=== PATIENT | female | born 1955 | race Caucasian/White ===

== ENCOUNTER → 2016-08-10 | Outpatient (CLI) | payer BC ==
--- NOTE | 2016-08-11 09:14 | XR ---
EXAMINATION TYPE: XR hand complete LT DATE OF EXAM: 08/10/2016 5:04 PM COMPARISON: NONE HISTORY: Pain TECHNIQUE: Three views are submitted. FINDINGS: The osseous structures are intact. Narrowing of the PIP and DIP joints of all digits with no erosive changes. Mild narrowing of the MCP joints. There is more moderate to severe narrowing the first carpal metacarpal joint. Mild diffuse osteopenia . IMPRESSION: 1. Diffuse arthropathy with most marked changes involving the first carpal metacarpal joint in a ajay blake most typical of osteoarthritis.
== END | disposition home or self-care (01) ==
LOC: RADXRMAIN 16:47
PROVIDERS: ATTEND Orthopaedic Surgery
DX: M12.842 Other specific arthropathies, not elsewhere classified, left hand (principal)

== ENCOUNTER → 2016-08-10 | Outpatient (CLI) | payer BC ==
[2016-08-10 17:44] LABS: CH 30.5; CHCM 33.6; HCT 40.1 % (34.0-46.0); HDW 2.74; HGB 13.6 gm/dL (11.4-16.0); MCH 30.9 pg (25.0-35.0); MCHC 33.8 g/dL (31.0-37.0); MCV 91.4 fL (80.0-100.0); Mean Platelet Volume 7.6; RBC 4.39 m/uL (3.80-5.40); RDW 13.7 % (11.5-15.5); WBC 5.1 k/uL (3.8-10.6)
[2016-08-10 17:52] LABS: ALT 51 U/L (9-52); AST 42 U/L (14-36); Alkaline Phosphatase 77 U/L (38-126); Anion Gap 11 mmol/L; Blood Urea Nitrogen 18 mg/dL (7-17); Calcium 9.7 mg/dL (8.4-10.2); Carbon Dioxide 29 mmol/L (22-30); Chloride 105 mmol/L (98-107); Glucose 125 mg/dL (74-99); Magnesium 1.9 mg/dL (1.6-2.3); Non-African American GFR(MDRD) 56 (>60 ml/min/1.73 sqM); Potassium 4.2 mmol/L (3.5-5.1); Sodium 145 mmol/L (137-145); Total Bilirubin 0.6 mg/dL (0.2-1.3); Total Protein 7.3 g/dL (6.3-8.2)
[2016-08-12 15:10] LABS: Hepatits C Virus RNA, Quant <12 IU/mL (<12); LOG HCV IU/mL <1.08 (<1.08)
== END ==
LOC: LABWHC1 17:14
PROVIDERS: ATTEND Family Medicine
DX: B19.20 Unspecified viral hepatitis C without hepatic coma (principal); E03.9 Hypothyroidism, unspecified; T14.8 Other injury of unspecified body region
CPT/HCPCS: 36415; 80053; 82105; 82378; 83735; 84443; 84481; 85027; 87522

== ENCOUNTER → 2017-08-11 | Outpatient (CLI) | payer BC ==
[2017-08-11 15:34] LABS: HCT 41.5 % (34.0-46.0); HGB 13.4 gm/dL (11.4-16.0); MCHC 32.4 g/dL (31.0-37.0); MCV 89.6 fL (80.0-100.0); Mean Platelet Volume 8.6; Platelet Count 242 k/uL (150-450); RBC 4.63 m/uL (3.80-5.40); RDW 13.2 % (11.5-15.5)
[2017-08-12 14:44] LABS: Hepatits C Virus RNA Not detected (Not detected); Hepatits C Virus RNA, Quant <12 IU/mL (<12); LOG HCV IU/mL <1.08 (<1.08)
== END ==
LOC: LABWHC1 14:40
PROVIDERS: ATTEND Internal Medicine Gastroenterology
DX: B18.2 Chronic viral hepatitis C (principal); K21.9 Gastro-esophageal reflux disease without esophagitis; I21.9 Acute myocardial infarction, unspecified; I10 Essential (primary) hypertension; E03.9 Hypothyroidism, unspecified; Z88.0 Allergy status to penicillin
CPT/HCPCS: 36415; 85027; 87522

== ENCOUNTER → 2017-11-09 | Outpatient (CLI) | payer BC | END | disposition home or self-care (01) | LOC: LABWHC1 11:04 | PROVIDERS: ATTEND Orthopaedic Surgery | DX: E55.9 Vitamin D deficiency, unspecified (principal) | CPT/HCPCS: 36415; 82306 ==

== ENCOUNTER → 2018-02-28 | Outpatient (CLI) | payer BC ==
--- NOTE | 2018-02-28 11:28 | US ---
EXAMINATION TYPE: US abdomen complete DATE OF EXAM: 02/28/2018 COMPARISON: Prior ultrasound kidneys 08/28/2014, 05/23/2013 CLINICAL HISTORY: GERD. EXAM MEASUREMENTS: Liver Length: 18.5 cm Gallbladder Wall: 0.2 cm CBD: 0.5 cm Spleen: 10.8 cm Right Kidney: 12.2 x 3.7 x 4.8 cm Left Kidney: 11.2 x 4.4 x 4.7 cm Pancreas: Tail obscured by overlying bowel gas, visualized portions wnl Liver: Increased attenuation, decreased visualization of vessels suggestive of fatty infiltrate. Enl arged Gallbladder: wnl Evidence for sonographic Khan's sign: No CBD: wnl as visualized Spleen: wnl Right Kidney: No hydronephrosis or masses seen Left Kidney: No hydronephrosis. Nodular contour Upper IVC: wnl as visualized Abd Aorta: Severe atherosclerotic changes visualized, difficult and limited visualization due to ove rlying bowel gas IMPRESSION: Findings suggest hepatic steatosis, hepatomegaly. Suspect atherosclerotic changes within the abdominal aorta. There are limitations the exam. Nodular contour seen within the left kidney is s table.
== END | disposition home or self-care (01) ==
LOC: RADUSWWP 08:54
PROVIDERS: ATTEND Internal Medicine Gastroenterology
DX: K21.9 Gastro-esophageal reflux disease without esophagitis (principal)
CPT/HCPCS: 76700

== ENCOUNTER → 2018-03-15 | Outpatient (CLI) | payer BC ==
[2018-03-16 04:51] LABS: Albumin 5.1 g/dL (3.80-4.90); Albumin/Globulin Ratio 2.43 (1.20-2.10); Bilirubin, Conjugated 0.2 mg/dL (0.20-0.40); Bilirubin,Unconjugated 0.3 mg/dL; Globulin 2.1 g/dL (2.1-3.7); Total Bilirubin 0.5 mg/dL (0.2-1.2); Total Protein 7.2 g/dL (6.2-8.2)
== END | disposition home or self-care (01) ==
LOC: LABWHC1 17:04
PROVIDERS: ATTEND Internal Medicine Gastroenterology
DX: K76.0 Fatty (change of) liver, not elsewhere classified (principal)
CPT/HCPCS: 36415; 80076

== ENCOUNTER → 2018-06-23 | Outpatient (CLI) | payer BC ==
[2018-06-24 01:42] LABS: Bilirubin, Conjugated 0.2 mg/dL (0.20-0.40); Bilirubin,Unconjugated 0.3 mg/dL; Total Bilirubin 0.5 mg/dL (0.2-1.2)
== END | disposition home or self-care (01) ==
LOC: LABWHC1 16:49
PROVIDERS: ATTEND Internal Medicine Gastroenterology
DX: K76.0 Fatty (change of) liver, not elsewhere classified (principal); B18.2 Chronic viral hepatitis C; Z88.0 Allergy status to penicillin; Z88.8 Allergy status to other drugs, medicaments and biological substances
CPT/HCPCS: 36415; 82248; 84075; 84450; 84460

== ENCOUNTER → 2018-07-05 | Outpatient (CLI) | payer BC ==
[2018-07-05 12:32] LABS: Basophils # (A) 0.1 k/uL (0-0.2); Basophils % (A) 1 %; Eosinophils # (A) 0.2 k/uL (0-0.7); Eosinophils % (A) 4 %; HCT 39.1 % (34.0-46.0); HGB 12.6 gm/dL (11.4-16.0); Lymphocytes # (A) 1.7 k/uL (1.0-4.8); Lymphocytes % (A) 35 %; MCH 29.3 pg (25.0-35.0); MCHC 32.2 g/dL (31.0-37.0); MCV 91.1 fL (80.0-100.0); Mean Platelet Volume 7.5; Monocytes # (A) 0.2 k/uL (0-1.0); Monocytes % (A) 5 %; Neutrophils # (A) 2.5 k/uL (1.3-7.7); Neutrophils % (A) 54 %; Platelet Count 226 k/uL (150-450); RBC 4.29 m/uL (3.80-5.40); RDW 13.9 % (11.5-15.5); WBC 4.7 k/uL (3.8-10.6)
[2018-07-05 19:06] LABS: Albumin 4.6 g/dL (3.80-4.90); Albumin/Globulin Ratio 2.42 (1.60-3.17); Anion Gap 8.7 mmol/L (4.00-12.00); Calcium 9.4 mg/dL (8.7-10.3); Carbon Dioxide 29.3 mmol/L (21.6-31.8); Globulin 1.9 g/dL (1.6-3.3); Total Bilirubin 0.6 mg/dL (0.2-1.2); Total Protein 6.5 g/dL (6.2-8.2)
[2018-07-05 21:55] LABS: ACTH 14.5 pg/mL (0.00-45.99)
[2018-07-05 22:44] LABS: C-Peptide 2.75 ng/mL (0.81-3.85)
== END | disposition home or self-care (01) ==
LOC: LABWHC1 11:45
PROVIDERS: ATTEND Internal Medicine Endocrinology, Diabetes & Metabolism
DX: E11.65 Type 2 diabetes mellitus with hyperglycemia (principal); R53.83 Other fatigue
CPT/HCPCS: 36415; 80053; 82024; 82533; 84146; 84443; 84681; 85025

== ENCOUNTER → 2018-10-27 | Outpatient (CLI) | payer BC ==
[2018-10-27 19:11] LABS: African American GFR (CKD) 61.4 (60.0-200.0); Albumin 4.7 g/dL (3.80-4.90); Albumin/Globulin Ratio 2.24 (1.60-3.17); Anion Gap 10.5 mmol/L (4.00-12.00); BUN/Creat Ratio 17.27 Ratio (12.00-20.00); Calcium 10.2 mg/dL (8.7-10.3); Carbon Dioxide 29.5 mmol/L (21.6-31.8); Globulin 2.1 g/dL (1.6-3.3); LDL Cholesterol,Calculated 63.6 mg/dL (0.0-131.0); Potassium 3.9 mmol/L (3.5-5.5); Total Bilirubin 0.7 mg/dL (0.3-1.2); Total Protein 6.8 g/dL (6.2-8.2); VLDL Calculation 25.4 mg/dL (5.00-40.00)
[2018-10-27 21:56] LABS: Hemoglobin A1C 6.2 % (4.0-6.0)
== END | disposition home or self-care (01) ==
LOC: LABWHC1 14:10
PROVIDERS: ATTEND Internal Medicine Endocrinology, Diabetes & Metabolism
DX: E11.9 Type 2 diabetes mellitus without complications (principal)
CPT/HCPCS: 36415; 80053; 80061; 82043; 82570; 83036; 84443

== ENCOUNTER → 2019-03-28 | Outpatient (CLI) | payer BC, MEDICARE ==
[2019-03-28 11:35] LABS: Appearance,Urine Cloudy (Clear); Bacteria,Urine Rare /hpf; Bilirubin,Urine Negative (Negative); Blood,Urine Negative (Negative); Calcium Oxalate Crystals,Urine Moderate /hpf; Color,Urine Yellow; Glucose,Urine (UA) Negative (Negative); Ketones,Urine Negative (Negative); Leukocyte Esterase,Urine Large (Negative); Mucus,Urine Moderate /hpf; Nitrite,Urine Negative (Negative); PH, Urine 6.5 (5.0-8.0); Protein,Urine Trace (Negative); Specific Gravity,Urine 1.027 (1.001-1.035); Squamous Epithelial Cell,Urine 1 /hpf (0-4); WBC,Urine 12 /hpf (0-5)
[2019-03-28 12:12] LABS: Basophils % (A) 1 %; Eosinophils # (A) 0.2 k/uL (0-0.7); Eosinophils % (A) 4 %; HCT 38.1 % (34.0-46.0); HGB 12.6 gm/dL (11.4-16.0); Lymphocytes # (A) 1.7 k/uL (1.0-4.8); Lymphocytes % (A) 38 %; MCH 30.1 pg (25.0-35.0); MCV 91.2 fL (80.0-100.0); Mean Platelet Volume 8.8; Monocytes # (A) 0.2 k/uL (0-1.0); Monocytes % (A) 5 %; Neutrophils # (A) 2.3 k/uL (1.3-7.7); Neutrophils % (A) 50 %; Platelet Count 221 k/uL (150-450); RBC 4.18 m/uL (3.80-5.40); RDW 12.9 % (11.5-15.5); WBC 4.5 k/uL (3.8-10.6)
[2019-03-28 14:09] LABS: Erythrocyte Sedimentation Rate 5 mm/hr (0-20)
[2019-03-28 16:13] LABS: ALT 24 U/L (8-44); AST 29 U/L (13-35); African American GFR (CKD) 68.5 (60.0-200.0); Albumin/Globulin Ratio 2.35 (1.60-3.17); Alkaline Phosphatase 59 U/L (41-126); C Reactive Protein <0.4 mg/dL (0.0-0.8); Calcium 9.9 mg/dL (8.7-10.3); Carbon Dioxide 29.8 mmol/L (21.6-31.8); Chloride 106 mmol/L (96-109); Chol/HDL Ratio 4.29; Cholesterol 133 mg/dL (0-200); Creatine Kinase 71 U/L (26-186); Glucose 116 mg/dL (70-110); LDL Cholesterol,Calculated 62.8 mg/dL (0.0-131.0); Magnesium 1.8 mg/dL (1.5-2.4); Non-African American GFR(CKD) 59.1 (60.0-200.0); Phosphorus 3.7 mg/dL (2.4-5.1); Potassium 3.9 mmol/L (3.5-5.5); Sodium 144 mmol/L (135-145); Total Bilirubin 0.6 mg/dL (0.3-1.2); Total Protein 6.7 g/dL (6.2-8.2); Uric Acid 5.3 mg/dL (2.9-7.7)
[2019-03-28 17:09] LABS: Hepatitis A Antibody IgM Non-Reactive (Non-Reactive); Hepatitis B Core IgM Non-Reactive (Non-Reactive); Hepatitis B Surface Antigen Non-Reactive (Non-Reactive); Hepatitis C IgG Antibody Reactive (Non-Reactive)
[2019-03-28 18:30] LABS: Urine Creatinine 225.2 mg/dL
[2019-03-28 19:31] LABS: Hemoglobin A1C 6.2 % (4.0-6.0)
== END | disposition home or self-care (01) ==
LOC: LABWHC1 10:17
PROVIDERS: ATTEND Internal Medicine
DX: E11.65 Type 2 diabetes mellitus with hyperglycemia (principal); E87.8 Other disorders of electrolyte and fluid balance, not elsewhere classified; M10.9 Gout, unspecified; D64.9 Anemia, unspecified; E78.5 Hyperlipidemia, unspecified; N39.0 Urinary tract infection, site not specified; E55.9 Vitamin D deficiency, unspecified; I95.9 Hypotension, unspecified; B18.2 Chronic viral hepatitis C; E11.9 Type 2 diabetes mellitus without complications
CPT/HCPCS: 36415; 80053; 80061; 80074; 81001; 82043; 82306; 82533; 82550; 82570; 83036; 83735; 84100; 84439; 84443; 84550; 84681; 85025; 85652; 86140

== ENCOUNTER → 2019-04-10 | Outpatient (CLI) | payer BC, MEDICARE | END | disposition home or self-care (01) | LOC: LABWHC1 15:25 | PROVIDERS: ATTEND Internal Medicine | DX: B19.20 Unspecified viral hepatitis C without hepatic coma (principal) | CPT/HCPCS: 36415; 87522 ==

== ENCOUNTER 2020-01-02 18:26 | Observation (INO) | payer MEDICARE, BC ==
[2020-01-02] MEDS ORDERED: NITROGLYCERIN SL TABS 0.4 MG TAB SUBLINGUAL STA ×3 (18:39)
[2020-01-02] MEDS ORDERED: NITROGLYCERIN OINT 1 INCH/GM PACKET TOPICAL STA (18:39)
[2020-01-02] MEDS ORDERED: ASPIRIN 81 MG PO STA (18:39)
--- NOTE | 2020-01-02 19:01 | ED ---
General Adult HPI - General Chief complaint: Chest Pain Stated complaint: chest pain Time Seen by Provider: 01/02/20 18:32 Source: patient, RN notes reviewed Mode of arrival: wheelchair Limitations: no limitations - History of Present Illness Initial comments: Patient is a pleasant 64-year-old female presenting to the emergency Department with complaints of chest discomfort. Onset of symptoms was around a half an hour ago after taking a walk. Patient has discomfort 8/10. Like pressure on the left breast without radiation. Mild associated dyspnea, nausea, and sweating. Symptoms are similar to previous heart attack however not as severe. No leg pain or leg swelling. Patient did take 2 nitro with transient improvement of symptoms. - Related Data Allergies Allergy/AdvReac Type Severity Reaction Status Date / Time prochlorperazine Allergy Unknown Verified 01/02/20 18:32 [From Compazine] Review of Systems ROS Statement: Those systems with pertinent positive or pertinent negative responses have been documented in the HPI. ROS Other: All systems not noted in ROS Statement are negative. Constitutional: Denies: fever Eyes: Denies: eye pain ENT: Denies: ear pain Respiratory: Denies: cough Cardiovascular: Reports: chest pain Endocrine: Denies: fatigue Gastrointestinal: Denies: abdominal pain Genitourinary: Denies: dysuria Musculoskeletal: Denies: back pain Skin: Denies: rash Neurological: Denies: weakness Past Medical History Past Medical History: Coronary Artery Disease (CAD), Diabetes Mellitus, H ypertension, Myocardial Infarction ([place]) Additional Past Medical History / Comment(s): glaucoma History of Any Multi-Drug Resistant Organisms: None Reported Past Surgical History: Section, Heart Catheterization With Stent Past Psychological History: No Psychological Hx Reported Smoking Status: Former smoker Past Alcohol Use History: None Reported Past Drug Use History: None Reported General Exam Limitations: no limitations General appearance: alert, in no apparent distress Head exam: Present: normocephalic Eye exam: Present: normal appearance Neck exam: Present: normal inspection Respiratory exam: Present: normal lung sounds bilaterally, chest wall tenderness Cardiovascular Exam: Present: regular rate, normal rhythm Expanded Peripheral pulses: 2+: Radial (R), Radial (L), Posterior Tibialis (R), Posterior Tibialis (L) GI/Abdominal exam: Present: soft. Absent: tenderness Extremities exam: Present: normal inspection. Absent: pedal edema, calf tenderness Neurological exam: Present: alert Psychiatric exam: Present: normal affect, normal mood Skin exam: Present: normal color Course Vital Signs 01/02/20 01/02/20 01/02/20 18:29 19:09 19:14 Temperature 98.3 F Pulse Rate 92 68 89 Respiratory 18 18 16 Rate Blood Pressure 207/99 172/93 162/87 O2 Sat by Pulse 99 96 96 Oximetry 01/02/20 01/02/20 01/02/20 19:19 19:23 20:30 Temperature Pulse Rate 87 90 82 Respiratory 18 16 20 Rate Blood Pressure 147/97 158/90 151/88 O2 Sat by Pulse 99 97 97 Oximetry EKG Findings - EKG Comments: EKG Findings:: Normal sinus rhythm 90. CT 152. QRS 92. QT 388. QTC 474. Normal axis. Septal Q waves. No acute ST change. Medical Decision Making - Medical Decision Making Patient reevaluated and improved, discomfort 2 or 06/26. Patient and family updated on results and plan. Case was discussed in detail with Dr. Sunita marley, who will admit his patient. - Lab Data Result diagrams: 01/02/20 19:42 01/02/20 19:00 Lab Results 01/02/20 01/02/20 01/02/20 Range/Units 19:00 19:00 19:00 WBC (3.8-10.6) k/uL RBC (3.80-5.40) m/uL Hgb (11.4-16.0) gm/dL Hct (34.0-46.0) % MCV (80.0-100.0) fL MCH (25.0-35.0) pg MCHC (31.0-37.0) g/dL RDW (11.5-15.5) % Plt Count (150-450) k/uL Neutrophils % % Lymphocytes % % Monocytes % % Eosinophils % % Basophils % % Neutrophils # (1.3-7.7) k/uL Lymphocytes # (1.0-4.8) k/uL Monocytes # (0-1.0) k/uL Eosinophils # (0-0.7) k/uL Basophils # (0-0.2) k/uL APTT (22.0-30.0) sec D-Dimer (<0.60) mg/L FEU Sodium 139 (137-145) mmol/L Potassium 4.4 (3.5-5.1) mmol/L Chloride 104 (98-107) mmol/L Carbon Dioxide 25 (22-30) mmol/L Anion Gap 10 mmol/L BUN 18 H (7-17) mg/dL Creatinine 0.78 (0.52-1.04) mg/dL Est GFR (CKD-EPI)AfAm >90 (>60 ml/min/1.73 sqM) Est GFR (CKD-EPI)NonAf 80 (>60 ml/min/1.73 sqM) Glucose 118 H (74-99) mg/dL Calcium 9.4 (8.4-10.2) mg/dL Magnesium 1.8 (1.6-2.3) mg/dL Total Bilirubin 0.8 (0.2-1.3) mg/dL AST 26 (14-36) U/L ALT 19 (4-34) U/L Alkaline Phosphatase 109 (38-126) U/L Troponin I <0.012 (0.000-0.034) ng/mL Total Protein 7.7 (6.3-8.2) g/dL Albumin 4.6 (3.5-5.0) g/dL 01/02/20 Range/Units 19:42 WBC 6.1 (3.8-10.6) k/uL RBC 4.86 (3.80-5.40) m/uL Hgb 13.5 (11.4-16.0) gm/dL Hct 42.0 (34.0-46.0) % MCV 86.5 (80.0-100.0) fL MCH 27.7 (25.0-35.0) pg MCHC 32.0 (31.0-37.0) g/dL RDW 12.9 (11.5-15.5) % Plt Count 188 (150-450) k/uL Neutrophils % 62 % Lymphocytes % 25 % Monocytes % 7 % Eosinophils % 4 % Basophils % 1 % Neutrophils # 3.8 (1.3-7.7) k/uL Lymphocytes # 1.5 (1.0-4.8) k/uL Monocytes # 0.4 (0-1.0) k/uL Eosinophils # 0.3 (0-0.7) k/uL Basophils # 0.0 (0-0.2) k/uL APTT (22.0-30.0) sec D-Dimer (<0.60) mg/L FEU Sodium (137-145) mmol/L Potassium (3.5-5.1) mmol/L Chloride (98-107) mmol/L Carbon Dioxide (22-30) mmol/L Anion Gap mmol/L BUN (7-17) mg/dL Creatinine (0.52-1.04) mg/dL Est GFR (CKD-EPI)AfAm (>60 ml/min/1.73 sqM) Est GFR (CKD-EPI)NonAf (>60 ml/min/1.73 sqM) Glucose (74-99) mg/dL Calcium (8.4-10.2) mg/dL Magnesium (1.6-2.3) mg/dL Total Bilirubin (0.2-1.3) mg/dL AST (14-36) U/L ALT (4-34) U/L Alkaline Phosphatase (38-126) U/L Troponin I (0.000-0.034) ng/mL Total Protein (6.3-8.2) g/dL Albumin (3.5-5.0) g/dL - Radiology Data Radiology results: image reviewed (Chest x-ray shows no acute process) Disposition Clinical Impression: Chest pain Disposition: ADMITTED IP TO THIS HOSP Is patient prescribed a controlled substance at d/c from ED?: No Referrals: Rocky Freeman MD [Primary Care Provider] - 1-2 days Decision Time: 20:49
[2020-01-02 19:20] LABS: ALT 19 U/L (4-34); AST 26 U/L (14-36); African American GFR (CKD) >90 (>60 ml/min/1.73 sqM); Albumin 4.6 g/dL (3.5-5.0); Alkaline Phosphatase 109 U/L (38-126); Anion Gap 10 mmol/L; Blood Urea Nitrogen 18 mg/dL (7-17); Calcium 9.4 mg/dL (8.4-10.2); Carbon Dioxide 25 mmol/L (22-30); Chloride 104 mmol/L (98-107); Glucose 118 mg/dL (74-99); Magnesium 1.8 mg/dL (1.6-2.3); Non-African American GFR(CKD) 80 (>60 ml/min/1.73 sqM); Potassium 4.4 mmol/L (3.5-5.1); Sodium 139 mmol/L (137-145); Total Bilirubin 0.8 mg/dL (0.2-1.3); Total Protein 7.7 g/dL (6.3-8.2)
--- NOTE | 2020-01-02 19:25 | XR ---
EXAMINATION TYPE: XR chest 2V DATE OF EXAM: 01/02/2020 COMPARISON: NONE HISTORY: Chest pain TECHNIQUE: 2 views FINDINGS: There is no heart failure nor confluent pneumonic infiltrate. Costophrenic angles are clear . Thoracic aorta is atheromatous. There are chest leads. IMPRESSION: No active cardiopulmonary disease. Normal heart.
[2020-01-02 19:46] LABS: Basophils % (A) 1 %; Eosinophils # (A) 0.3 k/uL (0-0.7); Eosinophils % (A) 4 %; HGB 13.5 gm/dL (11.4-16.0); Lymphocytes # (A) 1.5 k/uL (1.0-4.8); Lymphocytes % (A) 25 %; MCH 27.7 pg (25.0-35.0); MCV 86.5 fL (80.0-100.0); Mean Platelet Volume 8.3; Monocytes # (A) 0.4 k/uL (0-1.0); Monocytes % (A) 7 %; Neutrophils # (A) 3.8 k/uL (1.3-7.7); Neutrophils % (A) 62 %; Platelet Count 188 k/uL (150-450); RBC 4.86 m/uL (3.80-5.40); RDW 12.9 % (11.5-15.5); WBC 6.1 k/uL (3.8-10.6)
[2020-01-02] MEDS ORDERED: ACETAMINOPHEN TAB 325 MG TAB PO STA (20:26)
[2020-01-02 20:40] LABS: INR 1.1 (<1.2); Partial Thromboplastin Time 23.6 sec (22.0-30.0); Prothrombin Time 11.2 sec (9.0-12.0)
[2020-01-02 20:54] LABS: D-Dimer 0.74 mg/L FEU (<0.60)
[2020-01-02] MEDS ORDERED: NITROGLYCERIN SL TABS 0.4 MG TAB SUBLINGUAL PRN (20:56)
[2020-01-02] MEDS ORDERED: ALBUTEROL NEBULIZED 2.5 MG/3 ML INHALATION PRN (21:38)
--- NOTE | 2020-01-02 21:57 | CT ---
EXAMINATION TYPE: CT angio chest DATE OF EXAM: 01/02/2020 COMPARISON: None HISTORY: chest pain, hx IL, heart cath w/stent CT DLP: 430.1 mGycm Automated exposure control for dose reduction was used. CONTRAST: Performed with IV Contrast, patient injected with 100 mL of Isovue 370. There are 3-D post processed images. The lungs are clear of consolidation. There is mild subsegmental atelectasis at the lung bases. Heart is top normal in size. There is no pericardial effusion. There is no pleural effusion. 1 cm calcifie d granuloma is noted in the left upper lobe. There is no mediastinal adenopathy. Thoracic aorta is atheromatous. There are no hilar masses. There is no evidence of thoracic aortic aneurysm or dissection. There is normal contrast opacification of the pulmonary arteries. There are no filling defects. There is T7 anterior wedging 20% that appears old. IMPRESSION: Mild subsegmental atelectasis at the lung bases. No evidence of pulmonary embolism.
[2020-01-02] MEDS ORDERED: hydrALAZINE HCL 50 MG TAB PO STA (21:58)
[2020-01-02] MEDS ORDERED: ALPRAZolam 0.25 MG TAB PO PRN (22:00)
[2020-01-02] MEDS ORDERED: ACETAMINOPHEN TAB 325 MG TAB PO PRN (22:17)
[2020-01-02] MEDS: ATORVASTATIN 80 MG TAB PO SCH (22:54)
[2020-01-03 02:24] LABS: Cholesterol 122 mg/dL (<200); HDL Cholesterol 34 mg/dL (40-60); LDL Cholesterol,Calculated 63 mg/dL (0-99); Triglycerides 124 mg/dL (<150)
[2020-01-03] MEDS: NITROGLYCERIN OINT 1 INCH/GM PACKET TOPICAL SCH ×2 (04:09→06:31)
[2020-01-03] MEDS: carvediloL 12.5 MG TAB PO SCH ×2 (06:31→21:26)
[2020-01-03] MEDS: LEVOTHYROXINE 75 MCG TAB PO SCH (06:31)
[2020-01-03] MEDS ORDERED: AMINOPHYLLINE 500 MG/20 ML VIAL IV PRN (08:49)
[2020-01-03] MEDS ORDERED: CAFFEINE CITRATE 60 MG/3 ML VIAL IV PRN (08:49)
[2020-01-03] MEDS ORDERED: REGADENOSON 0.4 MG/5 ML SYRINGE IV ONE (08:49)
[2020-01-03] MEDS ORDERED: ASPIRIN 325 MG TAB PO SCH (09:00)
[2020-01-03] MEDS: buPROPion XL 300 MG TAB.ER.24H PO SCH (09:30)
[2020-01-03] MEDS: DULoxetine HCL 60 MG CAPSULE.DR PO SCH (09:30)
[2020-01-03] MEDS: PANTOPRAZOLE 40 MG TABLET PO SCH (09:30)
[2020-01-03] MEDS: ASPIRIN 81 MG PO SCH (09:30)
[2020-01-03] MEDS: valACYclovir HCL 1,000 MG TABLET PO SCH ×2 (09:30→21:28)
[2020-01-03] MEDS: VIT A,C & E-LUTEIN-MINERALS 1 EACH TAB PO SCH (09:30)
[2020-01-03] MEDS: lisinopriL 20 MG TAB PO SCH ×2 (09:30→21:27)
--- NOTE | 2020-01-03 10:21 | P.HPIM ---
History of Present Illness H&P Date: 01/03/20 (Chest pain, history of stent 1, UT, recent dizziness with gait imbalance.) Chief Complaint: Patient presented with the chest pain substernal and radiated to the left a Dictation of the history and physical date of service 01/03/2020. Patient presented to the emergency room with the complaint: Chest pain across the chest substernal radiated to the left arm and did not resolve with the nitroglycerin in her way to the ER, brought by her . History of present illness: Mrs. Oliver 64 years old white female , yesterday patient tried to catch her dog to prevent him from going to the neighbor, and and she has to run after the dog however she is dizzy, and she is able to bring the dog back home, after requested her chest pain arthritis in the middle of her chest precordial and across the chest with radiation to the neck, with a history that she had 1 stent and she had history of anteroseptal UT in the past. Her brought her to the emergency room where she was seen evaluated with Dr. Gong, and subsequently admitted on observation nuclear monitoring technician cardiac unit in room 331 bid 1. Her EKG was minimal elevation of ST segment in the V1 and V2 with the EKG indicating old anteroseptal, her troponin was normal on admission, and her chest x-ray was normal. Her d-dimer was minimally elevated and they proceed with CT angiogram to rule out PE, which was negative. Past medical history: Patient was seen in the office 2 days prior to the admissi on on Wednesday01/01/2020 with a history of severe imbalance dizziness which started on Wednesday prior to that visit which she almost 3 days, she wasn't able to walk except with teaching assistant of her to catch her toe fell down with the impression vestibular neuritis and labyrinthitis patient treated with Valtrex and antevert tablet. Patient stated that still dizzy and in imbalance apparently was not mentioned in the emergency room until seen in the floor. Because of the concern of her was associated with her chest pain. We'll be consulting neurology to evaluate. History of hypertension, depression, general anxiety disorder, hyperlipidemia, coronary artery disease and atherosclerotic heart disease and one stent was placed by Dr. BARKER equal opportunity representative. History of COPD and quit smoking. ALLERGY penicillin and prochlorperazine. Family history , occasional drink, quit smoking. Review of system: Reviewed the 14 bullet and main concern was dizziness, gait imbalance, chest pain with the past history of stent and UT. On the physical exam: Patient is conscious alert oriented occasionally forgetful. The head was done traumatic, pupil equal reactive, oropharynx multiple decayed tooth in the upper and the lower jaw and uvula midline. Chest: Mild increased anteroposterior diameter, normal breath sounds, no wheezes no rhonchi's. Heart: Regular sinus rhythm no chest pain at the time of exam. And no radiation to the arm or the neck. Abdomen: Soft positive bowel sounds no organ enlargement. Extremities: Positive pulses bilateral and symmetrical, no calf tenderness, popliteal and dorsalis pedis and posterior tibial intact. Neurologically: Gait imbalance with dizziness with minimal movement Assessment: #1 chest pain, consider unstable angina #2 so far troponin normal and EKG this morning is indicating old anterior septal UT. #2 underlying severe dizziness and imbalance etiology is unclear with the probability of vestibular neuritis. #3 hypertension we added lost night hydralazine 50 mg twice a day with the blood pressure was systolic 168. #4 depression and anxiety neurosis #5 history of COPD with quit smoking. #6 hyperlipidemia. Plan: #1 cardiology did order for further testing i.e. echo stress test. #2 ordered consultation with a neurologist for evaluation with the still gait imbalance and dizziness. #3 continue current treatment. #4 will wait for the conclusion between the neurologist and the equal opportunity representative. Past Medical History Past Medical History: Coronary Artery Disease (CAD), Diabetes Mellitus, Hypertension, Myocardial Infarction (UT) Additional Past Medical History / Comment(s): glaucoma, UT in 2003 Last Myocardial Infarction Date:: 2003 History of Any Multi-Drug Resistant Organisms: None Reported Past Surgical History: Section, Heart Catheterization With Stent Date of Last Stent Placement:: 2003 Past Psychological History: No Psychological Hx Reported Smoking Status: Former smoker Past Alcohol Use History: None Reported Past Drug Use History: None Reported Medications and Allergies Home Medications Medication Instructions Recorded Confirmed Type ALPRAZolam [Xanax] 0.25 mg PO DAILY PRN 01/02/20 01/02/20 History Albuterol Sulfate [Proair Hfa] 2 puff INHALATION RT-Q6H PRN 01/02/20 01/02/20 History Atorvastatin Calcium [Lipitor] 80 mg PO HS 01/02/20 01/02/20 History Carvedilol [Coreg] 12.5 mg PO BID 01/02/20 01/02/20 History DULoxetine HCL [Cymbalta] 120 mg PO DAILY 01/02/20 01/02/20 History Fenofibrate 160 mg PO DAILY 01/02/20 01/02/20 History Levothyroxine Sodium [Synthroid] 75 mcg PO DAILY 01/02/20 01/03/20 History Omeprazole 20 mg PO DAILY 01/02/20 01/02/20 History Vit C/E/Zn/Coppr/Lutein/Zeaxan 1 cap PO DAILY 01/02/20 01/02/20 History [Preservision Areds 2 Softgel] buPROPion XL [Wellbutrin Xl] 300 mg PO DAILY 01/02/20 01/02/20 History lisinopriL 20 mg PO BID 01/02/20 01/02/20 History valACYclovir HCL [Valtrex] 1,000 mg PO Q12HR 01/02/20 01/02/20 History Allergies Allergy/AdvReac Type Severity Reaction Status Date / Time Penicillins Allergy Swelling Verified 01/02/20 21:28 prochlorperazine Allergy Unknown Verified 01/02/20 21:28 [From Compazine] Physical Exam Vitals: Vital Signs Temp Pulse Pulse Resp BP BP Pulse Ox 01/03/20 08:15 97.8 F 71 16 128/74 96 01/03/20 06:28 154/76 01/03/20 03:00 97.5 F L 74 16 145/70 95 01/03/20 02:53 75 18 01/02/20 22:06 98.1 F 75 18 163/76 97 01/02/20 21:27 98.1 F 01/02/20 20:30 82 20 151/88 97 01/02/20 19:23 90 16 158/90 97 01/02/20 19:19 87 18 147/97 99 01/02/20 19:14 89 16 162/87 96 01/02/20 19:09 68 18 172/93 96 01/02/20 18:29 98.3 F 92 18 207/99 99 Intake and Output 01/02/20 01/03/20 01/03/20 22:59 06:59 14:59 Other: Voiding Method Toilet Toilet # Voids 1 Weight 70.307 kg Results CBC & Chem 7: 01/02/20 19:42 01/02/20 19:00 Labs: Abnormal Lab Results - Last 24 Hours (Table) 01/02/20 01/02/20 01/03/20 Range/Units 19:00 20:21 01:37 D-Dimer 0.74 H (<0.60) mg/L FEU BUN 18 H (7-17) mg/dL Glucose 118 H (74-99) mg/dL HDL Cholesterol 34 L (40-60) mg/dL Thrombosis Risk Factor Assmnt - Choose All That Apply Each Factor Represents 1 point: Acute UT Each Risk Factor Represents 2 Points: Age 61-74 years Thrombosis Risk Factor Assessment Total Risk Factor Score: 3 Thrombosis Risk Factor Assessment Level: Moderate Risk
--- NOTE | 2020-01-03 11:00 | ECHOF ---
Referral Reason:cp MEASUREMENTS -------- HEIGHT: 170.2 cm WEIGHT: 70.3 kg BP: 128/74 RVIDd: 2.8 cm (< 3.3) IVSd: 1.5 cm (0.6 - 1.1) LVIDd: 3.4 cm (3.9 - 5.3) LVPWd: 1.6 cm (0.6 - 1.1) IVSs: 1.8 cm LVIDs: 2.4 cm LVPWs: 1.9 cm LAESV Index (A-L): 36.31 ml/m Ao Diam: 2.5 cm (2.0 - 3.7) AV Cusp: 1.6 cm (1.5 - 2.6) MV EXCURSION: 16.144 mm (> 18.000) MV EF SLOPE: 66 mm/s (70 - 150) EPSS: 1.1 cm MV E Warren: 0.81 m/s MV DecT: 164 ms MV A Warren: 1.23 m/s MV E/A Ratio: 0.65 RAP: 5.00 mmHg RVSP: 15.99 mmHg FINDINGS -------- This was a technically difficult study with suboptimal apical views. The left ventricular size is normal. There is moderate concentric left ventricular hypertrophy. O verall left ventricular systolic function is mildly impaired with, an EF between 45 - 50 %. Mitral Doppler inflow pattern suggests diastolic filling abnormality 9.45. Mid anteroseptal LV wall motion is hypokinetic. Apical inferior LV wall motion is hypokinetic. Apical septum LV wall motion is hypokinetic. The right ventricle is normal in size. LA is moderately dilated 34-39 ml/m2 The right atrial size is normal. 5.0mg of Lumason was utilized for enhancement of images Interatrial and interventricular septum intact. The aortic valve is trileaflet and appears structurally normal. There is mild aortic valve sclerosi s. There is no evidence of aortic regurgitation. There is no evidence of aortic stenosis. [id number] mitral regurgitation is present. Mild tricuspid regurgitation present. There is no evidence of pulmonary hypertension. The right v entricular systolic pressure, as measured by Doppler, is 15.99mmHg. There is no pulmonic regurgitation present. The aortic root size is normal. IVC Not well visulized. There is no pericardial effusion. CONCLUSIONS -------- 1. The left ventricular size is normal. 2. There is moderate concentric left ventricular hypertrophy. 3. Overall left ventricular systolic function is mildly impaired with, an EF between 45 - 50 %. 4. Mitral Doppler inflow pattern suggest diastolic filling abnormality 9.45. 5. Mid anteroseptal LV wall motion is hypokinetic. 6. Apical inferior LV wall motion is hypokinetic. 7. Apical septum LV wall motion is hypokinetic. 8. LA is moderately dilated 34-39 ml/m2 9. There is mild aortic valve sclerosis. 10. [id number] mitral regurgitation is present. 11. Mild tricuspid regurgitation present. PSYCHIATRY INSTRUCTOR: Helen Knight RDCS
--- NOTE | 2020-01-03 11:45 | NM ---
EXAMINATION TYPE: NM stress lexiscan cardiolite DATE OF EXAM: 01/03/2020 COMPARISON: NONE HISTORY: Chest pain TECHNIQUE: After the intravenous administration of 9.3 mCi Tc 99m Sestamibi - Cardiolite resting SPE CT images acquired 50 minutes post injection. The patient received 0.4mg Lexiscan, 27.2 mCi Tc 99m Sestamibi - Stress images obtained [address] injection FINDINGS: Review of stress and rest SPECT images demonstrates fixed perfusion defect involving the anterior api geo and apex of the myocardium.. Gated analysis shows reduced wall motion with an estimated left adama tricular ejection fraction of 43 %. IMPRESSION: 1. Sizable matched defect involving the apex and anteroapical myocardium. There also is reduced myoca rdial wall motion and ejection fraction of only 43%..
--- NOTE | 2020-01-03 11:52 | P.CRDCN ---
History of Present Illness History of present illness: HISTORY OF PRESENTING ILLNESS This is a pleasant 64-year-old female past medical history significant for coronary artery disease and ascending of a myocardial infarction status post PCI to the LAD 2003, hypertension, dyslipidemia, chronic systolic heart failure and ischemic cardiomyopathy. She follows in the office with Dr. Pimentel. We have been asked to see in consultation for chest pain. States yesterday after she finished walking her dog she felt a pressure sensation under the left breast. There was no radiation to the back, arm, neck or jaw. She felt she was mildly diaphoretic and nauseated. It is not associated with shortness of breath, dizziness, palpitations or vomiting. The discomfort has resolved. She's had no further symptoms of chest discomfort since arriving at the hospital. DIAGNOSTICS EKG reveals sinus mechanism with poor R-wave progression nonspecific ST abnormalities in inferior laterally with LVH. Chest xray negative for acute cardiopulmonary process. CTA reveals mild subsegmental atelectasis at the lung bases with no evidence of pulmonary embolism and erythematous thoracic aorta with no aneurysm or dissection. Laboratory reviewed, CBC unremarkable, d-dimer 0.74, sodium 139, potassium 4.4, creatinine 0.78, cardiac enzymes negative 3, LDL 63. Current cardiac medications include atorvastatin 80 mg daily, carvedilol 12.5 mg twice a day, fenofibrate 160 mg daily and lisinopril 20 mg twice a day. Most recent echocardiogram obtained in the office September 2017 revealed impaired LV systolic function with ejection fraction 40-45%, akinesia of the septum at the apex and also the apical inferior and anterior bowers, mildly dilated left atrium and LVH. Most recent stress test performed in the office in 2018 was a Cardiolite stress test revealing a medium sized fixed perfusion defect in the anterior apical and apical septal segment suggestive of prior [place] with ejection fraction of 58% as well as apical septal hypokinesia and no reversibility. REVIEW OF SYSTEMS At the time of my exam: CONSTITUTIONAL: Denies fever or chills. CARDIOVASCULAR: Denies chest pain, shortness of breath, orthopnea, PND or palpitations. RESPIRATORY: Denies cough. GASTROINTESTINAL: Denies abdominal pain, diarrhea, constipation, nausea or vomiting. MUSCULOSKELETAL: Denies myalgias. NEUROLOGIC: Denies numbness, tingling or weakness. ENDOCRINE: Denies fatigue, weight change, polydipsia or polyurina. GENITOURINARY: Denies burning, hematuria or urgency with micturation. HEMATOLOGIC: Denies history of anemia or bleeding. PHYSICAL EXAMINATION Blood pressure 128/74 heart rate 71 afebrile and maintaining oxygen saturation on room air. CONSTITUTIONAL: No apparent distress. HEENT: Head is normocephalic. Pupils are equal, round. Sclerae anicteric. Mucous membranes of the mouth are moist. No JVD. No carotid bruit. CHEST EXAMINATION: Lungs are clear to auscultation. No chest wall tenderness is noted on palpation or with deep breathing. HEART EXAMINATION: Regular rate and rhythm. S1, S2 heard. No murmurs, gallops or rub. ABDOMEN: Soft, nontender. Positive bowel sounds. EXTREMITIES: 2+ peripheral pulses, no lower extremity edema and no calf tenderne ss. NEUROLOGIC EXAMINATION: Patient is awake, alert and oriented x3. ASSESSMENT Chest pain, an acute coronary event has been ruled out Chronic systolic heart failure, clinically euvolemic Ischemic cardiomyopathy History of coronary artery disease in the setting of an acute myocardial infarction in 2003 status post PCI to the LAD Hypertension Dyslipidemia PLAN An acute coronary event has been ruled out. Obtain 2-D echocardiogram and Doppler study to assess cardiac structure and function. Perform Lexiscan stress test to assess for reversible cardiac ischemia. Discontinue fenofibrate. Initiate aspirin 81 mg daily. If stress test is abnormal we will consider coronary angiography. Taking kindly for this consultation. Nurse Practitioner note has been reviewed, I agree with a documented findings and plan of care. Patient was seen and examined. Past Medical History Past Medical History: Coronary Artery Disease (CAD), Diabetes Mellitus, Hypertension, Myocardial Infarction ([place]) Additional Past Medical History / Comment(s): glaucoma, [place] in 2003 Last Myocardial Infarction Date:: 2003 History of Any Multi-Drug Resistant Organisms: None Reported Past Surgical History: Section, Heart Catheterization With Stent Date of Last Stent Placement:: 2003 Past Psychological History: No Psychological Hx Reported Smoking Status: Former smoker Past Alcohol Use History: None Reported Past Drug Use History: None Reported Medications and Allergies Home Medications Medication Instructions Recorded Confirmed Type ALPRAZolam [Xanax] 0.25 mg PO DAILY PRN 01/02/20 01/02/20 History Albuterol Sulfate [Proair Hfa] 2 puff INHALATION RT-Q6H PRN 01/02/20 01/02/20 History Atorvastatin Calcium [Lipitor] 80 mg PO HS 01/02/20 01/02/20 History Carvedilol [Coreg] 12.5 mg PO BID 01/02/20 01/02/20 History DULoxetine HCL [Cymbalta] 120 mg PO DAILY 01/02/20 01/02/20 History Fenofibrate 160 mg PO DAILY 01/02/20 01/02/20 History Levothyroxine Sodium [Synthroid] 75 mcg PO DAILY 01/02/20 01/03/20 History Omeprazole 20 mg PO DAILY 01/02/20 01/02/20 History Vit C/E/Zn/Coppr/Lutein/Zeaxan 1 cap PO DAILY 01/02/20 01/02/20 History [Preservision Areds 2 Softgel] buPROPion XL [Wellbutrin Xl] 300 mg PO DAILY 01/02/20 01/02/20 History lisinopriL 20 mg PO BID 01/02/20 01/02/20 History valACYclovir HCL [Valtrex] 1,000 mg PO Q12HR 01/02/20 01/02/20 History Allergies Allergy/AdvReac Type Severity Reaction Status Date / Time Penicillins Allergy Swelling Verified 01/02/20 21:28 prochlorperazine Allergy Unknown Verified 01/02/20 21:28 [From Compazine] Physical Exam Vitals: Vital Signs Temp Pulse Pulse Resp BP BP Pulse Ox 01/03/20 08:15 97.8 F 71 16 128/74 96 01/03/20 06:28 154/76 01/03/20 03:00 97.5 F L 74 16 145/70 95 01/03/20 02:53 75 18 01/02/20 22:06 98.1 F 75 18 163/76 97 01/02/20 21:27 98.1 F 01/02/20 20:30 82 20 151/88 97 01/02/20 19:23 90 16 158/90 97 01/02/20 19:19 87 18 147/97 99 01/02/20 19:14 89 16 162/87 96 01/02/20 19:09 68 18 172/93 96 01/02/20 18:29 98.3 F 92 18 207/99 99 Intake and Output 01/02/20 01/03/20 01/03/20 22:59 06:59 14:59 Intake Total 0 Balance 0 Intake: Oral 0 Other: Voiding Method Toilet Toilet # Voids 1 1 Weight 70.307 kg 70.31 kg Results 01/02/20 19:42 01/02/20 19:00 Cardiac Enzymes 01/02/20 01/02/20 01/02/20 Range/Units 19:00 19:00 22:20 AST 26 (14-36) U/L Troponin I <0.012 <0.012 (0.000-0.034) ng/mL 01/03/20 Range/Units 01:37 AST (14-36) U/L Troponin I <0.012 (0.000-0.034) ng/mL Coagulation 01/02/20 01/02/20 Range/Units 19:00 20:21 PT 11.2 (9.0-12.0) sec APTT 23.6 (22.0-30.0) sec Lipids 01/03/20 Range/Units 01:37 Triglycerides 124 (<150) mg/dL Cholesterol 122 (<200) mg/dL HDL Cholesterol 34 L (40-60) mg/dL CBC 01/02/20 Range/Units 19:42 WBC 6.1 (3.8-10.6) k/uL RBC 4.86 (3.80-5.40) m/uL Hgb 13.5 (11.4-16.0) gm/dL Hct 42.0 (34.0-46.0) % Plt Count 188 (150-450) k/uL Comprehensive Metabolic Panel 01/02/20 Range/Units 19:00 Sodium 139 (137-145) mmol/L Potassium 4.4 (3.5-5.1) mmol/L Chloride 104 (98-107) mmol/L Carbon Dioxide 25 (22-30) mmol/L BUN 18 H (7-17) mg/dL Creatinine 0.78 (0.52-1.04) mg/dL Glucose 118 H (74-99) mg/dL Calcium 9.4 (8.4-10.2) mg/dL AST 26 (14-36) U/L ALT 19 (4-34) U/L Alkaline Phosphatase 109 (38-126) U/L Total Protein 7.7 (6.3-8.2) g/dL Albumin 4.6 (3.5-5.0) g/dL Current Medications Generic Name Dose Route Start Last Admin Trade Name Freq PRN Reason Stop Dose Admin Acetaminophen 650 mg 01/02/20 22:17 Acetaminophen Tab 325 Mg Tab PO Q6HR PRN Fever and/ or Pain Albuterol Sulfate 2.5 mg 01/02/20 21:38 Albuterol Nebulized 2.5 Mg/3 Ml INHALATION RT-Q6H PRN Shortness Of Breath Alprazolam 0.25 mg 01/02/20 22:00 Alprazolam 0.25 Mg Tab PO DAILY PRN Anxiety Aminophylline 100 mg 01/03/20 08:49 Aminophylline 500 Mg/20 Ml Vial IV 01/04/20 08:50 ONCE PRN Patient Response Aspirin 81 mg 01/03/20 09:00 Aspirin 81 Mg PO DAILY [facility] Atorvastatin Calcium 80 mg 01/02/20 22:00 01/02/20 22:54 Atorvastatin 80 Mg Tab PO 80 mg HS KRISTAL Administration Bupropion HCl 300 mg 01/03/20 09:00 Bupropion Xl 300 Mg Tab.Er.24h PO DAILY [facility] Caffeine Citrate 60 mg 01/03/20 08:49 Caffeine Citrate 60 Mg/3 Ml Vial IV 01/04/20 08:50 ONCE PRN Patient Response Carvedilol 12.5 mg 01/03/20 07:30 01/03/20 06:31 Carvedilol 12.5 Mg Tab PO 12.5 mg BID-W/MEALS KRISTAL Administration Duloxetine HCl 120 mg 01/03/20 09:00 Duloxetine Hcl 60 Mg Capsule.Dr PO DAILY [facility] Levothyroxine Sodium 75 mcg 01/03/20 06:30 01/03/20 06:31 Levothyroxine 75 Mcg Tab PO 75 mcg DAILY@0630 [facility] Administration Lisinopril 20 mg 01/03/20 09:00 Lisinopril 20 Mg Tab PO BID [facility] Multivitamins/Minerals 1 each 01/03/20 09:00 Vit A,C & E-Vebmif-Howthcbr 1 Each Tab PO DAILY [facility] Nitroglycerin 0.4 mg 01/02/20 20:56 Nitroglycerin Sl Tabs 0.4 Mg Tab SUBLINGUAL Q5M PRN Chest Pain Pantoprazole Sodium 40 mg 01/03/20 09:00 Pantoprazole 40 Mg Tablet PO DAILY [facility] Valacyclovir HCl 1,000 mg 01/03/20 09:00 Valacyclovir Hcl 1,000 Mg Tablet PO Q12HR KRISTAL Intake and Output 01/02/20 01/03/20 01/03/20 22:59 06:59 14:59 Intake Total 0 Balance 0 Intake: Oral 0 Other: Voiding Method Toilet Toilet # Voids 1 1 Weight 70.307 kg 70.31 kg Patient Weight 01/04/20 06:59 Weight 70.31 kg 01/02/20 19:42 01/02/20 19:00
--- NOTE | 2020-01-03 14:11 | P.CNNES ---
History of Present Illness Consult date: 01/03/20 Requesting physician: Rocky Freeman Reason for Consult: Dizziness History of Present Illness: Patient is a 64-year-old female came to the ER yesterday at 6:30 PM for chest discomfort, associated with dyspnea nausea and sweating. Neurology was consulted for gait imbalance and dizziness. Patient states yesterday at 5:30 PM she started noticing chest pain which was constant. She checked her blood pressure was 255/160. She took nitro, which did not help. Patient did not have any focal neurological symptoms except for dizziness for 1 week. Patient came to the ER. Vital signs on arrival was blood pressure 207/99, pulse rate 92, temperature 98.3. Chest x-ray showed no active cardiopulmonary disease. EKG shows normal sinus rhythm, anterolateral infarct, age indeterminate. CT angios of the chest showed mild subsegmental atelectasis at the lung bases. No evidence of coronary embolism. 2-D echo showed left- ventricular size is normal. Moderate concentric LVH. EF is 45-50%. Mid anterior septal left-ventricular wall motion is hypokinetic. Apical inferior and apical septal left-ventricular wall motion is hypokinetic. Left atrium is moderately dilated. Mild aortic valve sclerosis. Mild to moderate MR. Patient's blood test shows normal CBC, PT/PTT. Chem-20. Troponin negative. Total cholesterol 122, LDL 63, HDL 34 and triglycerides 124. Patient does take Lipitor 80 mg at home but does not seem to be taking antiplatelet medication. Patient has been started on aspirin 81 mg Lipitor 80 mg. Patient states that for the last 1 year she has problems with balance. She stumbles, and if she trips, she keeps on going and falls face forward. She feels she walks like a shuffle. If these nothing to hold off, has to go slow and shuffles. She had fell about 4 times in the last 1 year. Besides that she has numerous near falls, that she caught herself. Patient states that she has numbness of the toes of both feet all the time for last 1 year. She gets occasional numbness in the fingers but not constant. Patient denies any tremors. Patient admits to having neck pain most of the time, which she rates 6/10 and also has chronic back pain related to degenerative disc disease. Patient has significant urgency and often leaks urine. Patient had history of diabetes, but then the diabetes became very well controlled and she was taken off diabetic medication. She has hypertension since 20s. She has smoked half pack per day for 25 years, quit 26 years ago. She drinks alcohol very occasionally. Review of Systems As mentioned above in detail. Denies any focal slurred speech, double vision, loss of vision. Denies any abdominal pain nausea vomiting diarrhea. Patient has significant urgency, and often leaks urine if she does not make it to the bathroom. Patient did have chest pain as mentioned in the HPI. All other review of systems unremarkable. Past Medical History Past Medical History: Coronary Artery Disease (CAD), Diabetes Mellitus, Hypertension, Myocardial Infarction ([place]) Additional Past Medical History / Comment(s): glaucoma, [place] in 2003 Last Myocardial Infarction Date:: 2003 History of Any Multi-Drug Resistant Organisms: None Reported Past Surgical History: Section, Heart Catheterization With Stent Date of Last Stent Placement:: 2003 Past Psychological History: No Psychological Hx Reported Smoking Status: Former smoker Past Alcohol Use History: None Reported Past Drug Use History: None Reported Medications and Allergies Home Medications Medication Instructions Recorded Confirmed Type ALPRAZolam [Xanax] 0.25 mg PO DAILY PRN 01/02/20 01/02/20 History Albuterol Sulfate [Proair Hfa] 2 puff INHALATION RT-Q6H PRN 01/02/20 01/02/20 History Atorvastatin Calcium [Lipitor] 80 mg PO HS 01/02/20 01/02/20 History Carvedilol [Coreg] 12.5 mg PO BID 01/02/20 01/02/20 History DULoxetine HCL [Cymbalta] 120 mg PO DAILY 01/02/20 01/02/20 History Fenofibrate 160 mg PO DAILY 01/02/20 01/02/20 History Levothyroxine Sodium [Synthroid] 75 mcg PO DAILY 01/02/20 01/03/20 History Omeprazole 20 mg PO DAILY 01/02/20 01/02/20 History Vit C/E/Zn/Coppr/Lutein/Zeaxan 1 cap PO DAILY 01/02/20 01/02/20 History [Preservision Areds 2 Softgel] buPROPion XL [Wellbutrin Xl] 300 mg PO DAILY 01/02/20 01/02/20 History lisinopriL 20 mg PO BID 01/02/20 01/02/20 History valACYclovir HCL [Valtrex] 1,000 mg PO Q12HR 01/02/20 01/02/20 History Allergies Allergy/AdvReac Type Severity Reaction Status Date / Time Penicillins Allergy Swelling Verified 01/02/20 21:28 prochlorperazine Allergy Unknown Verified 01/02/20 21:28 [From Compazine] Physical Examination - Vital Signs Vital Signs: Vital Signs Temp Pulse Pulse Resp BP BP Pulse Ox 01/03/20 08:15 97.8 F 71 16 128/74 96 01/03/20 06:28 154/76 01/03/20 03:00 97.5 F L 74 16 145/70 95 01/03/20 02:53 75 18 01/02/20 22:06 98.1 F 75 18 163/76 97 01/02/20 21:27 98.1 F 01/02/20 20:30 82 20 151/88 97 01/02/20 19:23 90 16 158/90 97 01/02/20 19:19 87 18 147/97 99 01/02/20 19:14 89 16 162/87 96 01/02/20 19:09 68 18 172/93 96 01/02/20 18:29 98.3 F 92 18 207/99 99 Intake and Output 01/02/20 01/03/20 01/03/20 22:59 06:59 14:59 Intake Total 0 Balance 0 Intake: Oral 0 Other: Voiding Method Toilet Toilet # Voids 1 1 Weight 70.307 kg 70.31 kg On examination patient is an elderly female, in no acute distress. Patient is alert awake oriented to time place and person. Speech and language functions are normal. Attention and concentration fund of knowledge is adequate. On cranial nerve examination pupils are round and reactive to light, visual anderson are full on confrontation, extraocular muscles are intact with no nystagmus. Face is symmetric, tongue protrudes the midline. Palatal elevation and sensation normal. Hearing and shoulder shrug normal. On muscle strength testing there is no pronator drift and the strength is normal in arms and legs distally and proximally. Reflexes are 1+ to 2 in the upper limbs, 3 at the knees, trace at ankles and plantars are possibly upgoing bilaterally. Sensory touch is equal. Patient has mild ataxia for [id number] on the left. She has mild ataxia for [id number] testing. Sensory touch is equal. Tone and bulk of muscles normal. Patient walked in the room. She has no balance. Patient legs scissors when she walks. Patient could not walk on her toes or heels or tandem. Romberg is strongly positive. There is no carotid bruit or murmur or S3-S4 audible peripheral pulses present. Chest is clear. Abdomen soft nontender. Results - Laboratory Findings CBC and BMP: 01/02/20 19:42 01/02/20 19:00 Abnormal Lab Findings: Abnormal Labs 01/02/20 01/02/20 01/03/20 19:00 20:21 01:37 D-Dimer 0.74 H BUN 18 H Glucose 118 H HDL Cholesterol 34 L Assessment and Plan Assessment: * 64-year-old female admitted with chest pain and dizziness, likely related to uncontrolled blood pressure/hypertensive urgency. * 1 year history of gait imbalance. Patient does have numbness of the toes of both feet. Examination revealed brisk reflexes at the knees and upper limbs and bilateral Babinski. Patient also has urinary urgency and some incontinence at times. Rule out cervical, lumbar or thoracic spinal stenosis. Rule out B12 deficiency or peripheral neuropathy. Examination revealed no signs of parkinsonism. * History of diabetes, well controlled, off antidiabetic medication * Hypertension * History of hepatitis C. Plan: * CT scan of head to rule out hydrocephalus or other structural abnormalities. * B12, folate, hemoglobin A1c. * Patient has very poor balance, very high fall risk. Patient will undergo an MRI of cervical, thoracic and lumbar spine without contrast to rule out spinal stenosis. * Suggest PT OT evaluate gait. Patient probably will need an assistive device. * Patient may need EMG and nerve conduction studies of lower extremities to rule out peripheral neuropathy. This can be done as an outpatient.
--- NOTE | 2020-01-03 14:50 | EST ---
EXERCISE STRESS AGE: 64 SEX: F HT: 5'7" WT: 155 lbs. PROTOCOL: Lexiscan STAGE: DURATION OF EXERCISE: HEART RATE REST: 71 BLOOD PRESSURE REST: 156/85 MAXIMUM HEART RATE ACHIEVED: 85 MAXIMUM BLOOD PRESSURE: 164/82 85% MPHR: 100% MPHR: METS: INDICATIONS: DIZZINESS. CLINICAL INFORMATION: Baseline EKG revealed normal sinus rhythm with evidence of old anteroseptal myocardial infarction. With Lexiscan administration, heart rate changed from 71-85 beats per minute, blood pressure changed from 156/85 to 160/81. Patient did not have significant symptoms. Resting EKG had inferolateral nonspecific ST abnormality which persisted making this an inconclusive Lexiscan stress test because of resting EKG changes. The nuclear scan results which are more pertinent will be reported by the radiologist. BARRY / TJN: [id number] /
--- NOTE | 2020-01-03 15:17 | CT ---
EXAMINATION TYPE: CT brain wo con DATE OF EXAM: 01/03/2020 HISTORY: Dizziness, imbalance CT DLP: 961.00 mGycm. Automated Exposure Control for Dose Reduction was Utilized. TECHNIQUE: CT scan of the head is performed without contrast. COMPARISON: None. FINDINGS: There is no acute intracranial hemorrhage or midline shift identified. There is diffuse v entricular and sulcal prominence consistent with diffuse age-related cerebral atrophy. There is low- attenuation in the periventricular white matter consistent with chronic small vessel ischemic change. The globes are intact and the visualized sinuses are clear. No suspicious opacification mastoid ai r cells. IMPRESSION: No acute intracranial hemorrhage or midline shift. There is mild diffuse age-related ce rebral atrophy and chronic small vessel ischemic change noted.
[2020-01-03 20:15] LABS: Hemoglobin A1C 6.4 % (4.0-6.0)
--- NOTE | 2020-01-03 20:18 | MR ---
EXAMINATION TYPE: MR cspine/tspine/lspine wo con DATE OF EXAM: 01/03/2020 COMPARISON: MRI scan cervical spine 10/26/2012 HISTORY: Frequent falls, spasticity, neck back pain TECHNIQUE: Multiplanar multiecho imaging of the cervical thoracic and lumbar spine was performed with out contrast. FINDINGS: Cervical vertebra have normal alignment. There is mild narrowing of disc spaces from C4 to C7. There is posterior disc herniation at C5-6 and C6-7. There is some mild facet arthropathy. There is 6 mm sp inal stenosis at C5-6 due to disc herniation and facet arthropathy. There is no evidence of edema in the cervical cord. There is no cervical compression fracture. Brainstem appears intact. Spinal canal is 8 mm at C6-7 and 7.5 mm at C4-5. Thoracic vertebra have normal alignment. There is T4 anterior wedging with 25% loss of height. There is also slight wedging of T7 and T8 up to 15%. The thoracic spinal cord has normal signal pattern. Th ere is no evidence of a mass. There is no thoracic spinal stenosis. I see no focal bone destruction i n the thoracic spine. There is no thoracic paraspinal mass. Lumbar vertebra have normal alignment. Disc spaces are fairly normal. There is no compression fractur e. Lumbar nerve roots appear normal. The neural foramina are fairly well-maintained. There is no spin al stenosis. There is no lumbar paraspinal mass. Sacroiliac joints appear intact. IMPRESSION: Cervical spondylotic changes as above. There is multilevel mild spinal stenosis as above and more sev ere at C5-6. Posterior disc herniations at C5-6 and C6-7. Spinal stenosis not significantly different than old exam. Mild osteoporotic type compression fractures in the thoracic spine. No definite acute fracture. No th oracic spinal stenosis. No significant abnormality of the lumbar spine. No fracture. No lumbar spinal stenosis.
[2020-01-03] MEDS: ATORVASTATIN 80 MG TAB PO SCH (21:28)
[2020-01-03 21:41] LABS: Folate, Serum 14.3 ng/mL
[2020-01-04] MEDS: carvediloL 12.5 MG TAB PO SCH (05:56)
[2020-01-04] MEDS: LEVOTHYROXINE 75 MCG TAB PO SCH (05:56)
[2020-01-04 07:55] VITALS: BP 164/74; PULSE 68; RESP 14; TEMP 97.9
[2020-01-04] MEDS: DULoxetine HCL 60 MG CAPSULE.DR PO SCH (09:40)
[2020-01-04] MEDS: valACYclovir HCL 1,000 MG TABLET PO SCH (09:41)
[2020-01-04] MEDS: buPROPion XL 300 MG TAB.ER.24H PO SCH (09:41)
[2020-01-04] MEDS: VIT A,C & E-LUTEIN-MINERALS 1 EACH TAB PO SCH (09:41)
[2020-01-04] MEDS: lisinopriL 20 MG TAB PO SCH (09:41)
[2020-01-04] MEDS: PANTOPRAZOLE 40 MG TABLET PO SCH (09:41)
[2020-01-04] MEDS: ASPIRIN 81 MG PO SCH (09:41)
--- NOTE | 2020-01-04 13:05 | P.PN ---
Subjective HISTORY OF PRESENTING ILLNESS This is a pleasant 64-year-old female past medical history significant for coronary artery disease and ascending of a myocardial infarction status post PCI to the LAD 2003, hypertension, dyslipidemia, chronic systolic heart failure and ischemic cardiomyopathy. She follows in the office with Dr. Pimentel. She underwent a stress test yesterday revealing a fixed defect with reversibility noted. She is currently being evaluated by neurology secondary to gait dysfunction. Blood pressure 164/74 heart rate 68 afebrile maintaining oxygen saturation on room air. Echocardiogram reveals impaired LV systolic function with ejection fraction 45-50%, mid anterior septal, apical inferior and apical septal LV wall motion hypokinesia, mild to moderate MR and mild TR noted. PHYSICAL EXAMINATION CONSTITUTIONAL: No apparent distress. HEENT: Head is normocephalic. Pupils are equal, round. Sclerae anicteric. Mucous membranes of the mouth are moist. No JVD. No carotid bruit. CHEST EXAMINATION: Lungs are clear to auscultation. No chest wall tenderness is noted on palpation or with deep breathing. HEART EXAMINATION: Regular rate and rhythm. S1, S2 heard. No murmurs, gallops or rub. EXTREMITIES: 2+ peripheral pulses, no lower extremity edema and no calf tenderness. ASSESSMENT Chest pain, an acute coronary event has been ruled out Chronic systolic heart failure, clinically euvolemic Ischemic cardiomyopathy History of coronary artery disease in the setting of an acute myocardial infarction in 2003 status post PCI to the LAD Hypertension Dyslipidemia PLAN Stable from a cardiac perspective. Stress test reviewed with Dr. Fisher. He states his of primarily fixed defect with no evidence of reversibility. Follow- up in the office with Dr. Pimentel upon discharge. Nurse Practitioner note has been reviewed, I agree with a documented findings and plan of care. Patient was seen and examined. Objective - Vital Signs Vital signs: Vital Signs Temp 97.9 F 01/04/20 07:53 Pulse 68 01/04/20 07:53 Resp 14 01/04/20 07:53 BP 164/74 01/04/20 07:53 Pulse Ox 96 01/04/20 07:53 Intake & Output 01/03/20 01/04/20 01/04/20 18:59 06:59 18:59 Intake Total 540 500 Output Total 0 Balance 540 500 Weight 70.31 kg Intake: Oral 540 500 Output: Urine 0 Other: Voiding Method Toilet Toilet Toilet # Voids 2 0 1 - Labs CBC & Chem 7: 01/02/20 19:42 01/02/20 19:00 Labs: Abnormal Lab Results - Last 24 Hours (Table) 01/02/20 Range/Units 19:42 Hemoglobin A1c 6.4 H (4.0-6.0) %
--- NOTE | 2020-01-04 13:13 | P.PN ---
Subjective Progress Note Date: 01/04/20 Patient offers no new complaints. Patient's was also present. Patient's balance is much improved today as compared to yesterday. Patient states that she does drink 2-3 glasses of wine cooler 4 days a week. Objective - Vital Signs Vital signs: Vital Signs Temp 97.9 F 01/04/20 07:53 Pulse 68 01/04/20 07:53 Resp 14 01/04/20 07:53 BP 164/74 01/04/20 07:53 Pulse Ox 96 01/04/20 07:53 Intake & Output 01/03/20 01/04/20 01/04/20 18:59 06:59 18:59 Intake Total 540 500 Output Total 0 Balance 540 500 Weight 70.31 kg Intake: Oral 540 500 Output: Urine 0 Other: Voiding Method Toilet Toilet Toilet # Voids 2 0 1 - Exam Patient's mental status, speech and language functions are normal cranial nerves are normal muscle strength is normal. Patient's gait appears much better. Patient was unsteady but not as severe as yesterday. Romberg was negative today. I'm not sure what made so dramatic clinical improvement from examination yesterday as of today. Physical therapy also has seen the patient. - Labs CBC & Chem 7: 01/02/20 19:42 01/02/20 19:00 Labs: Abnormal Lab Results - Last 24 Hours (Table) 01/02/20 Range/Units 19:42 Hemoglobin A1c 6.4 H (4.0-6.0) % Assessment and Plan Assessment: * A one year history of gait imbalance. Patient does have numbness of the toes of both feet. Examination revealed brisk reflexes at the knees and upper limbs and bilateral Babinski. Patient also has urinary urgency and some incontinence at times. MRI of the cervical spine revealed at least moderate cervical spinal stenosis at C5 6 level. No evidence of lumbar or thoracic spinal stenosis. B12 and folate normal. * Possible underlying peripheral neuropathy. Examination revealed no signs of parkinsonism. * History of diabetes, well controlled, off antidiabetic medication * Hypertension * History of hepatitis C. Plan: * CT scan of head was normal. * B12 418, folate 14.3, hemoglobin A1c 6.4. * MRI of the cervical spine revealed cervical spondylosis. Multilevel mild spinal stenosis and more severe at C5 6, where there is at least moderate to severe spinal stenosis. No abnormal signal noted in the spinal cord. MRI of the thoracic spine showed mild osteoporotic type compression fracture in the thoracic spine. No acute fracture. No thoracic spinal stenosis. MRI of the lumbar spine was normal. Suggest orthopedic spine consultation for cervical spinal stenosis with some degree of myelopathy. * PT OT has evaluated the patient. Patient probably will need an assistive device. * Recommend outpatient EMG and nerve conduction studies of lower extremities to rule out peripheral neuropathy. * Patient also drinks 2-3 glasses of wine cooler 4 days a week. Patient was informed that any alcoholism can potentially make her balance worse, herefore she should avoid it.
--- NOTE | 2020-01-04 13:27 | P.DS ---
Providers Date of admission: 01/02/20 20:57 Expected date of discharge: 01/04/20 (Chest pain resolved and gait disturbance with vestibular neuritis.) Attending physician: Rocky Freeman Consults: 01/02/20 20:56 Consult Physician Urgent Consulting Provider: Sadi Pimentel Consult Reason/Comments: cp Do you want consulting provider notified?: Yes 01/03/20 09:06 Consult Physician Urgent Consulting Provider: Michael Dominguez Consult Reason/Comments: dizziness Do you want consulting provider notified?: Yes 01/04/20 10:20 Consult Physician Routine Consulting Provider: Dom Westbrook Consult Reason/Comments: Cervical spinal stenosis with myelopathy, gait imbalance and frequent falls Do you want consulting provider notified?: Yes Primary care physician: Rocky Freeman This is a dictation for discharge summary. Patient admitted on observation on the 2019 and discharged on 01/04/2020 Final diagnosis Chest pain. #2 ischemic cardiomyopathy with impaired systolic function. #3 coronary artery disease atherosclerotic heart disease with history of WA 2003 with the stent placement in the LAD. Hypertension Dyslipidemia. Labyrinthitis with vestibular disturbance prior to admission to the hospital. Spinal stenosis on the cervical spine by the neurology. MRI of the brain was negative Ejection fraction 43% with the sizable defect in the apex and anteroapical by nuclear medicine Lexiscan. Echocardiogram indicating 45-50% with impaired systolic function. And med anteroseptal LV wall motion is hypokinetic and apical inferior LV wall motion is hypokinetic and apical septum, LV wall hypokinetic. Left atrial moderate dilated at dictation mild aortic valve sclerosis, [id number] mitral regurgitation, mild tricuspid regurgitation. No evidence of congestive heart failure chest x-ray is normal on admission 01/02/2020 Gait imbalance due to vestibular neuritis on treatment to continue Need a walker for stabilization was we'll. Consultation with Dr. Page spine surgeon requested, however be contacting his office if he will see her head in the office or in the hospital and subsequently discharged today Depression controlled hypothyroidism controlled hypertension fluctuating will monitor at home. Consulting physician: #1 cardiology she will be following with them as outpatient. #[address] Cline. #3 physical therapy which recommended walker was we'll. Patient presentation to the emergency room with the chest pain across her chest and subsequently cardiology consultation and EKG as well as troponin was negativ e and there is no evidence of WA. Patient admitted to campus monitor observation unit seen by cardiology did the echocardiogram and a stress test Lexiscan and subsequent cleared for discharge home and followed by cardiology as outpatient. Dizziness with the underlying acute labyrinthitis and vestibular neuropathy: Patient had a computed tomography scan of the brain which was negative also computed tomography scan of the cervical spine which indicating spinal stenosis and consultation with the orthopedic spine surgeon Dr. Page requested. And she had compression fracture of the dorsal spine which she is not symptomatic at this time Patient kept on observation status with monitoring on [facility] with telemetry. Hospital course: Patient did well her dizziness improving but recommendation for physical therapy by using a walker with walking The chest pain has been resolved and no farther testing per cardiology cleared her for discharge Neurology consulted the spine surgeon and patient may go home to see the spine surgeon as outpatient if he could not see her today. On discharge exam: Patient's conscious alert oriented her at bedside discussed with both of them the plan of care. Head was normocephalic atraumatic pupil was equal reactive and conjunctiva was pink sclera was nonicteric and oropharynx natural techniques and she had a hearing aid bilateral. Neck was supple no JVD no thyromegaly no lymphadenopathy no bruits. Chest she has a mild increased anteroposterior diameter no wheezes nor rhonchi's no shortness of breath. Abdomen: Soft positive bowel sounds no organ enlargement and no tenderness on the four-quadrant. Extremities no edema positive pulses and moving 4 extremities no lateralizing sign and the cranial nerves is intact. Assessment: #1 patient stable to be discharged home today after Dr. Page seeing her today otherwise she can see him as outpatient. We'll continue #2 medication current medication. #3 follow-up with neurology as outpatient. And we'll see her in 3 days and outpatient for for further evaluation and arrangement for testing. And monitor the dizziness. Plan - Discharge Summary New Discharge Prescriptions: Continue Vit C/E/Zn/Coppr/Lutein/Zeaxan [Preservision Areds 2 Softgel] 1 cap PO DAILY Albuterol Sulfate [Proair Hfa] 2 puff INHALATION RT-Q6H PRN PRN Reason: Shortness Of Breath valACYclovir HCL [Valtrex] 1,000 mg PO Q12HR lisinopriL 20 mg PO BID Omeprazole 20 mg PO DAILY DULoxetine HCL [Cymbalta] 120 mg PO DAILY Carvedilol [Coreg] 12.5 mg PO BID Atorvastatin Calcium [Lipitor] 80 mg PO HS ALPRAZolam [Xanax] 0.25 mg PO DAILY PRN PRN Reason: Anxiety Levothyroxine Sodium [Synthroid] 75 mcg PO DAILY Discontinued buPROPion XL [Wellbutrin Xl] 300 mg PO DAILY Fenofibrate 160 mg PO DAILY Discharge Medication List ALPRAZolam [Xanax] 0.25 mg PO DAILY PRN 01/02/20 [History] Albuterol Sulfate [Proair Hfa] 2 puff INHALATION RT-Q6H PRN 01/02/20 [History] Atorvastatin Calcium [Lipitor] 80 mg PO HS 01/02/20 [History] Carvedilol [Coreg] 12.5 mg PO BID 01/02/20 [History] DULoxetine HCL [Cymbalta] 120 mg PO DAILY 01/02/20 [History] Levothyroxine Sodium [Synthroid] 75 mcg PO DAILY 01/02/20 [History] Omeprazole 20 mg PO DAILY 01/02/20 [History] Vit C/E/Zn/Coppr/Lutein/Zeaxan [Preservision Areds 2 Softgel] 1 cap PO DAILY 01/02/20 [History] lisinopriL 20 mg PO BID 01/02/20 [History] valACYclovir HCL [Valtrex] 1,000 mg PO Q12HR 01/02/20 [History] Follow up Appointment(s)/Referral(s): Sadi Pimentel DO [STAFF PHYSICIAN] - 01/10/20 1:45 pm Rocky Freeman MD [Primary Care Provider] - 3 Days Discharge Disposition: HOME SELF-CARE
== END 2020-01-04 16:23 | disposition home or self-care (01) ==
LOC: EC 18:26 → 3NCARDOBS 20:57
PROVIDERS: ADMIT Internal Medicine; ATTEND Internal Medicine
DX: R07.89 Other chest pain (principal); R60.0 Localized edema; R61 Generalized hyperhidrosis; I25.5 Ischemic cardiomyopathy; I25.10 Atherosclerotic heart disease of native coronary artery without angina pectoris; I25.2 Old myocardial infarction; Z95.5 Presence of coronary angioplasty implant and graft; I11.0 Hypertensive heart disease with heart failure; E78.5 Hyperlipidemia, unspecified; H81.20 Vestibular neuronitis, unspecified ear; H83.09 Labyrinthitis, unspecified ear; M48.02 Spinal stenosis, cervical region; R94.39 Abnormal result of other cardiovascular function study; R93.1 Abnormal findings on diagnostic imaging of heart and coronary circulation; I08.3 Combined rheumatic disorders of mitral, aortic and tricuspid valves; E11.9 Type 2 diabetes mellitus without complications; H40.9 Unspecified glaucoma; F32.9 Major depressive disorder, single episode, unspecified; F41.1 Generalized anxiety disorder; J98.11 Atelectasis; R20.0 Anesthesia of skin; G89.29 Other chronic pain; M51.9 Unspecified thoracic, thoracolumbar and lumbosacral intervertebral disc disorder; J44.9 Chronic obstructive pulmonary disease, unspecified; I16.0 Hypertensive urgency; R39.15 Urgency of urination; R32 Unspecified urinary incontinence; I50.22 Chronic systolic (congestive) heart failure; M47.892 Other spondylosis, cervical region; M80.88XA Other osteoporosis with current pathological fracture, vertebra(e), initial encounter for fracture; G99.2 Myelopathy in diseases classified elsewhere; Z86.19 Personal history of other infectious and parasitic diseases; Z88.8 Allergy status to other drugs, medicaments and biological substances; Z98.890 Other specified postprocedural states; Z87.891 Personal history of nicotine dependence; Z97.4 Presence of external hearing-aid; Z88.0 Allergy status to penicillin; Z79.899 Other long term (current) drug therapy; Z79.890 Hormone replacement therapy; Z91.81 History of falling; Z79.891 Long term (current) use of opiate analgesic
CPT/HCPCS: 93005 ×3; 99285; 36415; 93017; 97161; 85379; 80061; 80053; 82607; 82746; 83735; 84484 ×2; 85025; 85610; 85730; 83036; 71046; 70450; 71275; 72141; 72146; 72148; 78452; G0378 ×3; C8929; A9500; J2785; Q9950; Q9967; 93306

== ENCOUNTER → 2020-12-30 | Outpatient (CLI) | payer MEDICARE, BC ==
--- NOTE | 2020-12-30 11:12 | XR ---
EXAMINATION TYPE: XR chest 2V DATE OF EXAM: 12/30/2020 COMPARISON: 01/02/2020 TECHNIQUE: PA and lateral views submitted. HISTORY: Cough FINDINGS: The lungs are clear and there is no pneumothorax, pleural effusion, or focal pneumonia. Diffuse ost eopenia and arthropathy of the shoulders. Calcified granuloma left upper lobe. Heart size normal. Deg enerative change of the spine. Hyperinflation suggests COPD. Arthropathy of the shoulders. IMPRESSION: 1. No acute process. Correlate for COPD. 2. Calcified granuloma left upper lobe.
[2020-12-30 16:12] LABS: Basophils # (A) 0.03 X 10*3/uL (0.00-0.10); Basophils % (A) 0.6 %; Eosinophils # (A) 0.36 X 10*3/uL (0.04-0.35); Eosinophils % (A) 7.2 %; HCT 42.5 % (37.2-46.3); HGB 13.5 g/dL (12.0-15.0); Lymphocytes # (A) 1.93 X 10*3/uL (0.90-5.00); Lymphocytes % (A) 38.8 %; MCH 29.3 pg (27.0-32.0); MCHC 31.8 g/dL (32.0-37.0); MCV 92.2 fL (80.0-97.0); Mean Platelet Volume 11.6 fL (9.5-12.2); Monocytes # (A) 0.43 X 10*3/uL (0.20-1.00); Monocytes % (A) 8.6 %; Neutrophils # (A) 2.21 X 10*3/uL (1.80-7.70); Neutrophils % (A) 44.4 %; Platelet Count 198 X 10*3/uL (140-440); RBC 4.61 X 10*6/uL (4.10-5.20); RDW 12.7 % (11.5-14.5); WBC 4.98 X 10*3/uL (4.50-10.00)
[2020-12-30 17:07] LABS: African American GFR (CKD) 88.4 (60.0-200.0); Calcium 9.4 mg/dL (8.7-10.3); Non-African American GFR(CKD) 76.3 (60.0-200.0); Potassium 4.2 mmol/L (3.5-5.5)
== END | disposition home or self-care (01) ==
LOC: LABWHC1 10:28
PROVIDERS: ATTEND Internal Medicine
DX: J12.9 Viral pneumonia, unspecified (principal); D64.9 Anemia, unspecified; J40 Bronchitis, not specified as acute or chronic; R19.7 Diarrhea, unspecified; R05 Cough; R91.8 Other nonspecific abnormal finding of lung field
CPT/HCPCS: 36415; 71046; 80048; 85025

== ENCOUNTER → 2021-04-29 | Outpatient (CLI) | payer MEDICARE, BC ==
--- NOTE | 2021-04-30 06:36 | US ---
EXAMINATION TYPE: US carotid duplex BILAT DATE OF EXAM: 04/29/2021 COMPARISON: NONE CLINICAL HISTORY: I65.29 CAROTID ARTERY STENOSIS. EXAM MEASUREMENTS: RIGHT: Peak Systolic Velocity (PSV) cm/sec ----- Right CCA: 57.4 ----- Right ICA: 96.5 ----- Right ECA: 102.9 ICA/CCA ratio: 1.7 RIGHT: End Diastole cm/sec ----- Right CCA: 12.5 ----- Right ICA: 18.9 ----- Right ECA: 20.9 LEFT: Peak Systolic Velocity (PSV) cm/sec ----- Left CCA: 60.5 ----- Left ICA: 184.9 ----- Left ECA: 86.2 ICA/CCA ratio: 3.1 LEFT: End Diastole cm/sec ----- Left CCA: 12.8 ----- Left ICA: 22.3 ----- Left ECA: 17.6 VERTEBRALS (direction of flow): Right Vertebral: Antegrade Left Vertebral: Antegrade Rhythm: Normal Moderate plaque with elevated velocity seen in left ICA. Grayscale images show moderate to severe peripheral shadowing hyperechoic plaque at bilateral carotid bulb level greater on the left. Increased peak systolic velocity on the left with abnormal ratio. En d-diastolic Velocity remains within normal limits. IMPRESSION: Moderate to severe atherosclerotic changes bilaterally. Cannot exclude hemodynamically s ignificant stenosis on the left of 50-69%. Advise CTA or MRA of the neck follow-up to further evaluat e. Criteria for Assigning % of Stenosis / Diameter reduction (Estimation based on the indirect measurements of the internal carotid artery velocities (ICA PSV). 1. Normal (no stenosis)=ICA PSV < 125 cm/s: ratio < 2.0: ICA EDV<40 cm/s. 2. Less than 50% stenosis=ICA PSV < 125 cm/s: ratio < 2.0: ICA EDV<40 cm/s. 3. 50 to 69% stenosis=ICA PSV of 125 to 230 cm/s: ration 2.0 ? 4.0: ICA EDV 40-100 cm/s. 4. Greater than 70% stenosis to near occlusion= ICA PSV > 230 cm/s: ratio > 4.0: ICA EDV > 100 cm/s. 5. Near occlusion= ICA PSV velocities may be low or undetectable: variable ratio and ICA EDV. 6. Total occlusion=unable to detect flow.
== END | disposition home or self-care (01) ==
LOC: RADUSWWP 16:11
PROVIDERS: ATTEND Psychiatry & Neurology Neurology
DX: I65.23 Occlusion and stenosis of bilateral carotid arteries (principal)
CPT/HCPCS: 93880

== ENCOUNTER → 2021-05-09 | Outpatient (CLI) | payer MEDICARE, BC ==
--- NOTE | 2021-05-09 13:59 | MR ---
EXAMINATION TYPE: MR brain/cspine wo/w DATE OF EXAM: 05/09/2021 COMPARISON: CT brain January 03, 2020. MRI cervical spine January 03, 2020 HISTORY: Pain when turning her neck since falling down the steps/ Dizziness and lightheadedness TECHNIQUE: Multiplanar, multisequence images of the brain and brainstem cervical spine are all performed without and with IV contrast, utilizing 6ml mL intravenous Gadavist . FINDINGS: Diffusion weighted images demonstrate no evidence of a recent infarct or other diffusion ab normality. There is mild ventricular and sulcal prominence. Scattered tiny foci of T2 hyperintensity are seen throughout the white matter bilaterally. Approximately 10-20 scattered lesions are seen. Le sions are nonspecific in appearance and distribution. No suspicious fluid signal in the mastoid air c ells bilaterally. Midline structures demonstrate normal morphology. The craniocervical junction appears within normal limits. Post contrast images demonstrate no abnormal enhancement. The dural venous sinuses appear pa tent. The visualized sinuses are clear and the globes are intact. IMPRESSION: Mild diffuse age-related cerebral atrophy and chronic small vessel ischemic changes are p resent. No suspicious enhancing masses noted. C-SPINE: Exam is slightly suboptimal due to some motion artifact degradation. FINDINGS: Sagittal images of the cervical spine show the craniocervical junction to remain within nor mal limits. The cervical and upper thoracic spinal cord remains normal in caliber and signal. Loss o f normal cervical curvature with grade 1 retrolisthesis C4 on C5 and C5 on C6 is redemonstrated. The vertebral body heights are normal. Moderate disc space narrowing C5-C6 level with moderate anterior spurring is redemonstrated. Mild disc space narrowing with mild/moderate anterior spurring C6-C7 leve l is redemonstrated. Slight levoconvex scoliotic curvature centered upper thoracic spine and coronal images again seen. No abnormal postcontrast enhancement noted. Axial images at C2-C3 level remain within normal limits. Axial images at C3-C4 level shows broad-based lobulated left paracentral disc protrusion more promine nt from prior study and causing asymmetric [id number] left-sided neural foraminal narrowing. Axial images at C4-C5 level shows subtle spondylolisthesis with broad-based posterior disc protrusion effacing the anterior thecal sac and causing moderate bilateral neural foraminal narrowing. No signi ficant change from prior. Axial images at C5-C6 level shows broad-based left paracentral disc protrusion effacing anterior thec al sac up to ventral surface of spinal cord and causing moderate bilateral neural foraminal narrowing . No significant change from prior. Axial images at C6-C7 level show focal broad-based central disc protrusion effacing anterior thecal s ac, there is mild to moderate bilateral neural foraminal narrowing seen. No significant change from p rior. Axial images C7-T1 level remain within normal limits. IMPRESSION: Multilevel spondylolisthesis and degenerative changes in the cervical spine as detailed a fredis. More prominent findings noted C3-C4 level otherwise no significant change is appreciated.
== END | disposition home or self-care (01) ==
LOC: RADMRIMAIN 12:11
PROVIDERS: ATTEND Psychiatry & Neurology Neurology
DX: I67.82 Cerebral ischemia (principal); G31.9 Degenerative disease of nervous system, unspecified; M43.12 Spondylolisthesis, cervical region; M50.223 Other cervical disc displacement at C6-C7 level
CPT/HCPCS: 70553; 72156; A9585

== ENCOUNTER → 2021-06-11 | Outpatient (CLI) | payer MEDICARE, BC ==
[2021-06-11 12:44] VITALS: BP 167/79; PULSE 85; RESP 18; TEMP 98.4
--- NOTE | 2021-06-11 12:52 | P.CON ---
Consult Note - . Consult date: 06/11/21 Assessment/Plan:: HISTORY OF PRESENT ILLNESS: 65 yr old female with at side as a referral from Dr Westbrook presents today with neck pain due to disc bulges, spondylolisthesis, bilateral neuroforaminal stenoses and facet arthropathy for evaluation. Patient states her pain level is 7 out of 10 in intensity, dull, achy, constant in the middle aspect of her neck without radiation of pain. Pain elevates as high as 10 out of 10 in intensity with extension or lifting the upper extremities. Pain is relieved with Motrin 800 mg, topical Biofreeze gel, ice, heat, physical therapy of which she is currently an, chiropractic treatments over the last 2 years, daily home exercise regimen, massage therapy of which she is currently an and rest. Past Medical History: Coronary Artery Disease (CAD), Diabetes Mellitus, Hypertension, Myocardial Infarction (MD in 2003), Glaucoma (2003) Past Surgical History: Section, Heart Catheterization With Stent (last 2003) Social History: Former tobacco user. No ETOH abuse or illicit drug use. Family History: Non contributory All: PCN, Prochlorperazine Meds: See list REVIEW OF ORGAN SYSTEMS: CONSTITUTIONAL: No fevers or chills. No recent weight loss. HEENT: No visual acuity loss, eye pain, difficulties with hearing. No nosebleeds. No difficulty swallowing. RESPIRATORY: Denies any troubles with breathing or dyspnea on exertion. CARDIOVASCULAR: Denies any chest pain, palpitations, or recent heart attacks. GASTROINTESTINAL: Denies fatty food intolerance. Has change in bowel habits and gas bloat. GENITOURINARY: Denies any blood in urine. Has increased urinary frequency. NEUROLOGICAL: + numbness and tingling along the distal extremities. No seizure disorders or headaches. MUSCULOSKELETAL: + back pain SKIN: No skin cancer. No rash. PSYCHIATRIC: Denies current depression or suicidal thoughts. ENDOCRINE: Denies current thyroid disorders. Denies any blood sugar glucose intolerance. HEME/LYMPHATIC: Denies any lumps and bumps around the neck. History of deep venous thrombosis. ALLERGY/IMMUNOLOGY: No immunoglobulin therapy. No immune deficiencies. BREAST: Denies current breast lumps, pain or nipple discharge. Physical Examinations : Constitutional : Cooperative , not in acute distress . HEENT: Neck supple. No Lymphadenopathy. Normal thyroid size . Eyes no ptosis , no icterus, no photophobia . Hearing intact. Normal oropharynx. No Thrush. Respiratory : Chest clear to auscultations bilaterally. No wheezing. No rhonchi. Cardiovascular : Regular rate and rhythm , S1 / S2. No S3 . No S4. Gastrointestinal : Abdomen soft. No tenderness. Bowel sounds x 4. No organomegaly . Genitourinary : Deferred. Neurologic : Cranial nerve II to XII intact. No focal neurological deficits. Psychiatric : alert & oriented x 3. Matching mood & appropriate affect. Judgment & insight intact. Lymphatic No Lymphadenopathy. Musculoskeletal : Cervical Spine Motor strength in the deltoid and biceps: Normal right side. Normal Left side Motor strength biceps and the wrist extensors: Normal right side . Normal left side Motor strength in the triceps muscle: Normal right side. Normal left side Deep tendon reflexes: Normal at the biceps. Normal at Brachioradialis. Normal at triceps Moderate vertebral body tenderness over the C4, C5, C6 Cervical facet loading test: positive bilaterally over the C5-C6 Spurling test: positive bilaterally Neck distraction test: positive bilaterally Katina sign: positive bilaterally Lumbar spine Motor strength lower extremities ,thigh and legs 5/5 Right side , 5/5 Left side Deep tendon reflexes : Normal Knee Jerk. Normal Ankle Jerk Vertebral body tenderness over Lumbar facet Loading Test: positive Right / positive Left Range of motion of the lumbar spine F lexion 30 degrees, extension 10 degrees Straight Leg Raise test: Left/ Right positive at degree Olena test: positive right / positive left. Severe tenderness over the Sacroiliac joint on the Right / Left sides Gaenslen test: positive bilaterally Seated flexion test: positive bilaterally. Assessment/ Plan : Recommendation of REGGIE C4-C5 Discussed possibility of repeat procedures (up to 3 within a six-month period) to obtain sufficient pain relief Risks, benefits of procedure discussed and patient verbalized understanding. Admits to aspirin 81 mg and metformin daily use. Instructions provided on medication use near procedure date All questions answered. I have spent greater than 50 minutes on patient care today. Dr Willson was available by phone for the evaluation of this patient. The time was used to review the medical records including relevant urine studies and Prescription history (MAPs), review of the available imaging, evaluation and examination of the patient, coordination of care with the medical staff and if applicable referring physicians, as well as creation of the medical record PQRS Measure Charge Sheet Mode of Arrival: Ambulatory - Pain Location Neck Non-Pharmacological Interventions: Chiropractic Treatment, Heat, Home Exercise, Ice, Massage, Physical Therapy, Position/Reposition, Stretching Pharmacological Interventions: PRN Medication, Topical Medication PQRS Narrative: Blood Pressure 167/79 Pain Intensity [Neck] 7 Scale Used Numeric (1 - 10) Hx Alcohol Use (MH) No Home Medications: Ambulatory Orders ALPRAZolam [Xanax] 0.25 mg PO DAILY PRN 01/02/20 Albuterol Sulfate [Proair Hfa] 2 puff INHALATION RT-Q6H PRN 01/02/20 Atorvastatin Calcium [Lipitor] 80 mg PO HS 01/02/20 Carvedilol [Coreg] 12.5 mg PO BID 01/02/20 DULoxetine HCL [Cymbalta] 120 mg PO DAILY 01/02/20 Levothyroxine Sodium [Synthroid] 75 mcg PO DAILY 01/02/20 Omeprazole 20 mg PO DAILY 01/02/20 Vit C/E/Zn/Coppr/Lutein/Zeaxan [Preservision Areds 2 Softgel] 1 cap PO DAILY 01/02/20 lisinopriL 20 mg PO BID 01/02/20 valACYclovir HCL [Valtrex] 1,000 mg PO Q12HR 01/02/20 Ibuprofen [Motrin] 800 PO Q8HR PRN 06/11/21
== END ==
LOC: PNWHC3 12:12
PROVIDERS: ATTEND Physician Assistant Medical
DX: M50.20 Other cervical disc displacement, unspecified cervical region (principal); M43.12 Spondylolisthesis, cervical region; M48.02 Spinal stenosis, cervical region; M47.812 Spondylosis without myelopathy or radiculopathy, cervical region; I25.10 Atherosclerotic heart disease of native coronary artery without angina pectoris; E11.9 Type 2 diabetes mellitus without complications; I10 Essential (primary) hypertension; I25.2 Old myocardial infarction; Z88.0 Allergy status to penicillin; Z88.8 Allergy status to other drugs, medicaments and biological substances
CPT/HCPCS: 99211

== ENCOUNTER 2021-07-17 11:15 | Day surgery (SDC) | payer MEDICARE, BC ==
[2021-07-16 08:49] VITALS: BMI 21.6
[2021-07-17 11:32] VITALS: TEMP 97.7
[2021-07-17] MEDS ORDERED: LACTATED RINGERS 1,000 ML IV ONE ×2 (11:35→12:05)
[2021-07-17] MEDS ORDERED: MIDAZOLAM 2 MG/2 ML VIAL ONE (11:40)
[2021-07-17] MEDS ORDERED: IOPAMIDOL M200 10 ML VIAL ONE (11:40)
[2021-07-17] MEDS ORDERED: fentaNYL (PF) 50 MCG/ML 2 ML AMP ONE (11:40)
[2021-07-17] MEDS ORDERED: DEXAMETHASONE SOD PHOSPHATE 10 MG/ML 1 ML VIAL ONE (11:40)
[2021-07-17 11:42] LABS: Glucose,Whole Blood 126 mg/dL (75-99)
--- NOTE | 2021-07-17 11:54 | P.PCN ---
Date of Procedure: 07/17/21 Description of Procedure: PROCEDURE 1. Cervical epidural steroid injection under fluoroscopic guidance, C7-T1 2. Cervical epidurogram. PREOPERATIVE DIAGNOSIS: Cervical radiculopathy POSTOPERATIVE DIAGNOSIS: Cervical radiculopathy Imaging: Fluoroscopy was used, images where saved to the medical record ANESTHESIA: Local anesthesia with 1% lidocaine and (IV conscious sedation ) PROCEDURE DESCRIPTION / TECHNIQUE: The patient was seen and identified in the preoperative area. Risks, benefits, and alternatives were discused with the patient and the patient has consented to the procedure. Risks of the procedure include potential for bleeding, infection, nerve damage, and incomplete pain relief were discussed with the patient. All questions were answered for the patient Patient was taken to the OR and time out was completed. The patient was placed in the prone position on the procedure table. A pillow was placed under the patients chest to increase the cervical interlaminar space. The cervical area was prepped and draped in the usual sterile fashion. Vital signs were closely monitored during the procedure. Using anterior-posterior fluoroscopy, the C7-T1 interlaminar space was identified and the skin over this site was marked and then infiltrated with 1% lidocaine subcutaneously. Subsequently, a 20-gauge 3-1/2-inch Tuohy epidural needle was inserted and advanced toward the epidural space by means of the [id number] technique and guided by AP and lateral fluoroscopy. The correct needle position in the epidural space was verified with the injection of 1 mL of the water soluble contrast dye [id number] and observing an excellent epidurogram with the epidural spread of the dye, after negative aspiration for blood and CSF and in the absence of paresthesias. Again after negative aspiration, a mixture containing 10 mg Dexamethasone and 2 ml of preservative- free normal saline injected and a washout of epidurogram was seen. Needle was withdrawn intact, skin was cleansed, and bandages were applied. Complications: none. Disposition: patient was placed in supine position and transferred to the recovery room area in stable condition and there was no evidence of upper or lower extremity motor or sensory deficit after the procedure patient was discharged from recovery room after discharge criteria met and home discharge instructions was given by the staff and patient will follow with the pain as directed.
[2021-07-17] MEDS ORDERED: IV FLUID CONTINUATION 800 ML IV ONE (12:05)
[2021-07-17 12:19] VITALS: BP 134/55; PULSE 75; RESP 15
--- NOTE | 2021-07-17 13:04 | FL ---
Fluoroscopy HISTORY: Pain 8 seconds fluoroscopy time supplied to the referring clinician. 2 intraoperative C-arm images docume nt the procedure. See dictated report from anesthesia.
== END 2021-07-17 12:36 | disposition home or self-care (01) ==
LOC: ORPAIN 11:15
PROVIDERS: ATTEND Hospitalist
DX: M54.12 Radiculopathy, cervical region (principal); Z91.09 Other allergy status, other than to drugs and biological substances
CPT/HCPCS: 62321; J2250; J1100; J3010; Q9966; 99152

== ENCOUNTER → 2021-08-13 | Outpatient (CLI) | payer MEDICARE, BC ==
[2021-08-13 10:53] VITALS: BP 140/72; PULSE 82; RESP 18
--- NOTE | 2021-08-13 10:54 | P.PN ---
Subjective Progress Note Date: 08/13/21 Principal diagnosis: A 65 yr old female with a history of severe and chronic neck pain secondary to cervical degenerative disc diseases and spondylosis with facet arthropathy presents today for evaluation status post REGGIE C4-C5 #1. Patient states she experienced 75% pain relief for 2-1/2 weeks status post procedure. She is currently 50% pain free. Pain level is currently at 5 out of 10 in intensity, constant, sharp pain in the middle and lower aspects of her cervical spine without radiation of pain. Pain is provoked by extension and lateral flexion. Pain is alleviated with medication, injections, heat, physical therapy which she is currently in, home-based stretching regimen, repositioning and rest. Interventional pain procedures completed include REGGIE C4-C5 #1 Patient is currently on Tramadol from Dr Westbrook. Patient denies any side effects of the medication(s), denies excessive drowsiness or sleepiness, denies suicidal ideation and reports that the current pain medication is helping to control the pain and improve activities of daily living. Patient denies any motor or sensory deficits. Patient denies any fever or night sweats, denies any change in the bowel movements or urination. Physical Examination: -Constitutional: Cooperative. Not in acute distress . -HEENT: Neck is supple. No lymphadenopathy. No thyromegaly. Normal thyroid size. Eyes: No ptosis , no icterus, no photophobia. ENT: No auditory deficits. Normal oropharynx. No Thrush. - Respiratory: Chest clear to auscultations bilaterally. No wheezing. No rhonchi. - Cardiovascular: Regular rate and rhythm. S1 / S2 , no S3 , no S4. - Gastrointestinal: Abdomen soft no tenderness. Bowel sounds positive in all four quadrants. No organomegaly. - Genitourinary: Deferred. - Neurologic: Cranial nerve II to XII intact. No focal neurological deficits. - Psychatric: Alert & oriented x 3. Matching mood & appropriate affect. Judgment and insight intact. - Lymphatic: No Lymphadenopathy. - Musculoskeletal: Cervical spine: Muscle bulk/ tone/ strength in the bilateral upper extremities normal. Vertebral body tenderness over C4, C5 Facet loading test cervical area positive. Lumbar spine: Motor bulk/ tone/ strength lower extremities , thigh and legs : 5/5 Deep tendon reflexes : Normal Knee Jerk. Normal Ankle Jerk . Vertebral body tenderness to palpation over Lumbar Facet Loading Test positive Straight Leg Raise: positive at 30 degrees right side/ left side Gaenslen's Test positive Sacral spine : Severe tenderness over the Sacroiliac joint: right side / left side Range of motion: Flexion of the lumbar spine <60 degrees Range of motion: Extension of the lumbar spine <20 degrees Gaenslen's Test positive Olena test: positive right side / left side Assessment and plan: Chronic neck pain secondary to cervical degenerative disc disease , spondylosis with facet arthropathy without myelopathy Condition of REGGIE C4-C5 #2. Patient obtain sufficient and substantial pain relief with the prior GABY. Risks, benefits of procedure discussed and patient verbalized understanding. Denies anticoagulant use. Denies medical history of diabetes. All patient questions answered MAPS reviewed and it was appropriate. I have spent 31 minutes on patient care today. Dr Willson was available by phone for the evaluation of this patient. The time was used to review the medical records including relevant urine studies and Prescription history (MAPs), review of the available imaging, evaluation and examination of the patient, coordination of care with the medical staff and if applicable referring physicians, as well as creation of the medical record PQRS Measure Charge Sheet Mode of Arrival: Ambulatory PQRS Narrative: Blood Pressure 140/72 Pain Intensity [Neck] 5 Scale Used Numeric (1 - 10) Hx Alcohol Use (MH) No Home Medications: Ambulatory Orders ALPRAZolam [Xanax] 0.25 mg PO BID 01/02/20 Albuterol Sulfate [Proair Hfa] 2 puff INHALATION RT-Q6H PRN 01/02/20 DULoxetine HCL [Cymbalta] 60 mg PO DAILY 01/02/20 Levothyroxine Sodium [Synthroid] 75 mcg PO DAILY 01/02/20 Vit C/E/Zn/Coppr/Lutein/Zeaxan [Preservision Areds 2 Softgel] 1 cap PO BID 01/02/20 Ibuprofen [Motrin] 800 mg PO Q8HR PRN 06/11/21 Meclizine [Antivert] 25 mg PO BID 07/16/21 Memantine [Namenda] 5 mg PO BID 07/16/21 amLODIPine [Norvasc] 5 mg PO HS 07/16/21 buPROPion XL [Wellbutrin XL] 150 mg PO QAM 07/16/21 metFORMIN HCL 500 mg PO BID 07/16/21
== END ==
LOC: PNWHC3 10:33
PROVIDERS: ATTEND Specialist
DX: M50.30 Other cervical disc degeneration, unspecified cervical region (principal); M47.812 Spondylosis without myelopathy or radiculopathy, cervical region; G89.29 Other chronic pain; Z88.0 Allergy status to penicillin; Z88.8 Allergy status to other drugs, medicaments and biological substances
CPT/HCPCS: 99211

== ENCOUNTER → 2021-08-14 | Outpatient (CLI) | payer MEDICARE, BC ==
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
== END | disposition home or self-care (01) ==
LOC: RADUSWWP 13:48
PROVIDERS: ATTEND Family Medicine
DX: T24.201A Burn of second degree of unspecified site of right lower limb, except ankle and foot, initial encounter (principal); R20.2 Paresthesia of skin
CPT/HCPCS: 93923

== ENCOUNTER 2021-09-18 12:24 | Day surgery (SDC) | payer MEDICARE, BC ==
[~2021-09-18 12:24] MED LIST: LACTATED RINGERS 1,000 ML IV SCH; LIDOCAINE 1% (10MG/ML) FOR IV START INTRADERMA PRN
[2021-09-18 12:42] VITALS: TEMP 97.5
[2021-09-18 12:56] LABS: Glucose,Whole Blood 130 mg/dL (75-99)
[2021-09-18] MEDS ORDERED: fentaNYL (PF) 50 MCG/ML 2 ML AMP ONE (13:11)
[2021-09-18] MEDS ORDERED: IOPAMIDOL M200 10 ML VIAL ONE (13:11)
[2021-09-18] MEDS ORDERED: MIDAZOLAM 2 MG/2 ML VIAL ONE (13:11)
[2021-09-18] MEDS ORDERED: DEXAMETHASONE SOD PHOSPHATE 10 MG/ML 1 ML VIAL ONE (13:11)
--- NOTE | 2021-09-18 13:31 | P.PCN ---
Date of Procedure: 09/18/21 Procedure(s) Performed: . PROCEDURE 1. Cervical epidural steroid injection under fluoroscopic guidance, C4-5 ( Rt Paramedial ) (fluoroscopy images available in the radiology department ) 2. Cervical epidurogram. PREOPERATIVE DIAGNOSIS: 1- Cervical Degenerative Disc Diseases 2- Cervical radiculopathy., 3-cervical spondylosis with cervical Facet arthropathy without myelopathy POSTOPERATIVE DIAGNOSIS: : 1- Cervical Degenerative Disc Diseases , 2- Cervical radiculopathy. 3-,cervical spondylosis with cervical Facet arthropathy without myelopathy ANESTHESIA: Local anesthesia with lidocaine 1 % , and moderate sedation, with Versed 2 mg and Fentanyl 100 mcg. EBL 0 PROCEDURE INDICATION: The patient with neck pain and radiculitis unresponsive to conservative treatment consents for procedure. PROCEDURE DESCRIPTION / TECHNIQUE: The patient was seen and identified in the preoperative area. Risks, benefits, complications, including but not limited to infections ,bleeding , allergic reactions to the medications ,and not complete pain releife, and alternatives were discussed with the patient, the patient agreed to proceed with the procedure and signed the consent. Patient was taken to the OR and time out was completed. The patient was placed in the prone position on the procedure table. A pillow was placed under the patients chest to increase the cervical interlaminar space. The cervical area was prepped and draped in the usual sterile fashion. Vital signs were closely monitored during the procedure. Conscious sedation was used during the procedure to decrease patients anxiety. Using anterior-posterior fluoroscopy, the C4-5 interlaminar space was identified and the skin over this site was marked and then infiltrated with 1% lidocaine subcutaneously. Subsequently, a 20-gauge 3-1/2-inch Tuohy epidural needle was inserted and advanced toward the epidural space by means of the ``hanging-drop technique and guided by AP and lateral fluoroscopy. The correct needle position in the epidural space was verified with the injection of 2 mL of the water soluble contrast dye Isovue-200 and observing an excellent epidurogram with the epidural spread of the dye, after negative aspiration for blood and CSF and in the absence of paresthesias. then, mixture containing 15 mg Dexamethasone and 2 ml of preservative-free normal saline injected and a washout of epidurogram was seen. Needle was withdrawn intact, skin was cleansed, and bandages were applied. Complications= none. Disposition= patient was placed in supine position and transferred to the recovery room area in stable condition and there was no evidence of upper or lower extremity motor or sensory deficit after the procedure patient was discharged from recovery room after discharge criteria met and home discharge instructions was given by the staff and patient will follow with the pain clinic in 2-4 weeks
[2021-09-18] MEDS ORDERED: IV FLUID CONTINUATION 1,000 ML IV ONE (13:40)
[2021-09-18 13:45] VITALS: RESP 16
[2021-09-18 13:57] VITALS: BP 130/66; PULSE 89
--- NOTE | 2021-09-18 22:21 | FL ---
Fluoroscopy HISTORY: Pain 6 seconds fluoroscopy time supplied to the referring clinician. 2 intraoperative C-arm images docume nt the procedure. See dictated report from anesthesia.
== END 2021-09-18 14:17 | disposition home or self-care (01) ==
LOC: ORPAIN 12:24
PROVIDERS: ATTEND Specialist
DX: M50.10 Cervical disc disorder with radiculopathy, unspecified cervical region (principal); M47.22 Other spondylosis with radiculopathy, cervical region
CPT/HCPCS: 62321; J2250; J1100; J3010; Q9966; 99152

== ENCOUNTER → 2021-10-06 | Outpatient (CLI) | payer MEDICARE, BC ==
[2021-10-06 11:35] VITALS: BP 143/78; PULSE 83; RESP 18; TEMP 97.7
--- NOTE | 2021-10-06 11:41 | P.PAINPG ---
PQRS Measure Charge Sheet Comment: A 65 yr old female with a history of severe and chronic neck pain secondary to degenerative disc diseases and spondylosis with facet arthropathy presents today for evaluation status post right paramedian C4-C5 REGGIE. She states she experienced only 30 % relief currently s/p procedure. Pain level is currently at 5/10 in intensity, lower aspect of the cervical spine, sharp & tender to palpation. Pain is provoked by overhead reaching and lifting. Pain is alleviated with PT in 2020 (3 times per week x 12 weeks), heat, medications (Motrin), icy hot topicals, laying supine. Interventional pain procedures completed include R Paramedian REGGIE C4-C5 Patient is currently on Motrin OTC Patient denies any side effects of the medication(s), denies excessive drowsiness or sleepiness, denies suicidal ideation and reports that the current pain medication is helping to control the pain and improve activities of daily living. Patient denies any motor or sensory deficits. Patient denies any fever or night sweats, denies any change in the bowel movements or urination. Physical Examination: -Constitutional: Cooperative. Not in acute distress . -HEENT: Neck is supple. No lymphadenopathy. No thyromegaly. Normal thyroid size. Eyes: No ptosis , no icterus, no photophobia. ENT: No auditory deficits. Normal oropharynx. No Thrush. - Respiratory: Chest clear to auscultations bilaterally. No wheezing. No rhonchi. - Cardiovascular: Regular rate and rhythm. S1 / S2 , no S3 , no S4. - Gastrointestinal: Abdomen soft no tenderness. Bowel sounds positive in all four quadrants. No organomegaly. - Genitourinary: Deferred. - Neurologic: Cranial nerve II to XII intact. No focal neurological deficits. - Psychatric: Alert & oriented x 3. Matching mood & appropriate affect. Judgment and insight intact. - Lymphatic: No Lymphadenopathy. - Musculoskeletal: Cervical spine: Muscle bulk/ tone/ strength in the bilateral upper extremities normal Vertebral body tenderness to palpation over C4, C5 Distraction test positive Facet loading test positive Thoracic spine Muscle bulk / tone/ strength in the bilateral paraspinal muscles normal Vertebral body tender to palpation over Facet loading test positive Lumbar spine: Motor bulk/ tone/ strength lower extremities , thigh and legs : 5/5 Deep tendon reflexes : Normal Knee Jerk. Normal Ankle Jerk . Vertebral body tenderness to palpation over Lumbar Facet Loading Test positive Straight Leg Raise: positive at 30 degrees right side/ left side Gaenslen's Test positive Sacral spine : Severe tenderness over the Sacroiliac joint: right side / left side Range of motion: Flexion of the lumbar spine <60 degrees Range of motion: Extension of the lumbar spine <20 degrees Gaenslen's Test positive Luis's Test positive Olena test: positive right side / left side Thigh Thrust Test Sacral Thrust Test Assessment and plan: Chronic neck pain secondary to degenerative disc disease , spondylosis with facet arthropathy without myelopathy Recommendation of TPIs of R C2-C7. May need a series of injections for optimal pain relief. Also discussed cervical traction and decompression routines to perform at home. Risks, benefits of procedure discussed and pt verbalized understanding. Denies a medical history of diabetes. Admits to ASA 81mg use. Protocol for discontinuation/ continuation of medications papo procedure discussed. All patient questions answered MAPS reviewed and it was appropriate. I have spent 31 minutes on patient care today. Dr Willson was available by phone for the evaluation of this patient. The time was used to review the medical records including relevant urine studies and Prescription history (MAPs), review of the available imaging, evaluation and examination of the patient, coordination of care with the medical staff and if applicable referring physicians, as well as creation of the medical record PQRS Narrative: Hx Alcohol Use (MH) No Home Medications: Ambulatory Orders ALPRAZolam [Xanax] 0.25 mg PO BID 01/02/20 Albuterol Sulfate [Proair Hfa] 2 puff INHALATION RT-Q6H PRN 01/02/20 DULoxetine HCL [Cymbalta] 60 mg PO DAILY 01/02/20 Levothyroxine Sodium [Synthroid] 75 mcg PO DAILY 01/02/20 Vit C/E/Zn/Coppr/Lutein/Zeaxan [Preservision Areds 2 Softgel] 1 cap PO BID 01/02/20 Ibuprofen [Motrin] 800 mg PO Q8HR PRN 06/11/21 Meclizine [Antivert] 25 mg PO BID 07/16/21 Memantine [Namenda] 5 mg PO BID 07/16/21 amLODIPine [Norvasc] 5 mg PO HS 07/16/21 buPROPion XL [Wellbutrin XL] 150 mg PO QAM 07/16/21 metFORMIN HCL 500 mg PO BID 07/16/21 Aspirin 81 mg PO HS 09/17/21 Losartan(Unknown Dose) 1 tab PO DAILY 09/17/21 Losartan-Hctz 50-12.5 mg [Hyzaar 50-12.5] 50 mg PO DAILY 09/18/21 Controlled Substance Measures - Controlled Substance Measures Is patient prescribed a controlled substance at discharge?: No
== END ==
LOC: PNWHC3 10:59
PROVIDERS: ATTEND Specialist
DX: G89.29 Other chronic pain (principal); M50.30 Other cervical disc degeneration, unspecified cervical region; M47.812 Spondylosis without myelopathy or radiculopathy, cervical region; Z88.0 Allergy status to penicillin; Z88.8 Allergy status to other drugs, medicaments and biological substances
CPT/HCPCS: 99211

== ENCOUNTER 2021-11-13 11:04 | Day surgery (SDC) | payer MEDICARE, BC ==
[2021-11-11 15:02] VITALS: BMI 22.7
[2021-11-13 11:19] VITALS: TEMP 97.7
[2021-11-13 11:26] LABS: Glucose,Whole Blood 129 mg/dL (70-110)
[2021-11-13] MEDS ORDERED: fentaNYL (PF) 50 MCG/ML 2 ML AMP ONE (11:55)
[2021-11-13] MEDS ORDERED: MIDAZOLAM 2 MG/2 ML VIAL ONE (11:55)
[2021-11-13] MEDS ORDERED: methylPREDNISolone ACETATE 40 MG/ML 1 ML VIAL ONE (11:55)
[2021-11-13] MEDS ORDERED: ROPIVACAINE 5MG/ML 20ML VIAL ONE (11:55)
--- NOTE | 2021-11-13 12:11 | P.PCN ---
Date of Procedure: 11/13/21 Procedure(s) Performed: . PROCEDURE= trigger point injection in the right side cervical paraspinal muscles from C2 to C7 right side(total of 6 trigger point injected ) PREOPERATIVE DIAGNOSIS: 1- Cervical Degenerative Disc Diseases 2- myofascial pain syndrome cervical area 3-cervical spondylosis with cervical Facet arthropathy without myelopathy POSTOPERATIVE DIAGNOSIS: : 1- Cervical Degenerative Disc Diseases , 2-myofascial pain syndrome cervical area 3-,cervical spondylosis with cervical Facet a rthropathy without myelopathy ANESTHESIA: moderate sedation, with Versed 1 mg and Fentanyl 50 mcg. Sedation start time : 1157 Sedation end time : 1204 EBL 0 PROCEDURE INDICATION: The patient with neck pain , unresponsive to conservative treatment consents for procedure. PROCEDURE DESCRIPTION / TECHNIQUE: The patient was seen and identified in the preoperative area. Risks, benefits, complications, including but not limited to infections ,bleeding , allergic reactions to the medications ,and not complete pain releife, and alternatives were discussed with the patient, the patient agreed to proceed with the procedure and signed the consent. Patient taken to the procedure room placed in sitting position on the monitors applied and after induction of anesthesia the each of the trigger point injected with 2-1/2 mL of the mixture of ropivacaine 0.5%, mixed with 40 mg of Depo-Medrol total of 15 ML of the mixture was used, and 2-1/2 mL of the mixture used for each trigger point using 25-gauge needle injection done after negative aspiration and there was no paresthesia during the injection total of 6 trigger point injected in the right side cervical paraspinal muscles, she tolerated the procedure well without any complication and she will follow up in the pain clinic in a few weeks
[2021-11-13] MEDS ORDERED: IV FLUID CONTINUATION 1,000 ML IV ONE ×2 (12:16)
[2021-11-13 12:20] VITALS: RESP 16
[2021-11-13 12:34] VITALS: BP 150/81; PULSE 65
== END 2021-11-13 13:16 | disposition home or self-care (01) ==
LOC: ORPAIN 11:04
PROVIDERS: ATTEND Specialist
DX: M79.18 Myalgia, other site (principal); M50.30 Other cervical disc degeneration, unspecified cervical region; M47.812 Spondylosis without myelopathy or radiculopathy, cervical region; Z88.0 Allergy status to penicillin; Z88.8 Allergy status to other drugs, medicaments and biological substances
CPT/HCPCS: 20553; J2250; J1030; J3010; J2795

== ENCOUNTER 2021-11-25 06:03 | Day surgery (SDC) | payer MEDICARE, BC ==
[2021-11-24 12:36] VITALS: BMI 21.9
[~2021-11-25 06:03] MED LIST changes: +ALPRAZolam 0.25 MG TAB PO PRN; +ALPRAZolam 0.5 MG TAB PO PRN; +ASPIRIN 325 MG TAB PO PRN; +HEPARIN SODIUM,PORCINE 10,000 UNIT in SODIUM CHLORIDE 0.9% 1,000 ML IRRIGATION PRN; +HEPARIN SODIUM,PORCINE 2,500 UNIT in SODIUM CHLORIDE 0.9% 250 ML IRRIGATION PRN; -LACTATED RINGERS 1,000 ML IV SCH; -LIDOCAINE 1% (10MG/ML) FOR IV START INTRADERMA PRN; +SODIUM CHLORIDE 0.9% 1,000 ML in EMPTY BAG 1 BAG IV ONE; +ZOLPIDEM 5 MG TAB PO PRN
[2021-11-25] MEDS ORDERED: SODIUM CHLORIDE 0.9% 1,000 ML IV ONE (06:09)
[2021-11-25 06:27] LABS: Glucose,Whole Blood 121 mg/dL (70-110)
[2021-11-25 06:32] VITALS: RESP 16; TEMP 98
[2021-11-25 06:34] LABS: Basophils # (A) 0.1 k/uL (0-0.2); Basophils % (A) 1 %; Eosinophils # (A) 0.3 k/uL (0-0.7); Eosinophils % (A) 4 %; HCT 44.1 % (34.0-46.0); HGB 14.6 gm/dL (11.4-16.0); Lymphocytes # (A) 3.3 k/uL (1.0-4.8); Lymphocytes % (A) 39 %; MCH 29.6 pg (25.0-35.0); MCHC 33.1 g/dL (31.0-37.0); MCV 89.6 fL (80.0-100.0); Mean Platelet Volume 8.7; Monocytes # (A) 0.4 k/uL (0-1.0); Monocytes % (A) 5 %; Neutrophils # (A) 4.2 k/uL (1.3-7.7); Neutrophils % (A) 50 %; Platelet Count 214 k/uL (150-450); RBC 4.93 m/uL (3.80-5.40); RDW 13.3 % (11.5-15.5); WBC 8.4 k/uL (3.8-10.6)
[2021-11-25 06:45] LABS: African American GFR (CKD) >90 (>60 ml/min/1.73 sqM); Anion Gap 7 mmol/L; Blood Urea Nitrogen 16 mg/dL (7-17); Calcium 8.8 mg/dL (8.4-10.2); Carbon Dioxide 30 mmol/L (22-30); Chloride 104 mmol/L (98-107); Glucose 127 mg/dL (74-99); Non-African American GFR(CKD) 89 (>60 ml/min/1.73 sqM); Potassium 3.6 mmol/L (3.5-5.1); Sodium 141 mmol/L (137-145)
[2021-11-25] MEDS ORDERED: LIDOCAINE 1% INJ 10MG/ML (30 ML VIAL-PF) SQ ONE (07:54)
[2021-11-25] MEDS ORDERED: MIDAZOLAM 2 MG/2 ML VIAL IV ONE (07:54)
[2021-11-25] MEDS ORDERED: VERAPAMIL 2.5 MG/ML 2 ML AMP ONE (08:07)
[2021-11-25] MEDS ORDERED: HYDROmorphone 1 MG/ML 1 ML SYRINGE IVP ONE (08:18)
--- NOTE | 2021-11-25 08:21 | P.PCN ---
Date of Procedure: 11/25/21 Operative Findings: ATTEMPTED AN AORTOGRAM WITH RUNOFF PERFORMING PHYSICIAN: Patricio Barnhart MD PROCEDURE PERFORMED: 1. Ultrasound-guided access of the right common femoral artery INDICATION: Severe bilateral lower extremities intermittent claudication COMPLICATION: None LEVEL OF SEDATION: Moderate was sedation length of [] APPROACH: Right common femoral artery Right radial artery PROCEDURE DESCRIPTION: After obtaining informed consent and explaining the procedure benefits, risks, and complications, the patient was brought to the cardiac hot plate plywood press laborer. The right groin was prepped and draped in sterile fashion. The right common femoral ar donny was cannulated using micropuncture technique, under ultrasound guidance. A micropuncture wire was advanced, and the micropuncture sheath was advanced over the wire, then the micropuncture sheath was exchanged over an 0.35 wire into a 5-Belgian sheath dilator assembly then the wire and dilator were removed and sheath was flushed. Attempting advancing the pigtail catheter over 035 wire into the aorta was unsuccessful because the patient likely has severe aortoiliac disease. At that point I accessed the right radial artery and I placed a 6- Belgian sheath. I was able to advance [address] to the aortic arch but unfortunately again I was unable to advance a pigtail catheter because of severe arm/elbow pain. At that point I decided to abort the procedure and perform CTA. The procedure was completed and there was no complications. CONCLUSION: The patient is going to undergo a CTA of the abdomen and pelvis and lower extremity
--- NOTE | 2021-11-25 08:48 | IR ---
EXAMINATION TYPE: IR angio abdominal w runoff DATE OF EXAM: 11/25/2021 COMPARISON: NONE HISTORY: Fluoroscopy time. Fluoroscopy was provided to the referring clinician.
--- NOTE | 2021-11-25 14:30 | CT ---
EXAMINATION TYPE: CT angio abd aorta w/Runoff DATE OF EXAM: 11/25/2021 COMPARISON: None HISTORY: 65-year-old female peripheral artery disease. Pt here from [facility]. Atherosclerosis TECHNIQUE: Contiguous axial scanning of the abdomen and pelvis performed without and with IV Contrast , patient injected with 100 mL of Isovue 370. Additional post contrast bilateral lower extremity runo ff. Coronal/sagittal reconstructions performed. 3-D reconstructions generated on a dedicated workstat ion. CT DLP: 1820.60 mGycm Automated exposure control for dose reduction was used. FINDINGS: Heart normal size without pericardial effusion. Dependent atelectasis posterior right lung base. No p leural effusion. Mild circumferential wall thickening distal esophagus. Allowing for arterial phase imaging, no focal liver lesion or biliary ductal dilatation. Gallbladder, adrenal glands, right kidney, spleen, and pancreas appear within normal limits. Approximately 2 tiny cortical lesions left kidney measuring up to 7 mm. On noncontrast images, these appear somewhat high density to intermediate attenuation and could represent tiny solid masses or com plicated cysts. They should be reassessed on a 6 month follow-up. No dilated small bowel, free fluid, or free air. No mesenteric or retroperitoneal lymphadenopathy. No nenlarged lymph nodes right lower quadrant mesentery. Moderate stool burden. No pericolonic inflammat ory change. Bladder urine distended. Uterus anteverted but retroflexed. Both ovaries are visualized. No abnormal fluid collection the pelvis or pelvic lymphadenopathy. BONES: Moderate degenerative change left hip and mild at the right hip. Hypertrophic facet arthropathy lower lumbar spine. Disc bulge at L3-L4. VASCULATURE: Moderate to severe atherosclerotic calcifications throughout the abdominal aorta and iliac arteries. Mild atherosclerotic narrowing origin of the SMA and left renal artery. Segmental severe atherosclero tic stenoses distal abdominal aorta, aortic bifurcation, and throughout the right common iliac artery . RIGHT: Some noncalcified thrombus is also noted within the right common iliac artery and could serve as a po tential embolic source. Mild atherosclerotic calcifications within the common femoral artery. Profunda femoral artery is patent. SFA and popliteal arteries are patent. Trifurcation vessels are patent. Peroneal artery not seen beyond the mid leg level. There is satisfactory two-vessel runoff into the f oot. LEFT: Mild atherosclerotic calcifications left common femoral artery. The profunda femoral artery is patent. SFA and popliteal artery as well as the trifurcation vessels are patent. Peroneal artery becomes diminutive and is not seen beyond the mid leg level. Satisfactory two-vessel runoff into the foot. IMPRESSION: 1. SEVERE ATHEROSCLEROTIC CHANGES DISTAL ABDOMINAL AORTA, AORTIC BIFURCATION, AND RIGHT COMMON ILIAC ARTERY. THIS RESULTS IN SEGMENTAL SEVERE STENOSES ALONG THESE PORTIONS. IN ADDITION, THERE IS NONCALC IFIED PLAQUE SEEN WITHIN THE RIGHT COMMON ILIAC ARTERY THAT COULD SERVE A POTENTIAL EMBOLIC SOURCE . 2. NO SIGNIFICANT ATHEROSCLEROTIC CHANGE WITHIN THE SFA OR POPLITEAL ARTERY. THE TRIFURCATION VESSELS ARE ALSO PATENT WITH TWO-VESSEL RUNOFF INTO THE FOOT ON EITHER SIDE. THE BILATERAL PERONEAL ARTERIES BECOME DIMINUTIVE AND ARE NOT SEEN BEYOND THE MID LEG LEVEL. 3. MILD CIRCUMFERENTIAL WALL THICKENING DISTAL ESOPHAGUS COULD REPRESENT UNDERLYING ESOPHAGITIS. DEVIN ELATE WITH ANY SYMPTOMS THAT WOULD WARRANT DIRECT VISUALIZATION. 4. TWO TINY CORTICAL LESIONS IN THE LEFT KIDNEY MEASURING UP TO 7 MM. SMALL COMPLICATED CYSTS OR TINY SOLID MASSES ARE BOTH POSSIBILITIES. RECOMMEND 6 MONTH FOLLOW-UP CT OF THE ABDOMEN TO REASSESS.
[2021-11-25 15:06] VITALS: BP 131/65; PULSE 76
== END 2021-11-25 15:02 | disposition home or self-care (01) ==
LOC: CATHCVL 06:03
PROVIDERS: ATTEND Internal Medicine Interventional Cardiology
DX: I70.213 Atherosclerosis of native arteries of extremities with intermittent claudication, bilateral legs (principal); Z53.8 Procedure and treatment not carried out for other reasons; I25.10 Atherosclerotic heart disease of native coronary artery without angina pectoris; I10 Essential (primary) hypertension; E78.5 Hyperlipidemia, unspecified; Z20.822 Contact with and (suspected) exposure to COVID-19
CPT/HCPCS: 36200; 80048; 85025; 87635; 75635; C1769 ×4; C1894 ×2; J2250; J2001; J1170; Q9967

== ENCOUNTER → 2021-12-04 | Outpatient (CLI) | payer MEDICARE, BC ==
[2021-12-04 11:37] VITALS: BP 123/75; PULSE 79; RESP 18; TEMP 97.8
--- NOTE | 2021-12-04 15:17 | P.PAINPG ---
PQRS Measure Charge Sheet Comment: A 65 yr old female with a history of severe and chronic neck pain secondary to cervical degenerative disc diseases and spondylosis with facet arthropathy presents today for R C2-C7 TPIs. Pt states she received 50% pain relief x 6 weeks s/p procedure. Pain level is 4/10, constant sharp/ achy in character and localized on the R aspect of the cervical spine. Pain is provoked by UE lifting. Pain is alleviated with heat, medications (Tramadol), laying supine, repositioning and rest. Pt states she received more pain relief with the 1st REGGIE than with the TPIs. Interventional pain procedures completed include REGGIE C4-C5 x2, TPIs R C2-C7 x1. Patient is currently on Tramadol prn Patient denies any side effects of the medication(s), denies excessive drowsiness or sleepiness, denies suicidal ideation and reports that the current pain medication is helping to control the pain and improve activities of daily living. Patient denies any motor or sensory deficits. Patient denies any fever or night sweats, denies any change in the bowel movements or urination. Physical Examination: -Constitutional: Cooperative. Not in acute distress . - Neurologic: Cranial nerve II to XII intact. No focal neurological deficits. - Psychatric: Alert & oriented x 3. Matching mood & appropriate affect. Judgment and insight intact. - Musculoskeletal: Cervical spine: Muscle bulk/ tone/ strength in the bilateral upper extremities normal Vertebral body tenderness to palpation over C4, C5 Spurling test positive Distraction test positive Facet loading test positive Thoracic spine Muscle bulk / tone/ strength in the bilateral paraspinal muscles normal Vertebral body tender to palpation over Facet loading test positive Lumbar spine: Motor bulk/ tone/ strength lower extremities , thigh and legs : 5/5 Deep tendon reflexes : Normal Knee Jerk. Normal Ankle Jerk . Vertebral body tenderness to palpation over Lumbar Facet Loading Test positive Straight Leg Raise: positive at 30 degrees right side/ left side Gaenslen's Test positive Sacral spine : Severe tenderness over the Sacroiliac joint: right side / left side Range of motion: Flexion of the lumbar spine <60 degrees Range of motion: Extension of the lumbar spine <20 degrees Gaenslen's Test positive Luis's Test positive Olena test: positive right side / left side Thigh Thrust Test Sacral Thrust Test Assessment and plan: Chronic neck pain secondary to cervical degenerative disc disease , spondylosis with facet arthropathy without myelopathy Recommendation of R paramedial C4-C5 GABY. May need a series of injections, up to 3 within a 6 mo period for optimal pain relief. Risks, benefits of procedure discussed and pt verbalized understanding. Denies anticoag ulant use but admits to a medical history of diabetes. Protocol for discontinuation/ continuation of medications papo procedure discussed. All patient questions answered MAPS reviewed and it was appropriate. I have spent less than 30 minutes on patient care today. Dr Willson was available by phone for the evaluation of this patient. The time was used to review the medical records including relevant urine studies and Prescription history (MAPs), review of the available imaging, evaluation and examination of the patient, coordination of care with the medical staff and if applicable referring physicians, as well as creation of the medical record PQRS Narrative: Hx Alcohol Use (MH) No Home Medications: Ambulatory Orders ALPRAZolam [Xanax] 0.25 mg PO BID 01/02/20 Albuterol Sulfate [Proair Hfa] 2 puff INHALATION RT-Q6H PRN 01/02/20 DULoxetine HCL [Cymbalta] 60 mg PO DAILY 01/02/20 Levothyroxine Sodium [Synthroid] 75 mcg PO DAILY 01/02/20 Vit C/E/Zn/Coppr/Lutein/Zeaxan [Preservision Areds 2 Softgel] 1 cap PO BID 01/01 Ibuprofen [Motrin] 800 mg PO Q8HR PRN 06/11/21 Meclizine [Antivert] 25 mg PO BID 07/16/21 Memantine [Namenda] 5 mg PO BID 07/16/21 amLODIPine [Norvasc] 5 mg PO HS 07/16/21 buPROPion XL [Wellbutrin XL] 150 mg PO QAM 07/16/21 metFORMIN HCL 500 mg PO DAILY 07/16/21 Aspirin 81 mg PO HS 09/17/21 Losartan-Hctz 50-12.5 mg [Hyzaar 50-12.5] 50 mg PO DAILY 09/18/21 Atorvastatin [Lipitor] 40 mg PO DAILY 11/24/21 Controlled Substance Measures - Controlled Substance Measures Is patient prescribed a controlled substance at discharge?: No
== END ==
LOC: PNWHC3 11:08
PROVIDERS: ATTEND Specialist
DX: M50.30 Other cervical disc degeneration, unspecified cervical region (principal); M47.812 Spondylosis without myelopathy or radiculopathy, cervical region; G89.29 Other chronic pain; Z88.0 Allergy status to penicillin; Z88.8 Allergy status to other drugs, medicaments and biological substances
CPT/HCPCS: 99211

== ENCOUNTER 2022-03-20 06:26 | Inpatient (IN) | payer MEDICARE, BC ==
[2022-03-19 11:46] VITALS: BMI 21.9
[2022-03-20] MEDS ORDERED: DEXAMETHASONE SOD PHOSPHATE 4 MG/ML 1 ML VIAL IV ONE (06:32)
[2022-03-20] MEDS ORDERED: MIDAZOLAM 2 MG/2 ML VIAL IV PRN (06:32)
[2022-03-20] MEDS ORDERED: ONDANSETRON 4 MG/2 ML VIAL IVP ONE (06:32)
[2022-03-20] MEDS ORDERED: HYDROmorphone 0.5 MG/0.5 ML SYRINGE IVP PRN (07:00)
[2022-03-20] MEDS: LACTATED RINGERS 1,000 ML IV SCH ×2 (07:25→07:40)
[2022-03-20] MEDS ORDERED: LIDOCAINE 1% (10MG/ML) FOR IV START INTRADERMA ONE (07:25)
[2022-03-20 07:38] LABS: Glucose,Whole Blood 117 mg/dL (70-110)
[2022-03-20 07:43] LABS: HCT 42.1 % (34.0-46.0); MCH 29.7 pg (25.0-35.0); MCHC 33.4 g/dL (31.0-37.0); MCV 89.1 fL (80.0-100.0); Platelet Count 177 k/uL (150-450); RBC 4.73 m/uL (3.80-5.40); WBC 6.5 k/uL (3.8-10.6)
[2022-03-20 08:12] LABS: African American GFR (CKD) >90 (>60 ml/min/1.73 sqM); Blood Urea Nitrogen 11 mg/dL (7-17); Calcium 8.9 mg/dL (8.4-10.2); Chloride 105 mmol/L (98-107); Glucose 121 mg/dL (74-99); Non-African American GFR(CKD) >90 (>60 ml/min/1.73 sqM); Potassium 3.2 mmol/L (3.5-5.1); Sodium 143 mmol/L (137-145)
[2022-03-20 08:13] LABS: Anion Gap 10 mmol/L; Carbon Dioxide 28 mmol/L (22-30)
--- NOTE | 2022-03-20 08:15 | P.GSHP ---
History of Present Illness H&P Date: 03/20/22 Chief Complaint: claudication, aorto iliac occlusion 66 year old female with history of claudication which she can only walk 50-100 feet, rest pain and recent CTA demonstrating aortoiliac occlusive disease presents to the OR for elective aortobifemoral or biiliac bypass. She denies any fevers, chills, chest pain or shortness of breath. - Review of Systems All systems: negative (what is mentioned in the PMH or HPI) Past Medical History Past Medical History: Coronary Artery Disease (CAD), Diabetes Mellitus, Eye Disorder, Hypertension, Memory Impairment, Myocardial Infarction ([place]), Vascular Disorder Additional Past Medical History / Comment(s): Macular Degeneration, fall in February 2021-sustained 3 thoracic and 3 cervical fractures,does not use any assistive devices, frequent leg & foot pain w/ tingling & burning,hep C w/ tx-no further problems Last Myocardial Infarction Date:: 2003 History of Any Multi-Drug Resistant Organisms: None Reported Past Surgical History: Section, Heart Catheterization With Stent Additional Past Surgical History / Comment(s): Stent X1,pain clinic procedures,rt shoulder repair Past Anesthesia/Blood Transfusion Reactions: No Reported Reaction Additional Past Anesthesia/Blood Transfusion Reaction / Comment(s): no hx blood transfusion Date of Last Stent Placement:: 2003 Smoking Status: Former smoker - Past Family History Father Family Medical History: Coronary Artery Disease (CAD), CVA/TIA, Myocardial Infarction ([place]), Vascular Disorder Additional Family Medical History / Comment(s): tatiana leg ulcers Medications and Allergies Home Medications Medication Instructions Recorded Confirmed Type ALPRAZolam [Xanax] 0.25 mg PO BID 01/02/20 03/20/22 History DULoxetine HCL [Cymbalta] 60 mg PO DAILY 01/02/20 03/20/22 History Levothyroxine Sodium [Synthroid] 75 mcg PO DAILY 01/02/20 03/20/22 History Vit C/E/Zn/Coppr/Lutein/Zeaxan 1 cap PO BID 01/02/20 03/20/22 History [Preservision Areds 2 Softgel] Ibuprofen [Motrin] 800 mg PO Q8HR PRN 06/11/21 03/20/22 History Meclizine [Antivert] 25 mg PO BID 07/16/21 03/20/22 History Memantine [Namenda] 5 mg PO BID 07/16/21 03/20/22 History amLODIPine [Norvasc] 5 mg PO HS 07/16/21 03/20/22 History buPROPion XL [Wellbutrin XL] 150 mg PO QAM 07/16/21 03/20/22 History metFORMIN HCL 500 mg PO BID 07/16/21 03/20/22 History Aspirin 81 mg PO HS 09/17/21 03/20/22 History Losartan-Hctz 50-12.5 mg [Hyzaar 50 mg PO DAILY 09/18/21 03/20/22 History 50-12.5] Atorvastatin [Lipitor] 40 mg PO DAILY 11/24/21 03/20/22 History Calcium Carbonate [Calcium] 1,200 mg PO DAILY 03/19/22 03/20/22 History Cholecalciferol [Vitamin D3 (125 125 mcg PO DAILY 03/19/22 03/20/22 History Mcg = 5000 Iu)] Metoprolol Succinate (ER) [Toprol 25 mg PO DAILY 03/19/22 03/20/22 History XL] Omeprazole [PriLOSEC] 20 mg PO AC-BRKFST 03/19/22 03/20/22 History Allergies Allergy/AdvReac Type Severity Reaction Status Date / Time Penicillins Allergy Unknown Verified 03/20/22 07:07 Childhood prochlorperazine Allergy muscle Verified 03/20/22 07:07 [From Compazine] dyskinesia Surgical - Exam Vital Signs Temp Pulse Resp BP Pulse Ox 97.1 F L 82 18 138/65 96 03/20/22 07:15 03/20/22 07:15 03/20/22 07:15 03/20/22 07:15 03/20/22 07:15 - General well developed, well nourished, no distress - Eyes PERRL, normal ocular movement - ENT normal pinna, normal nares - Neck no masses - Respiratory normal expansion, normal respiratory effort - Cardiovascular Rhythm: regular - Abdomen Abdomen: soft, non tender - Integumentary no rash - Neurologic normal coordination - Psychiatric oriented to time, oriented to person, oriented to place, speech is normal non palpable femoral, dp or pt pulse on the right. palpable femoral pulse on the left. Non palpable dp or pt pulses. Results - Labs 03/20/22 07:27 Abnormal Lab Results - Last 24 Hours (Table) 03/20/22 Range/Units 07:36 POC Glucose (mg/dL) 117 H (70-110) mg/dL Assessment and Plan Assessment: 1. Aorto-iliac occlusive disease 2. Claudication 3. Rest pain 4. Tobacco abuse Plan: To OR for [id number] bypass possible bi-femoral bypass.
[2022-03-20] MEDS ORDERED: HEPARIN SODIUM,PORCINE 10,000 UNIT/ML 1 ML VIAL ONE ×2 (08:26)
[2022-03-20] MEDS ORDERED: PHENYLEPHRINE-0.9% NACL SYG 1,000 MCG/10 ML SYRINGE ONE (08:26)
[2022-03-20] MEDS ORDERED: MIDAZOLAM 2 MG/2 ML VIAL ONE (08:26)
[2022-03-20] MEDS ORDERED: ALBUMIN HUMAN 5% (25gm) 500 ML VIAL IVPB ONE (08:26)
[2022-03-20] MEDS ORDERED: SUCCINYLCHOLINE CHLORIDE 200 MG/10 ML VIAL IV ONE (08:26)
[2022-03-20] MEDS ORDERED: ROCURONIUM 10 MG/ML (5 ML VIAL) IV ONE (08:26)
[2022-03-20] MEDS ORDERED: SODIUM CHLORIDE 0.9% IRRIG 1,000 ML BTL IRRIGATION ONE (08:26)
[2022-03-20] MEDS ORDERED: LIDOCAINE 2% INJ 20 MG/ML (2 ML VIAL) ONE (08:26)
[2022-03-20] MEDS ORDERED: SODIUM BICARB 8.4% 50 ML SYR (1 MEQ/ML) ONE (08:26)
[2022-03-20] MEDS ORDERED: PROTAMINE SULFATE 10 MG/ML 5 ML VIAL IV ONE (08:26)
[2022-03-20] MEDS ORDERED: PROPOFOL 10 MG/ML 20 ML VIAL IV ONE (08:26)
[2022-03-20] MEDS ORDERED: fentaNYL (PF) 50 MCG/ML 2 ML AMP ONE (08:26)
[2022-03-20] MEDS ORDERED: GLYCOPYRROLATE 0.2 MG/ML 2 ML VIAL ONE (08:26)
[2022-03-20] MEDS ORDERED: ePHEDrine 50 MG/ML 1 ML VIAL ONE (08:26)
[2022-03-20] MEDS ORDERED: NEOSTIGMINE 1 MG/ML 10 ML VIAL ONE (08:26)
[2022-03-20] MEDS ORDERED: ROPIVACAINE 100 MG, fentaNYL (PF). 200 MCG in SODIUM CHLORIDE 0.9% 76 ML EPIDURAL ONE (09:34)
[2022-03-20] MEDS ORDERED: NALOXONE 0.4 MG/ML 1 ML VIAL IV PRN (09:44)
[2022-03-20] MEDS ORDERED: THROMBIN (BOVINE) 5,000 UNIT VIAL TOPICAL ONE ×2 (10:00)
[2022-03-20] MEDS ORDERED: GELATIN SPONGE,ABSORB (LARGE) 1 EACH SPONGE TOPICAL ONE ×2 (10:00)
[2022-03-20] MEDS ORDERED: LACTATED RINGERS 1,000 ML IV ONE ×5 (10:29→15:00)
[2022-03-20 11:15] LABS: ABG Base Excess -4.3 mmol/L; ABG HCO3 20 mmol/L (21-25); ABG Oxygen Saturation 98.9 % (94-97); ABG PCO2 37 mmHg (35-45); ABG PH 7.35 (7.35-7.45); ABG PO2 130 mmHg (83-108)
--- NOTE | 2022-03-20 12:33 | P.ANPRN ---
Procedure Note - Anesthesia - Epidural/Spinal Epidural Time Out Performed: Yes Date of Procedure: 03/20/22 Procedure Start Time: 07:30 Procedure Stop Time: 07:45 Location of Patient: PreOp Indication: Acute Post-Operative Pain Sedation Type: Sedate with meaningful contact maintained Preparation: Sterile Prep Number of Attempts: 1 Position: Sitting Catheter Depth at Skin (cm): 12 Catheter: Indwelling Needle Guage: 18 Injectate: Test Dose Lidocaine1.5% w/1:200,000 epi Blood Aspirated: No Pain Paresthesia on Injection Noted: No Events: Uneventful and Well Tolerated
--- NOTE | 2022-03-20 12:37 | P.ANPRN ---
Procedure Note - Anesthesia - Invasive Line Right Central Line Date of Procedure: 03/20/22 Time of Procedure: 09:00 Location of Patient: OR Preparation: Sterile Prep, Sterile Dressing Ultrasound Used: Yes Purpose - Visualization and Identification of Vasculature: Yes Needle Guage: 18 Narrative: Central line placement per sterile protocol utilized. Right IJ Left Arterial Line Time Out Performed: Yes Date of Procedure: 03/20/22 Time of Procedure: 07:45 Location of Patient: PreOp Arterial Line Location: Radial Ultrasound Used: No Purpose - Visualization and Identification of Vasculature: No Image Stored and Saved: No Narrative: Arterial line placement per sterile protocol utilized.
[2022-03-20 12:55] LABS: HCT 34.9 % (34.0-46.0); HGB 11.6 gm/dL (11.4-16.0); MCH 29.5 pg (25.0-35.0); MCHC 33.3 g/dL (31.0-37.0); MCV 88.4 fL (80.0-100.0); Mean Platelet Volume 9.1; Platelet Count 166 k/uL (150-450); RBC 3.95 m/uL (3.80-5.40); RDW 12.7 % (11.5-15.5); WBC 10.3 k/uL (3.8-10.6)
[2022-03-20 12:56] LABS: ABG Base Excess -3.3 mmol/L; ABG HCO3 22 mmol/L (21-25); ABG Oxygen Saturation 99.2 % (94-97); ABG PCO2 44 mmHg (35-45); ABG PH 7.32 (7.35-7.45); ABG PO2 186 mmHg (83-108)
[2022-03-20] MEDS ORDERED: NALOXONE 0.4 MG/ML 1 ML VIAL IVP PRN (14:25)
[2022-03-20 15:08] LABS: Allen Test Performed? Yes
[2022-03-20 15:10] LABS: Basophils % (A) 0 %; Eosinophils % (A) 0 %; HCT 34.9 % (34.0-46.0); HGB 11.7 gm/dL (11.4-16.0); Lymphocytes # (A) 0.9 k/uL (1.0-4.8); Lymphocytes % (A) 12 %; MCH 29.6 pg (25.0-35.0); MCHC 33.4 g/dL (31.0-37.0); MCV 88.7 fL (80.0-100.0); Monocytes # (A) 0.3 k/uL (0-1.0); Monocytes % (A) 3 %; Neutrophils # (A) 6.6 k/uL (1.3-7.7); Neutrophils % (A) 84 %; Platelet Count 125 k/uL (150-450); RBC 3.94 m/uL (3.80-5.40); WBC 7.9 k/uL (3.8-10.6)
[2022-03-20 15:13] LABS: ABG Base Excess -10.4 mmol/L; ABG HCO3 15 mmol/L (21-25); ABG Oxygen Saturation 98.8 % (94-97); ABG PCO2 32 mmHg (35-45); ABG PH 7.29 (7.35-7.45); ABG PO2 150 mmHg (83-108)
[2022-03-20 15:26] LABS: ALT 21 U/L (4-34); AST 21 U/L (14-36); African American GFR (CKD) >90 (>60 ml/min/1.73 sqM); Albumin 2.3 g/dL (3.5-5.0); Alkaline Phosphatase 32 U/L (38-126); Anion Gap 6 mmol/L; Blood Urea Nitrogen 11 mg/dL (7-17); Carbon Dioxide 28 mmol/L (22-30); Chloride 108 mmol/L (98-107); Glucose 180 mg/dL (74-99); Non-African American GFR(CKD) >90 (>60 ml/min/1.73 sqM); Potassium 3.4 mmol/L (3.5-5.1); Sodium 142 mmol/L (137-145); Total Bilirubin 0.6 mg/dL (0.2-1.3); Total Protein 3.7 g/dL (6.3-8.2)
[2022-03-20] MEDS: ROPIVACAINE 400 MG, HYDROMORPHONE (PF) 5 MG in SODIUM CHLORIDE 0.9% 170 ML EPIDURAL PRN ×3 (15:30→16:03)
--- NOTE | 2022-03-20 15:48 | XR ---
EXAMINATION TYPE: XR chest 1V DATE OF EXAM: 03/20/2022 COMPARISON: 12/30/2020 HISTORY: 66 year-old female line placement TECHNIQUE: Single frontal view of the chest is obtained. FINDINGS: NG tube satisfactory. Right IJ CVC tip within the right atrium. No appreciable pneumothorax. Heart up per limits of normal in size. Mild interstitial prominence as a chronic appearance. Some mild strandy atelectasis at the left lower lung. Elsewhere granuloma left upper lobe. No lee ann consolidation or p leural effusion. IMPRESSION: Right IJ CVC tip in the right atrium. There are chronic appearing changes. Suspect some atelectasis in the left lower lung.
--- NOTE | 2022-03-20 15:58 | P.CNPUL ---
History of Present Illness Consult date: 03/20/22 Requesting physician: Justus Borja Reason for consult: other (Critical care management) Chief complaint: Claudication, aortoiliac occlusion History of present illness: This is a 66-year-old female patient with a known history of coronary artery disease with previous stent placement, diabetes mellitus, peripheral neuropathy, hypertension, macular degeneration, frequent leg and foot pain and tingling with burning on animal distance. CT angiogram revealed aortoiliac occlusive disease. She was brought in today electively for an aortobifemoral bypass. She did undergo an aortic and iliac endarterectomy with patch graft angioplasty. She is seen in consultation in the recovery room. Chest x-ray is reviewed. She is currently maintaining good O2 saturations up to 100% on 2 L/m per nasal cannula. Hemodynamically stable. White count 7.9. Hemoglobin 11.7. Platelets 125. Arterial blood gases revealed a pO2 of 150, pCO2 32, pH 7.32. Sodium 142. Potassium 3.4. BUN 11. Creatinine 0.49. Lactated Ringer's at 100 ML's per hour. Epidural in place for pain control. Review of Systems REVIEW OF SYSTEMS: CONSTITUTIONAL: Denies any recent significant weight loss or weight gain. EYES: Denies change in vision. EARS, NOSE, MOUTH, THROAT: Denies headaches, denies sore throat. CARDIOVASCULAR: Denies chest pain, palpitations or syncopal episodes. RESPIRATORY: Denies shortness of breath, cough, congestion or hemoptysis. GASTROINTESTINAL: Denies change in appetite, denies abdominal pain GENITOURINARY: Denies hematuria, denies infections. MUSKULOSKELETAL: Positive for pain of the lower extremities with walking. INTEGUMENTARY: Denies rash, denies eczema. NEUROLOGICAL: Denies recent memory loss, no recent seizure activity. PSYCHIATRIC: Denies anxiety, denies depression. HEMATOLOGIC/LYMPHATIC: Denies anemia, denies enlarged lymph nodes. Past Medical History Past Medical History: Coronary Artery Disease (CAD), Diabetes Mellitus, Eye Disorder, Hypertension, Memory Impairment, Myocardial Infarction ([place]), Vascular Disorder Additional Past Medical History / Comment(s): Macular Degeneration, fall in February 2021-sustained 3 thoracic and 3 cervical fractures,does not use any assistive devices, frequent leg & foot pain w/ tingling & burning,hep C w/ tx-no further problems Last Myocardial Infarction Date:: 2003 History of Any Multi-Drug Resistant Organisms: None Reported Past Surgical History: Section, Heart Catheterization With Stent Additional Past Surgical History / Comment(s): Stent X1,pain clinic procedures,rt shoulder repair Past Anesthesia/Blood Transfusion Reactions: No Reported Reaction Additional Past Anesthesia/Blood Transfusion Reaction / Comment(s): no hx blood transfusion Date of Last Stent Placement:: 2003 Smoking Status: Former smoker - Past Family History Father Family Medical History: Coronary Artery Disease (CAD), CVA/TIA, Myocardial Infarction ([place]), Vascular Disorder Additional Family Medical History / Comment(s): tatiana leg ulcers Medications and Allergies Home Medications Medication Instructions Recorded Confirmed Type ALPRAZolam [Xanax] 0.25 mg PO BID 01/02/20 03/20/22 History DULoxetine HCL [Cymbalta] 60 mg PO DAILY 01/02/20 03/20/22 History Levothyroxine Sodium [Synthroid] 75 mcg PO DAILY 01/02/20 03/20/22 History Vit C/E/Zn/Coppr/Lutein/Zeaxan 1 cap PO BID 01/02/20 03/20/22 History [Preservision Areds 2 Softgel] Ibuprofen [Motrin] 800 mg PO Q8HR PRN 06/11/21 03/20/22 History Meclizine [Antivert] 25 mg PO BID 07/16/21 03/20/22 History Memantine [Namenda] 5 mg PO BID 07/16/21 03/20/22 History amLODIPine [Norvasc] 5 mg PO HS 07/16/21 03/20/22 History buPROPion XL [Wellbutrin XL] 150 mg PO QAM 07/16/21 03/20/22 History metFORMIN HCL 500 mg PO BID 07/16/21 03/20/22 History Aspirin 81 mg PO HS 09/17/21 03/20/22 History Losartan-Hctz 50-12.5 mg [Hyzaar 50 mg PO DAILY 09/18/21 03/20/22 History 50-12.5] Atorvastatin [Lipitor] 40 mg PO DAILY 11/24/21 03/20/22 History Calcium Carbonate [Calcium] 1,200 mg PO DAILY 03/19/22 03/20/22 History Cholecalciferol [Vitamin D3 (125 125 mcg PO DAILY 03/19/22 03/20/22 History Mcg = 5000 Iu)] Metoprolol Succinate (ER) [Toprol 25 mg PO DAILY 03/19/22 03/20/22 History XL] Omeprazole [PriLOSEC] 20 mg PO AC-BRKFST 03/19/22 03/20/22 History Allergies Allergy/AdvReac Type Severity Reaction Status Date / Time Penicillins Allergy Unknown Verified 03/20/22 07:07 Childhood prochlorperazine Allergy muscle Verified 03/20/22 07:07 [From Compazine] dyskinesia Physical Exam Vitals: Vital Signs Temp Pulse Resp BP BP Pulse Ox 03/20/22 14:19 96.9 F L 82 16 99/54 114/60 100 03/20/22 08:14 85 16 129/58 100 03/20/22 07:15 97.1 F L 82 18 138/65 96 Intake and Output 03/20/22 03/20/22 03/20/22 06:59 14:59 22:59 Intake Total 4250 Output Total 2230 Balance 2019 Intake: IV 4250 Output: Urine 130 Estimated Blood Loss 2100 Other: Weight 67.6 kg GENERAL EXAM: Alert, pleasant 66-year-old female, on 2 L nasal cannula, fairly comfortable in no apparent distress. HEAD: Normocephalic. EYES: Normal reaction of pupils, equal size. NOSE: Nasogastric tube secured in place. Clear with pink turbinates. THROAT: No erythema or exudates. NECK: No masses, no JVD. CHEST: No chest wall deformity. LUNGS: Equal air entry with no crackles, wheeze, rhonchi or dullness. CVS: S1 and S2 normal with no audible murmur, regular rhythm. ABDOMEN: Abdominal dressing dry and intact. Provena in place. No hepatosplenomegaly, normal bowel sounds, no guarding or rigidity. SPINE: No scoliosis or deformity SKIN: No rashes CENTRAL NERVOUS SYSTEM: No focal deficits, tone is normal in all 4 extremities. EXTREMITIES: There is no peripheral edema. No clubbing, no cyanosis. Peripheral pulses are intact. Results - Laboratory Findings CBC and BMP: 03/20/22 15:06 03/20/22 15:06 ABG ABG pH 7.29 (7.35-7.45) L 03/20/22 15:06 ABG pCO2 32 mmHg (35-45) L 03/20/22 15:06 ABG pO2 150 mmHg (83-108) H 03/20/22 15:06 ABG O2 Saturation 98.8 % (94-97) H 03/20/22 15:06 PT/INR, D-dimer PT 11.0 sec (9.0-12.0) 03/20/22 07:27 INR 1.0 (<1.2) 03/20/22 07:27 Abnormal lab findings: Abnormal Labs 03/20/22 03/20/22 03/20/22 07:27 07:27 07:36 Plt Count Lymphocytes # ABG pH ABG pCO2 ABG pO2 ABG HCO3 ABG O2 Saturation Potassium 3.2 L Chloride Creatinine Glucose 121 H POC Glucose (mg/dL) 117 H Calcium Alkaline Phosphatase Total Protein Albumin Crossmatch See Detail 03/20/22 03/20/22 03/20/22 11:03 12:40 15:06 Plt Count 125 L Lymphocytes # 0.9 L ABG pH 7.32 L ABG pCO2 ABG pO2 130 H 186 H ABG HCO3 20 L ABG O2 Saturation 98.9 H 99.2 H Potassium Chloride Creatinine Glucose POC Glucose (mg/dL) Calcium Alkaline Phosphatase Total Protein Albumin Crossmatch 03/20/22 03/20/22 15:06 15:06 Plt Count Lymphocytes # ABG pH 7.29 L ABG pCO2 32 L ABG pO2 150 H ABG HCO3 15 L ABG O2 Saturation 98.8 H Potassium 3.4 L Chloride 108 H Creatinine 0.49 L Glucose 180 H POC Glucose (mg/dL) Calcium 7.0 L Alkaline Phosphatase 32 L Total Protein 3.7 L Albumin 2.3 L Crossmatch - Diagnostic Findings Chest x-ray: image reviewed Assessment and Plan Assessment: 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 Postoperative day #0. History of coronary artery disease with previous stent placement Diabetes mellitus Diabetic neuropathy Hypertension Macular degeneration Former smoker Plan: The patient was seen and evaluated Chest x-ray, labs and medications reviewed Add bronchodilators Add incentive spirometer Titrate the FiO2 as tolerated Follow closely in the intensive care unit We will continue to follow and make further recommendations based on her clinical status I have personally seen and examined the patient, performed the documentation and the assessment and plan as written. Number of minutes spent on the visit: 20.
[2022-03-20] MEDS: SODIUM CHLORIDE 0.9% 1,000 ML in EMPTY BAG 1 BAG IV SCH (16:11)
[2022-03-20 17:23] LABS: Glucose,Whole Blood 213 mg/dL (70-110)
[2022-03-20] MEDS: IPRATROPIUM-ALBUTEROL 3 ML NEB INHALATION SCH ×2 (17:39→21:24)
[2022-03-20 20:28] LABS: African American GFR (CKD) >90 (>60 ml/min/1.73 sqM); Anion Gap 6 mmol/L; Blood Urea Nitrogen 13 mg/dL (7-17); Calcium 7.3 mg/dL (8.4-10.2); Carbon Dioxide 27 mmol/L (22-30); Chloride 108 mmol/L (98-107); Glucose 193 mg/dL (74-99); Non-African American GFR(CKD) >90 (>60 ml/min/1.73 sqM); Potassium 3.7 mmol/L (3.5-5.1); Sodium 141 mmol/L (137-145)
[2022-03-20] MEDS: HYDROcodone/APAP 5-325MG 1 EACH TAB PO PRN ×2 (20:41→23:44)
[2022-03-20] MEDS: ALPRAZolam 0.25 MG TAB PO PRN (20:41)
[2022-03-20] MEDS ORDERED: Potassium Replacement Protocol 1 EACH MISC MISCELLANE PRN (20:58)
[2022-03-20] MEDS ORDERED: POTASSIUM BICARBONATE/CIT AC 20 MEQ TABLET.EFF NG-TUBE SCH (21:00)
[2022-03-21] MEDS ORDERED: FUROSEMIDE 10 MG/ML 2 ML VIAL IV ONE (03:30)
[2022-03-21] MEDS: SODIUM CHLORIDE 0.9% 1,000 ML in EMPTY BAG 1 BAG IV SCH ×2 (04:26→17:23)
[2022-03-21 04:55] LABS: Basophils % (A) 0 %; Eosinophils % (A) 0 %; HCT 29.3 % (34.0-46.0); HGB 10.2 gm/dL (11.4-16.0); Lymphocytes # (A) 1.2 k/uL (1.0-4.8); Lymphocytes % (A) 11 %; MCH 31.7 pg (25.0-35.0); MCHC 34.9 g/dL (31.0-37.0); MCV 90.7 fL (80.0-100.0); Mean Platelet Volume 9.7; Monocytes # (A) 0.7 k/uL (0-1.0); Monocytes % (A) 6 %; Neutrophils # (A) 9.1 k/uL (1.3-7.7); Neutrophils % (A) 82 %; Platelet Count 115 k/uL (150-450); RBC 3.23 m/uL (3.80-5.40); RDW 13.4 % (11.5-15.5); WBC 11.1 k/uL (3.8-10.6)
[2022-03-21 05:02] LABS: Ionized Calcium 4.7 mg/dL (4.5-5.3)
[2022-03-21 05:08] LABS: ALT 21 U/L (4-34); AST 27 U/L (14-36); African American GFR (CKD) 87 (>60 ml/min/1.73 sqM); Albumin 2.6 g/dL (3.5-5.0); Alkaline Phosphatase 39 U/L (38-126); Anion Gap 2 mmol/L; Blood Urea Nitrogen 18 mg/dL (7-17); Calcium 7.1 mg/dL (8.4-10.2); Carbon Dioxide 31 mmol/L (22-30); Chloride 108 mmol/L (98-107); Glucose 126 mg/dL (74-99); Magnesium 1.4 mg/dL (1.6-2.3); Non-African American GFR(CKD) 75 (>60 ml/min/1.73 sqM); Potassium 3.9 mmol/L (3.5-5.1); Sodium 141 mmol/L (137-145); Total Bilirubin 0.4 mg/dL (0.2-1.3); Total Protein 4.3 g/dL (6.3-8.2)
[2022-03-21] MEDS ORDERED: Magnesium Replacement Protocol 1 EACH MISC MISCELLANE PRN (06:08)
[2022-03-21] MEDS ORDERED: Potassium Replacement Protocol 1 EACH MISC MISCELLANE PRN (06:10)
--- NOTE | 2022-03-21 06:12 | P.OP ---
Date of Procedure: 03/20/22 Preoperative Diagnosis: AortoIliac occlusive disease Lower extremity claudication, rest pain Postoperative Diagnosis: Same Procedure(s) Performed: Aortic and right common iliac endarterectomy with patch angioplasty Left common iliac artery endarterectomy with patch angioplasty Anesthesia: GETA, haylie Surgeon: Justus Borja [employer]inkling Truck Driver #1: Amber Parnell Estimated Blood Loss (ml): 2,100 (cell saver [phone] returned) Pathology: other (aortic and iliac artery plaque) Condition: stable Disposition: PACU Indications for Procedure: 66 year old female with history of claudication after 50-100 feet and rest pain presents for open aortic bi-iliac artery bypass. She had a CTA which demonstrated severe occlusive disease involving the aorta and bilateral iliac arteries. She presents to the hospital for procedure. Operative Findings: Severe calcification of the aorta, and bilateral iliac arteries. Dense calcific plaque throughout. Description of Procedure: After written and informed consent was obtained from the patient and all risks, benefits and complications were described the patient was brought to the operative suite and laid in a supine position. The area of the abdomen, lower extremities were prepped and draped in the usual sterile fashion after appropriate anesthetic was performed per the anesthesiologist. Epidural was placed per the anesthesiologist, arterial line and central line were also placed prior to surgery. Antibiotics were administered prior to incision time out was done normal fashion with all parties are in agreement. A midline incision was then created with a 10 blade scalpel and dissection was carried down to the fascia. Fascia was incised and dissection was carried down to the peritoneum which was entered with a stat in normal fashion. The abdomen was opened from the sternum to the suprapubic area in normal fashion and intra-abdominal contents were examined. The liver appeared to be normal. Stomach, small bowel and colon were all normal appearing without any gross abnormalities. There was some adhesions into the left lower quadrant which were removed with sharp dissection. The omentum was also adhesed into the lower quadrant which was diss ected free with electrocautery. Once the adhesions were removed a Omni retractor was placed and the small bowel was placed into the right upper quadrant in normal fashion to give access to the retroperitoneum. Retractors were then placed to allow for better visualization of the retroperitoneum. The retroperitoneum was then opened with electrocautery overlying the aorta and dissection was carried all the way to the renal renal vein with attention to not injure the duodenum. Duodenum was dissected free laterally and the aorta was visualized. The aorta was then dissected free in a circumferential manner at the proximal aspect near the renal arteries. The renal vein was encountered and when palpating the aorta it was severely calcified and hard extending all the way to the renal arteries. Because of this the renal vein was suture ligated in normal fashion to get better access to the aorta. Further dissection was carried around the aorta at the level of the renal arteries and renal arteries were visualized. There was some dense calcification adjacent to the renal arteries as well. There was an accessory renal artery on the right which was dissected free and controlled with a vessel loop. The infrarenal aspect of the aorta was then dissected in a circumferential manner and umbilical tape was placed around this area to give better retraction. Attention was then placed to the iliac arteries which were dissected free with electrocautery. The dense calcification did extend down to the right iliac as well as the left at the bifurcation. There were soft areas distal to this in the common iliac arteries and this is where the further dissection was carried. Circumferential dissection was then carried around this area and vessel loops were placed for control. Once control was obtained The patient was given heparin and followed with serial ACTs for appropriate heparinization above 200. She was redosed as needed. Once appropriate ACT was obtained the proximal and distal aspects of the aorta and iliac arteries were clamped. Arteriotomy was then attempted with 11 blade scalpel but due to the hard calcification in the knife was unable to ny the calcification area. At this time the plaque was cracked with a stat and the artery was entered with Sesay scissors. This was extended and large amount of hard calcification was encountered which was removed at that time. During removal the plaque was extensive and was removed easily from the arterial wall and decision was made to perform an endarterectomy. Arteriotomy was extended throughout the aorta and hard calcified plaque was removed in normal fashion. Lumbar arteries were encountered that were bleeding briskly which were controlled with clips. Due to the hard calcification difficulty to control there was significant amount of bleeding that was suctioned and given back via cell saver to the patient. Due to the significant calcified area of the iliac artery on the right and majority of her symptoms being right-sided arteriotomy was extended to the right iliac artery and further endarterectomy was performed removing all dense plaque from this area. Once completed the area was irrigated and all free debris was removed. Inflow was assessed and brisk pulsatile bleeding was noted after release of the clamp. This area was then reclamped. A bovine pericardial patch was then chosen and patch angioplasty was performed with 4-0 Prolene suture in a running fashion starting at the infrarenal aspect of the aorta. Prior to suturing onto the iliac arteries backbleeding was assessed and was brisk at bilateral iliac arteries. Once completed control was released revealing good pulsatile flow to the bilateral iliac arteries as well as to the femorals were a pulse was noted. Hemostasis was then assured with Gelfoam and thrombin. There were some areas of bleeding from the patch site and these were repaired with pledgeted suture. Once hemostasis was assured the area was copiously irrigated, suctioned dry and the peritoneum was closed with 2-0 Vicryl suture. Once this was completed assessment of the lower extremities were then performed again but this time the left lower extremity demonstrated no pulsatility. The left iliac artery was palpated intra-abdominally and demonstrated no pulse and therefore the retroperitoneum was reopened. The aorta and iliac arteries were again controlled with vessel loops. Once controlled arteriotomy through the graft was performed demonstrating an area of plaque in the left iliac artery that had dislodged and occluded the vessel. This was difficult to remove from this arteriotomy and therefore the aorta was closed with running 5-0 Prolene suture. Attention was then placed to the left common iliac artery. Distal to the patch the iliac artery was opened with an 11 blade scalpel and dense plaque was encountered and therefore endarterectomy was performed of the left common iliac artery extending down to the takeoff of the internal iliac artery. Once completed backbleeding was assessed again demonstrating brisk backbleeding. The distal aspect of the common iliac artery plaque was feathered in normal fashion. No free debris was noted and a patch angioplasty with a bovine pericardial patch was performed in a running fashion with 5-0 Prolene suture. Once completed control was released and pulsatile blood flow was noted through the aorta, bilateral iliac arteries down to the femoral as well as DP and PT in the foot. The area was irrigated again and hemostasis was assured with Gelfoam and thrombin. Once hemostatic the re troperitoneum was reclosed with 2-0 Vicryl suture. The abdomen was interrogated again and no areas of ischemia were noted. The fascia was then closed with 2-0 PDS suture in a running fashion. The subcutaneous tissue was then irrigated with antibiotic solution and the skin was reapproximated with 3-0 Vicryl suture followed by phuc. The skin was cleansed and dressings were placed with a pevena incisional VAC. The patient tolerated the procedure well and had palpable DP and PT pulses bilaterally at the conclusion of the procedure. She was then sent to PACU for recovery.
[2022-03-21] MEDS ORDERED: POTASSIUM BICARBONATE/CIT AC 20 MEQ TABLET.EFF NG-TUBE SCH (06:15)
[2022-03-21] MEDS: MAGNESIUM SULFATE-D5W PMX 1 GM in DEXTROSE/WATER 1 100ML.BAG IVPB SCH ×3 (06:23→09:20)
[2022-03-21] MEDS: LEVOTHYROXINE 75 MCG TAB PO SCH (06:23)
[2022-03-21] MEDS: HYDROcodone/APAP 5-325MG 1 EACH TAB PO PRN ×2 (06:26→10:50)
[2022-03-21 07:08] LABS: Glucose,Whole Blood 141 mg/dL (70-110)
[2022-03-21] MEDS: ROPIVACAINE 400 MG, HYDROMORPHONE (PF) 5 MG in SODIUM CHLORIDE 0.9% 170 ML EPIDURAL PRN (07:19)
[2022-03-21] MEDS: INSULIN ASPART (NovoLOG) 100 UNIT/ML VIAL SQ SCH ×4 (07:27→20:37)
[2022-03-21] MEDS: PANTOPRAZOLE 40 MG TABLET PO SCH (07:32)
--- NOTE | 2022-03-21 07:36 | XR ---
EXAMINATION TYPE: XR chest 1V portable DATE OF EXAM: 03/21/2022 6:16 AM COMPARISON: Chest radiographs from 03/20/2022 TECHNIQUE: XR chest 1V portable Portable AP radiograph of the chest. CLINICAL INDICATION:Female, 66 years old with history of NGT placement; FINDINGS: Lungs/Pleura: There is no evidence of pleural effusion, focal consolidation, or pneumothorax. Pulmonary vascularity: Unremarkable. Heart/mediastinum: Cardiomediastinal silhouette is unremarkable. Musculoskeletal: No acute osseous pathology. Lines/Tubes: Nasogastric tube with side-port projecting over the distal esophagus. Right internal jugular central venous catheter with distal tip at the cavoatrial junction. IMPRESSION: Nasogastric tube side-port at the distal esophagus and advancement of 9 cm for optimal placement is r ecommended.
[2022-03-21] MEDS: IPRATROPIUM-ALBUTEROL 3 ML NEB INHALATION SCH ×4 (07:45→20:06)
[2022-03-21] MEDS ORDERED: ROCURONIUM 10 MG/ML (5 ML VIAL) IV ONE (08:26)
[2022-03-21] MEDS ORDERED: GLYCOPYRROLATE 0.2 MG/ML 2 ML VIAL ONE (08:26)
[2022-03-21] MEDS ORDERED: MIDAZOLAM 2 MG/2 ML VIAL ONE (08:26)
[2022-03-21] MEDS ORDERED: fentaNYL (PF) 50 MCG/ML 2 ML AMP ONE (08:26)
[2022-03-21] MEDS ORDERED: SODIUM BICARB 8.4% 50 ML SYR (1 MEQ/ML) ONE (08:26)
[2022-03-21] MEDS ORDERED: SUCCINYLCHOLINE CHLORIDE 200 MG/10 ML VIAL IV ONE (08:26)
[2022-03-21] MEDS ORDERED: LIDOCAINE 2% INJ 20 MG/ML (2 ML VIAL) ONE (08:26)
[2022-03-21] MEDS ORDERED: NEOSTIGMINE 1 MG/ML 10 ML VIAL ONE (08:26)
[2022-03-21] MEDS ORDERED: PHENYLEPHRINE-0.9% NACL SYG 1,000 MCG/10 ML SYRINGE ONE (08:26)
[2022-03-21] MEDS ORDERED: HEPARIN SODIUM,PORCINE 10,000 UNIT/ML 1 ML VIAL ONE (08:26)
[2022-03-21] MEDS ORDERED: ePHEDrine 50 MG/ML 1 ML VIAL ONE (08:26)
[2022-03-21] MEDS ORDERED: ALBUMIN HUMAN 5% (25gm) 500 ML VIAL IVPB ONE (08:26)
[2022-03-21] MEDS ORDERED: PROTAMINE SULFATE 10 MG/ML 5 ML VIAL IV ONE (08:26)
[2022-03-21] MEDS ORDERED: PROPOFOL 10 MG/ML 20 ML VIAL IV ONE (08:26)
[2022-03-21] MEDS ORDERED: ALPRAZolam 0.25 MG TAB PO SCH (09:00)
[2022-03-21] MEDS ORDERED: ASPIRIN 81 MG PO SCH (09:00)
[2022-03-21] MEDS: DULoxetine HCL 60 MG CAPSULE.DR PO SCH (09:20)
[2022-03-21] MEDS: CALCIUM CARBONATE 500 MG CHEWABLE PO SCH (09:20)
[2022-03-21] MEDS: ATORVASTATIN 40 MG TAB PO SCH (09:20)
[2022-03-21] MEDS: METOPROLOL SUCCINATE (ER) 25 MG TAB.ER.24H PO SCH (09:20)
[2022-03-21] MEDS: CHOLECALCIFEROL 125 MCG (5000 IU) TABLET PO SCH (09:20)
[2022-03-21] MEDS: LOSARTAN-HCTZ 50-12.5 MG 1 EACH TAB PO SCH (09:26)
[2022-03-21] MEDS: buPROPion XL 150 MG TAB.ER.24H PO SCH (09:31)
[2022-03-21] MEDS: VIT A,C & E-LUTEIN-MINERALS 1 EACH TAB PO SCH ×2 (09:31→20:37)
[2022-03-21] MEDS: MEMANTINE 5 MG TAB PO SCH ×2 (09:31→20:37)
[2022-03-21] MEDS ORDERED: SODIUM CHLORIDE 0.9% 500 ML 500 ML IV ONE ×3 (10:00→14:22)
[2022-03-21] MEDS: ALPRAZolam 0.25 MG TAB PO PRN ×2 (10:49→20:37)
[2022-03-21 11:35] LABS: Glucose,Whole Blood 141 mg/dL (70-110)
--- NOTE | 2022-03-21 11:58 | P.PN ---
Subjective Progress Note Date: 03/21/22 Principal diagnosis: 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 Postoperative day #1 This is a 66-year-old female patient with a known history of coronary artery disease with previous stent placement, diabetes mellitus, peripheral neuropathy, hypertension, macular degeneration, frequent leg and foot pain and tingling with burning on animal distance. CT angiogram revealed aortoiliac occlusive disease. She was brought in today electively for an aortobifemoral bypass. She did undergo an aortic and iliac endarterectomy with patch graft angioplasty. She is seen in consultation in the recovery room. Chest x-ray is reviewed. She is currently maintaining good O2 saturations up to 100% on 2 L/m per nasal cannula. Hemodynamically stable. White count 7.9. Hemoglobin 11.7. Platelets 125. Arterial blood gases revealed a pO2 of 150, pCO2 32, pH 7.32. Sodium 142. Potassium 3.4. BUN 11. Creatinine 0.49. Lactated Ringer's at 100 ML's per hour. Epidural in place for pain control. Reevaluated today on 04/17/22, patient is doing well,, patient is not in any distress, she is on 2 L nasal cannula, urine output is poor, last night she was given a dose of Lasix, not much improvement, however his CVP this morning was noted to be low, and I'm recommending fluid boluses to get his CVP up to 7. Hemodynamically stable, patient is on epidural for pain control, she has a left radial arterial line and a right internal jugular triple-lumen catheter, noted to have low CVP, hence I'm giving the patient more fluids today. WBC count is 11.1 hemoglobin is 10.2 electrolytes are normal renal profile is normal, chest x-ray this morning showed no evidence of acute process, Objective - Vital Signs Vital signs: Vital Signs Temp 98.6 F 03/21/22 04:00 Pulse 98 03/21/22 10:00 Resp 16 03/21/22 11:00 BP 103/53 03/21/22 11:00 Pulse Ox 95 03/21/22 11:00 FiO2 Intake & Output 03/20/22 03/21/22 03/21/22 18:59 06:59 18:59 Intake Total 5130 880 900 Output Total 2380 328 145 Balance 8134 552 755 Weight 67.6 kg 77.6 kg Intake: IV 5050 880 900 Sodium Chloride 0.9% 1, 880 400 000 ml In Empty Bag 1 bag @ 80 mls/hr IV .[id number] [facility] Rx#:[id number] Sodium Chloride 0.9% 500 500 ml 500 ml @ 999 mls/hr IV .Q31M [facility] Rx#:[id number] Intake, IV Titration 80 Amount Sodium Chloride 0.9% 1, 80 000 ml In Empty Bag 1 bag @ 80 mls/hr IV .[id number] [facility] Rx#:[id number] Output: Urine 280 328 145 Estimated Blood Loss 2100 Other: Voiding Method Indwelling Catheter Indwelling Catheter ABP, PAP, CO, CI - Last Documented Arterial Blood Pressure 115/42 - Exam GENERAL EXAM: Revealed a 66-year-old female in no distress, on 2 L nasal cannula HEAD: Normocephalic. Atraumatic EYES: Normal reaction of pupils, equal size. NOSE: Nasogastric tube secured in place. Clear with pink turbinates. THROAT: No erythema or exudates. NECK: No masses, no JVD. CHEST: No chest wall deformity. LUNGS: Equal air entry with no crackles, wheeze, rhonchi or dullness. CVS: S1 and S2 normal with no audible murmur, regular rhythm. ABDOMEN: Abdominal dressing dry and intact. Provena in place. No hepatosplenomegaly, normal bowel sounds, no guarding or rigidity. SKIN: No rashes CENTRAL NERVOUS SYSTEM: Alert oriented 3 focal deficits. EXTREMITIES: Good pulses bilaterally, no cyanosis - Labs CBC & Chem 7: 03/21/22 04:35 03/21/22 04:35 Labs: Abnormal Lab Results - Last 24 Hours (Table) 03/20/22 03/20/22 03/20/22 Range/Units 12:40 15:06 15:06 WBC (3.8-10.6) k/uL RBC (3.80-5.40) m/uL Hgb (11.4-16.0) gm/dL Hct (34.0-46.0) % Plt Count 125 L (150-450) k/uL Neutrophils # (1.3-7.7) k/uL Lymphocytes # 0.9 L (1.0-4.8) k/uL ABG pH 7.32 L (7.35-7.45) ABG pCO2 (35-45) mmHg ABG pO2 186 H (83-108) mmHg ABG HCO3 (21-25) mmol/L ABG O2 Saturation 99.2 H (94-97) % Potassium 3.4 L (3.5-5.1) mmol/L Chloride 108 H (98-107) mmol/L Carbon Dioxide (22-30) mmol/L BUN (7-17) mg/dL Creatinine 0.49 L (0.52-1.04) mg/dL Glucose 180 H (74-99) mg/dL POC Glucose (mg/dL) (70-110) mg/dL Calcium 7.0 L (8.4-10.2) mg/dL Magnesium (1.6-2.3) mg/dL Alkaline Phosphatase 32 L (38-126) U/L Total Protein 3.7 L (6.3-8.2) g/dL Albumin 2.3 L (3.5-5.0) g/dL 03/20/22 03/20/22 03/20/22 Range/Units 15:06 17:21 20:16 WBC (3.8-10.6) k/uL RBC (3.80-5.40) m/uL Hgb (11.4-16.0) gm/dL Hct (34.0-46.0) % Plt Count (150-450) k/uL Neutrophils # (1.3-7.7) k/uL Lymphocytes # (1.0-4.8) k/uL ABG pH 7.29 L (7.35-7.45) ABG pCO2 32 L (35-45) mmHg ABG pO2 150 H (83-108) mmHg ABG HCO3 15 L (21-25) mmol/L ABG O2 Saturation 98.8 H (94-97) % Potassium (3.5-5.1) mmol/L Chloride 108 H (98-107) mmol/L Carbon Dioxide (22-30) mmol/L BUN (7-17) mg/dL Creatinine (0.52-1.04) mg/dL Glucose 193 H (74-99) mg/dL POC Glucose (mg/dL) 213 H (70-110) mg/dL Calcium 7.3 L (8.4-10.2) mg/dL Magnesium (1.6-2.3) mg/dL Alkaline Phosphatase (38-126) U/L Total Protein (6.3-8.2) g/dL Albumin (3.5-5.0) g/dL 03/21/22 03/21/22 03/21/22 Range/Units 04:35 04:35 07:06 WBC 11.1 H (3.8-10.6) k/uL RBC 3.23 L (3.80-5.40) m/uL Hgb 10.2 L (11.4-16.0) gm/dL Hct 29.3 L (34.0-46.0) % Plt Count 115 L (150-450) k/uL Neutrophils # 9.1 H (1.3-7.7) k/uL Lymphocytes # (1.0-4.8) k/uL ABG pH (7.35-7.45) ABG pCO2 (35-45) mmHg ABG pO2 (83-108) mmHg ABG HCO3 (21-25) mmol/L ABG O2 Saturation (94-97) % Potassium (3.5-5.1) mmol/L Chloride 108 H (98-107) mmol/L Carbon Dioxide 31 H (22-30) mmol/L BUN 18 H (7-17) mg/dL Creatinine (0.52-1.04) mg/dL Glucose 126 H (74-99) mg/dL POC Glucose (mg/dL) 141 H (70-110) mg/dL Calcium 7.1 L (8.4-10.2) mg/dL Magnesium 1.4 L (1.6-2.3) mg/dL Alkaline Phosphatase (38-126) U/L Total Protein 4.3 L (6.3-8.2) g/dL Albumin 2.6 L (3.5-5.0) g/dL 03/21/22 Range/Units 11:33 WBC (3.8-10.6) k/uL RBC (3.80-5.40) m/uL Hgb (11.4-16.0) gm/dL Hct (34.0-46.0) % Plt Count (150-450) k/uL Neutrophils # (1.3-7.7) k/uL Lymphocytes # (1.0-4.8) k/uL ABG pH (7.35-7.45) ABG pCO2 (35-45) mmHg ABG pO2 (83-108) mmHg ABG HCO3 (21-25) mmol/L ABG O2 Saturation (94-97) % Potassium (3.5-5.1) mmol/L Chloride (98-107) mmol/L Carbon Dioxide (22-30) mmol/L BUN (7-17) mg/dL Creatinine (0.52-1.04) mg/dL Glucose (74-99) mg/dL POC Glucose (mg/dL) 141 H (70-110) mg/dL Calcium (8.4-10.2) mg/dL Magnesium (1.6-2.3) mg/dL Alkaline Phosphatase (38-126) U/L Total Protein (6.3-8.2) g/dL Albumin (3.5-5.0) g/dL Assessment and Plan Assessment: 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 Postoperative day #1 History of coronary artery disease with previous stent placement Diabetes mellitus Diabetic neuropathy Hypertension Macular degeneration Former smoker oliguria, most likely secondary to hypovolemia with low CVP, Recommendation: Patient will receive fluid boluses to get has CVP up to 5/7 Continue to monitor renal output. Continue bronchodilators Continue incentive spirometry Early ambulation Continue to monitor CVP. We will follow Time with Patient: Less than 30
--- NOTE | 2022-03-21 13:59 | P.PN ---
Subjective Progress Note Date: 03/21/22 Principal diagnosis: Aortic fem-fem bypass w/ epidural for pain control Patient doing well. Pain 5/10 w/ epidural running @ 12 ml/hr. Denies leg weakness. Denies headache. Epidural site c/d. A/P POD#1 s/p aortic femfem - continue epidural Objective - Vital Signs Vital signs: Vital Signs Temp 98.6 F 03/21/22 04:00 Pulse 92 03/21/22 13:00 Resp 20 03/21/22 13:00 BP 103/53 03/21/22 13:00 Pulse Ox 95 03/21/22 13:00 FiO2 Intake & Output 03/20/22 03/21/22 03/21/22 18:59 06:59 18:59 Intake Total 5130 880 900 Output Total 2380 328 145 Balance 2750 552 755 Weight 67.6 kg 77.6 kg Intake: IV 5050 880 900 Sodium Chloride 0.9% 1, 880 400 000 ml In Empty Bag 1 bag @ 80 mls/hr IV .[id number] [facility] Rx#:[id number] Sodium Chloride 0.9% 500 500 ml 500 ml @ 999 mls/hr IV .Q31M [facility] Rx#:[id number] Intake, IV Titration 80 Amount Sodium Chloride 0.9% 1, 80 000 ml In Empty Bag 1 bag @ 80 mls/hr IV .[id number] [facility] Rx#:[id number] Output: Urine 280 328 145 Estimated Blood Loss 2100 Other: Voiding Method Indwelling Catheter Indwelling Catheter ABP, PAP, CO, CI - Last Documented Arterial Blood Pressure 100/42 - Labs CBC & Chem 7: 03/21/22 04:35 03/21/22 04:35 Labs: Abnormal Lab Results - Last 24 Hours (Table) 03/20/22 03/20/22 03/20/22 Range/Units 15:06 15:06 15:06 WBC (3.8-10.6) k/uL RBC (3.80-5.40) m/uL Hgb (11.4-16.0) gm/dL Hct (34.0-46.0) % Plt Count 125 L (150-450) k/uL Neutrophils # (1.3-7.7) k/uL Lymphocytes # 0.9 L (1.0-4.8) k/uL ABG pH 7.29 L (7.35-7.45) ABG pCO2 32 L (35-45) mmHg ABG pO2 150 H (83-108) mmHg ABG HCO3 15 L (21-25) mmol/L ABG O2 Saturation 98.8 H (94-97) % Potassium 3.4 L (3.5-5.1) mmol/L Chloride 108 H (98-107) mmol/L Carbon Dioxide (22-30) mmol/L BUN (7-17) mg/dL Creatinine 0.49 L (0.52-1.04) mg/dL Glucose 180 H (74-99) mg/dL POC Glucose (mg/dL) (70-110) mg/dL Calcium 7.0 L (8.4-10.2) mg/dL Magnesium (1.6-2.3) mg/dL Alkaline Phosphatase 32 L (38-126) U/L Total Protein 3.7 L (6.3-8.2) g/dL Albumin 2.3 L (3.5-5.0) g/dL 03/20/22 03/20/22 03/21/22 Range/Units 17:21 20:16 04:35 WBC (3.8-10.6) k/uL RBC (3.80-5.40) m/uL Hgb (11.4-16.0) gm/dL Hct (34.0-46.0) % Plt Count (150-450) k/uL Neutrophils # (1.3-7.7) k/uL Lymphocytes # (1.0-4.8) k/uL ABG pH (7.35-7.45) ABG pCO2 (35-45) mmHg ABG pO2 (83-108) mmHg ABG HCO3 (21-25) mmol/L ABG O2 Saturation (94-97) % Potassium (3.5-5.1) mmol/L Chloride 108 H 108 H (98-107) mmol/L Carbon Dioxide 31 H (22-30) mmol/L BUN 18 H (7-17) mg/dL Creatinine (0.52-1.04) mg/dL Glucose 193 H 126 H (74-99) mg/dL POC Glucose (mg/dL) 213 H (70-110) mg/dL Calcium 7.3 L 7.1 L (8.4-10.2) mg/dL Magnesium 1.4 L (1.6-2.3) mg/dL Alkaline Phosphatase (38-126) U/L Total Protein 4.3 L (6.3-8.2) g/dL Albumin 2.6 L (3.5-5.0) g/dL 03/21/22 03/21/22 03/21/22 Range/Units 04:35 07:06 11:33 WBC 11.1 H (3.8-10.6) k/uL RBC 3.23 L (3.80-5.40) m/uL Hgb 10.2 L (11.4-16.0) gm/dL Hct 29.3 L (34.0-46.0) % Plt Count 115 L (150-450) k/uL Neutrophils # 9.1 H (1.3-7.7) k/uL Lymphocytes # (1.0-4.8) k/uL ABG pH (7.35-7.45) ABG pCO2 (35-45) mmHg ABG pO2 (83-108) mmHg ABG HCO3 (21-25) mmol/L ABG O2 Saturation (94-97) % Potassium (3.5-5.1) mmol/L Chloride (98-107) mmol/L Carbon Dioxide (22-30) mmol/L BUN (7-17) mg/dL Creatinine (0.52-1.04) mg/dL Glucose (74-99) mg/dL POC Glucose (mg/dL) 141 H 141 H (70-110) mg/dL Calcium (8.4-10.2) mg/dL Magnesium (1.6-2.3) mg/dL Alkaline Phosphatase (38-126) U/L Total Protein (6.3-8.2) g/dL Albumin (3.5-5.0) g/dL
--- NOTE | 2022-03-21 14:22 | P.PN ---
Subjective Progress Note Date: 03/21/22 Patient seen and examined. No complaints. Feels worn out. Legs feel better. No flatus. No bowel movement. Pain is relatively well controlled. No acute distress resting comfortably, NG to low intermittent suction. Abdomen is soft, VAC intact. Extremities show no clubbing, cyanosis or edema. Warm with palpable DP pulses bilaterally. Postoperative day #1 from aortiliac endarterectomy with patch angioplasty Doing well overall. Continue to monitor labs. Appreciate fluid bolus. Continue to assess as needed. Improvement of urine output at this point. Continue to monitor in ICU for probably 24 hours. Await further bowel function to clamp her NG tube. Okay for hard candy and ice chips. Up to chair. Objective - Vital Signs Vital signs: Vital Signs Temp 98.6 F 03/21/22 04:00 Pulse 92 03/21/22 14:00 Resp 16 03/21/22 14:00 BP 103/53 03/21/22 14:00 Pulse Ox 94 L 03/21/22 14:00 FiO2 Intake & Output 03/20/22 03/21/22 03/21/22 18:59 06:59 18:59 Intake Total 5130 880 1560 Output Total 2380 328 235 Balance 2750 552 1325 Weight 67.6 kg 77.6 kg Intake: IV 5050 880 1560 Sodium Chloride 0.9% 1, 880 560 000 ml In Empty Bag 1 bag @ 80 mls/hr IV .[id number] [facility] Rx#:[id number] Sodium Chloride 0.9% 500 1000 ml 500 ml @ 999 mls/hr IV .Q31M [facility] Rx#:[id number] Intake, IV Titration 80 Amount Sodium Chloride 0.9% 1, 80 000 ml In Empty Bag 1 bag @ 80 mls/hr IV .[id number] [facility] Rx#:[id number] Output: Urine 280 328 235 Estimated Blood Loss 2100 Other: Voiding Method Indwelling Catheter Indwelling Catheter ABP, PAP, CO, CI - Last Documented Arterial Blood Pressure 99/40 - Labs CBC & Chem 7: 03/21/22 04:35 03/21/22 04:35 Labs: Abnormal Lab Results - Last 24 Hours (Table) 03/20/22 03/20/22 03/20/22 Range/Units 15:06 15:06 15:06 WBC (3.8-10.6) k/uL RBC (3.80-5.40) m/uL Hgb (11.4-16.0) gm/dL Hct (34.0-46.0) % Plt Count 125 L (150-450) k/uL Neutrophils # (1.3-7.7) k/uL Lymphocytes # 0.9 L (1.0-4.8) k/uL ABG pH 7.29 L (7.35-7.45) ABG pCO2 32 L (35-45) mmHg ABG pO2 150 H (83-108) mmHg ABG HCO3 15 L (21-25) mmol/L ABG O2 Saturation 98.8 H (94-97) % Potassium 3.4 L (3.5-5.1) mmol/L Chloride 108 H (98-107) mmol/L Carbon Dioxide (22-30) mmol/L BUN (7-17) mg/dL Creatinine 0.49 L (0.52-1.04) mg/dL Glucose 180 H (74-99) mg/dL POC Glucose (mg/dL) (70-110) mg/dL Calcium 7.0 L (8.4-10.2) mg/dL Magnesium (1.6-2.3) mg/dL Alkaline Phosphatase 32 L (38-126) U/L Total Protein 3.7 L (6.3-8.2) g/dL Albumin 2.3 L (3.5-5.0) g/dL 03/20/22 03/20/22 03/21/22 Range/Units 17:21 20:16 04:35 WBC (3.8-10.6) k/uL RBC (3.80-5.40) m/uL Hgb (11.4-16.0) gm/dL Hct (34.0-46.0) % Plt Count (150-450) k/uL Neutrophils # (1.3-7.7) k/uL Lymphocytes # (1.0-4.8) k/uL ABG pH (7.35-7.45) ABG pCO2 (35-45) mmHg ABG pO2 (83-108) mmHg ABG HCO3 (21-25) mmol/L ABG O2 Saturation (94-97) % Potassium (3.5-5.1) mmol/L Chloride 108 H 108 H (98-107) mmol/L Carbon Dioxide 31 H (22-30) mmol/L BUN 18 H (7-17) mg/dL Creatinine (0.52-1.04) mg/dL Glucose 193 H 126 H (74-99) mg/dL POC Glucose (mg/dL) 213 H (70-110) mg/dL Calcium 7.3 L 7.1 L (8.4-10.2) mg/dL Magnesium 1.4 L (1.6-2.3) mg/dL Alkaline Phosphatase (38-126) U/L Total Protein 4.3 L (6.3-8.2) g/dL Albumin 2.6 L (3.5-5.0) g/dL 03/21/22 03/21/22 03/21/22 Range/Units 04:35 07:06 11:33 WBC 11.1 H (3.8-10.6) k/uL RBC 3.23 L (3.80-5.40) m/uL Hgb 10.2 L (11.4-16.0) gm/dL Hct 29.3 L (34.0-46.0) % Plt Count 115 L (150-450) k/uL Neutrophils # 9.1 H (1.3-7.7) k/uL Lymphocytes # (1.0-4.8) k/uL ABG pH (7.35-7.45) ABG pCO2 (35-45) mmHg ABG pO2 (83-108) mmHg ABG HCO3 (21-25) mmol/L ABG O2 Saturation (94-97) % Potassium (3.5-5.1) mmol/L Chloride (98-107) mmol/L Carbon Dioxide (22-30) mmol/L BUN (7-17) mg/dL Creatinine (0.52-1.04) mg/dL Glucose (74-99) mg/dL POC Glucose (mg/dL) 141 H 141 H (70-110) mg/dL Calcium (8.4-10.2) mg/dL Magnesium (1.6-2.3) mg/dL Alkaline Phosphatase (38-126) U/L Total Protein (6.3-8.2) g/dL Albumin (3.5-5.0) g/dL
--- NOTE | 2022-03-21 15:01 | P.CONS ---
History of Present Illness - Reason for Consult Consult date: 03/21/22 Medical management Requesting physician: Justus Borja (Vascular surgeon) - Chief Complaint Lower extremity claudication with minimal exertion 5200 feet with the under - History of Present Illness This dictation on medical consult postoperative Reason medical management Attending physician Dr. Justus Borja vascular surgeon. Patient underwent elective surgery for underlying occlusive disease or 2 iliac occlusive disease associated with claudication if she walk 5200 feet as well as resting pain. She underwent CT demonstrating hour to iliac occlusive disease and presented on 03/20/2022 for elective hour toe by iliac surgery Pulse surgery medical consult requested. Patient seen and evaluated in ICU with the underlying multiple medical problem. Past medical history Diabetes mellitus type 2 Coronary artery disease, status post myocardial infarction 2003, cardiac catheterization with the stent placement Ex-smoker Memory impairment with cognitive function and forgetfulness Hypertension was hypertensive heart disease History of thoracic and cervical vertebrae fracture with a fall Frequent leg and foot pain and tingling and burning History of hep C with the treatment. Family history: Coronary artery disease CVA TIA and [place] and vascular disorders Underlying depressive disorder and anxiety disorder Hypo-thyroidism Hypertension with hypertensive heart disease Hyperlipidemia Arthritis Vitamin D deficiency. Diabetes mellitus2 on metformin which has been held and covered with insulin to scale. ALLERGY Penicillin and prochlorperazine1 Patient seen in ICU to 62 bed 1 [id number] and her at bedside. Status post surgery with underlying extensive calcification of the aorta and iliac bilaterally with the extensive calcification bilaterally She had midline incision laparotomy for the surgical intervention and currently with the suction tube around the area of umbilicus. And she has also NG tube as well and Parnell catheter She had IV fluids arteria line and monitor, diabetes mellitus monitoredk and covered with insulin to scale. Medicine reviewed: And with held the metformin and medication with parameters when she started on her medication currently patient is nothing by mouth with NG tube in place post surgery Patient seen by Leatha Mcknight pulmonary and critical care in the ICU. Also cardiology consult was on the record and her commissioned sales associate is Dr. Sylvester with the underlying history of coronary artery disease bilateral carotid artery disease and the stenosis diabetes mellitus type 2 with complication this lipidemia essential hypertension, peripheral vascular disease, hypothyroidism, GERD disease. On exam today Vital sign stable and medication with parameter which not started yet patient is to eat The head was normocephalic and atraumatic and the pupil was equal reactive Oropharynx natural teeth and NG tube in place Neck was supple no JVD and history of carotid artery stenosis Chest clear with mild increased anteroposterior diameter no wheezes or rhonchi Heart regular sinus rhythm Abdomen status post laparotomy with device for suction and positive bowel sound today Extremities post surgery pulses is present in dorsalis pedis and posterior tibial bilaterally and no edema. Psychiatry normal mood Neurology no lateralizing sign. Assessment: #1 severe occlusive disease of the hour toe by iliac with status post surgery with the laparotomy extensive calcification #2 claudication of lower extremities and pain at rest due to occlusive disease with the hardening of the vessels arteriosclerosis #3 diabetes mellitus type 2 currently on insulin to scale #4 coronary artery disease atherosclerotic heart disease with the stent #5 hypothyroidism #6 hyper lipidemia/dyslipidemia #7 hypertensive heart disease #8 may have depressive disorder and anxiety disorder. #89 peripheral vascular disease Vaccination history: Bed19 vaccine on 07/26/2020 and booster on 05/04/2021 alexey. Recommendation plan: Reviewed her medication with the added that parameter to be started when patient allowed to take her medication orally and with holding the metformin at this time using the insulin to scale for controlling the diabetes mellitus. Thank you for letting me participate in the care of Mrs. Kapadia will follow tanks Past Medical History Past Medical History: Coronary Artery Disease (CAD), Diabetes Mellitus, Eye Disorder, Hypertension, Memory Impairment, Myocardial Infarction ([place]), Vascular Disorder Additional Past Medical History / Comment(s): Macular Degeneration, fall in February 2021-sustained 3 thoracic and 3 cervical fractures,does not use any assistive devices, frequent leg & foot pain w/ tingling & burning,hep C w/ tx-no further problems Last Myocardial Infarction Date:: 2003 History of Any Multi-Drug Resistant Organisms: None Reported Past Surgical History: Section, Heart Catheterization With Stent Additional Past Surgical History / Comment(s): Stent X1,pain clinic procedures,rt shoulder repair Past Anesthesia/Blood Transfusion Reactions: No Reported Reaction Additional Past Anesthesia/Blood Transfusion Reaction / Comm: no hx blood transfusion Date of Last Stent Placement:: 2003 Smoking Status: Former smoker - Past Family History Father Family Medical History: Coronary Artery Disease (CAD), CVA/TIA, Myocardial Infarction ([place]), Vascular Disorder Additional Family Medical History / Comment(s): tatiana leg ulcers Medications and Allergies Home Medications Medication Instructions Recorded Confirmed Type ALPRAZolam [Xanax] 0.25 mg PO BID 01/02/20 03/20/22 History DULoxetine HCL [Cymbalta] 60 mg PO DAILY 01/02/20 03/20/22 History Levothyroxine Sodium [Synthroid] 75 mcg PO DAILY 01/02/20 03/20/22 History Vit C/E/Zn/Coppr/Lutein/Zeaxan 1 cap PO BID 01/02/20 03/20/22 History [Preservision Areds 2 Softgel] Ibuprofen [Motrin] 800 mg PO Q8HR PRN 06/11/21 03/20/22 History Meclizine [Antivert] 25 mg PO BID 07/16/21 03/20/22 History Memantine [Namenda] 5 mg PO BID 07/16/21 03/20/22 History amLODIPine [Norvasc] 5 mg PO HS 07/16/21 03/20/22 History buPROPion XL [Wellbutrin XL] 150 mg PO QAM 07/16/21 03/20/22 History metFORMIN HCL 500 mg PO BID 07/16/21 03/20/22 History Aspirin 81 mg PO HS 09/17/21 03/20/22 History Losartan-Hctz 50-12.5 mg [Hyzaar 50 mg PO DAILY 09/18/21 03/20/22 History 50-12.5] Atorvastatin [Lipitor] 40 mg PO DAILY 11/24/21 03/20/22 History Calcium Carbonate [Calcium] 1,200 mg PO DAILY 03/19/22 03/20/22 History Cholecalciferol [Vitamin D3 (125 125 mcg PO DAILY 03/19/22 03/20/22 History Mcg = 5000 Iu)] Metoprolol Succinate (ER) [Toprol 25 mg PO DAILY 03/19/22 03/20/22 History XL] Omeprazole [PriLOSEC] 20 mg PO AC-BRKFST 03/19/22 03/20/22 History Allergies Allergy/AdvReac Type Severity Reaction Status Date / Time Penicillins Allergy Unknown Verified 03/20/22 07:07 Childhood prochlorperazine Allergy muscle Verified 03/20/22 07:07 [From Compazine] dyskinesia Physical Exam Vitals: Vital Signs Temp Pulse Pulse Pulse Pulse Resp BP 03/21/22 14:00 92 16 103/53 03/21/22 13:00 92 20 103/53 03/21/22 12:00 94 17 103/53 03/21/22 11:00 16 103/53 03/21/22 10:00 98 15 103/53 03/21/22 09:00 99 16 103/53 03/21/22 08:00 98 16 103/53 03/21/22 07:00 98 14 104/52 03/21/22 06:00 98 16 104/52 03/21/22 05:00 100 9 L 03/21/22 04:00 98.6 F 101 H 7 L 03/21/22 03:00 105 H 8 L 03/21/22 02:00 105 H 12 03/21/22 01:00 12 03/21/22 00:00 106 H 16 03/20/22 23:00 121 H 12 03/20/22 22:00 03/20/22 21:00 101 H 21 03/20/22 20:00 98.6 F 99 12 03/20/22 19:03 91 10 L 03/20/22 19:00 92 15 03/20/22 18:00 96 18 03/20/22 17:11 83 82 03/20/22 16:45 82 16 03/20/22 16:04 78 16 03/20/22 15:49 77 16 03/20/22 15:19 77 16 03/20/22 15:05 74 16 03/20/22 14:49 78 15 03/20/22 14:34 79 16 03/20/22 14:19 96.9 F L 82 16 BP BP Pulse Ox 03/21/22 14:00 94 L 03/21/22 13:00 95 03/21/22 12:00 95 03/21/22 11:00 95 03/21/22 10:00 95 03/21/22 09:00 96 03/21/22 08:00 95 03/21/22 07:00 96 03/21/22 06:00 97 03/21/22 05:00 96 03/21/22 04:00 96 03/21/22 03:00 97 03/21/22 02:00 95 03/21/22 01:00 93 L 03/21/22 00:00 97 03/20/22 23:00 97 03/20/22 22:00 96 03/20/22 21:00 97 03/20/22 20:00 98 03/20/22 19:03 97 03/20/22 19:00 97 03/20/22 18:00 97 03/20/22 17:11 03/20/22 16:45 118/52 112/57 100 03/20/22 16:04 118/53 112/61 100 03/20/22 15:49 118/52 111/55 100 03/20/22 15:19 112/58 108/62 99 03/20/22 15:05 94/63 90/54 100 03/20/22 14:49 93/50 89/56 98 03/20/22 14:34 97/63 92/58 99 03/20/22 14:19 99/54 114/60 100 Intake and Output 03/20/22 03/21/22 03/21/22 22:59 06:59 14:59 Intake Total 2047 393 8811 Output Total 289 189 235 Balance 950 689 2642 Intake: IV 8819 654 8565 Sodium Chloride 0.9% 1, 240 640 560 000 ml In Empty Bag 1 bag @ 80 mls/hr IV [id number] [facility] Rx#:[id number] Sodium Chloride 0.9% 500 1000 ml 500 ml @ 999 mls/hr IV .Q31M [facility] Rx#:[id number] Intake, IV Titration 80 Amount Sodium Chloride 0.9% 1, 80 000 ml In Empty Bag 1 bag @ 80 mls/hr IV .[id number] [facility] Rx#:[id number] Output: Urine 289 189 235 Other: Voiding Method Indwelling Catheter Indwelling Catheter Indwelling Catheter Weight 77.6 kg ABP, PAP, CO, CI - Last 8 Hours Arterial Blood Pressure 99/40 Arterial Blood Pressure 100/42 Arterial Blood Pressure 93/34 Arterial Blood Pressure 115/42 Arterial Blood Pressure 99/42 Arterial Blood Pressure 102/49 Arterial Blood Pressure 112/50 Arterial Blood Pressure 105/44 Results CBC & Chem 7: 03/21/22 04:35 03/21/22 04:35 Labs: Abnormal Lab Results - Last 24 Hours (Table) 03/20/22 03/20/22 03/20/22 Range/Units 15:06 15:06 15:06 WBC (3.8-10.6) k/uL RBC (3.80-5.40) m/uL Hgb (11.4-16.0) gm/dL Hct (34.0-46.0) % Plt Count 125 L (150-450) k/uL Neutrophils # (1.3-7.7) k/uL Lymphocytes # 0.9 L (1.0-4.8) k/uL ABG pH 7.29 L (7.35-7.45) ABG pCO2 32 L (35-45) mmHg ABG pO2 150 H (83-108) mmHg ABG HCO3 15 L (21-25) mmol/L ABG O2 Saturation 98.8 H (94-97) % Potassium 3.4 L (3.5-5.1) mmol/L Chloride 108 H (98-107) mmol/L Carbon Dioxide (22-30) mmol/L BUN (7-17) mg/dL Creatinine 0.49 L (0.52-1.04) mg/dL Glucose 180 H (74-99) mg/dL POC Glucose (mg/dL) (70-110) mg/dL Calcium 7.0 L (8.4-10.2) mg/dL Magnesium (1.6-2.3) mg/dL Alkaline Phosphatase 32 L (38-126) U/L Total Protein 3.7 L (6.3-8.2) g/dL Albumin 2.3 L (3.5-5.0) g/dL 03/20/22 03/20/22 03/21/22 Range/Units 17:21 20:16 04:35 WBC (3.8-10.6) k/uL RBC (3.80-5.40) m/uL Hgb (11.4-16.0) gm/dL Hct (34.0-46.0) % Plt Count (150-450) k/uL Neutrophils # (1.3-7.7) k/uL Lymphocytes # (1.0-4.8) k/uL ABG pH (7.35-7.45) ABG pCO2 (35-45) mmHg ABG pO2 (83-108) mmHg ABG HCO3 (21-25) mmol/L ABG O2 Saturation (94-97) % Potassium (3.5-5.1) mmol/L Chloride 108 H 108 H (98-107) mmol/L Carbon Dioxide 31 H (22-30) mmol/L BUN 18 H (7-17) mg/dL Creatinine (0.52-1.04) mg/dL Glucose 193 H 126 H (74-99) mg/dL POC Glucose (mg/dL) 213 H (70-110) mg/dL Calcium 7.3 L 7.1 L (8.4-10.2) mg/dL Magnesium 1.4 L (1.6-2.3) mg/dL Alkaline Phosphatase (38-126) U/L Total Protein 4.3 L (6.3-8.2) g/dL Albumin 2.6 L (3.5-5.0) g/dL 03/21/22 03/21/22 03/21/22 Range/Units 04:35 07:06 11:33 WBC 11.1 H (3.8-10.6) k/uL RBC 3.23 L (3.80-5.40) m/uL Hgb 10.2 L (11.4-16.0) gm/dL Hct 29.3 L (34.0-46.0) % Plt Count 115 L (150-450) k/uL Neutrophils # 9.1 H (1.3-7.7) k/uL Lymphocytes # (1.0-4.8) k/uL ABG pH (7.35-7.45) ABG pCO2 (35-45) mmHg ABG pO2 (83-108) mmHg ABG HCO3 (21-25) mmol/L ABG O2 Saturation (94-97) % Potassium (3.5-5.1) mmol/L Chloride (98-107) mmol/L Carbon Dioxide (22-30) mmol/L BUN (7-17) mg/dL Creatinine (0.52-1.04) mg/dL Glucose (74-99) mg/dL POC Glucose (mg/dL) 141 H 141 H (70-110) mg/dL Calcium (8.4-10.2) mg/dL Magnesium (1.6-2.3) mg/dL Alkaline Phosphatase (38-126) U/L Total Protein (6.3-8.2) g/dL Albumin (3.5-5.0) g/dL
[2022-03-21 17:35] LABS: Glucose,Whole Blood 134 mg/dL (70-110)
[2022-03-21 19:57] LABS: Glucose,Whole Blood 129 mg/dL (70-110)
[2022-03-21] MEDS: ASPIRIN 81 MG PO SCH (20:37)
[2022-03-21] MEDS ORDERED: amLODIPine 5 MG TAB PO SCH (21:00)
[2022-03-22] MEDS: ALPRAZolam 0.25 MG TAB PO PRN ×2 (01:04→09:53)
[2022-03-22 01:31] LABS: ABG Base Excess 4.8 mmol/L; ABG HCO3 30 mmol/L (21-25); ABG Oxygen Saturation 94.1 % (94-97); ABG PCO2 49 mmHg (35-45); ABG PO2 62 mmHg (83-108); ABG TCO2 31 mmol/L (19-24); Allen Test Performed? Yes
--- NOTE | 2022-03-22 01:37 | CONS ---
CONSULTATION Cardiology Consultation Melody is a 66-year-old lady with history of [id number] diabetes, hypertension, hypothyroidism, and dyslipidemia, coronary artery disease, status post prior angioplasty, diabetes, and peripheral neuropathy and macular degeneration, who has severe aortoiliac occlusive disease and brought in electively for aortobifem bypass surgery. She is postop day #1. Other than discomfort related to the surgery, she seems to be doing fairly well. She tolerated the surgery well and did not have any episodes of chest pain. She does not have leg edema, PND, or orthopnea and does not have shortness of breath. PAST MEDICAL HISTORY: Significant for coronary artery disease, status post prior angioplasty; hypertension; dyslipidemia; aortoiliac occlusive disease. MEDICATIONS: Include: 1. Metformin. 2. Wellbutrin. 3. Norvasc. 4. Prilosec. 5. Toprol. 6. Namenda. 7. Antivert. 8. Hyzaar. 9. Synthroid. 10.Cymbalta. 11.Lipitor. 12.Aspirin. 13.Xanax. ALLERGIES: Allergic to penicillin and Compazine. FAMILY HISTORY: Negative for premature coronary artery disease. SOCIAL HISTORY: Negative for current smoking, EtOH abuse, or drug abuse. REVIEW OF SYSTEMS: 14 out of 14 review of systems has been performed. Pertinents are as documented. PHYSICAL EXAMINATION: GENERAL: She is comfortable at rest. VITAL SIGNS: Stable. CHEST: Reveals diminished air entry at the bases. HEART: Reveals first and second heart sounds. No gallop. ABDOMEN: Soft. EXTREMITIES: Did not reveal any edema. Peripheral pulses are palpable. LABORATORY DATA: Showed hemoglobin of 10.2, platelet count is 115. Potassium is 3.9, creatinine is 0.8. She has an NG tube in place. ASSESSMENT: 1. Coronary artery disease, status post angioplasty. 2. Occlusive aortoiliac disease, status post surgery. 3. Hypertension. 4. Dyslipidemia. PLAN: I will continue the patient on aspirin, Lipitor, beta rahel, Norvasc, inhalers, and nebulizers and advised the patient to work on incentive spirometry. MMODL / IJN: [id number] /
[2022-03-22] MEDS: SODIUM CHLORIDE 0.9% 1,000 ML in EMPTY BAG 1 BAG IV SCH ×2 (04:32→18:20)
[2022-03-22] MEDS: PANTOPRAZOLE 40 MG TABLET PO SCH (06:03)
[2022-03-22] MEDS: LEVOTHYROXINE 75 MCG TAB PO SCH (06:28)
[2022-03-22] MEDS: LACTATED RINGERS 1,000 ML IV SCH ×2 (06:28→08:23)
[2022-03-22 06:42] LABS: HCT 27.8 % (34.0-46.0); HGB 8.9 gm/dL (11.4-16.0); Hypochromasia Moderate; MCH 29.9 pg (25.0-35.0); MCHC 32.1 g/dL (31.0-37.0); Mean Platelet Volume 9.9; RBC 2.99 m/uL (3.80-5.40); RDW 13.1 % (11.5-15.5); WBC 7.5 k/uL (3.8-10.6)
[2022-03-22 06:57] LABS: African American GFR (CKD) >90 (>60 ml/min/1.73 sqM); Anion Gap 1 mmol/L; Blood Urea Nitrogen 12 mg/dL (7-17); Calcium 7.2 mg/dL (8.4-10.2); Carbon Dioxide 29 mmol/L (22-30); Chloride 110 mmol/L (98-107); Glucose 131 mg/dL (74-99); Magnesium 1.8 mg/dL (1.6-2.3); Non-African American GFR(CKD) >90 (>60 ml/min/1.73 sqM); Potassium 3.8 mmol/L (3.5-5.1); Sodium 140 mmol/L (137-145)
[2022-03-22] MEDS: INSULIN ASPART (NovoLOG) 100 UNIT/ML VIAL SQ SCH ×4 (07:00→20:21)
[2022-03-22 07:01] LABS: Glucose,Whole Blood 129 mg/dL (70-110)
--- NOTE | 2022-03-22 07:06 | P.PN ---
Subjective Progress Note Date: 03/22/22 Principal diagnosis: Aorto fem fem w/ epidural for pain management Patient doing well. Confused overnight, but improving this am. Pain 3/10 w/ epidural running @ 3 ml/hr. Denies leg weakness. Denies headache. Epidural site w/ small dry serosanguinous. A/P POD#2 s/p aortic femfem - continue epidural until tomorrow Objective - Vital Signs Vital signs: Vital Signs Temp 98.8 F 03/22/22 05:00 Pulse 107 H 03/22/22 07:00 Resp 18 03/22/22 07:00 BP 119/53 03/22/22 07:00 Pulse Ox 95 03/22/22 07:00 FiO2 Intake & Output 03/21/22 03/22/22 03/22/22 18:59 06:59 18:59 Intake Total 2380 1182.783 Output Total 785 1345 Balance 1595 -162.217 Weight 78 kg Intake: IV 2380 980 Sodium Chloride 0.9% 1, 880 980 000 ml In Empty Bag 1 bag @ 80 mls/hr IV .[id number] [facility] Rx#:[id number] Sodium Chloride 0.9% 500 1500 ml 500 ml @ 999 mls/hr IV .Q31M ONE Rx#:[id number] Intake, IV Titration 202.783 Amount Ropivacaine 400 mg 202.783 Hydromorphone (Pf) 5 mg In Sodium Chloride 0.9% 170 ml @ Per Protocol EPIDURAL .Q0M PRN Rx#: [id number] Output: Gastric Drainage 400 450 Urine 385 895 Other: Voiding Method Indwelling Catheter Indwelling Catheter ABP, PAP, CO, CI - Last Documented Arterial Blood Pressure 110/67 - Labs CBC & Chem 7: 03/22/22 06:02 03/22/22 06:02 Labs: Abnormal Lab Results - Last 24 Hours (Table) 03/20/22 03/21/22 03/21/22 Range/Units 07:27 07:06 11:33 RBC (3.80-5.40) m/uL Hgb (11.4-16.0) gm/dL Hct (34.0-46.0) % ABG pCO2 (35-45) mmHg ABG pO2 (83-108) mmHg ABG HCO3 (21-25) mmol/L ABG Total CO2 (19-24) mmol/L Chloride (98-107) mmol/L Glucose (74-99) mg/dL POC Glucose (mg/dL) 141 H 141 H (70-110) mg/dL Calcium (8.4-10.2) mg/dL Crossmatch See Detail 03/21/22 03/21/22 03/22/22 Range/Units 17:33 19:56 01:22 RBC (3.80-5.40) m/uL Hgb (11.4-16.0) gm/dL Hct (34.0-46.0) % ABG pCO2 49 H (35-45) mmHg ABG pO2 62 L (83-108) mmHg ABG HCO3 30 H (21-25) mmol/L ABG Total CO2 31 H (19-24) mmol/L Chloride (98-107) mmol/L Glucose (74-99) mg/dL POC Glucose (mg/dL) 134 H 129 H (70-110) mg/dL Calcium (8.4-10.2) mg/dL Crossmatch 03/22/22 03/22/22 03/22/22 Range/Units 06:02 06:02 06:59 RBC 2.99 L (3.80-5.40) m/uL Hgb 8.9 L (11.4-16.0) gm/dL Hct 27.8 L (34.0-46.0) % ABG pCO2 (35-45) mmHg ABG pO2 (83-108) mmHg ABG HCO3 (21-25) mmol/L ABG Total CO2 (19-24) mmol/L Chloride 110 H (98-107) mmol/L Glucose 131 H (74-99) mg/dL POC Glucose (mg/dL) 129 H (70-110) mg/dL Calcium 7.2 L (8.4-10.2) mg/dL Crossmatch
[2022-03-22 07:15] LABS: Platelet Count 88 k/uL (150-450)
[2022-03-22] MEDS ORDERED: POTASSIUM CHLORIDE ER 20 MEQ TAB.ER PO STA (07:39)
[2022-03-22] MEDS: MAGNESIUM SULFATE-D5W PMX 1 GM in DEXTROSE/WATER 1 100ML.BAG IVPB SCH ×2 (07:51→08:25)
[2022-03-22] MEDS: PANTOPRAZOLE 40 MG/10 ML VIAL IVP SCH (07:51)
[2022-03-22] MEDS: DULoxetine HCL 60 MG CAPSULE.DR PO SCH (07:51)
[2022-03-22] MEDS: CALCIUM CARBONATE 500 MG CHEWABLE PO SCH (07:51)
[2022-03-22] MEDS: CHOLECALCIFEROL 125 MCG (5000 IU) TABLET PO SCH (07:51)
[2022-03-22] MEDS: ATORVASTATIN 40 MG TAB PO SCH (07:51)
[2022-03-22] MEDS: LOSARTAN-HCTZ 50-12.5 MG 1 EACH TAB PO SCH (07:52)
[2022-03-22] MEDS: buPROPion XL 150 MG TAB.ER.24H PO SCH (07:52)
[2022-03-22] MEDS: MEMANTINE 5 MG TAB PO SCH ×2 (07:52→20:21)
[2022-03-22] MEDS: VIT A,C & E-LUTEIN-MINERALS 1 EACH TAB PO SCH ×2 (07:53→20:19)
[2022-03-22] MEDS: METOPROLOL SUCCINATE (ER) 25 MG TAB.ER.24H PO SCH (07:53)
[2022-03-22] MEDS ORDERED: POTASSIUM CHLORIDE 20 MEQ in WATER FOR INJECTION 1 100ML.BAG IVPB STA (07:56)
[2022-03-22] MEDS: IPRATROPIUM-ALBUTEROL 3 ML NEB INHALATION SCH ×4 (09:03→20:12)
--- NOTE | 2022-03-22 09:05 | XR ---
EXAMINATION TYPE: XR chest 1V portable DATE OF EXAM: 03/22/2022 9:00 AM COMPARISON: Chest radiograph from one day prior. TECHNIQUE: XR chest 1V portable Portable AP radiograph of the chest. CLINICAL INDICATION:Female, 66 years old with history of chf; FINDINGS: Lungs/Pleura: Low lung volumes are present. There is no evidence of pleural effusion, focal consolida tion, or pneumothorax. Pulmonary vascularity: Unremarkable. Heart/mediastinum: Cardiomediastinal silhouette is enlarged and stable. Musculoskeletal: No acute osseous pathology. Lines/Tubes: Nasogastric tube with side-port projecting over the distal esophagus. Right internal jugular central venous catheter with distal tip at the cavoatrial junction. IMPRESSION: Nasogastric tube remains in high position and should be advanced 12 cm for optimal placement.
[2022-03-22] MEDS ORDERED: HALOPERIDOL LACTATE 5 MG/ML 1 ML VIAL ONE (09:48)
[2022-03-22] MEDS ORDERED: HALOPERIDOL LACTATE 5 MG/ML 1 ML VIAL IVP ONE (09:51)
[2022-03-22] MEDS: ROPIVACAINE 400 MG, HYDROMORPHONE (PF) 5 MG in SODIUM CHLORIDE 0.9% 170 ML EPIDURAL PRN (09:57)
[2022-03-22 11:16] LABS: Glucose,Whole Blood 141 mg/dL (70-110)
--- NOTE | 2022-03-22 12:23 | P.PN ---
Subjective Progress Note Date: 03/22/22 Principal diagnosis: aortoiliac occlusive disease Patient having increased confusion since yesterday. Per nursing patient has been waxing and waning throughout the night with confusion but otherwise doing well. She denies any fevers, chills, chest pain or shortness of breath. Objective - Vital Signs Vital signs: Vital Signs Temp 98.2 F 03/22/22 08:00 Pulse 93 03/22/22 11:00 Resp 14 03/22/22 11:00 BP 101/54 03/22/22 11:00 Pulse Ox 94 L 03/22/22 11:00 FiO2 Intake & Output 03/21/22 03/22/22 03/22/22 18:59 06:59 18:59 Intake Total 2380 1182.783 392.10 Output Total 785 1345 1150 Balance 1595 -162.217 -757.90 Weight 78 kg Intake: IV 2380 980 60 Sodium Chloride 0.9% 1, 880 980 60 000 ml In Empty Bag 1 bag @ 80 mls/hr IV .[id number] [facility] Rx#:[id number] Sodium Chloride 0.9% 500 1500 ml 500 ml @ 999 mls/hr IV .Q31M ONE Rx#:[id number] Intake, IV Titration 202.783 332.10 Amount Lactated Ringers 1,000 ml 20 @ 0 mls/hr IV .STK-MED [facility] Rx#:[id number] Magnesium Sulfate-D5w Pmx 200 1 gm In Dextrose/Water 1 100ml.bag @ 100 mls/hr IVPB Q1H [facility] Rx#: [id number] Potassium Chloride 20 meq 100 In Water For Injection 1 100ml.bag @ 50 mls/hr IVPB [facility] Rx#: [id number] Ropivacaine 400 mg 202.783 12.10 Hydromorphone (Pf) 5 mg In Sodium Chloride 0.9% 170 ml @ Per Protocol EPIDURAL .Q0M PRN Rx#: [id number] Output: Gastric Drainage 400 450 Urine 662 121 6537 Other: Voiding Method Indwelling Catheter Indwelling Catheter Indwelling Catheter ABP, PAP, CO, CI - Last Documented Arterial Blood Pressure 110/67 - Constitutional General appearance: Present: average body habitus, cooperative, mild distress - EENT Eyes: Present: PERRLA - Respiratory Respiratory: bilateral: CTA - Cardiovascular Rhythm: regular - Gastrointestinal Gastrointestinal Comment(s): incisional vac in place but with a small leak. General gastrointestinal: Present: decreased bowel sounds. Absent: distended - Neurologic Neurologic: Present: CNII-XII intact. Absent: focal deficits - Psychiatric Psychiatric Comment(s): confused but alert. - Labs CBC & Chem 7: 03/22/22 06:02 03/22/22 06:02 Labs: Abnormal Lab Results - Last 24 Hours (Table) 03/20/22 03/21/22 03/21/22 Range/Units 07:27 17:33 19:56 RBC (3.80-5.40) m/uL Hgb (11.4-16.0) gm/dL Hct (34.0-46.0) % Plt Count (150-450) k/uL ABG pCO2 (35-45) mmHg ABG pO2 (83-108) mmHg ABG HCO3 (21-25) mmol/L ABG Total CO2 (19-24) mmol/L Chloride (98-107) mmol/L Glucose (74-99) mg/dL POC Glucose (mg/dL) 134 H 129 H (70-110) mg/dL Calcium (8.4-10.2) mg/dL Crossmatch See Detail 03/22/22 03/22/22 03/22/22 Range/Units 01:22 06:02 06:02 RBC 2.99 L (3.80-5.40) m/uL Hgb 8.9 L (11.4-16.0) gm/dL Hct 27.8 L (34.0-46.0) % Plt Count 88 L (150-450) k/uL ABG pCO2 49 H (35-45) mmHg ABG pO2 62 L (83-108) mmHg ABG HCO3 30 H (21-25) mmol/L ABG Total CO2 31 H (19-24) mmol/L Chloride 110 H (98-107) mmol/L Glucose 131 H (74-99) mg/dL POC Glucose (mg/dL) (70-110) mg/dL Calcium 7.2 L (8.4-10.2) mg/dL Crossmatch 03/22/22 03/22/22 Range/Units 06:59 11:15 RBC (3.80-5.40) m/uL Hgb (11.4-16.0) gm/dL Hct (34.0-46.0) % Plt Count (150-450) k/uL ABG pCO2 (35-45) mmHg ABG pO2 (83-108) mmHg ABG HCO3 (21-25) mmol/L ABG Total CO2 (19-24) mmol/L Chloride (98-107) mmol/L Glucose (74-99) mg/dL POC Glucose (mg/dL) 129 H 141 H (70-110) mg/dL Calcium (8.4-10.2) mg/dL Crossmatch Assessment and Plan Assessment: 1. Aorto-iliac occlusive disease POD 2 AortoIliac endarterectomy and patch angioplasty 2. Acute delerium 3 Claudication 4. Rest pain 5. Acute blood loss anemia secondary to surgery 6. Leukocytosis secondary to reactive from surgery Plan: Labs and imaging reviewed- mild anemia- will continue to monitor, transfuse if less than 8. Discontinue epidural. Ok to increase activity after epidural removal. PT/OT to evaluate and treat tomorrow. Family at bedside and updated.
--- NOTE | 2022-03-22 13:07 | P.PN ---
Subjective Progress Note Date: 03/22/22 Principal diagnosis: 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 Postoperative day #2 This is a 66-year-old female patient with a known history of coronary artery disease with previous stent placement, diabetes mellitus, peripheral neuropathy, hypertension, macular degeneration, frequent leg and foot pain and tingling with burning on animal distance. CT angiogram revealed aortoiliac occlusive disease. She was brought in today electively for an aortobifemoral bypass. She did undergo an aortic and iliac endarterectomy with patch graft angioplasty. She is seen in consultation in the recovery room. Chest x-ray is reviewed. She is currently maintaining good O2 saturations up to 100% on 2 L/m per nasal cannula. Hemodynamically stable. White count 7.9. Hemoglobin 11.7. Platelets 125. Arterial blood gases revealed a pO2 of 150, pCO2 32, pH 7.32. Sodium 142. Potassium 3.4. BUN 11. Creatinine 0.49. Lactated Ringer's at 100 ML's per hour. Epidural in place for pain control. Reevaluated today on 04/17/22, patient is doing well,, patient is not in any distress, she is on 2 L nasal cannula, urine output is poor, last night she was given a dose of Lasix, not much improvement, however his CVP this morning was noted to be low, and I'm recommending fluid boluses to get his CVP up to 7. Hemodynamically stable, patient is on epidural for pain control, she has a left radial arterial line and a right internal jugular triple-lumen catheter, noted to have low CVP, hence I'm giving the patient more fluids today. WBC count is 11.1 hemoglobin is 10.2 electrolytes are normal renal profile is normal, chest x-ray this morning showed no evidence of acute process, reevaluated today on 03/22/22, patient remains in the ICU, and overall the patient is doing well except for intermittent episodes of confusion, and her mental status is waxing and waning patient does have intermittent confusion and she pulled out her nasogastric tube today. Patient is being called down by the nurses and by her , she seems to be calm it down when I evaluated the patient, however if she continues to have agitation may have to consider starting the patient on Haldol. In the meantime I reviewed her chest x-ray is basically unremarkable except for atelectasis her labs are also unremarkable, and the patient is hemodynamically stable. Objective - Vital Signs Vital signs: Vital Signs Temp 98.2 F 03/22/22 08:00 Pulse 85 03/22/22 12:00 Resp 22 03/22/22 12:00 BP 99/47 03/22/22 12:00 Pulse Ox 94 L 03/22/22 12:00 FiO2 Intake & Output 03/21/22 03/22/22 03/22/22 18:59 06:59 18:59 Intake Total 2380 1182.783 442.10 Output Total 785 1345 1300 Balance 1595 -162.217 -857.90 Weight 78 kg Intake: IV 2380 980 100 Sodium Chloride 0.9% 1, 880 980 100 000 ml In Empty Bag 1 bag @ 80 mls/hr IV .[id number] [facility] Rx#:[id number] Sodium Chloride 0.9% 500 1500 ml 500 ml @ 999 mls/hr IV .Q31M ONE Rx#:[id number] Intake, IV Titration 202.783 342.10 Amount Lactated Ringers 1,000 ml 20 @ 0 mls/hr IV .STK-MED ONE Rx#:[id number] Magnesium Sulfate-D5w Pmx 200 1 gm In Dextrose/Water 1 100ml.bag @ 100 mls/hr IVPB Q1H [facility] Rx#: [id number] Potassium Chloride 20 meq 100 In Water For Injection 1 100ml.bag @ 50 mls/hr IVPB ONCE STA Rx#: [id number] Ropivacaine 400 mg 202.783 22.10 Hydromorphone (Pf) 5 mg In Sodium Chloride 0.9% 170 ml @ Per Protocol EPIDURAL .Q0M PRN Rx#: [id number] Output: Gastric Drainage 400 450 Urine 510 086 8694 Other: Voiding Method Indwelling Catheter Indwelling Catheter Indwelling Catheter ABP, PAP, CO, CI - Last Documented Arterial Blood Pressure 110/67 - Exam GENERAL EXAM: Revealed a 66-year-old female in no distress, on 2 L nasal cannula, pleasantly confused during my evaluation. HEAD: Normocephalic. Atraumatic EYES: Normal reaction of pupils, equal size. NOSE: Nasogastric tube secured in place. Clear with pink turbinates. THROAT: No erythema or exudates. NECK: No masses, no JVD. CHEST: No chest wall deformity. LUNGS: Equal air entry with no crackles, wheeze, rhonchi or dullness. CVS: S1 and S2 normal with no audible murmur, regular rhythm. ABDOMEN: Abdominal dressing dry and intact. Provena in place. No hepatosplenomegaly, normal bowel sounds, no guarding or rigidity. SKIN: No rashes CENTRAL NERVOUS SYSTEM: Alert oriented 3 focal deficits. EXTREMITIES: Good pulses bilaterally, no cyanosis - Labs CBC & Chem 7: 03/22/22 06:02 03/22/22 06:02 Labs: Abnormal Lab Results - Last 24 Hours (Table) 03/20/22 03/21/22 03/21/22 Range/Units 07:27 17:33 19:56 RBC (3.80-5.40) m/uL Hgb (11.4-16.0) gm/dL Hct (34.0-46.0) % Plt Count (150-450) k/uL ABG pCO2 (35-45) mmHg ABG pO2 (83-108) mmHg ABG HCO3 (21-25) mmol/L ABG Total CO2 (19-24) mmol/L Chloride (98-107) mmol/L Glucose (74-99) mg/dL POC Glucose (mg/dL) 134 H 129 H (70-110) mg/dL Calcium (8.4-10.2) mg/dL Crossmatch See Detail 03/22/22 03/22/22 03/22/22 Range/Units 01:22 06:02 06:02 RBC 2.99 L (3.80-5.40) m/uL Hgb 8.9 L (11.4-16.0) gm/dL Hct 27.8 L (34.0-46.0) % Plt Count 88 L (150-450) k/uL ABG pCO2 49 H (35-45) mmHg ABG pO2 62 L (83-108) mmHg ABG HCO3 30 H (21-25) mmol/L ABG Total CO2 31 H (19-24) mmol/L Chloride 110 H (98-107) mmol/L Glucose 131 H (74-99) mg/dL POC Glucose (mg/dL) (70-110) mg/dL Calcium 7.2 L (8.4-10.2) mg/dL Crossmatch 03/22/22 03/22/22 Range/Units 06:59 11:15 RBC (3.80-5.40) m/uL Hgb (11.4-16.0) gm/dL Hct (34.0-46.0) % Plt Count (150-450) k/uL ABG pCO2 (35-45) mmHg ABG pO2 (83-108) mmHg ABG HCO3 (21-25) mmol/L ABG Total CO2 (19-24) mmol/L Chloride (98-107) mmol/L Glucose (74-99) mg/dL POC Glucose (mg/dL) 129 H 141 H (70-110) mg/dL Calcium (8.4-10.2) mg/dL Crossmatch Assessment and Plan Assessment: 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 Postoperative day #2 History of coronary artery disease with previous stent placement Diabetes mellitus Diabetic neuropathy Hypertension Macular degeneration Former smoker oliguria, resolved after the patient was given fluids. This is mostly hypo volemic in nature. Acute metabolic encephalopathy and possible IC psychosis. Recommendation: Consider using Haldol. continue present supportive care measures continue to monitor in the ICU Continue bronchodilators Continue incentive spirometry Early ambulation we will continue to follow. Time with Patient: Less than 30
--- NOTE | 2022-03-22 15:49 | P.PN ---
Subjective Progress Note Date: 03/22/22 This dictation on the progress note Date of service 03/22/2022 Dictation by Patient and to 62. One ICU. Patient seen in [id number] evaluated discussed with the patient and her . Vital sign Temperature 98.2 F oral, at 8 AM she had a mild tachycardia which is resolved and her blood pressure is 130/59 and immediately was 74, central venous pressure was 10 and oxygen saturation 89. On a nasal cannula 5 L. Patient was agitated and as a trial to pull out her NG tube A as well as IVs und erlying dementia and cognitive function and permanent, however she is still nothing by mouth because of no bowel movement yet after her laparotomy for the vascular surgery. Patient received a Haldol and currently she is back to normal able to answer question call not agitated. Her vital sign is stable and her oxygen 93-94% with a nasal cannula 5 L and her blood pressure 129/65 and mean is 90. Her blood pressure was low on the event subsequently improving, I did discontinue her blood pressure medication the home medication until patient blood pressure is stabilized post operative with no farther hypotension. WBC 7.5 normal, hemoglobin 8.9 with a hematocrit 27.8 and the initial hemoglobin 14 and hematocrit was 42.1 with the drop post operative with anemia secondary bleeding secondary to the surgery. Sodium 140 potassium 3.8 chloride 110 carbon dioxide 29 and GFR more than 90 BUN 12, creatinine 0.56, blood glucose stable covered with insulin Calcium is 7.2 and we order ionized calcium, she has normal magnesium. Platelet count 88 no evidence of bleeding. ABGs pH 7.40 pCO2 49 pCO2 62 oxygen saturation 94% with a history of COPD in the past. On exam: Patient is conscious alert at the time able to answer question no agitation and no confusion however that corrected by having the Haldol injection. Head was normocephalic and atraumatic pupil was equal reactive oropharynx was normal Neck was supple no JVD no thyromegaly no lymphadenopathy trachea midline history of carotid artery disease Chest was clear to auscultation percussion Heart regular sinus rhythm history of coronary artery disease and stent in the LAD in the past Abdomen normal bowel sound yet with the status post laparotomy and vascular surgery with the underlying hour to biiliac surgery and calcification severe. Extremities good pulses and dorsalis pedis and posterior tibial bilaterally no edema. Neurologically stable Psychiatry: Episode of confusion disorientation and agitation corrected by Haldol. Assessment #1 earlier this morning agitation, hypotension confusion corrected with the Haldol #2 underlying cognitive function impairment with the history of depression and anxiety she was treated in the past by Dr. Mancera #3 severe peripheral vascular disease with a wart to bifemoral occlusive disease status post surgery #4 status post laparotomy for the surgery and removal of the calcium with good perfusion of the lower extremities. #5 diabetes mellitus type 2 currently on insulin to scale #6 COPD on inhalation bronchodilators therapy. By pulmonary #7 hypothyroidism and we'll be checking her thyroid function especially currently on by mouth #8 GERD disease. #9 hypotension with helping the antihypertensive medication. Plan: #1 with repeat lab in the morning for thyroid. And electrolyte. #2 continue the current treatment #3 post operative ileus and hopefully recovery within the next couple days. Currently patient did not pass any gas and no bowel movement Objective - Vital Signs Vital signs: Vital Signs Temp 98.2 F 03/22/22 08:00 Pulse 90 03/22/22 15:00 Resp 28 H 03/22/22 15:00 BP 100/39 03/22/22 15:00 Pulse Ox 97 03/22/22 15:00 FiO2 Intake & Output 03/21/22 03/22/22 03/22/22 18:59 06:59 18:59 Intake Total 2380 1182.783 482.10 Output Total 785 1345 1425 Balance 1595 -162.217 -942.90 Weight 78 kg Intake: IV 2380 980 140 Sodium Chloride 0.9% 1, 880 980 140 000 ml In Empty Bag 1 bag @ 80 mls/hr IV .[id number] [facility] Rx#:[id number] Sodium Chloride 0.9% 500 1500 ml 500 ml @ 999 mls/hr IV .Q31M ONE Rx#:[id number] Intake, IV Titration 202.783 342.10 Amount Lactated Ringers 1,000 ml 20 @ 0 mls/hr IV .STK-MED ONE Rx#:[id number] Magnesium Sulfate-D5w Pmx 200 1 gm In Dextrose/Water 1 100ml.bag @ 100 mls/hr IVPB Q1H [facility] Rx#: [id number] Potassium Chloride 20 meq 100 In Water For Injection 1 100ml.bag @ 50 mls/hr IVPB ONCE STA Rx#: [id number] Ropivacaine 400 mg 202.783 22.10 Hydromorphone (Pf) 5 mg In Sodium Chloride 0.9% 170 ml @ Per Protocol EPIDURAL .Q0M PRN Rx#: [id number] Output: Gastric Drainage 400 450 Urine 827 720 9155 Other: Voiding Method Indwelling Catheter Indwelling Catheter Indwelling Catheter ABP, PAP, CO, CI - Last Documented Arterial Blood Pressure 110/67 - Labs CBC & Chem 7: 03/22/22 06:02 03/22/22 06:02 Labs: Abnormal Lab Results - Last 24 Hours (Table) 03/20/22 03/21/22 03/21/22 Range/Units 07:27 17:33 19:56 RBC (3.80-5.40) m/uL Hgb (11.4-16.0) gm/dL Hct (34.0-46.0) % Plt Count (150-450) k/uL ABG pCO2 (35-45) mmHg ABG pO2 (83-108) mmHg ABG HCO3 (21-25) mmol/L ABG Total CO2 (19-24) mmol/L Chloride (98-107) mmol/L Glucose (74-99) mg/dL POC Glucose (mg/dL) 134 H 129 H (70-110) mg/dL Calcium (8.4-10.2) mg/dL Crossmatch See Detail 03/22/22 03/22/22 03/22/22 Range/Units 01:22 06:02 06:02 RBC 2.99 L (3.80-5.40) m/uL Hgb 8.9 L (11.4-16.0) gm/dL Hct 27.8 L (34.0-46.0) % Plt Count 88 L (150-450) k/uL ABG pCO2 49 H (35-45) mmHg ABG pO2 62 L (83-108) mmHg ABG HCO3 30 H (21-25) mmol/L ABG Total CO2 31 H (19-24) mmol/L Chloride 110 H (98-107) mmol/L Glucose 131 H (74-99) mg/dL POC Glucose (mg/dL) (70-110) mg/dL Calcium 7.2 L (8.4-10.2) mg/dL Crossmatch 03/22/22 03/22/22 Range/Units 06:59 11:15 RBC (3.80-5.40) m/uL Hgb (11.4-16.0) gm/dL Hct (34.0-46.0) % Plt Count (150-450) k/uL ABG pCO2 (35-45) mmHg ABG pO2 (83-108) mmHg ABG HCO3 (21-25) mmol/L ABG Total CO2 (19-24) mmol/L Chloride (98-107) mmol/L Glucose (74-99) mg/dL POC Glucose (mg/dL) 129 H 141 H (70-110) mg/dL Calcium (8.4-10.2) mg/dL Crossmatch
[2022-03-22 16:59] LABS: Glucose,Whole Blood 118 mg/dL (70-110)
[2022-03-22] MEDS ORDERED: HALOPERIDOL LACTATE 5 MG/ML 1 ML VIAL IVP STA (18:10)
[2022-03-22] MEDS ORDERED: HALOPERIDOL LACTATE 5 MG/ML 1 ML VIAL IVP PRN (18:13)
[2022-03-22] MEDS: HYDROcodone/APAP 5-325MG 1 EACH TAB PO PRN (20:19)
[2022-03-22] MEDS: ASPIRIN 81 MG PO SCH (20:19)
[2022-03-22 20:30] LABS: Glucose,Whole Blood 143 mg/dL (70-110)
[2022-03-23] MEDS: HYDROcodone/APAP 5-325MG 1 EACH TAB PO PRN ×4 (01:50→21:08)
[2022-03-23 06:03] LABS: Glucose,Whole Blood 119 mg/dL (70-110)
[2022-03-23] MEDS: SODIUM CHLORIDE 0.9% 1,000 ML in EMPTY BAG 1 BAG IV SCH ×2 (06:07→18:16)
[2022-03-23] MEDS: LEVOTHYROXINE 75 MCG TAB PO SCH (06:07)
[2022-03-23] MEDS: INSULIN ASPART (NovoLOG) 100 UNIT/ML VIAL SQ SCH ×4 (06:08→21:09)
[2022-03-23 07:32] LABS: HCT 26.8 % (34.0-46.0); HGB 8.8 gm/dL (11.4-16.0); MCH 29.6 pg (25.0-35.0); MCHC 32.8 g/dL (31.0-37.0); MCV 90.3 fL (80.0-100.0); Mean Platelet Volume 9.7; RBC 2.97 m/uL (3.80-5.40); RDW 12.9 % (11.5-15.5); WBC 5.5 k/uL (3.8-10.6)
[2022-03-23 07:45] LABS: Platelet Count 92 k/uL (150-450)
[2022-03-23] MEDS: IPRATROPIUM-ALBUTEROL 3 ML NEB INHALATION SCH ×4 (07:45→20:19)
[2022-03-23 07:56] LABS: ALT 17 U/L (4-34); AST 25 U/L (14-36); African American GFR (CKD) >90 (>60 ml/min/1.73 sqM); Albumin 2.5 g/dL (3.5-5.0); Alkaline Phosphatase 49 U/L (38-126); Anion Gap 4 mmol/L; Blood Urea Nitrogen 8 mg/dL (7-17); Calcium 7.4 mg/dL (8.4-10.2); Carbon Dioxide 29 mmol/L (22-30); Chloride 107 mmol/L (98-107); Glucose 105 mg/dL (74-99); Magnesium 1.7 mg/dL (1.6-2.3); Non-African American GFR(CKD) >90 (>60 ml/min/1.73 sqM); Potassium 3.4 mmol/L (3.5-5.1); Sodium 140 mmol/L (137-145); Total Bilirubin 0.9 mg/dL (0.2-1.3); Total Protein 4.4 g/dL (6.3-8.2)
--- NOTE | 2022-03-23 08:05 | P.PN ---
Subjective Progress Note Date: 03/23/22 Principal diagnosis: Lower extremities peripheral arterial disease The patient is a pleasant 66-year-old female patient with a past medical history significant for lower extremities peripheral arterial disease who was diagnosed recently was critical limb ischemia with a resting pain with no tissue loss. Because she continues to be symptomatic she underwent an angiogram and that revealed occluded infrarenal aorta and bilateral iliacs. Initially she was sent to undergo an aortobifem but she ended having aorto iliac endarterectomy with great results. March 232021 The patient was seen and evaluated this morning. She was slightly confused but she oriented 3 this morning. Hemodynamically she is stable. I was able to feel dorsalis pedis pulses bilaterally. She reports no pain in the chest and no shortness of breath. Currently she is on baby aspirin and she is an intermediate intensity statin. I'm going to increase the dose of Lipitor to 80 mg by mouth daily at bedtime and beside that add Plavix to the current medical regimen. Her hemoglobin is stable. Be transferred out of the intensive care unit. Objective - Vital Signs Vital signs: Vital Signs Temp 97.8 F 03/23/22 04:00 Pulse 85 03/23/22 08:00 Resp 18 03/23/22 07:00 BP 125/56 03/23/22 07:00 Pulse Ox 96 03/23/22 07:00 FiO2 Intake & Output 03/22/22 03/23/22 03/23/22 18:59 06:59 18:59 Intake Total 802.10 880 80 Output Total 1775 1540 50 Balance -972.90 -660 30 Weight 75.4 kg Intake: IV 460 880 80 Sodium Chloride 0.9% 1, 460 880 80 000 ml In Empty Bag 1 bag @ 80 mls/hr IV .[id number] [facility] Rx#:[id number] Intake, IV Titration 342.10 Amount Lactated Ringers 1,000 ml 20 @ 0 mls/hr IV .STK-MED ONE Rx#:[id number] Magnesium Sulfate-D5w Pmx 200 1 gm In Dextrose/Water 1 100ml.bag @ 100 mls/hr IVPB Q1H [facility] Rx#: [id number] Potassium Chloride 20 meq 100 In Water For Injection 1 100ml.bag @ 50 mls/hr IVPB ONCE STA Rx#: [id number] Ropivacaine 400 mg 22.10 Hydromorphone (Pf) 5 mg In Sodium Chloride 0.9% 170 ml @ Per Protocol EPIDURAL .Q0M PRN Rx#: [id number] Output: Urine 1775 1540 50 Other: Voiding Method Indwelling Catheter Indwelling Catheter ABP, PAP, CO, CI - Last Documented Arterial Blood Pressure 110/67 - Constitutional General appearance: Present: no acute distress - Respiratory Respiratory: bilateral: CTA - Cardiovascular Rhythm: regular - Labs CBC & Chem 7: 03/23/22 07:12 03/23/22 07:12 Labs: Abnormal Lab Results - Last 24 Hours (Table) 03/22/22 03/22/22 03/22/22 Range/Units 11:15 16:48 20:18 RBC (3.80-5.40) m/uL Hgb (11.4-16.0) gm/dL Hct (34.0-46.0) % Plt Count (150-450) k/uL Potassium (3.5-5.1) mmol/L Creatinine (0.52-1.04) mg/dL Glucose (74-99) mg/dL POC Glucose (mg/dL) 141 H 118 H 143 H (70-110) mg/dL Calcium (8.4-10.2) mg/dL Total Protein (6.3-8.2) g/dL Albumin (3.5-5.0) g/dL 03/23/22 03/23/22 03/23/22 Range/Units 06:02 07:12 07:12 RBC 2.97 L (3.80-5.40) m/uL Hgb 8.8 L (11.4-16.0) gm/dL Hct 26.8 L (34.0-46.0) % Plt Count 92 L (150-450) k/uL Potassium 3.4 L (3.5-5.1) mmol/L Creatinine 0.51 L (0.52-1.04) mg/dL Glucose 105 H (74-99) mg/dL POC Glucose (mg/dL) 119 H (70-110) mg/dL Calcium 7.4 L (8.4-10.2) mg/dL Total Protein 4.4 L (6.3-8.2) g/dL Albumin 2.5 L (3.5-5.0) g/dL Assessment and Plan Assessment: Assessment #1 PAD and status post aortoiliac endarterectomy #2 hypertension #3 dyslipidemia #4 hypokalemia #5 multiple comorbid conditions Plan #1 add Plavix to the current medical regimen #2 increase the dose of Lipitor to high intensity #3 continue monitor the kidney function and electrolytes #4 replace the potassium #5 follow-up with the patient
--- NOTE | 2022-03-23 09:12 | PN ---
PROGRESS NOTE DATE OF SERVICE: 03/22/2022 SUBJECTIVE: This is a 66-year-old lady, who is status post vascular surgery for aortoiliac occlusive disease. She is postoperative day #2, appears confused, and her physical activity is very limited. She denies any chest pain or difficulty in breathing. OBJECTIVE: GENERAL: She is comfortable at rest. CHEST: Reveals diminished air entry at the bases. HEART: Reveals first and second heart sounds. No gallop. EXTREMITIES: Did not reveal any edema. Peripheral pulses are palpable. MEDICATIONS: She is currently on: 1. Aspirin. 2. Lipitor. 3. Toprol. 4. Levothyroxine. LABORATORY DATA: Showed the hemoglobin is 8.9. Potassium is 3.8, creatinine is 0.56. ASSESSMENT AND PLAN: Aortoiliac occlusive disease, status post surgery. The patient's altered sensorium seems to be related to the sedation, and it is currently being adjusted. Increase activity. Incentive spirometry. MMODL / IJN: [id number] /
[2022-03-23] MEDS: CALCIUM CARBONATE 500 MG CHEWABLE PO SCH (09:20)
[2022-03-23] MEDS: HEPARIN SODIUM,PORCINE/PF 5,000 UNIT/0.5 ML SYRINGE SQ SCH ×3 (09:46→23:29)
[2022-03-23] MEDS: PANTOPRAZOLE 40 MG/10 ML VIAL IVP SCH (09:46)
[2022-03-23] MEDS: POTASSIUM CHLORIDE 20 MEQ in WATER FOR INJECTION 1 100ML.BAG IVPB SCH ×2 (09:47→11:56)
[2022-03-23] MEDS: MAGNESIUM SULFATE-D5W PMX 1 GM in DEXTROSE/WATER 1 100ML.BAG IVPB SCH ×2 (09:47→12:10)
[2022-03-23] MEDS: METOPROLOL SUCCINATE (ER) 25 MG TAB.ER.24H PO SCH (09:48)
[2022-03-23] MEDS: ATORVASTATIN 80 MG TAB PO SCH (09:48)
[2022-03-23] MEDS: VIT A,C & E-LUTEIN-MINERALS 1 EACH TAB PO SCH ×2 (09:48→21:09)
[2022-03-23] MEDS: buPROPion XL 150 MG TAB.ER.24H PO SCH (09:49)
[2022-03-23] MEDS: CHOLECALCIFEROL 125 MCG (5000 IU) TABLET PO SCH (09:49)
[2022-03-23] MEDS: MEMANTINE 5 MG TAB PO SCH ×2 (09:49→21:08)
[2022-03-23] MEDS: CLOPIDOGREL 75 MG TAB PO SCH (09:49)
[2022-03-23] MEDS: DULoxetine HCL 60 MG CAPSULE.DR PO SCH (09:49)
--- NOTE | 2022-03-23 10:22 | P.PN ---
Subjective Progress Note Date: 03/23/22 Principal diagnosis: Aortoiliac occlusive disease Patient was seen and examined in the ICU as follow-up. She is alert and oriented 3. She states overall she is feeling well. She denies any pain in her lower extremities. She has been on ice chips and water. No nausea or vom iting. Denies any flatus, no bowel movement. Dressing intact to abdomen. Hemoglobin stable at 8.8, potassium 3.3 magnesium 1.7 being replaced. Objective - Vital Signs Vital signs: Vital Signs Temp 98.0 F 03/23/22 08:00 Pulse 90 03/23/22 10:00 Resp 26 H 03/23/22 10:00 BP 133/69 03/23/22 10:00 Pulse Ox 95 03/23/22 10:00 FiO2 Intake & Output 03/22/22 03/23/22 03/23/22 18:59 06:59 18:59 Intake Total 802.10 880 420 Output Total 1775 1540 375 Balance -972.90 -660 45 Weight 75.4 kg Intake: IV 460 880 320 Sodium Chloride 0.9% 1, 460 880 320 000 ml In Empty Bag 1 bag @ 80 mls/hr IV .[id number] [facility] Rx#:[id number] Intake, IV Titration 342.10 100 Amount Lactated Ringers 1,000 ml 20 @ 0 mls/hr IV .STK-MED ONE Rx#:[id number] Magnesium Sulfate-D5w Pmx 200 1 gm In Dextrose/Water 1 100ml.bag @ 100 mls/hr IVPB Q1H [facility] Rx#: [id number] Potassium Chloride 20 meq 100 In Water For Injection 1 100ml.bag @ 50 mls/hr IVPB ONCE STA Rx#: [id number] Potassium Chloride 20 meq 100 In Water For Injection 1 100ml.bag @ 50 mls/hr IVPB Q2H [facility] Rx#: [id number] Ropivacaine 400 mg 22.10 Hydromorphone (Pf) 5 mg In Sodium Chloride 0.9% 170 ml @ Per Protocol EPIDURAL .Q0M PRN Rx#: [id number] Output: Urine 1775 1540 375 Other: Voiding Method Indwelling Catheter Indwelling Catheter Indwelling Catheter ABP, PAP, CO, CI - Last Documented Arterial Blood Pressure 110/67 - Exam General appearance: The patient is alert, oriented, appears in no acute distress. HET: Head is normocephalic and atraumatic. Pupils are equal and reactive. Neck: Supple. Heart: Regular. Lungs: Equal expansion, normal respiratory effort. Abdomen: Soft, surgical tenderness, incisional VAC in place, wound VAC shot off due to small leak, nondistended, positive bowel sounds. Extremities: Normal skin color and turgor. No cyanosis, rash, ulceration, clubbing, or edema. Radial and pedal pulses are 2/4 bilaterally. Neurological: No focal deficits. Strength and sensation are grossly intact. - Labs CBC & Chem 7: 03/23/22 07:12 03/23/22 07:12 Labs: Abnormal Lab Results - Last 24 Hours (Table) 03/22/22 03/22/22 03/22/22 Range/Units 11:15 16:48 20:18 RBC (3.80-5.40) m/uL Hgb (11.4-16.0) gm/dL Hct (34.0-46.0) % Plt Count (150-450) k/uL Potassium (3.5-5.1) mmol/L Creatinine (0.52-1.04) mg/dL Glucose (74-99) mg/dL POC Glucose (mg/dL) 141 H 118 H 143 H (70-110) mg/dL Calcium (8.4-10.2) mg/dL Total Protein (6.3-8.2) g/dL Albumin (3.5-5.0) g/dL 03/23/22 03/23/22 03/23/22 Range/Units 06:02 07:12 07:12 RBC 2.97 L (3.80-5.40) m/uL Hgb 8.8 L (11.4-16.0) gm/dL Hct 26.8 L (34.0-46.0) % Plt Count 92 L (150-450) k/uL Potassium 3.4 L (3.5-5.1) mmol/L Creatinine 0.51 L (0.52-1.04) mg/dL Glucose 105 H (74-99) mg/dL POC Glucose (mg/dL) 119 H (70-110) mg/dL Calcium 7.4 L (8.4-10.2) mg/dL Total Protein 4.4 L (6.3-8.2) g/dL Albumin 2.5 L (3.5-5.0) g/dL Assessment and Plan Assessment: 1. Aorto iliac occlusive disease postop day #3 for aorto iliac endarterectomy and patch angioplasty 2. Acute delirium resolved 3. Acute blood loss anemia secondary to surgery 4. Claudication 5. Rest pain Plan: 1. Encourage ambulation 2. PT and OT consulted 3. Discontinue Parnell catheter 4. Replace electrolytes per protocol 5. Daily CBC 6. Incentive spirometer every hour 7. Patient may have clear liquid diet 8. May transfer to cardiac stepdown unit, 3 S. 9. Primary medicine team on to continue with medical management
--- NOTE | 2022-03-23 10:43 | P.PN ---
Subjective Progress Note Date: 03/23/22 This is a 66-year-old female patient with a known history of coronary artery disease with previous stent placement, diabetes mellitus, peripheral neuropathy, hypertension, macular degeneration, frequent leg and foot pain and tingling with burning on animal distance. CT angiogram revealed aortoiliac occlusive disease. She was brought in today electively for an aortobifemoral bypass. She did undergo an aortic and iliac endarterectomy with patch graft angioplasty. She is seen in consultation in the recovery room. Chest x-ray is reviewed. She is currently maintaining good O2 saturations up to 100% on 2 L/m per nasal cannula. Hemodynamically stable. White count 7.9. Hemoglobin 11.7. Platelets 125. Arterial blood gases revealed a pO2 of 150, pCO2 32, pH 7.32. Sodium 142. Potassium 3.4. BUN 11. Creatinine 0.49. Lactated Ringer's at 100 ML's per hour. Epidural in place for pain control. Reevaluated today on 04/17/22, patient is doing well,, patient is not in any distress, she is on 2 L nasal cannula, urine output is poor, last night she was given a dose of Lasix, not much improvement, however his CVP this morning was noted to be low, and I'm recommending fluid boluses to get his CVP up to 7. Hemodynamically stable, patient is on epidural for pain control, she has a left radial arterial line and a right internal jugular triple-lumen catheter, noted to have low CVP, hence I'm giving the patient more fluids today. WBC count is 11.1 hemoglobin is 10.2 electrolytes are normal renal profile is normal, chest x-ray this morning showed no evidence of acute process, reevaluated today on 03/22/22, patient remains in the ICU, and overall the patient is doing well except for intermittent episodes of confusion, and her mental status is waxing and waning patient does have intermittent confusion and she pulled out her nasogastric tube today. Patient is being called down by the nurses and by her , she seems to be calm it down when I evaluated the patient, however if she continues to have agitation may have to consider starting the patient on Haldol. In the meantime I reviewed her chest x-ray is basically unremarkable except for atelectasis her labs are also unremarkable, and the patient is hemodynamically stable. The patient is seen today 03/23/2022 in follow-up in the intensive care unit. Postoperative day #3. She is currently resting comfortably in bed. Awake and alert in no acute distress. She is maintaining O2 saturations in the 90s on 2 L/m per nasal cannula. 0.9% normal saline at 80 ML's per hour. White count 5.5. Hemoglobin 8.8. Platelets 92,000. Sodium 140. Potassium 3.4. BUN 8. Creatinine 0.51. Glucose 105. She remains on bronchodilators. Heparin for DVT prophylaxis. Objective - Vital Signs Vital signs: Vital Signs Temp 98.0 F 03/23/22 08:00 Pulse 90 03/23/22 10:00 Resp 26 H 03/23/22 10:00 BP 133/69 03/23/22 10:00 Pulse Ox 95 03/23/22 10:00 FiO2 Intake & Output 03/22/22 03/23/22 03/23/22 18:59 06:59 18:59 Intake Total 802.10 880 420 Output Total 1775 1540 375 Balance -972.90 -660 45 Weight 75.4 kg Intake: IV 460 880 320 Sodium Chloride 0.9% 1, 460 880 320 000 ml In Empty Bag 1 bag @ 80 mls/hr IV .[id number] [facility] Rx#:[id number] Intake, IV Titration 342.10 100 Amount Lactated Ringers 1,000 ml 20 @ 0 mls/hr IV .STK-MED ONE Rx#:[id number] Magnesium Sulfate-D5w Pmx 200 1 gm In Dextrose/Water 1 100ml.bag @ 100 mls/hr IVPB Q1H [facility] Rx#: [id number] Potassium Chloride 20 meq 100 In Water For Injection 1 100ml.bag @ 50 mls/hr IVPB ONCE [facility] Rx#: [id number] Potassium Chloride 20 meq 100 In Water For Injection 1 100ml.bag @ 50 mls/hr IVPB Q2H [facility] Rx#: [id number] Ropivacaine 400 mg 22.10 Hydromorphone (Pf) 5 mg In Sodium Chloride 0.9% 170 ml @ Per Protocol EPIDURAL .Q0M [facility] Rx#: [id number] Output: Urine 1775 1540 375 Other: Voiding Method Indwelling Catheter Indwelling Catheter Indwelling Catheter ABP, PAP, CO, CI - Last Documented Arterial Blood Pressure 110/67 - Exam GENERAL EXAM: Revealed a 66-year-old female in no distress, on 2 L nasal cannula, pleasantly confused at times. HEAD: Normocephalic. Atraumatic EYES: Normal reaction of pupils, equal size. NOSE: Nasogastric tube secured in place. Clear with pink turbinates. THROAT: No erythema or exudates. NECK: No masses, no JVD. CHEST: No chest wall deformity. LUNGS: Equal air entry with no crackles, wheeze, rhonchi or dullness. CVS: S1 and S2 normal with no audible murmur, regular rhythm. ABDOMEN: Abdominal dressing dry and intact. Provena in place. No hepatosplenomegaly, normal bowel sounds, no guarding or rigidity. SKIN: No rashes CENTRAL NERVOUS SYSTEM: Alert oriented 3 focal deficits. EXTREMITIES: Good pulses bilaterally, no cyanosis - Labs CBC & Chem 7: 03/23/22 07:12 03/23/22 07:12 Labs: Abnormal Lab Results - Last 24 Hours (Table) 03/22/22 03/22/22 03/22/22 Range/Units 11:15 16:48 20:18 RBC (3.80-5.40) m/uL Hgb (11.4-16.0) gm/dL Hct (34.0-46.0) % Plt Count (150-450) k/uL Potassium (3.5-5.1) mmol/L Creatinine (0.52-1.04) mg/dL Glucose (74-99) mg/dL POC Glucose (mg/dL) 141 H 118 H 143 H (70-110) mg/dL Calcium (8.4-10.2) mg/dL Total Protein (6.3-8.2) g/dL Albumin (3.5-5.0) g/dL 03/23/22 03/23/22 03/23/22 Range/Units 06:02 07:12 07:12 RBC 2.97 L (3.80-5.40) m/uL Hgb 8.8 L (11.4-16.0) gm/dL Hct 26.8 L (34.0-46.0) % Plt Count 92 L (150-450) k/uL Potassium 3.4 L (3.5-5.1) mmol/L Creatinine 0.51 L (0.52-1.04) mg/dL Glucose 105 H (74-99) mg/dL POC Glucose (mg/dL) 119 H (70-110) mg/dL Calcium 7.4 L (8.4-10.2) mg/dL Total Protein 4.4 L (6.3-8.2) g/dL Albumin 2.5 L (3.5-5.0) g/dL Assessment and Plan Assessment: 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 Postoperative day #3. History of coronary artery disease with previous stent placement Diabetes mellitus Diabetic neuropathy Hypertension Macular degeneration Former smoker Plan: The patient was seen and evaluated Labs and medications reviewed Continue bronchodilators Titrate the FiO2 as tolerated To transfer to the selective care unit We will continue to follow I have personally seen and examined the patient, performed the documentation and the assessment and plan as written. Number of minutes spent on the visit: 10.
[2022-03-23 11:31] LABS: Glucose,Whole Blood 152 mg/dL (70-110)
--- NOTE | 2022-03-23 13:46 | CDI ---
Documentation Clarification Form Date: 03/23/2022 01:35:15 PM From: Amanda Ulloa CCS, CCDS Admit Date: 03/20/2022 06:26:00 AM Patient Name: Melody Kapadia Visit Number: [id number] Discharge Date: ATTENTION: The Clinical Documentation Specialists (CDI) and [facility] Coding Staff appreciate your assistance in clarifying documentation. Please respond to the clarification below the line at the bottom and electronically sign. The CDI & [facility] Coding staff will review the response and follow-up if needed. Please note: Queries are made part of the Legal Health Record. If you have any questions, please contact the author of this message via ITS. Dr. Rocky Freeman: Postoperative Ileus is documented in the 03/22 Medical Management Progress Note. Additional clarification is requested regarding the relationship, if any, that exists between the diagnosis and the procedure. Patients Admitting Diagnosis per the 03/20 OR Note: Elective Admission for Aortoiliac Occlusive Disease and Lower Extremity Claudication, Rest Pain. Post-Operative Diagnosis: Same. Procedure performed 03/20: Aortic & Right Common Iliac Endarterectomy with Patch Angioplasty. Left Common Iliac Artery Endarterectomy with Patch Angioplasty. History/Risk Factors per the 03/20 History & Physical: CAD with stent, CA, DM II, Hypertension, Memory Impairment, Macular Degeneration, Frequent Leg and Foot Pain with tingling & burning, Hepatitis C treated. Former smoker. Clinical Indicators: Presented for elective surgery as above. Postoperative Ileus is documented 03/22. No abdominal imaging. Treatment 03/22: NGT & Right IJ CVC line placed for surgery and continued 03/22. O2 3Lnc, IV Kcl 100 mls @ 50 mls/hr x1, IV Mag Sulfate/Dextrose 100 mls @ 100 mls/hr q1H, IV Protonix 40 mg daily, IV Haldol 4 mg x3. What relationship, if any, exists between the diagnosis of postoperative Ileus and the procedure: [ ] Postoperative Ileus is a complication of surgical procedure [ ] Postoperative Ileus is an expected outcome of the surgical procedure [ ] Postoperative Ileus is related to patients co-morbid condition(s), (please specify): and is not a complication of the procedure [ ] Postoperative Ileus has been ruled out [ ] Other please specify: [ ] Unable to determine (Template Last Revised: June 2020) MTDD
[2022-03-23 16:51] LABS: Glucose,Whole Blood 115 mg/dL (70-110)
--- NOTE | 2022-03-23 17:32 | P.PN ---
Subjective Progress Note Date: 03/23/22 This progress note Date of service 03/23/[address] Grace for medical management consult. Patient seen and evaluated in the ICU Patient had bowel sound and allowed clear liquid diet and currently in the ICU because of overflow on pvc monitor bed which is assigned to by the surgeon as well as the critical care Dr. Llanos I received the question: Which is the query questioning why ileus postoperative, that's expected after open and laparotomy and the bowel will be lazy for a few days as expected and this question should be addressed to the surgeon not to me. I did see the patient [id number] discussed with the patient and her She feeling great and the feeling her legs and the pulses intact both sides and warm legs look cold as used to be No agitation and no confusion today The hypotension has been postoperative and resolved. On exam: Head was normocephalic and atraumatic and pupil was equal reactive and the conjunctiva was pink sclera nonicteric oropharynx was negative normal ability to speak no neuro deficit Neck was supple with a history of carotid artery disease No lymphadenopathy Chest was normal breath sounds bilaterally Heart regular sinus rhythm she had history of coronary artery disease in the past and a stent no chest pain no palpitation Abdomen soft and still have healing process with the lobe of the laparotomy incision and she had start of bowel sound as well and she passed flatus/gases Extremities no edema and positive pulses. Psychiatry depression and anxiety Neurology: No lateralizing sign. She had history of dementia prior to the procedure and depression and was treated by Dr. Mancera. Assessment patient stable general condition medically and she will be transferred to the third floor for pvc monitor and complete healing and to be followed by the pulmonary as well as the surgeon. She had anemia as with the secondary to surgical operation spatially with the vascular surgery expected bleeding as well. Vital sign indicating today her blood pressure was initially 148/93 with a mean 120 and subsequently dropped to 126/58 with a mean 81 which is stable. Her oxygen saturation was 94% on 2 L nasal cannula respiratory rate 16 nonlabored heart rate 82 bpm regular sinus she was febrile with temperature 97.8 F for. Status post aortobifem occlusive disease and is status post surgery by . Objective - Vital Signs Vital signs: Vital Signs Temp 97.8 F 03/23/22 12:00 Pulse 86 03/23/22 15:00 Resp 12 03/23/22 13:00 BP 126/58 03/23/22 13:00 Pulse Ox 94 L 03/23/22 14:00 FiO2 Intake & Output 03/22/22 03/23/22 03/23/22 18:59 06:59 18:59 Intake Total 802.10 880 880 Output Total 1775 1540 1775 Balance -972.90 -660 -895 Weight 75.4 kg Intake: IV 460 880 480 Sodium Chloride 0.9% 1, 460 880 480 000 ml In Empty Bag 1 bag @ 80 mls/hr IV .[id number] [facility] Rx#:[id number] Intake, IV Titration 342.10 400 Amount Lactated Ringers 1,000 ml 20 @ 0 mls/hr IV .STK-MED ONE Rx#:[id number] Magnesium Sulfate-D5w Pmx 200 1 gm In Dextrose/Water 1 100ml.bag @ 100 mls/hr IVPB Q1H [facility] Rx#: [id number] Magnesium Sulfate-D5w Pmx 200 1 gm In Dextrose/Water 1 100ml.bag @ 100 mls/hr IVPB Q1H [facility] Rx#: [id number] Potassium Chloride 20 meq 100 In Water For Injection 1 100ml.bag @ 50 mls/hr IVPB ONCE [facility] Rx#: [id number] Potassium Chloride 20 meq 200 In Water For Injection 1 100ml.bag @ 50 mls/hr IVPB Q2H [facility] Rx#: [id number] Ropivacaine 400 mg 22.10 Hydromorphone (Pf) 5 mg In Sodium Chloride 0.9% 170 ml @ Per Protocol EPIDURAL .Q0M [facility] Rx#: [id number] Output: Urine 1775 1540 1775 Other: Voiding Method Indwelling Catheter Indwelling Catheter Indwelling Catheter ABP, PAP, CO, CI - Last Documented Arterial Blood Pressure 110/67 - Labs CBC & Chem 7: 03/23/22 07:12 03/23/22 07:12 Labs: Abnormal Lab Results - Last 24 Hours (Table) 03/22/22 03/23/22 03/23/22 Range/Units 20:18 06:02 07:12 RBC 2.97 L (3.80-5.40) m/uL Hgb 8.8 L (11.4-16.0) gm/dL Hct 26.8 L (34.0-46.0) % Plt Count 92 L (150-450) k/uL Potassium (3.5-5.1) mmol/L Creatinine (0.52-1.04) mg/dL Glucose (74-99) mg/dL POC Glucose (mg/dL) 143 H 119 H (70-110) mg/dL Calcium (8.4-10.2) mg/dL Total Protein (6.3-8.2) g/dL Albumin (3.5-5.0) g/dL 03/23/22 03/23/22 03/23/22 Range/Units 07:12 11:28 16:49 RBC (3.80-5.40) m/uL Hgb (11.4-16.0) gm/dL Hct (34.0-46.0) % Plt Count (150-450) k/uL Potassium 3.4 L (3.5-5.1) mmol/L Creatinine 0.51 L (0.52-1.04) mg/dL Glucose 105 H (74-99) mg/dL POC Glucose (mg/dL) 152 H 115 H (70-110) mg/dL Calcium 7.4 L (8.4-10.2) mg/dL Total Protein 4.4 L (6.3-8.2) g/dL Albumin 2.5 L (3.5-5.0) g/dL
[2022-03-23 20:20] LABS: Glucose,Whole Blood 138 mg/dL (70-110)
[2022-03-23] MEDS: ASPIRIN 81 MG PO SCH (21:08)
[2022-03-24] MEDS: ALPRAZolam 0.25 MG TAB PO PRN (01:14)
[2022-03-24 06:11] LABS: Glucose,Whole Blood 144 mg/dL (70-110)
[2022-03-24] MEDS: LEVOTHYROXINE 75 MCG TAB PO SCH (06:32)
[2022-03-24 08:46] LABS: HCT 30.3 % (34.0-46.0); HGB 10.2 gm/dL (11.4-16.0); MCHC 33.7 g/dL (31.0-37.0); MCV 88.8 fL (80.0-100.0); Mean Platelet Volume 9.8; RBC 3.41 m/uL (3.80-5.40); RDW 13.2 % (11.5-15.5); WBC 4.3 k/uL (3.8-10.6)
[2022-03-24 08:47] LABS: Platelet Count 170 k/uL (150-450)
[2022-03-24 08:54] LABS: African American GFR (CKD) >90 (>60 ml/min/1.73 sqM); Anion Gap 9 mmol/L; Blood Urea Nitrogen 3 mg/dL (7-17); Calcium 8.1 mg/dL (8.4-10.2); Carbon Dioxide 25 mmol/L (22-30); Chloride 106 mmol/L (98-107); Glucose 160 mg/dL (74-99); Magnesium 1.7 mg/dL (1.6-2.3); Non-African American GFR(CKD) >90 (>60 ml/min/1.73 sqM); Potassium 3.1 mmol/L (3.5-5.1); Sodium 140 mmol/L (137-145)
[2022-03-24] MEDS: INSULIN ASPART (NovoLOG) 100 UNIT/ML VIAL SQ SCH ×4 (09:00→23:31)
[2022-03-24] MEDS: SODIUM CHLORIDE 0.9% 1,000 ML in EMPTY BAG 1 BAG IV SCH ×2 (09:00→16:33)
[2022-03-24] MEDS: IPRATROPIUM-ALBUTEROL 3 ML NEB INHALATION SCH ×4 (09:00→20:43)
[2022-03-24] MEDS: VIT A,C & E-LUTEIN-MINERALS 1 EACH TAB PO SCH ×2 (09:14→20:30)
[2022-03-24] MEDS: HEPARIN SODIUM,PORCINE/PF 5,000 UNIT/0.5 ML SYRINGE SQ SCH ×3 (09:14→23:31)
[2022-03-24] MEDS: PANTOPRAZOLE 40 MG/10 ML VIAL IVP SCH (09:14)
[2022-03-24] MEDS: buPROPion XL 150 MG TAB.ER.24H PO SCH (09:14)
[2022-03-24] MEDS: CALCIUM CARBONATE 500 MG CHEWABLE PO SCH (09:14)
[2022-03-24] MEDS: DULoxetine HCL 60 MG CAPSULE.DR PO SCH (09:14)
[2022-03-24] MEDS: CHOLECALCIFEROL 125 MCG (5000 IU) TABLET PO SCH (09:14)
[2022-03-24] MEDS: MEMANTINE 5 MG TAB PO SCH ×2 (09:14→20:29)
[2022-03-24] MEDS: CLOPIDOGREL 75 MG TAB PO SCH (09:14)
[2022-03-24] MEDS: ATORVASTATIN 80 MG TAB PO SCH (09:14)
[2022-03-24] MEDS: METOPROLOL SUCCINATE (ER) 25 MG TAB.ER.24H PO SCH (09:14)
[2022-03-24] MEDS: HYDROcodone/APAP 5-325MG 1 EACH TAB PO PRN ×3 (09:14→20:29)
[2022-03-24] MEDS ORDERED: Potassium Replacement Protocol 1 EACH MISC MISCELLANE PRN (10:28)
[2022-03-24] MEDS: POTASSIUM CHLORIDE ER 20 MEQ TAB.ER PO SCH (10:58)
--- NOTE | 2022-03-24 11:38 | P.PN ---
Subjective Progress Note Date: 03/24/22 Principal diagnosis: Aortoiliac occlusive disease Patient was seen and examined at the bedside. Her has been staying with her. Patient states she had a bad night she was easily awoken, was very noisy. Otherwise she states that she has not been up ambulating yet. She states her feet and legs are warm to the touch, she is has no fevers or chills, denies any body aches. She has been afebrile. Nursing has reported that patient was very confused through the night and even this morning. Likely patient has some component of a sundowner syndrome being in unfamiliar setting. Patient has worked with physical therapy today. They are recommending home with home care services for continued physical therapy Nursing reports patient has been up and voiding several times. Patient reports passing gas. Reports some surgical tenderness but denies any abdominal pain, nausea or vomiting. Objective - Vital Signs Vital signs: Vital Signs Temp 98.2 F 03/24/22 09:05 Pulse 79 03/24/22 11:03 Resp 18 03/24/22 11:03 BP 147/73 03/24/22 11:03 Pulse Ox 94 L 03/24/22 11:03 FiO2 Intake & Output 03/23/22 03/24/22 03/24/22 18:59 06:59 18:59 Intake Total 1240 160 118 Output Total 1775 3500 800 Balance -649 -4036 -375 Intake: IV 480 160 Sodium Chloride 0.9% 1, 480 160 000 ml In Empty Bag 1 bag @ 80 mls/hr IV .[id number] [facility] Rx#:[id number] Intake, IV Titration 400 Amount Magnesium Sulfate-D5w Pmx 200 1 gm In Dextrose/Water 1 100ml.bag @ 100 mls/hr IVPB Q1H [facility] Rx#: [id number] Potassium Chloride 20 meq 200 In Water For Injection 1 100ml.bag @ 50 mls/hr IVPB Q2H [facility] Rx#: [id number] Oral 360 118 Output: Urine 1775 3500 800 Other: Voiding Method Bedside Commode Bedside Commode Bedside Commode # Voids 1 ABP, PAP, CO, CI - Last Documented Arterial Blood Pressure 110/67 - Exam General appearance: The patient is alert, oriented, appears in no acute distress. HET: Head is normocephalic and atraumatic. Pupils are equal and reactive. Neck: Supple. Heart: Regular. Lungs: Equal expansion, normal respiratory effort. Abdomen: Soft, surgical tenderness, incisional VAC/dressing removed. Patient with phuc pull approximated, no surrounding erythema or drainage. Patient with positive bowel sounds. Extremities: Palpable bilateral femoral and DP pulses. Lower extremities warm to touch with good capillary refill. Neurological: No focal deficits. Currently alert and oriented 3. - Labs CBC & Chem 7: 03/24/22 08:06 03/24/22 08:06 Labs: Abnormal Lab Results - Last 24 Hours (Table) 03/23/22 03/23/22 03/23/22 Range/Units 11:28 16:49 20:18 RBC (3.80-5.40) m/uL Hgb (11.4-16.0) gm/dL Hct (34.0-46.0) % Potassium (3.5-5.1) mmol/L BUN (7-17) mg/dL Creatinine (0.52-1.04) mg/dL Glucose (74-99) mg/dL POC Glucose (mg/dL) 152 H 115 H 138 H (70-110) mg/dL Calcium (8.4-10.2) mg/dL 03/24/22 03/24/22 03/24/22 Range/Units 06:09 08:06 08:06 RBC 3.41 L (3.80-5.40) m/uL Hgb 10.2 L (11.4-16.0) gm/dL Hct 30.3 L (34.0-46.0) % Potassium 3.1 L (3.5-5.1) mmol/L BUN 3 L (7-17) mg/dL Creatinine 0.48 L (0.52-1.04) mg/dL Glucose 160 H (74-99) mg/dL POC Glucose (mg/dL) 144 H (70-110) mg/dL Calcium 8.1 L (8.4-10.2) mg/dL Assessment and Plan Assessment: 1. Aorto iliac occlusive disease postop day #4 for aorto iliac endarterectomy and patch angioplasty 2. Acute delirium, likely has some component of sundowner syndrome unfamiliar setting 3. Acute blood loss anemia secondary to surgery 4. Claudication 5. Rest pain Plan: 1. Encourage ambulation 2. PT and OT consulted 3. Patient may advance to consistent carbohydrate diet 4. Replace potassium per protocol 5. Daily BMP 6. Incentive spirometer every hour 7. Continue with the medical management per PCP 8. Plan for discharge tomorrow morning 9. Xanax 0.5 mg before bedtime The impression and plan of care has been dictated as directed. I performed a history and examination of this patient, discussed the same with the dictator. I agree with the dictator's note ,documented as a scribe. Any additional findings or plans will be noted. Patient seen this morning. Doing well. Pain controlled. Ambulated today with PT. Discussed discharge with family and patient. She hasn't had a regular diet as of yet. Will advance diet and if tolerates then ok for discharge home.
[2022-03-24 12:01] LABS: Glucose,Whole Blood 140 mg/dL (70-110)
--- NOTE | 2022-03-24 12:33 | P.PN ---
Subjective This is a 66-year-old female past medical history of coronary artery disease status post prior stenting to the LAD in 2003, ischemic cardiomyopathy, carotid atherosclerosis, hypertension, dyslipidemia, peripheral vascular disease. She follows in the office with Dr. Barnhart. We were consulted on the patient for CAD. Patient presented to the hospital for aorto iliac endarterectomy and patch angioplasty. She underwent this procedure on 03/20/2022. She was transferred out of the ICU yesterday. She is seen and examined at bedside, distress. She den ies any chest pain or shortness of breath.Main complaint is the food, clear liquid diet, and unable to sleep well. She has not been up ambulating yet. She had episodes of acute delirium. Her vital signs are stable. GENERAL: in no acute distress. NECK: Supple without JVD or thyromegaly. LUNGS: Breath sounds clear to auscultation bilaterally. Respiration equal and unlabored. No wheezes, rales or rhonchi. HEART: Regular rate and rhythm without murmurs, rubs or gallops. S1 and S2 heard. EXTREMITIES: Normal range of motion, no edema. No clubbing or cyanosis. Peripheral pulses intact. ASSESSMENT Aorto iliac occlusive disease s/p aorto iliac endarterectomy and patch angioplasty on 03/24/2022 Coronary artery disease status post prior stenting to the LAD in 2003 Ischemic cardiomyopathy Carotid atherosclerosis Hypertension Dyslipidemia Peripheral vascular disease PLAN Continue aspirin, plavix, atorvastatin, metoprolol succinate Increase activity as tolerated PT/OT Discharge per vascular surgery Follow up outpatient with Dr. Barnhart Nurse Practitioner note has been reviewed, I agree with a documented findings and plan of care. Patient was seen and examined. Objective - Vital Signs Vital signs: Vital Signs Temp 98.2 F 03/24/22 09:05 Pulse 82 03/24/22 12:02 Resp 16 03/24/22 12:02 BP 147/73 03/24/22 11:03 Pulse Ox 94 L 03/24/22 11:03 FiO2 Intake & Output 03/23/22 03/24/22 03/24/22 18:59 06:59 18:59 Intake Total 1240 160 118 Output Total 1775 3500 800 Balance -535 -3340 -682 Intake: IV 480 160 Sodium Chloride 0.9% 1, 480 160 000 ml In Empty Bag 1 bag @ 80 mls/hr IV .[id number] [facility] Rx#:[id number] Intake, IV Titration 400 Amount Magnesium Sulfate-D5w Pmx 200 1 gm In Dextrose/Water 1 100ml.bag @ 100 mls/hr IVPB Q1H [facility] Rx#: [id number] Potassium Chloride 20 meq 200 In Water For Injection 1 100ml.bag @ 50 mls/hr IVPB Q2H [facility] Rx#: [id number] Oral 360 118 Output: Urine 1775 3500 800 Other: Voiding Method Bedside Commode Bedside Commode Bedside Commode # Voids 1 ABP, PAP, CO, CI - Last Documented Arterial Blood Pressure 110/67 - Labs CBC & Chem 7: 03/24/22 08:06 03/24/22 08:06 Labs: Abnormal Lab Results - Last 24 Hours (Table) 03/23/22 03/23/22 03/24/22 Range/Units 16:49 20:18 06:09 RBC (3.80-5.40) m/uL Hgb (11.4-16.0) gm/dL Hct (34.0-46.0) % Potassium (3.5-5.1) mmol/L BUN (7-17) mg/dL Creatinine (0.52-1.04) mg/dL Glucose (74-99) mg/dL POC Glucose (mg/dL) 115 H 138 H 144 H (70-110) mg/dL Calcium (8.4-10.2) mg/dL 03/24/22 03/24/22 03/24/22 Range/Units 08:06 08:06 11:59 RBC 3.41 L (3.80-5.40) m/uL Hgb 10.2 L (11.4-16.0) gm/dL Hct 30.3 L (34.0-46.0) % Potassium 3.1 L (3.5-5.1) mmol/L BUN 3 L (7-17) mg/dL Creatinine 0.48 L (0.52-1.04) mg/dL Glucose 160 H (74-99) mg/dL POC Glucose (mg/dL) 140 H (70-110) mg/dL Calcium 8.1 L (8.4-10.2) mg/dL
--- NOTE | 2022-03-24 15:11 | P.PN ---
Subjective Progress Note Date: 03/24/22 Principal diagnosis: Aortoiliac occlusion. Reevaluated today on 04/17/22, patient is doing well,, patient is not in any distress, she is on 2 L nasal cannula, urine output is poor, last night she was given a dose of Lasix, not much improvement, however his CVP this morning was n oted to be low, and I'm recommending fluid boluses to get his CVP up to 7. Hemodynamically stable, patient is on epidural for pain control, she has a left radial arterial line and a right internal jugular triple-lumen catheter, noted to have low CVP, hence I'm giving the patient more fluids today. WBC count is 11.1 hemoglobin is 10.2 electrolytes are normal renal profile is normal, chest x-ray this morning showed no evidence of acute process, reevaluated today on 03/22/22, patient remains in the ICU, and overall the patient is doing well except for intermittent episodes of confusion, and her mental status is waxing and waning patient does have intermittent confusion and she pulled out her nasogastric tube today. Patient is being called down by the nurses and by her , she seems to be calm it down when I evaluated the patient, however if she continues to have agitation may have to consider starting the patient on Haldol. In the meantime I reviewed her chest x-ray is basically unremarkable except for atelectasis her labs are also unremarkable, and the patient is hemodynamically stable. The patient is seen today 03/23/2022 in follow-up in the intensive care unit. Postoperative day #3. She is currently resting comfortably in bed. Awake and alert in no acute distress. She is maintaining O2 saturations in the 90s on 2 L/m per nasal cannula. 0.9% normal saline at 80 ML's per hour. White count 5.5. Hemoglobin 8.8. Platelets 92,000. Sodium 140. Potassium 3.4. BUN 8. Creatinine 0.51. Glucose 105. She remains on bronchodilators. Heparin for DVT prophylaxis. Progress note dated 03/24/2022. The patient was seen in the intensive care unit yesterday. Today's postop day #4. Today she is seen in room 380. She is currently not on any supplemental oxygen. Saline at 80 mL an hour. She denies any shortness of breath, cough, wheezing, or phlegm production. She's not having any pain. According to her family, she may be discharged tomorrow. Currently labs include a white count of 4.3, hemoglobin 10.2, hematocrit 30.3, and a platelet count of 170,000. Sodium 140, potassium 3.1, chlorides 106, CO2 25, BUN 3, creatinine 0.48. Objective - Vital Signs Vital signs: Vital Signs Temp 98.2 F 03/24/22 09:05 Pulse 79 03/24/22 13:08 Resp 16 03/24/22 12:11 BP 147/73 03/24/22 11:03 Pulse Ox 94 L 03/24/22 11:03 FiO2 Intake & Output 03/23/22 03/24/22 03/24/22 18:59 06:59 18:59 Intake Total 1240 160 118 Output Total 1775 3500 800 Balance -535 -3340 -682 Intake: IV 480 160 Sodium Chloride 0.9% 1, 480 160 000 ml In Empty Bag 1 bag @ 80 mls/hr IV .[id number] [facility] Rx#:[id number] Intake, IV Titration 400 Amount Magnesium Sulfate-D5w Pmx 200 1 gm In Dextrose/Water 1 100ml.bag @ 100 mls/hr IVPB Q1H [facility] Rx#: [id number] Potassium Chloride 20 meq 200 In Water For Injection 1 100ml.bag @ 50 mls/hr IVPB Q2H [facility] Rx#: [id number] Oral 360 118 Output: Urine 1775 3500 800 Other: Voiding Method Bedside Commode Bedside Commode Bedside Commode # Voids 1 ABP, PAP, CO, CI - Last Documented Arterial Blood Pressure 110/67 - Exam No acute distress, oriented 3. HEENT examination is grossly unremarkable. Neck supple. Full range of motion. No adenopathy thyromegaly or neck vein distention. Cardiovascular examination reveals regular rhythm rate. S1-S2 normal. No S3 or S4. No discernible murmur noted. Heart rate 80 bpm. Lungs reveal clear breath sounds. Breath sounds are equal bilaterally. No adventitious lung sounds including wheezes rhonchi or crackles. Room air saturation is 94%. Abdomen soft bowel sounds are heard. No masses or tenderness. Extremities are intact. No cyanosis clubbing or edema. Skin is without rash or lesion. Neurologic examination is brief but nonfocal. - Labs CBC & Chem 7: 03/24/22 08:06 03/24/22 08:06 Labs: Abnormal Lab Results - Last 24 Hours (Table) 03/23/22 03/23/22 03/24/22 Range/Units 16:49 20:18 06:09 RBC (3.80-5.40) m/uL Hgb (11.4-16.0) gm/dL Hct (34.0-46.0) % Potassium (3.5-5.1) mmol/L BUN (7-17) mg/dL Creatinine (0.52-1.04) mg/dL Glucose (74-99) mg/dL POC Glucose (mg/dL) 115 H 138 H 144 H (70-110) mg/dL Calcium (8.4-10.2) mg/dL 03/24/22 03/24/22 03/24/22 Range/Units 08:06 08:06 11:59 RBC 3.41 L (3.80-5.40) m/uL Hgb 10.2 L (11.4-16.0) gm/dL Hct 30.3 L (34.0-46.0) % Potassium 3.1 L (3.5-5.1) mmol/L BUN 3 L (7-17) mg/dL Creatinine 0.48 L (0.52-1.04) mg/dL Glucose 160 H (74-99) mg/dL POC Glucose (mg/dL) 140 H (70-110) mg/dL Calcium 8.1 L (8.4-10.2) mg/dL Assessment and Plan Assessment: 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 Postoperative day #4. History of coronary artery disease with previous stent placement. Diabetes mellitus. Diabetic neuropathy. Hypertension. Macular degeneration. Former smoker. Plan: Plan dated 03/24/2022. The patient's doing well. No respiratory issues. The patient's on room air. Moving forward, we will see the patient only as needed. The patient may be di scharged tomorrow, as per the patient's family. Labs, x-rays, medications are reviewed. No additional comments at this time. Time with Patient: Less than 30
--- NOTE | 2022-03-24 15:20 | P.PN ---
Subjective Progress Note Date: 03/24/22 Progress note Date of service 03/24/[address] Freeman Patient seen [id number] evaluated. Discussed with the patient and her . Vital sign 9:05 AM Temperature 98.2 F oral Pulse rate 85 bpm regular sinus Respiratory rate 18/m Blood pressure 147/76 Saturation 100 on room air. Laboratories WBC 4.3, hemoglobin 10.2, hematocrit 30.3 Sodium 140, potassium 3.1 with the order on the chart for supplemental per protocol chloride 106, and carbon dioxide 25 BUN 0.48 and creatinine 3. Calcium 8.1, magnesium 1.7 Diabetes mellitus monitored was POC and was 140 and patient has insulin to scale. On the physical exam patient is conscious alert oriented 3 able to communicate with her and her daughter. Head was normocephalic and atraumatic no agitation no confusion. Oropharynx was negative Neck was supple history of carotid artery disease Chest clear to auscultation and percussion Heart regular sinus rhythm Abdomen she had Incision as well as she had positive bowel sounds and she had passing flatus as well as 2 bowel movement. Extremities good pulses and dorsalis pedis and posterior tibial bilateral no edema . Psychiatry stable Neurology stable. Assessment: Status post aortoiliac occlusive disease status post surgery #2 depression and anxiety #3 electrolyte imbalance with hypokalemia hypomagnesemia has been corrected. Protocol. #4 hypertension with hypertensive heart disease Plan: #1 continue home medication #2 patient currently stable recovering. Objective - Vital Signs Vital signs: Vital Signs Temp 98.2 F 03/24/22 09:05 Pulse 79 03/24/22 13:08 Resp 16 03/24/22 12:11 BP 147/73 03/24/22 11:03 Pulse Ox 94 L 03/24/22 11:03 FiO2 Intake & Output 03/23/22 03/24/22 03/24/22 18:59 06:59 18:59 Intake Total 1240 160 118 Output Total 1775 3500 800 Balance -588 -0813 -572 Intake: IV 480 160 Sodium Chloride 0.9% 1, 480 160 000 ml In Empty Bag 1 bag @ 80 mls/hr IV .[id number] [facility] Rx#:[id number] Intake, IV Titration 400 Amount Magnesium Sulfate-D5w Pmx 200 1 gm In Dextrose/Water 1 100ml.bag @ 100 mls/hr IVPB Q1H [facility] Rx#: [id number] Potassium Chloride 20 meq 200 In Water For Injection 1 100ml.bag @ 50 mls/hr IVPB Q2H [facility] Rx#: [id number] Oral 360 118 Output: Urine 1775 3500 800 Other: Voiding Method Bedside Commode Bedside Commode Bedside Commode # Voids 1 ABP, PAP, CO, CI - Last Documented Arterial Blood Pressure 110/67 - Labs CBC & Chem 7: 03/24/22 08:06 03/24/22 08:06 Labs: Abnormal Lab Results - Last 24 Hours (Table) 03/23/22 03/23/22 03/24/22 Range/Units 16:49 20:18 06:09 RBC (3.80-5.40) m/uL Hgb (11.4-16.0) gm/dL Hct (34.0-46.0) % Potassium (3.5-5.1) mmol/L BUN (7-17) mg/dL Creatinine (0.52-1.04) mg/dL Glucose (74-99) mg/dL POC Glucose (mg/dL) 115 H 138 H 144 H (70-110) mg/dL Calcium (8.4-10.2) mg/dL 03/24/22 03/24/22 03/24/22 Range/Units 08:06 08:06 11:59 RBC 3.41 L (3.80-5.40) m/uL Hgb 10.2 L (11.4-16.0) gm/dL Hct 30.3 L (34.0-46.0) % Potassium 3.1 L (3.5-5.1) mmol/L BUN 3 L (7-17) mg/dL Creatinine 0.48 L (0.52-1.04) mg/dL Glucose 160 H (74-99) mg/dL POC Glucose (mg/dL) 140 H (70-110) mg/dL Calcium 8.1 L (8.4-10.2) mg/dL
[2022-03-24 17:00] LABS: Glucose,Whole Blood 167 mg/dL (70-110)
[2022-03-24] MEDS: ALPRAZolam 0.5 MG TAB PO SCH (20:29)
[2022-03-24] MEDS: ASPIRIN 81 MG PO SCH (20:29)
[2022-03-24 20:38] LABS: Glucose,Whole Blood 138 mg/dL (70-110)
[2022-03-25 06:11] LABS: Glucose,Whole Blood 130 mg/dL (70-110)
[2022-03-25] MEDS: LEVOTHYROXINE 75 MCG TAB PO SCH (06:14)
--- NOTE | 2022-03-25 07:55 | CT ---
EXAMINATION TYPE: CT brain wo con DATE OF EXAM: 03/25/2022 HISTORY: fall injury. CT DLP: 1070.4 mGycm. Automated Exposure Control for Dose Reduction was Utilized. TECHNIQUE: CT scan of the head is performed without contrast. COMPARISON: CT brain January 03, 2020 MRI brain May 09, 2021. FINDINGS: There is no acute intracranial hemorrhage or midline shift identified. There is mild diff use ventricular and sulcal prominence consistent with diffuse age-related cerebral atrophy. Jacobs-whit e matter differentiation fairly well-maintained. The calvarium is intact. The globes are intact and the visualized sinuses are clear. IMPRESSION: No acute intracranial hemorrhage or midline shift. There is mild diffuse age-related ce rebral atrophy redemonstrated. No significant change from recent CT and MRI.
[2022-03-25 08:24] LABS: African American GFR (CKD) >90 (>60 ml/min/1.73 sqM); Anion Gap 11 mmol/L; Blood Urea Nitrogen 3 mg/dL (7-17); Calcium 8.2 mg/dL (8.4-10.2); Carbon Dioxide 22 mmol/L (22-30); Chloride 111 mmol/L (98-107); Glucose 161 mg/dL (74-99); Non-African American GFR(CKD) >90 (>60 ml/min/1.73 sqM); Potassium 3.1 mmol/L (3.5-5.1); Sodium 144 mmol/L (137-145)
[2022-03-25 08:34] LABS: HGB 10.1 gm/dL (11.4-16.0); Hypochromasia Slight; MCH 29.7 pg (25.0-35.0); MCHC 32.7 g/dL (31.0-37.0); Mean Platelet Volume 9.7; Platelet Count 209 k/uL (150-450); RDW 13.4 % (11.5-15.5); WBC 4.4 k/uL (3.8-10.6)
[2022-03-25] MEDS: INSULIN ASPART (NovoLOG) 100 UNIT/ML VIAL SQ SCH ×4 (08:36→20:45)
[2022-03-25] MEDS: PANTOPRAZOLE 40 MG/10 ML VIAL IVP SCH (08:59)
[2022-03-25] MEDS: HYDROcodone/APAP 5-325MG 1 EACH TAB PO PRN ×3 (08:59→20:45)
[2022-03-25] MEDS: ATORVASTATIN 80 MG TAB PO SCH (09:00)
[2022-03-25] MEDS: CLOPIDOGREL 75 MG TAB PO SCH (09:00)
[2022-03-25] MEDS: METOPROLOL SUCCINATE (ER) 25 MG TAB.ER.24H PO SCH (09:00)
[2022-03-25] MEDS: DULoxetine HCL 60 MG CAPSULE.DR PO SCH (09:00)
[2022-03-25] MEDS: VIT A,C & E-LUTEIN-MINERALS 1 EACH TAB PO SCH ×2 (09:00→20:47)
[2022-03-25] MEDS: buPROPion XL 150 MG TAB.ER.24H PO SCH (09:00)
[2022-03-25] MEDS: HEPARIN SODIUM,PORCINE/PF 5,000 UNIT/0.5 ML SYRINGE SQ SCH ×2 (09:00→16:42)
[2022-03-25] MEDS: CHOLECALCIFEROL 125 MCG (5000 IU) TABLET PO SCH (09:00)
[2022-03-25] MEDS: CALCIUM CARBONATE 500 MG CHEWABLE PO SCH (09:00)
[2022-03-25] MEDS: MEMANTINE 5 MG TAB PO SCH ×2 (09:00→20:45)
[2022-03-25] MEDS: POTASSIUM CHLORIDE ER 20 MEQ TAB.ER PO SCH ×2 (09:00→10:51)
[2022-03-25] MEDS: SODIUM CHLORIDE 0.9% 1,000 ML in EMPTY BAG 1 BAG IV SCH (09:01)
[2022-03-25] MEDS: IPRATROPIUM-ALBUTEROL 3 ML NEB INHALATION SCH ×4 (09:16→21:56)
[2022-03-25] MEDS: MAGNESIUM SULFATE-D5W PMX 1 GM in DEXTROSE/WATER 1 100ML.BAG IVPB SCH ×2 (09:34→10:51)
--- NOTE | 2022-03-25 10:48 | P.PN ---
Subjective Progress Note Date: 03/25/22 Principal diagnosis: Aortoiliac occlusive disease Patient is seen and examined today as a follow-up. Apparently last night/yarn hauler patient had gotten up to use the bedside commode without calling for help. She states her was sleeping she went to use the commode and when she got back to bed she felt like she may have tripped on the commode or his chair she fell and hit her head. She did not notify anyone at that time. Is nursing staff was notified done this morning and patient was noted to have a hematoma. Dr. Parnell was notified and the CT of the head was ordered. CT of head reports no acute intracranial hemorrhage or midline shift. Mild diffuse age-related cerebral atrophy redemonstrated. No significant change from recent CT and MRI. This morning patient states she is feeling well. She states she is passing gas and feels like she has to have a bowel movement but has not had one yet. Patient's is at the bedside and states that she slept well through the night. Repeat labs today show potassium again at 3.1, magnesium pending. Will replace per protocol. Patient at this time denies any headache, blurred vision and no neuro deficits. Objective - Vital Signs Vital signs: Vital Signs Temp 98 F 03/25/22 04:00 Pulse 85 03/25/22 04:00 Resp 18 03/25/22 04:00 BP 157/76 03/25/22 04:00 Pulse Ox 96 03/25/22 04:00 FiO2 Intake & Output 03/24/22 03/25/22 03/25/22 18:59 06:59 18:59 Intake Total 358 480 Output Total 800 Balance -442 480 Intake: IV 480 Sodium Chloride 0.9% 1, 480 000 ml In Empty Bag 1 bag @ 80 mls/hr IV .[id number] [facility] Rx#:[id number] Oral 358 Output: Urine 800 Other: Voiding Method Bedside Commode Bedside Commode # Voids 1 1 # Bowel Movements 1 ABP, PAP, CO, CI - Last Documented Arterial Blood Pressure 110/67 - Exam General appearance: The patient is alert, oriented, appears in no acute distress. HET: Head is normocephalic. There is a small palpable hematoma to left parietal region of head. Pupils are equal and reactive. EOM intact. Neck: Supple. Heart: Regular. Lungs: Equal expansion, normal respiratory effort. Abdomen: Soft, surgical tenderness, incisional dressing clean dry and intact. Patient with positive bowel sounds. Extremities: Palpable bilateral femoral and DP pulses. Lower extremities warm to touch with good capillary refill. Neurological: No focal deficits. Currently alert and oriented 3. - Labs CBC & Chem 7: 03/25/22 07:29 03/25/22 07:29 Labs: Abnormal Lab Results - Last 24 Hours (Table) 03/24/22 03/24/22 03/24/22 Range/Units 08:06 08:06 11:59 RBC 3.41 L (3.80-5.40) m/uL Hgb 10.2 L (11.4-16.0) gm/dL Hct 30.3 L (34.0-46.0) % Potassium 3.1 L (3.5-5.1) mmol/L BUN 3 L (7-17) mg/dL Creatinine 0.48 L (0.52-1.04) mg/dL Glucose 160 H (74-99) mg/dL POC Glucose (mg/dL) 140 H (70-110) mg/dL Calcium 8.1 L (8.4-10.2) mg/dL 03/24/22 03/24/22 03/25/22 Range/Units 16:58 20:36 06:09 RBC (3.80-5.40) m/uL Hgb (11.4-16.0) gm/dL Hct (34.0-46.0) % Potassium (3.5-5.1) mmol/L BUN (7-17) mg/dL Creatinine (0.52-1.04) mg/dL Glucose (74-99) mg/dL POC Glucose (mg/dL) 167 H 138 H 130 H (70-110) mg/dL Calcium (8.4-10.2) mg/dL Assessment and Plan Assessment: 1. Aorto iliac occlusive disease postop day #4 for aorto iliac endarterectomy and patch angioplasty 2. Acute delirium, likely has some component of sundowner syndrome unfamiliar setting 3. Acute blood loss anemia secondary to surgery 4. Fall 5. Hypokalemia and hypomagnesemia 6. Claudication 7. Rest pain Plan: 1. Encourage ambulation 2. Discuss with PT patient fall. As to reevaluate patient for appropriate discharge setting. 3. Continue consistent carbohydrate diet 4. Replace potassium per protocol, magnesium per protocol 5. Daily BMP, magnesium 6. Incentive spirometer every hour 7. Continue with the medical management per PCP 8. Xanax 0.5 mg before bedtime 9. CT head ordered and reviewed 10. Recheck potassium this afternoon. Possible discharge later this evening or tomorrow. The impression and plan of care has been dictated as directed. Dr. Parnell I performed a history and examination of this patient, discussed the same with the dictator. I agree with the dictator's note ,documented as a scribe. Any additional findings or plans will be noted.
[2022-03-25 11:37] LABS: Glucose,Whole Blood 154 mg/dL (70-110)
--- NOTE | 2022-03-25 12:31 | P.PN ---
Subjective Progress Note Date: 03/25/22 Progress note date of service 03/25/[address] MOCTEZUMA Patient seen today [id number] as well as discussed with her and her at bedside Patient postoperative as loose bowel which is expected and she went to the bathroom on her way back she fell down backwards and hit her head on the left side. Subsequently I received a call [facility] and requesting the computed tomography scan of the brain which was done and was negative, also requested to notify the attending the vascular surgeon as well. Patient had resistant hypokalemia and her blood pressure was elevated currently ranging between 157/76 and 150/72. Patient on regular diet at this time and she had a bowel sounds and had a bowel movement. Vital sign indicating temperature 97.6 F oral and heart rate 86 bpm respiratory rate 1816/m and the blood pressure 150/72 with the mean pressure is 98 Pulse ox 99% on room air. On the exam: Patient is conscious alert oriented 3 her at bedside no nausea no vomiting pupil is equal reactive. Head was ad bruises on the left side of the occipital area no significant abno rmalities and the computed tomography scan of the head was negative Oropharynx was normal neck was supple no JVD no thyromegaly no lymphadenopathy trachea midline. Chest is clear to auscultation and percussion Heart was regular sinus rhythm Abdomen was positive bowel sound with a midline incision. Extremities positive pulses bilateral. Psychiatry stable Neurologically stable Assessment: And plan: Resistant hypokalemia and hypomagnesemia. We'll be repeating laboratory tomorrow the BMP and magnesium. Because of persistent hypokalemia and presence of hypertension we'll be starting her on lisinopril 5 mg twice a day as well as Aldactone 12.5 mg once a day for attempt to improve her potassium level and will be chicken tomorrow the lab. Status post aortobiiliac occlusive disease underwent surgery by Dr. Borja stable Patient currently no complaint of chest pain or shortness of breath or agitation or confusion. We'll follow tomorrow and see if potassium and magnesium has been improved Objective - Vital Signs Vital signs: Vital Signs Temp 97.6 F 03/25/22 08:49 Pulse 86 03/25/22 09:16 Resp 16 03/25/22 09:16 BP 150/72 03/25/22 08:49 Pulse Ox 99 03/25/22 09:16 FiO2 Intake & Output 03/24/22 03/25/22 03/25/22 18:59 06:59 18:59 Intake Total 358 480 180 Output Total 800 Balance -442 480 180 Intake: IV 480 Sodium Chloride 0.9% 1, 480 000 ml In Empty Bag 1 bag @ 80 mls/hr IV .[id number] [facility] Rx#:[id number] Oral 358 180 Output: Urine 800 Other: Voiding Method Bedside Commode Bedside Commode Bedside Commode # Voids 1 1 2 # Bowel Movements 1 ABP, PAP, CO, CI - Last Documented Arterial Blood Pressure 110/67 - Labs CBC & Chem 7: 03/25/22 07:29 03/25/22 07:29 Labs: Abnormal Lab Results - Last 24 Hours (Table) 03/24/22 03/24/22 03/25/22 Range/Units 16:58 20:36 06:09 RBC (3.80-5.40) m/uL Hgb (11.4-16.0) gm/dL Hct (34.0-46.0) % Potassium (3.5-5.1) mmol/L Chloride (98-107) mmol/L BUN (7-17) mg/dL Glucose (74-99) mg/dL POC Glucose (mg/dL) 167 H 138 H 130 H (70-110) mg/dL Calcium (8.4-10.2) mg/dL 03/25/22 03/25/22 03/25/22 Range/Units 07:29 07:29 11:36 RBC 3.40 L (3.80-5.40) m/uL Hgb 10.1 L (11.4-16.0) gm/dL Hct 31.0 L (34.0-46.0) % Potassium 3.1 L (3.5-5.1) mmol/L Chloride 111 H (98-107) mmol/L BUN 3 L (7-17) mg/dL Glucose 161 H (74-99) mg/dL POC Glucose (mg/dL) 154 H (70-110) mg/dL Calcium 8.2 L (8.4-10.2) mg/dL
--- NOTE | 2022-03-25 12:55 | P.PN ---
Subjective This is a 66-year-old female past medical history of coronary artery disease status post prior stenting to the LAD in 2003, ischemic cardiomyopathy, carotid atherosclerosis, hypertension, dyslipidemia, peripheral vascular disease. She follows in the office with Dr. Barnhart. We were consulted on the patient for CAD. Patient presented to the hospital for aorto iliac endarterectomy and patch angioplasty. She underwent this procedure on 03/20/2022. She was transferred out of the ICU and is on 3S unit She is seen and examined at bedside, in no acute distress. She denies any chest pain or shortness of breath. She had a fall yesterday, hit her head. Underwent a brain CT with no acute intracranial hemorrhage or midline shift. No acute change from prior CT or MRI. Her vital signs are stable. Her potassium was 3.1 has been supplemented. Magnesium 1.7. Nurses did endorse episodes of diarrhea. GENERAL: in no acute distress. NECK: Supple without JVD or thyromegaly. LUNGS: Breath sounds clear to auscultation bilaterally. Respiration equal and unlabored. No wheezes, rales or rhonchi. HEART: Regular rate and rhythm without murmurs, rubs or gallops. S1 and S2 heard. EXTREMITIES: Normal range of motion, no edema. No clubbing or cyanosis. Peripheral pulses intact. ASSESSMENT Aorto iliac occlusive disease s/p aorto iliac endarterectomy and patch angioplasty on 03/24/2022 Coronary artery disease status post prior stenting to the LAD in 2003 Ischemic cardiomyopathy Carotid atherosclerosis Hypertension Dyslipidemia Peripheral vascular disease PLAN Continue aspirin, plavix, atorvastatin, metoprolol succinate Recommend 2g IV magnesium Increase activity as tolerated PT/OT Discharge per vascular surgery Recheck electrolytes this afternoon and if stable ok to discharge today from a cardiology perspective Follow up outpatient with Dr. Barnhart Nurse Practitioner note has been reviewed, I agree with a documented findings and plan of care. Patient was seen and examined. Objective - Vital Signs Vital signs: Vital Signs Temp 97.6 F 03/25/22 08:49 Pulse 86 03/25/22 09:16 Resp 16 03/25/22 09:16 BP 150/72 03/25/22 08:49 Pulse Ox 99 03/25/22 09:16 FiO2 Intake & Output 03/24/22 03/25/22 03/25/22 18:59 06:59 18:59 Intake Total 358 480 180 Output Total 800 Balance -442 480 180 Intake: IV 480 Sodium Chloride 0.9% 1, 480 000 ml In Empty Bag 1 bag @ 80 mls/hr IV .[id number] [facility] Rx#:[id number] Oral 358 180 Output: Urine 800 Other: Voiding Method Bedside Commode Bedside Commode Bedside Commode # Voids 1 1 2 # Bowel Movements 1 ABP, PAP, CO, CI - Last Documented Arterial Blood Pressure 110/67 - Labs CBC & Chem 7: 03/25/22 07:29 03/25/22 07:29 Labs: Abnormal Lab Results - Last 24 Hours (Table) 03/24/22 03/24/22 03/25/22 Range/Units 16:58 20:36 06:09 RBC (3.80-5.40) m/uL Hgb (11.4-16.0) gm/dL Hct (34.0-46.0) % Potassium (3.5-5.1) mmol/L Chloride (98-107) mmol/L BUN (7-17) mg/dL Glucose (74-99) mg/dL POC Glucose (mg/dL) 167 H 138 H 130 H (70-110) mg/dL Calcium (8.4-10.2) mg/dL 03/25/22 03/25/22 03/25/22 Range/Units 07:29 07:29 11:36 RBC 3.40 L (3.80-5.40) m/uL Hgb 10.1 L (11.4-16.0) gm/dL Hct 31.0 L (34.0-46.0) % Potassium 3.1 L (3.5-5.1) mmol/L Chloride 111 H (98-107) mmol/L BUN 3 L (7-17) mg/dL Glucose 161 H (74-99) mg/dL POC Glucose (mg/dL) 154 H (70-110) mg/dL Calcium 8.2 L (8.4-10.2) mg/dL
[2022-03-25] MEDS: lisinopriL 5 MG TAB PO SCH ×3 (13:08→20:47)
[2022-03-25] MEDS: SPIRONOLACTONE 25 MG TAB PO SCH (13:08)
[2022-03-25 17:00] LABS: Glucose,Whole Blood 127 mg/dL (70-110)
[2022-03-25 20:22] LABS: Glucose,Whole Blood 166 mg/dL (70-110)
[2022-03-25] MEDS: ALPRAZolam 0.5 MG TAB PO SCH (20:45)
[2022-03-25] MEDS: ASPIRIN 81 MG PO SCH (20:45)
[2022-03-26] MEDS: HEPARIN SODIUM,PORCINE/PF 5,000 UNIT/0.5 ML SYRINGE SQ SCH ×2 (01:18→11:30)
[2022-03-26] MEDS: HYDROcodone/APAP 5-325MG 1 EACH TAB PO PRN ×2 (04:48→11:28)
[2022-03-26] MEDS: LEVOTHYROXINE 75 MCG TAB PO SCH (04:48)
[2022-03-26 04:53] VITALS: RESP 18
[2022-03-26 06:10] LABS: Glucose,Whole Blood 140 mg/dL (70-110)
[2022-03-26] MEDS: INSULIN ASPART (NovoLOG) 100 UNIT/ML VIAL SQ SCH ×2 (06:47→12:54)
[2022-03-26] MEDS: IPRATROPIUM-ALBUTEROL 3 ML NEB INHALATION SCH ×3 (08:07→15:14)
[2022-03-26 08:11] LABS: African American GFR (CKD) >90 (>60 ml/min/1.73 sqM); Anion Gap 7 mmol/L; Blood Urea Nitrogen 4 mg/dL (7-17); Calcium 7.9 mg/dL (8.4-10.2); Carbon Dioxide 24 mmol/L (22-30); Chloride 112 mmol/L (98-107); Glucose 135 mg/dL (74-99); Magnesium 1.9 mg/dL (1.6-2.3); Non-African American GFR(CKD) >90 (>60 ml/min/1.73 sqM); Potassium 3.3 mmol/L (3.5-5.1); Sodium 143 mmol/L (137-145)
--- NOTE | 2022-03-26 09:37 | P.DS ---
Providers Date of admission: 03/20/22 06:26 Attending physician: Justus Borja DO Consults: 03/20/22 14:25 Consult Physician Routine Consulting Provider: Leatha Gee Consult Reason/Comments: icu care Do you want consulting provider notified?: Yes 03/20/22 14:32 Consult Physician Routine Consulting Provider: Rocky Freeman Consult Reason/Comments: medical management Do you want consulting provider notified?: Yes Consult Physician Routine Consulting Provider: Patricio Barnhart Consult Reason/Comments: cad Do you want consulting provider notified?: Yes [facility] [place] [facility] Course: This is 66-year-old female with a history of claudication after 50-100 feet and rest pain that presented for open aortic biiliac artery bypass. She underwent aortic and right common iliac endarterectomy with patch angioplasty left common iliac artery endarterectomy with patch angioplasty on 04-09. Following her procedure she had episodes of confusion at nighttime which initially was thought to be related to her epidural that was placed for pain management. 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 Patient then has been experiencing some hypokalemia as well as hypomagnesemia was some resistance to replacement. Patient also got up without assistance during the evening 2 nights ago and sustained a fall. She had a CT of the head which was negative for any acute bleed. Patient has since been steady on her feet with assistance and walker. She has been tolerating a consistent carbohydrate diet, she initially had some loose stools but now stools have become more formed. She's been afebrile. Pain has been well managed, she is up and ambulating. Repeat labs with improved potassium to 3.8 yesterday evening. Today potassium 3.3, magnesium 1.9. Plan is for discharge today with home care services. Exam General appearance: The patient is alert, oriented, appears in no acute distress. HET: Head is normocephalic. There is a small palpable hematoma to left parietal region of head. Pupils are equal and reactive. EOM intact. Neck: Supple. Heart: Regular. Lungs: Equal expansion, normal respiratory effort. Abdomen: Soft, surgical tenderness, incision was [place], well approximated, no redness or drainage. Patient with positive bowel sounds. Extremities: Palpable bilateral femoral and DP pulses. Lower extremities warm to touch with good capillary refill. Neurological: No focal deficits. Currently alert and oriented 3. The impression and plan of care has been dictated as directed. Dr. Nettles I performed a history and examination of this patient, discussed the same with the dictator. I agree with the dictator's note ,documented as a scribe. Any additional findings or plans will be noted. Procedures: Date of Procedure: 03/20/22 Preoperative Diagnosis: AortoIliac occlusive disease Lower extremity claudication, rest pain Postoperative Diagnosis: Same Procedure(s) Performed: Aortic and right common iliac endarterectomy with patch angioplasty Left common iliac artery endarterectomy with patch angioplasty Patient Condition at Discharge: Stable Plan - Discharge Summary Discharge Rx Participant: No New Discharge Prescriptions: New Clopidogrel [Plavix] 75 mg PO DAILY #30 tab Atorvastatin [Lipitor] 80 mg PO DAILY #30 tab Continue Vit C/E/Zn/Coppr/Lutein/Zeaxan [Preservision Areds 2 Softgel] 1 cap PO BID DULoxetine HCL [Cymbalta] 60 mg PO DAILY ALPRAZolam [Xanax] 0.25 mg PO BID Levothyroxine Sodium [Synthroid] 75 mcg PO DAILY amLODIPine [Norvasc] 5 mg PO HS Omeprazole [PriLOSEC] 20 mg PO AC-BRKFST Metoprolol Succinate (ER) [Toprol XL] 25 mg PO DAILY Calcium Carbonate [Calcium] 1,200 mg PO DAILY buPROPion XL [Wellbutrin XL] 150 mg PO QAM Memantine [Namenda] 5 mg PO BID Meclizine [Antivert] 25 mg PO BID metFORMIN HCL 500 mg PO BID Aspirin 81 mg PO HS Losartan-Hctz 50-12.5 mg [Hyzaar 50-12.5] 50 mg PO DAILY Cholecalciferol [Vitamin D3 (125 Mcg = 5000 Iu)] 125 mcg PO DAILY Discontinued Ibuprofen [Motrin] 800 mg PO Q8HR PRN PRN Reason: Pain Atorvastatin [Lipitor] 40 mg PO DAILY Discharge Medication List ALPRAZolam [Xanax] 0.25 mg PO BID 01/02/20 [History] DULoxetine HCL [Cymbalta] 60 mg PO DAILY 01/02/20 [History] Levothyroxine Sodium [Synthroid] 75 mcg PO DAILY 01/02/20 [History] Vit C/E/Zn/Coppr/Lutein/Zeaxan [Preservision Areds 2 Softgel] 1 cap PO BID 01/02/20 [History] Meclizine [Antivert] 25 mg PO BID 07/16/21 [History] Memantine [Namenda] 5 mg PO BID 07/16/21 [History] amLODIPine [Norvasc] 5 mg PO HS 07/16/21 [History] buPROPion XL [Wellbutrin XL] 150 mg PO QAM 07/16/21 [History] metFORMIN HCL 500 mg PO BID 07/16/21 [History] Aspirin 81 mg PO HS 09/17/21 [History] Losartan-Hctz 50-12.5 mg [Hyzaar 50-12.5] 50 mg PO DAILY 09/18/21 [History] Calcium Carbonate [Calcium] 1,200 mg PO DAILY 03/19/22 [History] Cholecalciferol [Vitamin D3 (125 Mcg = 5000 Iu)] 125 mcg PO DAILY 03/19/22 [History] Metoprolol Succinate (ER) [Toprol XL] 25 mg PO DAILY 03/19/22 [History] Omeprazole [PriLOSEC] 20 mg PO AC-BRKFST 03/19/22 [History] Atorvastatin [Lipitor] 80 mg PO DAILY #30 tab 03/24/22 [Rx] Clopidogrel [Plavix] 75 mg PO DAILY #30 tab 03/24/22 [Rx] Follow up Appointment(s)/Referral(s): Patricio Barnhart MD [STAFF PHYSICIAN] - 1 Week [facility], [NON-STAFF] - Rocky Freeman MD [Primary Care Provider] - 1 Week Justus Borja DO [STAFF PHYSICIAN] - 1 Week Activity/Diet/Wound Care/Special Instructions: No driving for two days. Avoid heavy lifting greater than 5 to 10 lbs , pushing, pulling, straining, flights of stairs for three days. ok to shower but no baths, pools, soaking in tubs to avoid risk of infection until cleared by her surgeon signs of infection ie: fever, rash, foul-smelling drainage from incision site, swelling contact doctor or return to ER immediately. low sodium/low fat diet consistent carbohydrate diet Take Tylenol Extra Strength as directed for pain Discharge Disposition: HOME WITH HOME HEALTH SERVICES
[2022-03-26] MEDS: CALCIUM CARBONATE 500 MG CHEWABLE PO SCH (09:41)
[2022-03-26] MEDS: METOPROLOL SUCCINATE (ER) 25 MG TAB.ER.24H PO SCH (09:41)
[2022-03-26] MEDS: VIT A,C & E-LUTEIN-MINERALS 1 EACH TAB PO SCH (09:42)
[2022-03-26] MEDS: DULoxetine HCL 60 MG CAPSULE.DR PO SCH (09:42)
[2022-03-26] MEDS: ATORVASTATIN 80 MG TAB PO SCH (09:42)
[2022-03-26] MEDS: CHOLECALCIFEROL 125 MCG (5000 IU) TABLET PO SCH (09:42)
[2022-03-26] MEDS: buPROPion XL 150 MG TAB.ER.24H PO SCH (09:42)
[2022-03-26] MEDS: MEMANTINE 5 MG TAB PO SCH (09:42)
[2022-03-26] MEDS: SPIRONOLACTONE 25 MG TAB PO SCH (09:42)
[2022-03-26] MEDS: lisinopriL 5 MG TAB PO SCH (11:03)
[2022-03-26 11:15] VITALS: TEMP 97.9
[2022-03-26] MEDS: CLOPIDOGREL 75 MG TAB PO SCH (11:30)
[2022-03-26] MEDS: POTASSIUM CHLORIDE ER 20 MEQ TAB.ER PO SCH (11:30)
[2022-03-26] MEDS: PANTOPRAZOLE 40 MG/10 ML VIAL IVP SCH (11:30)
--- NOTE | 2022-03-26 11:49 | P.PN ---
Subjective This is a 66-year-old female past medical history of coronary artery disease status post prior stenting to the LAD in 2003, ischemic cardiomyopathy, carotid atherosclerosis, hypertension, dyslipidemia, peripheral vascular disease. She follows in the office with Dr. Barnhart. We were consulted on the patient for CAD. Patient presented to the hospital for aorto iliac endarterectomy and patch angioplasty. She underwent this procedure on 03/20/2022. She was transferred out of the ICU and is on 3S unit She is seen and examined at bedside, in no acute distress. She denies any chest pain or shortness of breath. No further falls Her vital signs are stable. Her potassium was 3.3 has been supplemented. Magnesium 1.9 . Denies any diarrhea. GENERAL: in no acute distress. NECK: Supple without JVD or thyromegaly. LUNGS: Breath sounds clear to auscultation bilaterally. Respiration equal and unlabored. No wheezes, rales or rhonchi. HEART: Regular rate and rhythm without murmurs, rubs or gallops. S1 and S2 heard. EXTREMITIES: Normal range of motion, no edema. No clubbing or cyanosis. Peripheral pulses intact. ASSESSMENT Aorto iliac occlusive disease s/p aorto iliac endarterectomy and patch angioplasty on 03/24/2022 Coronary artery disease status post prior stenting to the LAD in 2003 Ischemic cardiomyopathy Carotid atherosclerosis Hypertension Dyslipidemia Peripheral vascular disease PLAN Continue aspirin, plavix, atorvastatin, metoprolol succinate Replace potassium per protocol Increase activity as tolerated PT/OT Discharge per vascular surgery Ok to discharge today from a cardiology perspective Follow up outpatient with Dr. Barnhart Nurse Practitioner note has been reviewed, I agree with a documented findings and plan of care. Patient was seen and examined. Objective - Vital Signs Vital signs: Vital Signs Temp 97.9 F 03/26/22 08:20 Pulse 74 03/26/22 11:30 Resp 18 03/26/22 08:20 BP 112/66 03/26/22 08:20 Pulse Ox 97 03/26/22 08:20 FiO2 Intake & Output 03/25/22 03/26/22 03/26/22 18:59 06:59 18:59 Intake Total 1080 180 Balance 1080 180 Intake: Oral 1080 180 Other: Voiding Method Toilet Toilet Toilet Bedside Commode Bedside Commode Bedside Commode # Voids 1 1 ABP, PAP, CO, CI - Last Documented Arterial Blood Pressure 110/67 - Labs CBC & Chem 7: 03/25/22 07:29 03/26/22 07:16 Labs: Abnormal Lab Results - Last 24 Hours (Table) 03/25/22 03/25/22 03/26/22 Range/Units 16:59 20:20 06:08 Potassium (3.5-5.1) mmol/L Chloride (98-107) mmol/L BUN (7-17) mg/dL Glucose (74-99) mg/dL POC Glucose (mg/dL) 127 H 166 H 140 H (70-110) mg/dL Calcium (8.4-10.2) mg/dL 03/26/22 Range/Units 07:16 Potassium 3.3 L (3.5-5.1) mmol/L Chloride 112 H (98-107) mmol/L BUN 4 L (7-17) mg/dL Glucose 135 H (74-99) mg/dL POC Glucose (mg/dL) (70-110) mg/dL Calcium 7.9 L (8.4-10.2) mg/dL
[2022-03-26 11:58] LABS: Glucose,Whole Blood 126 mg/dL (70-110)
[2022-03-26 14:55] VITALS: BP 112/64
[2022-03-26 15:29] VITALS: PULSE 86
== END 2022-03-26 15:47 | disposition home health service (06) | DRG 270 ==
LOC: 2ORMAIN 06:26 → EDSTATUS 08:15 → 2SICU 15:08 → 3SCARD 03-23 15:29
PROVIDERS: ADMIT Surgery; ATTEND Surgery
PROC: 047 Lower Arteries, Dilation (ICD-10-PCS; 2022-03-20)
PROC: 047 Lower Arteries, Dilation (ICD-10-PCS; 2022-03-20)
PROC: 30233H0 Transfusion of Autologous Whole Blood into Peripheral Vein, Percutaneous Approach (ICD-10-PCS; 2022-03-20)
PROC: 0D9670Z Drainage of Stomach with Drainage Device, Via Natural or Artificial Opening (ICD-10-PCS; 2022-03-20)
PROC: 04CC0ZZ Extirpation of Matter from Right Common Iliac Artery, Open Approach (ICD-10-PCS; principal; 2022-03-20 08:15)
DX: I74.5 Embolism and thrombosis of iliac artery (principal); G93.41 Metabolic encephalopathy; K91.89 Other postprocedural complications and disorders of digestive system; F05 Delirium due to known physiological condition; K56.7 Ileus, unspecified; D62 Acute posthemorrhagic anemia; F03.94 Unspecified dementia, unspecified severity, with anxiety; F03.93 Unspecified dementia, unspecified severity, with mood disturbance; E11.51 Type 2 diabetes mellitus with diabetic peripheral angiopathy without gangrene; E11.42 Type 2 diabetes mellitus with diabetic polyneuropathy; J44.9 Chronic obstructive pulmonary disease, unspecified; I11.9 Hypertensive heart disease without heart failure; E03.9 Hypothyroidism, unspecified; I70.0 Atherosclerosis of aorta; I65.29 Occlusion and stenosis of unspecified carotid artery; I70.213 Atherosclerosis of native arteries of extremities with intermittent claudication, bilateral legs; F28 Other psychotic disorder not due to a substance or known physiological condition; I95.9 Hypotension, unspecified; D72.828 Other elevated white blood cell count; R19.7 Diarrhea, unspecified; K66.0 Peritoneal adhesions (postprocedural) (postinfection); E78.5 Hyperlipidemia, unspecified; I25.10 Atherosclerotic heart disease of native coronary artery without angina pectoris; K21.9 Gastro-esophageal reflux disease without esophagitis; I25.5 Ischemic cardiomyopathy; H35.30 Unspecified macular degeneration; E87.6 Hypokalemia; E83.42 Hypomagnesemia; W18.30XA Fall on same level, unspecified, initial encounter; Y92.230 Patient room in hospital as the place of occurrence of the external cause; E86.1 Hypovolemia; Z87.891 Personal history of nicotine dependence; Z95.5 Presence of coronary angioplasty implant and graft; I25.2 Old myocardial infarction; Z79.899 Other long term (current) drug therapy; Z79.890 Hormone replacement therapy; Z79.84 Long term (current) use of oral hypoglycemic drugs; Z79.82 Long term (current) use of aspirin; Z88.0 Allergy status to penicillin; Z91.81 History of falling; Z88.8 Allergy status to other drugs, medicaments and biological substances; Z82.49 Family history of ischemic heart disease and other diseases of the circulatory system
CPT/HCPCS: 36600; 70450; 71045; 80048; 80053; 82306; 82330; 82805; 83735; 84132; 84443; 85025; 85027; 85610; 86850; 86891; 86900; 86901; 86920; 88304; 88311; 94640; 94760

== ENCOUNTER → 2022-03-31 | Outpatient (CLI) | payer MEDICARE, BC ==
[2022-03-31 18:53] LABS: Basophils # (A) 0.08 X 10*3/uL (0.00-0.10); Basophils % (A) 0.9 %; Eosinophils # (A) 0.34 X 10*3/uL (0.04-0.35); Eosinophils % (A) 3.7 %; HCT 35.3 % (37.2-46.3); HGB 10.9 g/dL (12.0-15.0); Immature Grans, Automated 0.4 %; Lymphocytes # (A) 2.35 X 10*3/uL (0.90-5.00); Lymphocytes % (A) 25.5 %; MCH 28.5 pg (27.0-32.0); MCHC 30.9 g/dL (32.0-37.0); MCV 92.4 fL (80.0-97.0); Mean Platelet Volume 10.3 fL (9.5-12.2); Monocytes # (A) 0.73 X 10*3/uL (0.20-1.00); Monocytes % (A) 7.9 %; NRBC Per 100 WBC 0 /100 WBCS (0.0-0.0); Neutrophils # (A) 5.67 X 10*3/uL (1.80-7.70); Neutrophils % (A) 61.6 %; Platelet Count 468 X 10*3/uL (140-440); RBC 3.82 X 10*6/uL (4.10-5.20); RDW 13.2 % (11.5-14.5); WBC 9.21 X 10*3/uL (4.50-10.00)
[2022-03-31 19:18] LABS: % Iron Saturation 7.81 (12.00-45.00); Magnesium 1.9 mg/dL (1.5-2.4)
[2022-03-31 19:19] LABS: African American GFR (CKD) 73.4 (60.0-200.0); Anion Gap 15.1 mmol/L (10.00-18.00); BUN/Creat Ratio 17.13 Ratio (12.00-20.00); Blood Urea Nitrogen 15.9 mg/dL (9.0-27.0); Calcium 10.4 mg/dL (8.7-10.3); Carbon Dioxide 25.7 mmol/L (20.0-27.5); Ferritin 98.1 ng/mL (10.0-291.0); Non-African American GFR(CKD) 63.3 (60.0-200.0); Phosphorus 4.3 mg/dL (2.4-5.1); Potassium 4.3 mmol/L (3.5-5.5)
[2022-03-31 20:03] LABS: Appearance,Urine Cloudy (Clear); Bilirubin,Urine Negative (Negative); Blood,Urine Negative (Negative); Color,Urine Yellow (Yellow); Ketones,Urine Trace mg/dL (Negative); Nitrite,Urine Negative (Negative); PH, Urine 5.5 (5.0-8.0); Specific Gravity,Urine 1.028 (1.001-1.030)
[2022-03-31 20:59] LABS: Bacteria,Urine 1+ /HPF (None Seen); Calcium Oxalate Crystals,Urine Present /LPF (None Seen)
== END | disposition home or self-care (01) ==
LOC: LABWHC1 12:51
PROVIDERS: ATTEND Internal Medicine
DX: N39.0 Urinary tract infection, site not specified (principal); E87.8 Other disorders of electrolyte and fluid balance, not elsewhere classified; E87.6 Hypokalemia; D50.9 Iron deficiency anemia, unspecified; E83.42 Hypomagnesemia
CPT/HCPCS: 36415; 80048; 81001; 82607; 82728; 82746; 83540; 83550; 83735; 84100; 85025; 87086

== ENCOUNTER → 2022-07-29 | Outpatient (CLI) | payer MEDICARE, BC ==
[2022-07-29 21:02] LABS: Appearance,Urine Cloudy (Clear); Bilirubin,Urine Negative (Negative); Blood,Urine Negative (Negative); Color,Urine Dark Yellow (Yellow); Ketones,Urine 15 mg/dL (Negative); Nitrite,Urine Negative (Negative); Specific Gravity,Urine 1.032 (1.001-1.030)
[2022-07-29 21:36] LABS: Bacteria,Urine None Seen /HPF (None Seen); Calcium Oxalate Crystals,Urine Present /LPF (None Seen)
[2022-07-29 21:58] LABS: Basophils # (A) 0.04 X 10*3/uL (0.00-0.10); Basophils % (A) 0.7 %; Eosinophils # (A) 0.18 X 10*3/uL (0.04-0.35); Eosinophils % (A) 3.3 %; HCT 40.5 % (37.2-46.3); HGB 12.2 g/dL (12.0-15.0); Immature Grans, Automated 0.4 %; Lymphocytes # (A) 1.86 X 10*3/uL (0.90-5.00); Lymphocytes % (A) 33.9 %; MCH 26.9 pg (27.0-32.0); MCHC 30.1 g/dL (32.0-37.0); MCV 89.4 fL (80.0-97.0); Mean Platelet Volume 11.9 fL (9.5-12.2); Monocytes # (A) 0.63 X 10*3/uL (0.20-1.00); Monocytes % (A) 11.5 %; NRBC Per 100 WBC 0 /100 WBCS (0.0-0.0); Neutrophils # (A) 2.76 X 10*3/uL (1.80-7.70); Neutrophils % (A) 50.2 %; Platelet Count 177 X 10*3/uL (140-440); RBC 4.53 X 10*6/uL (4.10-5.20); RDW 13.9 % (11.5-14.5); WBC 5.49 X 10*3/uL (4.50-10.00)
[2022-07-29 22:13] LABS: % Iron Saturation 25.71 (12.00-45.00); Ferritin 38.3 ng/mL (10.0-291.0)
[2022-07-30 14:41] LABS: African American GFR (CKD) 76.1 (60.0-200.0); BUN/Creat Ratio 20.89 Ratio (12.00-20.00); Blood Urea Nitrogen 18.8 mg/dL (9.0-27.0); Calcium 9.5 mg/dL (8.7-10.3); Carbon Dioxide 26.2 mmol/L (20.0-27.5); Chloride 102 mmol/L (96-109); Chol/HDL Ratio 3.03 Ratio; Glucose 106 mg/dL (70-110); LDL Cholesterol,Calculated 21.9 mg/dL (0.0-131.0); Non-African American GFR(CKD) 65.7 (60.0-200.0); Potassium 4.6 mmol/L (3.5-5.5); Sodium 141 mmol/L (135-145)
== END | disposition home or self-care (01) ==
LOC: LABWHC1 15:33
PROVIDERS: ATTEND Internal Medicine
DX: D50.9 Iron deficiency anemia, unspecified (principal)
CPT/HCPCS: 36415; 80048; 80061; 81001; 82728; 83540; 83550; 85025

== ENCOUNTER → 2022-07-30 | Outpatient (CLI) | payer MEDICARE, BC ==
[2022-07-31 01:09] LABS: ALT 19 U/L (8-44); AST 17 U/L (13-35); African American GFR (CKD) 89.6 (60.0-200.0); Albumin 4.6 g/dL (3.8-4.9); Albumin/Globulin Ratio 1.77 (1.60-3.17); Alkaline Phosphatase 108 U/L (41-126); Blood Urea Nitrogen 15.9 mg/dL (9.0-27.0); Calcium 9.9 mg/dL (8.7-10.3); Chloride 103 mmol/L (96-109); Chol/HDL Ratio 2.65 Ratio; Globulin 2.6 g/dL (1.6-3.3); Glucose 101 mg/dL (70-110); LDL Cholesterol,Calculated 40.9 mg/dL (0.0-131.0); Non-African American GFR(CKD) 77.3 (60.0-200.0); Potassium 4.8 mmol/L (3.5-5.5); Sodium 143 mmol/L (135-145); Total Protein 7.3 g/dL (6.2-8.2)
== END | disposition home or self-care (01) ==
LOC: LABWHC1 12:42
PROVIDERS: ATTEND Internal Medicine
DX: I10 Essential (primary) hypertension (principal); E11.65 Type 2 diabetes mellitus with hyperglycemia; E55.9 Vitamin D deficiency, unspecified; E87.8 Other disorders of electrolyte and fluid balance, not elsewhere classified; E78.5 Hyperlipidemia, unspecified
CPT/HCPCS: 36415; 80053; 80061; 82043; 82306; 82570; 83036

== ENCOUNTER → 2022-08-11 | Outpatient (CLI) | payer MEDICARE, BC ==
[2022-08-11 14:22] LABS: Basophils # (A) 0.1 k/uL (0-0.2); Basophils % (A) 1 %; Eosinophils # (A) 0.2 k/uL (0-0.7); Eosinophils % (A) 3 %; HCT 45.3 % (34.0-46.0); HGB 14.6 gm/dL (11.4-16.0); Lymphocytes % (A) 29 %; MCH 27.7 pg (25.0-35.0); MCHC 32.2 g/dL (31.0-37.0); MCV 86.1 fL (80.0-100.0); Mean Platelet Volume 8.9; Monocytes # (A) 0.4 k/uL (0-1.0); Monocytes % (A) 6 %; Neutrophils # (A) 3.9 k/uL (1.3-7.7); Neutrophils % (A) 59 %; Platelet Count 236 k/uL (150-450); RBC 5.26 m/uL (3.80-5.40); RDW 14.4 % (11.5-15.5); WBC 6.7 k/uL (3.8-10.6)
[2022-08-11 14:37] LABS: African American GFR (CKD) >90 (>60 ml/min/1.73 sqM); Anion Gap 11 mmol/L; Blood Urea Nitrogen 20 mg/dL (7-17); Carbon Dioxide 31 mmol/L (22-30); Chloride 103 mmol/L (98-107); Glucose 90 mg/dL (74-99); Non-African American GFR(CKD) 88 (>60 ml/min/1.73 sqM); Potassium 4.4 mmol/L (3.5-5.1); Sodium 145 mmol/L (137-145)
--- NOTE | 2022-08-11 15:41 | CT ---
EXAMINATION TYPE: CT abdomen pelvis w con DATE OF EXAM: 08/11/2022 COMPARISON: 11/25/2021 HISTORY: 66-year-old female R10.0, R10.31, RLQ pain TECHNIQUE: Contiguous axial scanning of the abdomen and pelvis following administration of 100 ml Iso dayana 300 IV contrast. Delayed images through the kidneys and coronal/sagittal reconstructions perform ed. CT DLP: 926 mGycm Automated exposure control for dose reduction was used. FINDINGS: The heart is normal size without pericardial effusion. Lung bases clear without pleural effusion. Tiny hiatal hernia. No focal liver lesion or biliary ductal dilatation. Portal venous system is patent. Gallbladder, adrenal glands, kidneys, spleen, and pancreas within normal limits. Scattered mild to moderate atherosclerotic calcifications abdominal aorta and iliac arteries. No dilated small bowel, free fluid, or free air. No mesenteric or retroperitoneal lymphadenopathy. Normal appendix. There is moderate stool burden. Lag inflammatory change. Bladder nondistended. Uterus is retroverted. Neither ovary clearly seen. No abnormal fluid collection in the pelvis or pelvic lymphadenopathy. Bones: Osteopenia. Facet arthropathy mid to lower lumbar spine. IMPRESSION: TINY HIATAL HERNIA. MODERATE STOOL BURDEN. NO ACUTE INFLAMMATORY PROCESS IDENTIFIED IN THE ABDOMEN OR PELVIS TO EXPLAIN THE PATIENT'S SYMPTOMS.
== END | disposition home or self-care (01) ==
LOC: RADCTMAIN 13:22
PROVIDERS: ATTEND Internal Medicine
DX: K44.9 Diaphragmatic hernia without obstruction or gangrene (principal); R10.31 Right lower quadrant pain
CPT/HCPCS: 80048; 85025; 74177; 36415; Q9967

== ENCOUNTER → 2022-09-21 | Day surgery (SDC) | payer MEDICARE, BC ==
[2022-09-18 12:47] VITALS: BMI 21.7
[~2022-09-21] MED LIST changes: -ALPRAZolam 0.25 MG TAB PO PRN; -ALPRAZolam 0.5 MG TAB PO PRN; -ASPIRIN 325 MG TAB PO PRN; -HEPARIN SODIUM,PORCINE 10,000 UNIT in SODIUM CHLORIDE 0.9% 1,000 ML IRRIGATION PRN; -HEPARIN SODIUM,PORCINE 2,500 UNIT in SODIUM CHLORIDE 0.9% 250 ML IRRIGATION PRN; +LACTATED RINGERS 1,000 ML IV ONE; +LIDOCAINE 2% INJ 20 MG/ML (2 ML VIAL) ONE; +METOPROLOL TARTRATE 5 MG/5 ML VIAL IVP ONE; +PROPOFOL 10 MG/ML 20 ML VIAL IV ONE; -SODIUM CHLORIDE 0.9% 1,000 ML in EMPTY BAG 1 BAG IV ONE; -ZOLPIDEM 5 MG TAB PO PRN
[2022-09-21 09:58] VITALS: TEMP 97
[2022-09-21 10:04] LABS: Glucose,Whole Blood 102 mg/dL (70-110)
--- NOTE | 2022-09-21 11:10 | P.GSHP ---
History of Present Illness H&P Date: 09/21/22 CHIEF COMPLAINT: GERD and colon screen HISTORY OF PRESENT ILLNESS: The patient is a 66-year-old female who presents with gastroesophageal reflux disease and need for colon screen. Upper and lower endoscopy were offered for further evaluation and management. PAST MEDICAL HISTORY: Please see list. PAST SURGICAL HISTORY: Please see list. MEDICATIONS: Please see list. ALLERGIES: Please see list. SOCIAL HISTORY: No illicit drug use FAMILY HISTORY: No reports of Crohn disease or ulcerative colitis. REVIEW OF ORGAN SYSTEMS: CONSTITUTIONAL: No reports of fevers or chills. GI: Denies any blood in stools or constipation. PHYSICAL EXAM: VITAL SIGNS: Stable GENERAL: Well-developed pleasant in no acute distress. HEENT: No scleral icterus. Extraocular movements grossly intact. Moist buccal mucosa. NECK: Supple without lymphadenopathy. CHEST: Unlabored respirations. Equal bilateral excursions. CARDIOVASCULAR: Regular rate and rhythm. Distal 2+ pulses. ABDOMEN: Soft, nondistended. MUSCULOSKELETAL: No clubbing, cyanosis, or edema. ASSESSMENT: 1. Gastroesophageal reflux disease 2. Colon screen. PLAN: 1. Recommend proceeding with an upper and lower endoscopy Past Medical History Past Medical History: Coronary Artery Disease (CAD), Cancer, Diabetes Mellitus, Eye Disorder, GERD/Reflux, Hyperlipidemia, Hypertension, Liver Disease, Memory Impairment, Myocardial Infarction ([place]), Osteoarthritis (OA), Thyroid Disorder, Vascular Disorder Additional Past Medical History / Comment(s): Hx skin cancer on hand, nose and above lip. Macular Degeneration. Hx fall in February 2021-sustained 3 thoracic and 3 cervical fractures,does not use any assistive devices, frequent leg & foot pain w/ tingling & burning. Hx Hepatitis C w/ tx-no further problems. Last Myocardial Infarction Date:: 2003 History of Any Multi-Drug Resistant Organisms: None Reported Past Surgical History: Section, Heart Catheterization With Stent, Or thopedic Surgery Additional Past Surgical History / Comment(s): Stent X1, pain clinic procedures, right shoulder repair, angioplasty to both legs, section X2. Past Anesthesia/Blood Transfusion Reactions: No Reported Reaction Additional Past Anesthesia/Blood Transfusion Reaction / Comment(s): No hx blood transfusion. Date of Last Stent Placement:: 2003 Past Psychological History: Anxiety, Depression Smoking Status: Former smoker Past Alcohol Use History: None Reported Additional Past Alcohol Use History / Comment(s): Quit smoking in 2003, had smoked for 20 yrs. Past Drug Use History: Marijuana Additional Drug Use History / Comment(s): Medical Marijuana use occasionally for pain, aware no use 24 hrs prior to procedure. - Past Family History Father Family Medical History: Coronary Artery Disease (CAD), CVA/TIA, Myocardial Infarction ([place]), Vascular Disorder Additional Family Medical History / Comment(s): Bilateral leg ulcers. Medications and Allergies Home Medications Medication Instructions Recorded Confirmed Type ALPRAZolam [Xanax] 0.25 mg PO QAM 01/02/20 09/18/22 History DULoxetine HCL [Cymbalta] 60 mg PO QAM 01/02/20 09/18/22 History Levothyroxine Sodium [Synthroid] 75 mcg PO 1800 01/02/20 09/18/22 History Vit C/E/Zn/Coppr/Lutein/Zeaxan 1 cap PO BID 01/02/20 09/18/22 History [Preservision Areds 2 Softgel] Meclizine [Antivert] 25 mg PO BID 07/16/21 09/18/22 History Memantine [Namenda] 5 mg PO BID 07/16/21 09/18/22 History amLODIPine [Norvasc] 5 mg PO HS 07/16/21 09/18/22 History buPROPion XL [Wellbutrin XL] 150 mg PO QAM 07/16/21 09/18/22 History metFORMIN HCL 500 mg PO BID 07/16/21 09/18/22 History Aspirin 81 mg PO HS 09/17/21 09/18/22 History Losartan-Hctz 50-12.5 mg [Hyzaar 50 mg PO DAILY 09/18/21 09/18/22 History 50-12.5] Calcium Carbonate [Calcium] 1,200 mg PO DAILY 03/19/22 09/18/22 History Cholecalciferol [Vitamin D3 (125 125 mcg PO DAILY 03/19/22 09/18/22 History Mcg = 5000 Iu)] Metoprolol Succinate (ER) [Toprol 25 mg PO QAM 03/19/22 09/18/22 History XL] Clopidogrel [Plavix] 75 mg PO DAILY #30 tab 03/24/22 09/18/22 Rx Atorvastatin [Lipitor] 40 mg PO DAILY 09/18/22 09/18/22 History HYDROcodone/APAP 5-325MG [[place] 1 tab PO Q6HR PRN 09/18/22 09/18/22 History 5-325] Allergies Allergy/AdvReac Type Severity Reaction Status Date / Time Penicillins Allergy Unknown Verified 09/21/22 09:48 Childhood prochlorperazine Allergy muscle Verified 09/21/22 09:48 [From Compazine] dyskinesia Surgical - Exam Vital Signs Temp Pulse Resp BP Pulse Ox 97 F L 88 16 161/70 97 09/21/22 09:57 09/21/22 09:57 09/21/22 09:57 09/21/22 09:57 09/21/22 09:57
--- NOTE | 2022-09-21 11:12 | P.PCN ---
Date of Procedure: 09/21/22 Description of Procedure: PREOPERATIVE DIAGNOSIS: Gastroesophageal reflux disease. POSTOPERATIVE DIAGNOSIS: Gastric ulcers with bleeding Gastritis with bleeding Gastroesophageal reflux disease. OPERATION: Esophagogastroduodenoscopy with biopsies along antrum, and duodenum SURGEON: Tasha Guerrero MD ANESTHESIA: MAC. INDICATIONS: The patient is a 66-year-old female who presents with reflux disease. Benefits and risks of the procedure were described. Informed consent was obtained. DESCRIPTION: The patient was brought into the endoscopy suite and laid in the left lateral decubitus position. An Olympus gastroscope was passed along the posterior oropharynx down to the distal esophagus where the squamocolumnar junction was encountered at 37 cm from the incisors. The stomach was entered and no bile reflux was found. Additional findings are listed below. Biopsies with cold forceps were obtained of the antrum. The first through third portion of the duodenum was examined. Retroflexion of the scope confirmed Hill grade 7 lower esophageal valve. The squamocolumnar junction demonstrated LA grade B erosive esophagitis. The stomach was desufflated. The patient tolerated the procedure well. FINDINGS: Squamocolumnar junction 37 cm from the incisors. Diaphragmatic hiatus at 37 cm. Hill grade 2 lower esophageal valve. LA grade B erosive esophagitis. Biopsies obtained duodenal Acute gastric ulcers with bleeding, gastric cardia, biopsies obtained Chronic gastritis with recent bleed RECOMMENDATIONS: Upper endoscopy as needed. Omeprazole 40 mg daily for 2 weeks
--- NOTE | 2022-09-21 11:14 | P.PCN ---
Date of Procedure: 09/21/22 Description of Procedure: PREOPERATIVE DIAGNOSIS: Colonoscopy screening. POSTOPERATIVE DIAGNOSIS: Colonoscopy screening, incomplete Sigmoid volvulus OPERATION: Colonoscopy to the sigmoid colon. SURGEON: Tasha Guerrero MD. ANESTHESIA: MAC. INDICATIONS: The patient is a 66-year-old female who presents for colonoscopy screening. Her last colonoscopy was more than 5 years ago. Benefits and risks were described and informed consent was obtained. DESCRIPTION OF PROCEDURE: The patient had undergone S[place]ab prep. She had been brought into the operating room and laid in the left lateral decubitus position. After adequate intravenous sedation, the rectum was examined with 2% lidocaine jelly. External hemorrhoids were encountered. The rectal tone was loose. No lesions were palpated in the rectal vault. The prep was poor An Olympus colonoscope was advanced along the rectum to a very tortuous sigmoid colon. The scope was then exchanged for a pediatric colonoscope. Despite multiple maneuvers, the sigmoid colon had severe tortuosity preventing further advancement of scope. The scope was passed to 30 cm from the anal verge. No evidence of polyps were identified. As the patient posed high risk for perforation with persistence of the procedure, the procedure was discontinued. The colon was desufflated. The patient had tolerated the procedure well. Withdrawal time was over 6 minutes. FINDINGS: [place] preparation quality scale 4 (1-5), moderate liquid brown stool Tortuous sigmoid colon with stricture preventing further advancement of the scope. External prolapsed hemorrhoids. Scope advanced to sigmoid colon at 30 cm for sigmoid volvulus No arteriovenous malformations. No adenomatous polyps. No focal colitis. RECOMMENDATIONS: Completion of colonoscopy evaluation with barium enema. Will need repeat colonoscopy 6 months, three-day Plan - Discharge Summary Discharge Rx Participant: No New Discharge Prescriptions: Continue Vit C/E/Zn/Coppr/Lutein/Zeaxan [Preservision Areds 2 Softgel] 1 cap PO BID DULoxetine HCL [Cymbalta] 60 mg PO QAM ALPRAZolam [Xanax] 0.25 mg PO QAM Levothyroxine Sodium [Synthroid] 75 mcg PO 1800 amLODIPine [Norvasc] 5 mg PO HS Metoprolol Succinate (ER) [Toprol XL] 25 mg PO QAM Calcium Carbonate [Calcium] 1,200 mg PO DAILY Clopidogrel [Plavix] 75 mg PO DAILY #30 tab HYDROcodone/APAP 5-325MG [[place] 5-325] 1 tab PO Q6HR PRN PRN Reason: Pain Atorvastatin [Lipitor] 40 mg PO DAILY buPROPion XL [Wellbutrin XL] 150 mg PO QAM Memantine [Namenda] 5 mg PO BID Meclizine [Antivert] 25 mg PO BID metFORMIN HCL 500 mg PO BID Aspirin 81 mg PO HS Losartan-Hctz 50-12.5 mg [Hyzaar 50-12.5] 50 mg PO DAILY Cholecalciferol [Vitamin D3 (125 Mcg = 5000 Iu)] 125 mcg PO DAILY Discharge Medication List ALPRAZolam [Xanax] 0.25 mg PO QAM 01/02/20 [History] DULoxetine HCL [Cymbalta] 60 mg PO QAM 01/02/20 [History] Levothyroxine Sodium [Synthroid] 75 mcg PO 1800 01/02/20 [History] Vit C/E/Zn/Coppr/Lutein/Zeaxan [Preservision Areds 2 Softgel] 1 cap PO BID 01/02/20 [History] Meclizine [Antivert] 25 mg PO BID 07/16/21 [History] Memantine [Namenda] 5 mg PO BID 07/16/21 [History] amLODIPine [Norvasc] 5 mg PO HS 07/16/21 [History] buPROPion XL [Wellbutrin XL] 150 mg PO QAM 07/16/21 [History] metFORMIN HCL 500 mg PO BID 07/16/21 [History] Aspirin 81 mg PO HS 09/17/21 [History] Losartan-Hctz 50-12.5 mg [Hyzaar 50-12.5] 50 mg PO DAILY 09/18/21 [History] Calcium Carbonate [Calcium] 1,200 mg PO DAILY 03/19/22 [History] Cholecalciferol [Vitamin D3 (125 Mcg = 5000 Iu)] 125 mcg PO DAILY 03/19/22 [History] Metoprolol Succinate (ER) [Toprol XL] 25 mg PO QAM 03/19/22 [History] Clopidogrel [Plavix] 75 mg PO DAILY #30 tab 03/24/22 [Rx] Atorvastatin [Lipitor] 40 mg PO DAILY 09/18/22 [History] HYDROcodone/APAP 5-325MG [[place] 5-325] 1 tab PO Q6HR PRN 09/18/22 [History] Follow up Appointment(s)/Referral(s): Tasha Guerrero MD [STAFF PHYSICIAN] - 10/27/22 3:15 pm Patient Instructions/Handouts: Barium Enema (IP), Diet for Stomach Ulcers and Gastritis (ED) Discharge Disposition: HOME SELF-CARE
[2022-09-21 12:05] VITALS: RESP 17
[2022-09-21 12:18] VITALS: BP 157/75; PULSE 73
--- NOTE | 2022-09-21 16:03 | FL ---
EXAMINATION TYPE: FL barium enema DATE OF EXAM: 09/21/2022 COMPARISON: CT abdomen and pelvis August 11, 2022 HISTORY: Sigmoid volvulus per order. Incomplete colonoscopy. TECHNIQUE: A double contrast barium enema study is performed. A total of 1 minute 38 seconds of flu oroscopic time was utilized during procedure and 20 images obtained. Total dose area product (DAP) i n uGy*m?, mGy*cm? (or similar): n/a. FINDINGS: [place] view of the abdomen shows overall non-obstructive bowel gas pattern. Some surgical c lips overlie the midabdomen. There is successful filling to the cecum. No evidence of any mass or large polyp, obstructing or cons tricting lesion throughout the colon. No significant diverticular disease is noted. Appendix was filled and appeared normal. The terminal ileum was not refluxed. IMPRESSION: Successful filling to the colon. No sigmoid volvulus. No suspicious mass or neoplasm.
--- NOTE | 2022-09-23 17:54 | P.PN ---
Progress Note - Text Progress Note Date: 09/23/22 Patient notified of results of barium enema via phone. She complains of persistent right lower quadrant pain which have been present prior to her endoscopy including as a cause of her symptoms. Patient reassured no evidence of appendicitis or volvulus. Patient will follow up as outpatient in the office. All questions addressed.
== END | disposition home or self-care (01) ==
LOC: ORWHC2ENDO 09:00
PROVIDERS: ATTEND Surgery Plastic and Reconstructive Surgery
DX: Z12.11 Encounter for screening for malignant neoplasm of colon (principal); K29.50 Unspecified chronic gastritis without bleeding; K25.4 Chronic or unspecified gastric ulcer with hemorrhage; K56.2 Volvulus; K64.4 Residual hemorrhoidal skin tags; K21.9 Gastro-esophageal reflux disease without esophagitis; K21.00 Gastro-esophageal reflux disease with esophagitis, without bleeding; K44.9 Diaphragmatic hernia without obstruction or gangrene; I25.10 Atherosclerotic heart disease of native coronary artery without angina pectoris; I25.2 Old myocardial infarction; E11.9 Type 2 diabetes mellitus without complications; I10 Essential (primary) hypertension; E78.5 Hyperlipidemia, unspecified; M19.90 Unspecified osteoarthritis, unspecified site; F41.9 Anxiety disorder, unspecified; F32.A Depression, unspecified; F12.90 Cannabis use, unspecified, uncomplicated; Z83.3 Family history of diabetes mellitus; Z82.49 Family history of ischemic heart disease and other diseases of the circulatory system; Z82.3 Family history of stroke; Z98.891 History of uterine scar from previous surgery; Z98.890 Other specified postprocedural states; Z85.828 Personal history of other malignant neoplasm of skin; Z79.84 Long term (current) use of oral hypoglycemic drugs; Z79.82 Long term (current) use of aspirin
CPT/HCPCS: 45330; 88305; 74270; 43239; J2704; J2001; 45378

== ENCOUNTER 2022-12-03 10:10 | Day surgery (SDC) | payer MEDICARE, BC ==
--- NOTE | 2022-12-03 06:35 | P.GSHP ---
History of Present Illness H&P Date: 12/03/22 CHIEF COMPLAINT: History of intra-abdominal adhesions and right lower quadrant pain HISTORY OF PRESENT ILLNESS: The patient is a 66-year-old female who presents with history of intra-abdominal adhesions from multiple prior surgeries including increasing abdominal pain and right lower quadrant for over 6 months. She now presents for diagnostic laparoscopy including lysis of adhesions and appendectomy. PAST MEDICAL HISTORY: Please see list. PAST SURGICAL HISTORY: Please see list. MEDICATIONS: Please see list. ALLERGIES: Please see list. SOCIAL HISTORY: No illicit drug use FAMILY HISTORY: No reports of Crohn disease or ulcerative colitis. REVIEW OF ORGAN SYSTEMS: CONSTITUTIONAL: No reports of fevers or chills. GI: Has constipation. PHYSICAL EXAM: VITAL SIGNS: Stable GENERAL: Well-developed pleasant and in no acute distress. HEENT: No scleral icterus. Extraocular movements grossly intact. Moist buccal mucosa. NECK: Supple without lymphadenopathy. CHEST: Unlabored respirations. Equal bilateral excursions. CARDIOVASCULAR: Regular rate and rhythm. Distal 2+ pulses. ABDOMEN: Soft, tender right lower quadrant. No peritonitis. MUSCULOSKELETAL: No clubbing, cyanosis, or edema. ASSESSMENT: 1. Right lower quadrant abdominal pain. 2. History of multiple abdominal surgeries. 3. Intra-abdominal adhesions. PLAN: 1. Robotic lysis of adhesions were described in detail including risk of injury to the intestine, need for further surgery, and open technique. 2. DVT prophylaxis. 3. Antibiotic prophylaxis. 4. Appendectomy described for her right lower quadrant pain as well Past Medical History Past Medical History: Coronary Artery Disease (CAD), Cancer, Diabetes Mellitus, Eye Disorder, GERD/Reflux, Hyperlipidemia, Hypertension, Liver Disease, Memory Impairment, Myocardial Infarction (MS), Osteoarthritis (OA), Thyroid Disorder, Vascular Disorder Additional Past Medical History / Comment(s): Hx skin cancer on hand, nose and above lip. Macular Degeneration. Hx fall in February 2021-sustained 3 thoracic and 3 cervical fractures,does not use any assistive devices, Hx Hepatitis C w/ tx-no further problems. Last Myocardial Infarction Date:: 2003 History of Any Multi-Drug Resistant Organisms: None Reported Past Surgical History: Section, Heart Catheterization With Stent, Orthopedic Surgery Additional Past Surgical History / Comment(s): Stent X1, pain clinic procedures, right shoulder repair, angioplasty to both legs, tatiana.aortic & iliac endarterectomy & patch angioplasty in , section X2. Past Anesthesia/Blood Transfusion Reactions: No Reported Reaction Additional Past Anesthesia/Blood Transfusion Reaction / Comment(s): No hx blood transfusion. Date of Last Stent Placement:: 2003 Past Psychological History: Anxiety, Depression Smoking Status: Former smoker Past Alcohol Use History: Occasional Additional Past Alcohol Use History / Comment(s): Quit smoking in 2003, had smoked for 20 yrs. Past Drug Use History: Marijuana Additional Drug Use History / Comment(s): Medical Marijuana use occasionally for pain, aware no use 24 hrs prior to procedure. - Past Family History Father Family Medical History: Coronary Artery Disease (CAD), CVA/TIA, Myocardial Infarction (MS), Vascular Disorder Additional Family Medical History / Comment(s): Bilateral leg ulcers. Medications and Allergies Home Medications Medication Instructions Recorded Confirmed Type ALPRAZolam [Xanax] 0.25 mg PO QAM 01/02/20 12/01/22 History DULoxetine HCL [Cymbalta] 60 mg PO QAM 01/02/20 12/01/22 History Levothyroxine Sodium [Synthroid] 75 mcg PO DAILY 01/02/20 12/01/22 History Vit C/E/Zn/Coppr/Lutein/Zeaxan 1 cap PO BID 01/02/20 12/01/22 History [Preservision Areds 2 Softgel] Meclizine [Antivert] 25 mg PO BID PRN 07/16/21 12/01/22 History Memantine [Namenda] 5 mg PO BID 07/16/21 12/01/22 History amLODIPine [Norvasc] 5 mg PO HS 07/16/21 12/01/22 History buPROPion XL [Wellbutrin XL] 150 mg PO QAM 07/16/21 12/01/22 History metFORMIN HCL 500 mg PO BID 07/16/21 12/01/22 History Aspirin 81 mg PO HS 09/17/21 12/01/22 History Calcium Carbonate [Calcium] 1,200 mg PO DAILY 03/19/22 12/01/22 History Cholecalciferol [Vitamin D3 (125 125 mcg PO DAILY 03/19/22 12/01/22 History Mcg = 5000 Iu)] Metoprolol Succinate (ER) [Toprol 25 mg PO QAM 03/19/22 12/01/22 History XL] Clopidogrel [Plavix] 75 mg PO DAILY #30 tab 03/24/22 12/01/22 Rx Atorvastatin [Lipitor] 40 mg PO DAILY 09/18/22 12/01/22 History Losartan Potassium 50 mg PO HS 11/23/22 12/01/22 History Omeprazole [PriLOSEC] 40 mg PO DAILY 11/23/22 12/01/22 History Allergies Allergy/AdvReac Type Severity Reaction Status Date / Time Penicillins Allergy Unknown Verified 12/01/22 11:45 Childhood prochlorperazine Allergy muscle Verified 12/01/22 11:45 [From Compazine] dyskinesia
[~2022-12-03 10:10] MED LIST changes: +ACETAMINOPHEN TAB 500 MG TAB PO PRN; +DEXAMETHASONE SOD PHOSPHATE 4 MG/ML 1 ML VIAL IV ONE; +HEPARIN SODIUM,PORCINE/PF 5,000 UNIT/0.5 ML SYRINGE SQ PRN; +HYDROmorphone 0.5 MG/0.5 ML SYRINGE IVP PRN; -LACTATED RINGERS 1,000 ML IV ONE; +LACTATED RINGERS 1,000 ML IV SCH; -LIDOCAINE 2% INJ 20 MG/ML (2 ML VIAL) ONE; +MELOXICAM 7.5 MG TAB PO PRN; -METOPROLOL TARTRATE 5 MG/5 ML VIAL IVP ONE; +ONDANSETRON 4 MG/2 ML VIAL IVP ONE; +ONDANSETRON 4 MG/2 ML VIAL IVP PRN; -PROPOFOL 10 MG/ML 20 ML VIAL IV ONE; +metroNIDAZOLE-NS PMX 500 MG in SALINE 1 100ML.BAG IVPB PRN
[2022-12-03 11:06] LABS: Glucose,Whole Blood 148 mg/dL (70-110)
[2022-12-03] MEDS ORDERED: MIDAZOLAM 2 MG/2 ML VIAL IVP ONE (11:19)
[2022-12-03] MEDS ORDERED: fentaNYL (PF) 50 MCG/1 ML VIAL IVP ONE (11:20)
--- NOTE | 2022-12-03 12:11 | P.ANPRN ---
Procedure Note - Anesthesia - Nerve Block Performed Bilateral Erector Spinae Single Time Out Performed: Yes (1119) Date of Procedure: 12/03/22 Procedure Start Time: : Procedure Stop Time: Indication: Acute Post-Operative Pain, Requested by Surgeon Specifically requested for management of pain by DrIzzy: Tasha Guerrero Sedation Type: Sedate with meaningful contact maintained Preparation: Sterile Prep Position: Sitting Catheter: None Needle Types: Pajunk Needle Gauge: 21 Ultrasound used to visualize needle placement: Yes Ultrasound used to observe medication spread: Yes Injectate: 0.5% Ropivacaine (see comment for volume) (15cc + 10cc nacl pf) Blood Aspirated: No Pain Paresthesia on Injection Noted: No Resistance on Injection: Normal Image Stored and Saved: Yes Events: Uneventful and Well Tolerated
[2022-12-03] MEDS ORDERED: SODIUM CHLORIDE 0.9% (PF) 10 ML VIAL ONE (12:16)
[2022-12-03] MEDS ORDERED: ROPIVACAINE 5 MG/ML 30 ML VIAL ONE (12:16)
[2022-12-03] MEDS ORDERED: ESMOLOL 100 MG/10 ML VIAL ONE (12:16)
[2022-12-03] MEDS ORDERED: NEOSTIGMINE 1 MG/ML 10 ML VIAL ONE (12:16)
[2022-12-03] MEDS ORDERED: PROPOFOL 10 MG/ML 20 ML VIAL IV ONE (12:16)
[2022-12-03] MEDS ORDERED: SUCCINYLCHOLINE CHLORIDE 200 MG/10 ML VIAL IV ONE (12:16)
[2022-12-03] MEDS ORDERED: LABETALOL 5 MG/ML VIAL MDV ONE (12:16)
[2022-12-03] MEDS ORDERED: GLYCOPYRROLATE 0.2 MG/ML 2 ML VIAL ONE (12:16)
[2022-12-03] MEDS ORDERED: fentaNYL (PF) 50 MCG/ML 2 ML AMP ONE (12:16)
[2022-12-03] MEDS ORDERED: LIDOCAINE 2% INJ 20 MG/ML (2 ML VIAL) ONE (12:16)
[2022-12-03] MEDS ORDERED: ROCURONIUM 10 MG/ML (5 ML VIAL) IV ONE (12:16)
[2022-12-03] MEDS ORDERED: LIDOCAINE 1%-EPI 1:100,000 50 ML VIAL SQ ONE ×2 (12:43→12:50)
[2022-12-03] MEDS ORDERED: LACTATED RINGERS 1,000 ML IV ONE (14:15)
[2022-12-03 14:35] VITALS: TEMP 98.6
[2022-12-03 14:42] LABS: Glucose,Whole Blood 220 mg/dL (70-110)
[2022-12-03 16:09] LABS: Glucose,Whole Blood 200 mg/dL (70-110)
[2022-12-03 16:46] VITALS: RESP 16
[2022-12-03 17:11] VITALS: BP 108/60; PULSE 81
--- NOTE | 2022-12-30 20:23 | P.OP ---
Date of Procedure: 12/03/22 Description of Procedure: SURGEON: TASHA GUERRERO MD Preoperative Diagnosis: 1. Right lower quadrant abdominal pain 2. Chronic appendicitis 3. Coronary artery disease 4. Status post cardiac catheterization with stent placement 5. Hypertensive heart disease 6. Hyperlipidemia 7. History of myocardial infarction 8. Hypothyroidism 9. Depressive disorder 10. Gastroesophageal reflux disease 11. Chronic antiplatelet therapy 12. Memory impairment 13. Generalized anxiety disorder 14. Vertigo 15. History of multiple abdominal surgeries 16. Peripheral vascular occlusive disease Postoperative Diagnosis: 1. Right lower quadrant abdominal pain due to severe peritoneal adhesions 2. Chronic appendicitis 3. Coronary artery disease 4. Status post cardiac catheterization with stent placement 5. Hypertensive heart disease 6. Hyperlipidemia 7. History of myocardial infarction 8. Hypothyroidism 9. Depressive disorder 10. Gastroesophageal reflux disease 11. Chronic antiplatelet therapy 12. Memory impairment 13. Generalized anxiety disorder 14. Vertigo 15. History of multiple abdominal surgeries 16. Peripheral vascular occlusive disease Procedure(s) Performed: 1. Robotic-assisted daVinci Xi laparoscopic lysis of adhesions over 1 hr 2. Robotic-assisted daVinci Xi laparoscopic appendectomy Anesthesia: GETA, local Estimated Blood Loss (ml): 5 Pathology: other (appendix) Condition: stable Disposition: floor Operative Findings: 1. Severe right lower quadrant peritoneal adhesions including interloop adhesions lysed involving the appendix 2. Terminal ileum with moderate adhesions lysed 3. Cecum unremarkable 4. Midline omentum to abdominal wall adhesions lysed INDICATIONS: The patient is a 67-year-old female who presents with moderate to severe right lower quadrant abdominal pain for over 3 to 6 months. Multiple diagnostic studies were performed for her severe abdominal pain. Patient has personal history of multiple abdominal surgeries. Surgical intervention with lysis of adhesions including appendectomy for her right lower quadrant pain was described. Benefits and risks, including but not limited to infection, open surgery, persistent abdominal pain, and bleeding. need for additional surgery was discussed at length. Informed consent was obtained. All questions of the patient and family were answered. DESCRIPTION: The patient was transferred to the operating room and placed in supine position. The patient had previously voided. The abdomen was then prepped and draped in standard sterile fashion as Ioban was placed along the abdomen to minimize any contamination of skin floor. After a timeout protocol was performed, attention was then brought to the left upper quadrant whereby a 0 degree 5 mm laparoscopic trocar entry was performed. The abdominal cavity was entered and insufflated to 15 mmHg pressure, which was tolerated well. Diagnostic laparoscopy demonstrated no injury to bowel, viscera or mesentery. Next a robotic 8-mm trocar was placed along the left lower quadrant, 10-cm lateral to the midline. A 12 mm port was placed along the left upper quadrant and another 8-mm port left lateral abdominal wall. Ports were placed 8 cm apart from each other including 15-20 cm away from the target anatomy of the right pelvis. The patient was then placed in Trendelenburg position, at least 7 down and right side up at least 7. The robotic da Papo XI system was primed and docked from the left side of the patient. Using atraumatic graspers and vessel sealer, the robotic system was docked and primed as described. Instruments were interchanged by the processing assistant including graspers, robotic stapler and vessel sealer. Severe omental to abdominal wall adhesions were found throughout the midline from her prior surgery. Extensive lysis of adhesions using vessel sealer was used to take down midline adhesions. No enterotomies occurred. Next, attention was brought to identify the cecum. A systematic view within the abdominal cavity was started at the terminal ileum where severe right lower quadrant adhesions were identified including severe interloop adhesions. The appendix was adherent to the right pelvis which was lysed sharply using vessel sealer including Bovie cautery scissors. Interloop adhesions were taken down where additional adhesions were involved along the retroperitoneum of the duodenum and proximal jejunum from her prior vascular procedure. The terminal ileum including mid ileum were densely adherent however after extensive adhesional lysis over 30 minutes to an hour, the small bowel loops were freed. Attention was brought to the appendix which was mobilized along the mesial appendix using vessel sealer. Blue 45 mm robotic staple loads were fired along the base of the appendix. The staple line was hemostatic. Hemostasis was checked prior to undocking the robot. The robot was undocked. I re-scrubbed into the case. The specimen was removed from the abdominal cavity with an Endo Catch bag through the 12 mm trocar at the left upper quadrant. All instruments and pneumoperitoneum were evacuated from the abdominal cavity. Local anesthetic was infiltrated to all wounds for postop analgesia. All incisions were also cleansed with diluted hydrogen peroxide. The incisions were closed with 4-0 Monocryl. Exofin glue was applied to the rest of the skin incisions. The patient had tolerated the procedure well. The patient was extubated successfully. The patient was transferred to the postanesthesia care unit in stable condition. Plan - Discharge Summary Discharge Rx Participant: No New Discharge Prescriptions: New Simethicone [Gas-X] 125 mg PO AC-TID PRN #20 capsule PRN Reason: Pain Acetaminophen Tab [Tylenol Tab] 1,000 mg PO Q6HR PRN #30 tablet PRN Reason: Pain Continue Vit C/E/Zn/Coppr/Lutein/Zeaxan [Preservision Areds 2 Softgel] 1 cap PO BID DULoxetine HCL [Cymbalta] 60 mg PO QAM ALPRAZolam [Xanax] 0.25 mg PO QAM Levothyroxine Sodium [Synthroid] 75 mcg PO DAILY amLODIPine [Norvasc] 5 mg PO HS Metoprolol Succinate (ER) [Toprol XL] 25 mg PO QAM Calcium Carbonate [Calcium] 1,200 mg PO DAILY Clopidogrel [Plavix] 75 mg PO DAILY #30 tab Atorvastatin [Lipitor] 40 mg PO DAILY Omeprazole [PriLOSEC] 40 mg PO DAILY buPROPion XL [Wellbutrin XL] 150 mg PO QAM Memantine [Namenda] 5 mg PO BID Meclizine [Antivert] 25 mg PO BID PRN PRN Reason: Vertigo metFORMIN HCL 500 mg PO BID Aspirin 81 mg PO HS Cholecalciferol [Vitamin D3 (125 Mcg = 5000 Iu)] 125 mcg PO DAILY Losartan Potassium 50 mg PO HS Discharge Medication List ALPRAZolam [Xanax] 0.25 mg PO QAM 01/02/20 [History] DULoxetine HCL [Cymbalta] 60 mg PO QAM 01/02/20 [History] Levothyroxine Sodium [Synthroid] 75 mcg PO DAILY 01/02/20 [History] Vit C/E/Zn/Coppr/Lutein/Zeaxan [Preservision Areds 2 Softgel] 1 cap PO BID 01/02/20 [History] Meclizine [Antivert] 25 mg PO BID PRN 07/16/21 [History] Memantine [Namenda] 5 mg PO BID 07/16/21 [History] amLODIPine [Norvasc] 5 mg PO HS 07/16/21 [History] buPROPion XL [Wellbutrin XL] 150 mg PO QAM 07/16/21 [History] metFORMIN HCL 500 mg PO BID 07/16/21 [History] Aspirin 81 mg PO HS 09/17/21 [History] Calcium Carbonate [Calcium] 1,200 mg PO DAILY 03/19/22 [History] Cholecalciferol [Vitamin D3 (125 Mcg = 5000 Iu)] 125 mcg PO DAILY 03/19/22 [History] Metoprolol Succinate (ER) [Toprol XL] 25 mg PO QAM 03/19/22 [History] Clopidogrel [Plavix] 75 mg PO DAILY #30 tab 03/24/22 [Rx] Atorvastatin [Lipitor] 40 mg PO DAILY 09/18/22 [History] Losartan Potassium 50 mg PO HS 11/23/22 [History] Omeprazole [PriLOSEC] 40 mg PO DAILY 11/23/22 [History] Acetaminophen Tab [Tylenol Tab] 1,000 mg PO Q6HR PRN #30 tablet 12/03/22 [Rx] Simethicone [Gas-X] 125 mg PO AC-TID PRN #20 capsule 12/03/22 [Rx] Follow up Appointment(s)/Referral(s): Tasha Guerrero MD [STAFF PHYSICIAN] - 12/08/22 (TELEHEALTH - DR WILL CALL YOU BETWEEN 8 am to 8 pm) Patient Instructions/Handouts: *[facility] - Managing Your Pain After Surgery Without Opioids, *[facility] - (Anesthesia) Discharge Instructions Outpatient Surgery, Lysis of Abdominal Adhesions (DC) Activity/Diet/Wound Care/Special Instructions: TELEHEALTH - DR WILL CALL YOU BETWEEN 8 am to 8 pm No lifting over 10 pounds in 2 weeks until Dec 17. May shower. No bath tub soaks for two weeks until Dec 17. Diet as tolerated. Use Tylenol, simethicone and ibuprofen or Aleve scheduled for the next 24-48 hours for best pain relief. Use ice along incisions for today to prevent swelling. Discharge Disposition: HOME SELF-CARE
== END 2022-12-03 17:48 | disposition home or self-care (01) ==
LOC: OR 10:10
PROVIDERS: ATTEND Surgery Plastic and Reconstructive Surgery
DX: K35.80 Unspecified acute appendicitis (principal); K66.0 Peritoneal adhesions (postprocedural) (postinfection); F32.A Depression, unspecified; F41.1 Generalized anxiety disorder; E03.9 Hypothyroidism, unspecified; I11.9 Hypertensive heart disease without heart failure; I25.10 Atherosclerotic heart disease of native coronary artery without angina pectoris; E11.9 Type 2 diabetes mellitus without complications; K21.9 Gastro-esophageal reflux disease without esophagitis; E78.5 Hyperlipidemia, unspecified; I25.2 Old myocardial infarction; M19.90 Unspecified osteoarthritis, unspecified site; Z85.828 Personal history of other malignant neoplasm of skin; Z87.891 Personal history of nicotine dependence; F12.90 Cannabis use, unspecified, uncomplicated; Z98.890 Other specified postprocedural states; Z79.82 Long term (current) use of aspirin; Z79.84 Long term (current) use of oral hypoglycemic drugs; Z79.02 Long term (current) use of antithrombotics/antiplatelets; Z79.899 Other long term (current) drug therapy; Z79.890 Hormone replacement therapy; Z88.0 Allergy status to penicillin; Z88.8 Allergy status to other drugs, medicaments and biological substances; Z95.5 Presence of coronary angioplasty implant and graft
CPT/HCPCS: 44970; 49329; S2900; 64999; 84132; 88304

== ENCOUNTER → 2023-01-19 | Outpatient (CLI) | payer MEDICARE, BC ==
--- NOTE | 2023-01-20 08:52 | XR ---
EXAMINATION TYPE: XR foot complete RT DATE OF EXAM: 01/19/2023 COMPARISON: NONE HISTORY: Pain TECHNIQUE: Three views are submitted. FINDINGS: Diffuse osteopenia with moderate arthropathy first MTP and hallux valgus deformity. There is a remote fracture of the fifth metatarsal. There is a linear lucency involving the base proximal phalanx four th digit. IMPRESSION: 1. Air line minimally displaced fracture base proximal phalanx fourth digit
== END | disposition home or self-care (01) ==
LOC: RADXRMAIN 16:13
PROVIDERS: ATTEND Internal Medicine
DX: S92.341A Displaced fracture of fourth metatarsal bone, right foot, initial encounter for closed fracture (principal); X58.XXXA Exposure to other specified factors, initial encounter

== ENCOUNTER → 2023-04-23 | Outpatient (CLI) | payer MEDICARE, BC ==
[2023-04-23 16:39] LABS: ALT 62 U/L (8-44); AST 24 U/L (13-35); Albumin 4.7 g/dL (3.8-4.9); Albumin/Globulin Ratio 1.68 Ratio (1.60-3.17); Alkaline Phosphatase 121 U/L (41-126); BUN/Creat Ratio 19.25 Ratio (12.00-20.00); Blood Urea Nitrogen 15.4 mg/dL (9.0-27.0); Calcium 10.3 mg/dL (8.7-10.3); Carbon Dioxide 29.6 mmol/L (21.6-31.8); Chloride 101 mmol/L (96-109); Chol/HDL Ratio 2.66 Ratio; Globulin 2.8 g/dL (1.6-3.3); Glucose 136 mg/dL (70-110); LDL Cholesterol,Calculated 42.2 mg/dL (0.0-131.0); Potassium 4.6 mmol/L (3.5-5.5); Sodium 143 mmol/L (135-145); Total Bilirubin 0.5 mg/dL (0.3-1.2); Total Protein 7.5 g/dL (6.2-8.2)
== END | disposition home or self-care (01) ==
LOC: LABWHC1 12:44
PROVIDERS: ATTEND Internal Medicine Endocrinology, Diabetes & Metabolism
DX: E11.65 Type 2 diabetes mellitus with hyperglycemia (principal)
CPT/HCPCS: 36415; 80053; 80061; 82043; 82570; 83036; 84443

== ENCOUNTER → 2023-05-31 | Outpatient (CLI) | payer MEDICARE, BC ==
--- NOTE | 2023-05-31 14:29 | US ---
EXAMINATION TYPE: US extremity nonvasc complete LT DATE OF EXAM: 05/31/2023 COMPARISON: NONE CLINICAL INDICATION: Female, 67 years old with history of M25.462 EFFUSION, LEFT KNEE; TECHNIQUE: Mayonnaise Mixer notes: Scanned over the patient's anterior knee to assess for effusion, also scanned over the left pop fossa as the pt stated she had pain/fluid behind her left knee as well. FINDINGS: Images show a small to moderate left knee joint effusion. No Kerr's cyst identified in th e popliteal fossa. IMPRESSION: Small to moderate left knee joint effusion. No Kerr's cyst seen.
== END | disposition home or self-care (01) ==
LOC: RADUSWWP 13:08
PROVIDERS: ATTEND Internal Medicine
DX: M25.462 Effusion, left knee (principal)

== ENCOUNTER → 2023-07-13 | Outpatient (CLI) | payer MEDICARE, BC ==
--- NOTE | 2023-07-13 15:57 | XR ---
EXAMINATION TYPE: XR hand complete RT DATE OF EXAM: 07/13/2023 COMPARISON: NONE HISTORY: Pain TECHNIQUE: Three views are submitted. FINDINGS: There is a hairline lucency noted on the oblique view within the distal second metacarpal. There is narrowing of all DIP joints. Narrowing of all PIP joints. Narrowing the first carpal metacar pal joint. IMPRESSION: 1. Hairline nondisplaced fracture distal second metacarpal.
--- NOTE | 2023-07-13 15:59 | XR ---
EXAMINATION TYPE: XR wrist complete RT DATE OF EXAM: 07/13/2023 COMPARISON: NONE HISTORY: Pain TECHNIQUE: Four views submitted. FINDINGS: There is a hairline lucency noted on the oblique view within the distal second metacarpal. Narrowing of the first MCP joint.. Narrowing the first carpal metacarpal joint. IMPRESSION: 1. Hairline nondisplaced fracture distal second metacarpal.
== END | disposition home or self-care (01) ==
LOC: RADXRMAIN 15:26
PROVIDERS: ATTEND Internal Medicine
DX: S62.340A Nondisplaced fracture of base of second metacarpal bone, right hand, initial encounter for closed fracture (principal); S69.91XA Unspecified injury of right wrist, hand and finger(s), initial encounter; M79.89 Other specified soft tissue disorders; X58.XXXA Exposure to other specified factors, initial encounter

== ENCOUNTER → 2023-07-16 | Outpatient (CLI) | payer MEDICARE, BC ==
[2023-07-16 20:13] LABS: Calcium 10.3 mg/dL (8.7-10.3); Magnesium 1.9 mg/dL (1.5-2.4)
== END | disposition home or self-care (01) ==
LOC: LABWHC1 14:06
PROVIDERS: ATTEND Psychiatry & Neurology Neurology
DX: E11.40 Type 2 diabetes mellitus with diabetic neuropathy, unspecified (principal); R20.2 Paresthesia of skin; R41.3 Other amnesia; Z79.899 Other long term (current) drug therapy
CPT/HCPCS: 36415; 82306; 82310; 82607; 83036; 83735

== ENCOUNTER → 2023-08-09 | Outpatient (CLI) | payer MEDICARE, BC ==
--- NOTE | 2023-08-09 15:49 | XR ---
EXAMINATION TYPE: XR ribs LT DATE OF EXAM: 08/09/2023 COMPARISON: NONE HISTORY: 67-year-old female fall 2 weeks ago, trauma, pain, [id number] TECHNIQUE: 4 views FINDINGS: Calcified granuloma left upper lobe. There is irregularity of the left anterior third, fift h, and sixth ribs. No displaced fracture is seen. No appreciable pneumothorax or pleural effusion. So me strandy atelectasis at the left base. IMPRESSION: Findings suggest nondisplaced fractures of the left anterior third, fifth, and sixth ribs. Correlate for point tenderness.
[2023-08-09 19:33] LABS: Blood Urea Nitrogen 14.8 mg/dL (9.0-27.0); Calcium 9.6 mg/dL (8.7-10.3); Carbon Dioxide 25.9 mmol/L (21.6-31.8); Chloride 104 mmol/L (96-109); Creatine Kinase 71 U/L (26-186); Glucose 305 mg/dL (70-110); Magnesium 2.2 mg/dL (1.5-2.4); Phosphorus 3.5 mg/dL (2.4-5.1); Potassium 4.4 mmol/L (3.5-5.5); Sodium 142 mmol/L (135-145); T4, Free (Free Thyroxine) 0.84 ng/dL (0.80-1.80)
[2023-08-09 22:07] LABS: Thyroid Peroxidase Antibodies <9.0 U/mL (0.0-33.0)
== END | disposition home or self-care (01) ==
LOC: LABWHC1 14:22
PROVIDERS: ATTEND Internal Medicine
DX: E03.9 Hypothyroidism, unspecified (principal); E21.3 Hyperparathyroidism, unspecified; E55.9 Vitamin D deficiency, unspecified; R07.81 Pleurodynia
CPT/HCPCS: 36415; 80048; 82550; 83735; 83970; 84100; 84439; 84443; 85652; 86376; 86800

== ENCOUNTER → 2023-08-19 | Outpatient (CLI) | payer MEDICARE, BC | END | disposition home or self-care (01) | LOC: RADBDWWP 11:29 | PROVIDERS: ATTEND Internal Medicine | DX: Z53.9 Procedure and treatment not carried out, unspecified reason (principal) ==

== ENCOUNTER → 2023-09-10 | Outpatient (CLI) | payer MEDICARE, BC ==
--- NOTE | 2023-09-10 12:43 | US ---
EXAMINATION TYPE: US venous doppler duplex LE DATE OF EXAM: 09/10/2023 12:37 PM COMPARISON: NONE CLINICAL INDICATION: Female, 67 years old with history of R60.9 EDEMA, UNSPECIFIED; Lower extremity s welling x 1 week; Hx HTN, DM, and CHF SIDE PERFORMED: Bilateral TECHNIQUE: The lower extremity deep venous system is examined utilizing real time linear array sonog deneen with graded compression, doppler sonography and color-flow sonography. VESSELS IMAGED: Common Femoral Vein Deep Femoral Vein Greater Saphenous Vein * Femoral Vein Popliteal Vein Small Saphenous Vein * Proximal Calf Veins (* superficial vessels) Right Leg: Negative for DVT Left Leg: Negative for DVT IMPRESSION: Grayscale, color doppler, spectral doppler imaging performed of the deep veins of the lo wer extremities. There is normal flow, compressibility, vascular waveforms.
== END | disposition home or self-care (01) ==
LOC: RADUSWWP 12:08
PROVIDERS: ATTEND Internal Medicine
DX: M79.89 Other specified soft tissue disorders (principal); R60.9 Edema, unspecified; E11.9 Type 2 diabetes mellitus without complications; I50.9 Heart failure, unspecified; I11.0 Hypertensive heart disease with heart failure
CPT/HCPCS: 93970

== ENCOUNTER → 2023-09-11 | Outpatient (CLI) | payer MEDICARE, BC ==
[2023-09-11 12:05] LABS: Creatinine,Urine Random 28.9 mg/dL; Protein/Creatinine Ratio,Urine 0.623
--- NOTE | 2023-09-11 22:04 | XR ---
EXAMINATION TYPE: XR chest 2V DATE OF EXAM: 09/11/2023 COMPARISON: 08/09/2023, 03/22/2022 INDICATION: Bilateral leg swelling TECHNIQUE: Frontal and lateral views of the chest are obtained. FINDINGS: The heart size is normal. The pulmonary vasculature is normal. The lungs are clear. Small stable granuloma is in the upper outer left chest IMPRESSION: 1. No acute pulmonary process.
[2023-09-11 23:33] LABS: Appearance,Urine Clear (Clear); Bilirubin,Urine Negative (Negative); Blood,Urine Negative (Negative); Color,Urine Yellow (Yellow); Ketones,Urine Negative (Negative); Nitrite,Urine Negative (Negative); PH, Urine 7.5; Specific Gravity,Urine 1.017 (1.001-1.030); Urobilinogen,Urine 0.2 E.U./DL
[2023-09-11 23:35] LABS: Basophils # (A) 0.07 X 10*3/uL (0.00-0.10); Eosinophils # (A) 0.23 X 10*3/uL (0.04-0.35); Eosinophils % (A) 3.3 %; HCT 45.1 % (37.2-46.3); HGB 14.2 g/dL (12.0-15.0); Lymphocytes # (A) 1.38 X 10*3/uL (0.90-5.00); MCH 28.4 pg (27.0-32.0); MCHC 31.5 g/dL (32.0-37.0); MCV 90.2 FL (80.0-97.0); Mean Platelet Volume 11.9 FL (9.5-12.2); Monocytes % (A) 7.3 %; NRBC Per 100 WBC 0 X 10*3/uL (0.00-0.01); Neutrophils # (A) 4.68 X 10*3/uL (1.80-7.70); Platelet Count 237 X 10*3/uL (140-440); RDW 12.5 % (11.5-14.5); WBC 6.89 X 10*3/uL (4.50-10.00)
[2023-09-11 23:46] LABS: Erythrocyte Sedimentation Rate 12 mm/Hr (0-30)
[2023-09-12 11:52] LABS: Microalbumin Creatinine Ratio <40 mg/g Cr (0-30)
[2023-09-12 11:53] LABS: NT-Pro-B-Type Natriuretic Pept 130 pg/mL (0-125)
[2023-09-12 11:59] LABS: ALT 26 U/L (8-44); AST 21 U/L (13-35); Albumin 4.6 g/dL (3.8-4.9); Albumin/Globulin Ratio 1.92 Ratio (1.60-3.17); Alkaline Phosphatase 143 U/L (41-126); BUN/Creat Ratio 13.88 Ratio (12.00-20.00); Blood Urea Nitrogen 11.1 mg/dL (9.0-27.0); C Reactive Protein <0.30 mg/dL (0.00-0.80); Calcium 9.9 mg/dL (8.7-10.3); Chloride 103 mmol/L (96-109); Creatine Kinase 67 U/L (26-186); Globulin 2.4 g/dL (1.6-3.3); Glucose 204 mg/dL (70-110); Phosphorus 3.6 mg/dL (2.4-5.1); Potassium 4.1 mmol/L (3.5-5.5); Sodium 145 mmol/L (135-145); Total Bilirubin 0.5 mg/dL (0.3-1.2); Uric Acid 4.7 mg/dL (2.9-7.7)
== END | disposition home or self-care (01) ==
LOC: LABWHC1 11:05
PROVIDERS: ATTEND Internal Medicine
DX: M79.89 Other specified soft tissue disorders (principal); I51.89 Other ill-defined heart diseases; I50.9 Heart failure, unspecified; I25.5 Ischemic cardiomyopathy; M10.9 Gout, unspecified; E11.65 Type 2 diabetes mellitus with hyperglycemia; I82.409 Acute embolism and thrombosis of unspecified deep veins of unspecified lower extremity; R80.9 Proteinuria, unspecified
CPT/HCPCS: 36415; 71046; 80053; 81003; 82043; 82550; 82570; 83036; 83735; 83880; 84100; 84156; 84550; 85025; 85379; 85652; 86140; 86803

== ENCOUNTER 2023-09-29 16:48 | Emergency (ER) | payer MEDICARE, BC ==
--- NOTE | 2023-09-29 17:23 | ED ---
Altered Mental Status HPI - General Source: patient, family, RN notes reviewed Mode of arrival: wheelchair <Thais Elliott - Last Filed: 09/29/23 17:21> <Claudio Sim - Last Filed: 09/30/23 01:41> - General Chief Complaint: Altered Mental Status Stated Complaint: unsteady/confused Time Seen by Provider: 09/29/23 17:21 - History of Present Illness Initial Comments: Quick [id number] female presenting to the ER with for chief complaint of altered mental status. states patient has been confused for the past couple days. He states she has been talking about things that make sense and talking as though she is living in the past. States this has happened before but they are unsure why. Patient denies any current symptoms such as chest pain, shortness of breath, fever, URI symptoms, or urinary symptoms. (Thais Elliott) Dictation was produced using [employer] dictation software. please excuse any grammatical, word or spelling errors. Chief Complaint: 67-year-old female presents emergency department for episode of dizziness and altered mental status History of Present Illness: Patient 67-year-old female presents emergency department for dizziness and altered mental status. She has been having recently frequent episodes for the last several months. at the bedside states that patient has been confused stating that they were in [place] when they are actually at home. Patient states that this morning she woke up looked down and felt a little unsteady on her feet. She had a similar episode weeks ago and also months ago. Patient states that she feels at baseline currently at the bedside. She has an appointment with her primary care doctor in 2 days. The ROS documented in this emergency department record has been reviewed and confirmed by me. Those systems with pertinent positive or negative responses have been documented in the HPI. All other systems are other negative and/or noncontributory. (Claudio Sim) - Related Data Home Medications Medication Instructions Recorded Confirmed ALPRAZolam [Xanax] 0.25 mg PO QAM 01/02/20 12/01/22 DULoxetine HCL [Cymbalta] 60 mg PO QAM 01/02/20 12/01/22 Levothyroxine Sodium [Synthroid] 75 mcg PO DAILY 01/02/20 12/01/22 Vit C/E/Zn/Coppr/Lutein/Zeaxan 1 cap PO BID 01/02/20 12/01/22 [Preservision Areds 2 Softgel] Meclizine [Antivert] 25 mg PO BID PRN 07/16/21 12/01/22 Memantine [Namenda] 5 mg PO BID 07/16/21 12/01/22 amLODIPine [Norvasc] 5 mg PO HS 07/16/21 12/01/22 buPROPion XL [Wellbutrin XL] 150 mg PO QAM 07/16/21 12/01/22 metFORMIN HCL 500 mg PO BID 07/16/21 12/01/22 Aspirin 81 mg PO HS 09/17/21 12/01/22 Calcium Carbonate [Calcium] 1,200 mg PO DAILY 03/19/22 12/01/22 Cholecalciferol [Vitamin D3 (125 125 mcg PO DAILY 03/19/22 12/01/22 Mcg = 5000 Iu)] Metoprolol Succinate (ER) [Toprol 25 mg PO QAM 03/19/22 12/01/22 XL] Atorvastatin [Lipitor] 40 mg PO DAILY 09/18/22 12/01/22 Losartan Potassium 50 mg PO HS 11/23/22 12/01/22 Omeprazole [PriLOSEC] 40 mg PO DAILY 11/23/22 12/01/22 Previous Rx's Medication Instructions Recorded Clopidogrel [Plavix] 75 mg PO DAILY #30 tab 03/24/22 Acetaminophen Tab [Tylenol Tab] 1,000 mg PO Q6HR PRN #30 tablet 12/03/22 Simethicone [Gas-X] 125 mg PO AC-TID PRN #20 capsule 12/03/22 Allergies Allergy/AdvReac Type Severity Reaction Status Date / Time Penicillins Allergy Unknown Verified 12/03/22 10:56 Childhood prochlorperazine Allergy muscle Verified 12/03/22 10:56 [From Compazine] dyskinesia Sulfa (Sulfonamide Allergy Unknown Verified 09/29/23 17:12 Antibiotics) Review of Systems ROS Other: All systems not noted in ROS Statement are negative. <Thais Elliott - Last Filed: 09/29/23 17:21> ROS Other: All systems not noted in ROS Statement are negative. <Claudio Sim - Last Filed: 09/30/23 01:41> ROS Statement: Those systems with pertinent positive or pertinent negative responses have been documented in the HPI. Past Medical History Past Medical History: Coronary Artery Disease (CAD), Cancer, Diabetes Mellitus, Eye Disorder, GERD/Reflux, Hyperlipidemia, Hypertension, Liver Disease, Memory Impairment, Myocardial Infarction ([place]), Osteoarthritis (OA), Thyroid Disorder, Vascular Disorder Additional Past Medical History / Comment(s): Hx skin cancer on hand, nose and above lip. Macular Degeneration. Hx fall in February 2021-sustained 3 thoracic and 3 cervical fractures,does not use any assistive devices, Hx Hepatitis C w/ tx-no further problems. Last Myocardial Infarction Date:: 2003 History of Any Multi-Drug Resistant Organisms: None Reported Past Surgical History: Section, Heart Catheterization With Stent, Orthopedic Surgery Additional Past Surgical History / Comment(s): Stent X1, pain clinic procedures, right shoulder repair, angioplasty to both legs, tatiana.aortic & iliac endarterectomy & patch angioplasty in , section X2. Past Anesthesia/Blood Transfusion Reactions: No Reported Reaction Additional Past Anesthesia/Blood Transfusion Reaction / Comment(s): No hx blood transfusion. Date of Last Stent Placement:: 2003 Past Psychological History: Anxiety, Depression Smoking Status: Former smoker Past Alcohol Use History: Occasional Past Drug Use History: Marijuana - Past Family History Father Family Medical History: Coronary Artery Disease (CAD), CVA/TIA, Myocardial Infarction ([place]), Vascular Disorder Additional Family Medical History / Comment(s): Bilateral leg ulcers. <Thais Elliott - Last Filed: 09/29/23 17:21> General Exam <Thais Elliott - Last Filed: 09/29/23 17:21> <Claudio Sim - Last Filed: 09/30/23 01:41> - General Exam Comments Initial Comments: Visual Physical Exam Vital signs reviewed General: Well-appearing, nontoxic, no acute distress. Head: Normocephalic, atraumatic Eyes: PERRLA, EOMI ENT: Airway patent Chest: Nonlabored breathing Skin: No visual rash, normal skin tone Neuro: Alert and oriented 3 Musculoskeletal: No gross abnormalities (Thais Elliott) PHYSICAL EXAM: General Impression: Alert and oriented x3, not in acute distress HEENT: Normocephalic atraumatic, extra-ocular movements intact, pupils equal and reactive to light bilaterally, mucous membranes moist. Cardiovascular: Heart regular rate and rhythm Chest: Able to complete full sentences, no retractions, no tachypnea Abdomen: abdomen soft, non-tender, non-distended, no organomegaly Musculoskeletal: Pulses present and equal in all extremities, no peripheral edema Motor: no focal deficits noted Neurological: CN II-XII grossly intact, no focal motor or sensory deficits noted Skin: Intact with no visualized rashes Psych: Normal affect and mood (Claudio Sim) Course Vital Signs 09/29/23 09/29/23 09/30/23 17:06 23:30 00:00 Temperature 98.5 F Pulse Rate 77 68 69 Pulse Rate [ Left Sitting Pulse Oximetery ] Pulse Rate [ Left Standing Pulse Oximetery ] Pulse Rate [ Left Supine Pulse Oximetery ] Respiratory 18 21 17 Rate Blood Pressure 137/77 141/76 144/96 Blood Pressure [Left Arm Sitting] Blood Pressure [Left Arm Standing] Blood Pressure [Left Arm Supine] O2 Sat by Pulse 99 96 96 Oximetry 09/30/23 00:44 Temperature Pulse Rate Pulse Rate [ 69 Left Sitting Pulse Oximetery ] Pulse Rate [ 71 Left Standing Pulse Oximetery ] Pulse Rate [ 74 Left Supine Pulse Oximetery ] Respiratory Rate Blood Pressure Blood Pressure 148/81 [Left Arm Sitting] Blood Pressure 135/70 [Left Arm Standing] Blood Pressure 138/73 [Left Arm Supine] O2 Sat by Pulse 96 Oximetry Medical Decision Making <Thais Elliott - Last Filed: 09/29/23 17:21> - Lab Data Result diagrams: 09/29/23 22:36 09/29/23 18:11 <Claudio Sim - Last Filed: 09/30/23 01:41> - Medical Decision Making I completed the quick note portion of this chart signed Thais Elliott PA-C (Thais Elliott) Was pt. sent in by a medical professional or institution ([facility], IN ROOM DINING SERVER, urgent care, hospital, or residential...) When possible be specific @ -No Did you speak to anyone other than the patient for history (EMS, parent, family, police, friend...)? What history was obtained from this source @ -No Did you review nursing and triage notes (agree or disagree)? Why? @ -I reviewed and agree with nursing and triage notes Were old charts reviewed (outside hosp., previous admission, EMS record, old EKG, old radiological studies, urgent care reports/EKG's, residential records)? Report findings @ -No old charts were reviewed Differential Diagnosis (chest pain, altered mental status, abdominal pain women, abdominal pain men, vaginal bleeding, musculoskeletal, weakness, fever, dyspnea, syncope, headache, dizziness, GI bleed, back pain, seizure, CVA, palpatations, mental health)? @ -Differential Dizziness: Benign paroxysmal positional Vertigo, Menieres disease, otitis media, acoustic neuroma, vertebrobasilar insufficiency, cerebellar stroke, encephalitis, hypovol emic, arrhythmia, coronary artery syndrome, anemia, this is not meant to be an all-inclusive list EKG interpreted by me (3pts min.). @ -None done X-rays interpreted by me (1pt min.). @ -Chest x-ray is nonacute CT interpreted by me (1pt min.). @ -CT brain is negative for any acute processes U/S interpreted by me (1pt. min.). @ -None done What testing was considered but not performed or refused? (CT, X-rays, U/S, labs)? Why? @ -None What meds were considered but not given or refused? Why? @ -None Did you discuss the management of the patient with other professionals (professionals i.e. , PA, IN ROOM DINING SERVER, lab, RT, psych nurse, social media content specialist, scientific aide, teacher, marketing and communications officer, case checker)? Give summary @ -No Was smoking cessation discussed for >3mins.? @ -No Was critical care preformed (if so, how long)? @ -No Were there social determinants of health that impacted care today? How? (Homel essness, low income, unemployed, alcoholism, drug addiction, transportation, low edu. Level, literacy, decrease access to med. care, half-way, rehab)? @ -No Was there de-escalation of care discussed even if they declined (Discuss DNR or withdrawal of care, Hospice)? DNR status @ -No What co-morbidities impacted this encounter? (DM, HTN, Smoking, COPD, CAD, Cancer, CVA, ARF, Chemo, Hep., AIDS, mental health diagnosis, sleep apnea, morbid obesity)? @ -None Was patient admitted / discharged? Hospital course, mention meds given and route, prescriptions, significant lab abnormalities, going to OR and other pertinent info. @ -67-year-old female presents to the emergency department with what she re ports as feeling a little unsteady in the morning along with some episodes of altered mental status. at the bedside states that she sometimes says that they are in a different location. Vital signs upon arrival are within acceptable limits. Laboratory evaluation is unremarkable. Patient observed emergency department for several hours. Reevaluated bedside 1:40 AM patient well-appearing has no complaints and is agreeable to discharge. Advised follow- up with primary care doctor. Suspect that patient may be having some mild signs of dementia. Undiagnosed new problem with uncertain prognosis? @ -No Drug Therapy requiring intensive monitoring for toxicity (Heparin, Nitro, Insulin, Cardizem)? @ -No Were any procedures done? @ -No Diagnosis/symptom? Acute, or Chronic, or Acute on Chronic? Uncomplicated (without systemic symptoms) or Complicated (systemic symptoms)? @ -Altered mental status, morning dizziness, no high risk features Side effects of treatment? @ -No Exacerbation, Progression, or Severe Exacerbation? @ -No Poses a threat to life or bodily function? How? (Chest pain, [place], [place], pneumonia, PE, COPD, DKA, ARF, appy, cholecystitis, CVA, Diverticulitis, Homicidal, Suicidal, threat to staff... and all critical care pts) @ -No (Claudio Sim) - Lab Data Lab Results 09/29/23 09/29/23 09/29/23 Range/Units 18:10 18:10 18:11 WBC 7.1 (3.8-10.6) k/uL RBC 5.18 (3.80-5.40) m/uL Hgb 14.3 (11.4-16.0) gm/dL Hct 44.5 (34.0-46.0) % MCV 86.1 (80.0-100.0) fL MCH 27.6 (25.0-35.0) pg MCHC 32.0 (31.0-37.0) g/dL RDW 13.3 (11.5-15.5) % Plt Count 305 (150-450) k/uL MPV 9.4 Neutrophils % 62 % Lymphocytes % 23 % Monocytes % 8 % Eosinophils % 3 % Basophils % 1 % Neutrophils # 4.4 (1.3-7.7) k/uL Lymphocytes # 1.6 (1.0-4.8) k/uL Monocytes # 0.6 (0-1.0) k/uL Eosinophils # 0.2 (0-0.7) k/uL Basophils # 0.1 (0-0.2) k/uL PT (10.0-12.5) sec INR (<1.2) APTT (22.0-30.0) sec Sodium 139 (137-145) mmol/L Potassium 3.8 (3.5-5.1) mmol/L Chloride 99 (98-107) mmol/L Carbon Dioxide 32 H (22-30) mmol/L Anion Gap 8 mmol/L BUN 14 (7-17) mg/dL Creatinine 0.68 (0.52-1.04) mg/dL Est GFR (CKD-EPI)AfAm >90 (>60 ml/min/1.73 sqM) Est GFR (CKD-EPI)NonAf 90 (>60 ml/min/1.73 sqM) Glucose 131 H (74-99) mg/dL POC Glucose (mg/dL) (70-110) mg/dL POC Glu Shredding Machine Tender ID Calcium 9.6 (8.4-10.2) mg/dL Total Bilirubin 0.8 (0.2-1.3) mg/dL AST 35 (14-36) U/L ALT 24 (4-34) U/L Alkaline Phosphatase 113 (38-126) U/L Ammonia (<30) umol/L Troponin I <0.012 (0.000-0.034) ng/mL Total Protein 7.5 (6.3-8.2) g/dL Albumin 4.6 (3.5-5.0) g/dL Urine Color Urine Appearance (Clear) Urine pH (5.0-8.0) Ur Specific Maple (1.001-1.035) Urine Protein (Negative) Urine Glucose (UA) (Negative) Urine Ketones (Negative) Urine Blood (Negative) Urine Nitrite (Negative) Urine Bilirubin (Negative) Urine Urobilinogen (<2.0) mg/dL Ur Leukocyte Esterase (Negative) Salicylates mg/dL Urine Opiates Screen (NotDetected) Ur Oxycodone Screen (NotDetected) Urine Methadone Screen (NotDetected) Acetaminophen ug/mL Ur Barbiturates Screen (NotDetected) U Tricyclic Antidepress (NotDetected) Ur Phencyclidine Scrn (NotDetected) Ur Amphetamines Screen (NotDetected) U Methamphetamines Scrn (NotDetected) U Benzodiazepines Scrn (NotDetected) Urine Cocaine Screen (NotDetected) U Marijuana (THC) Screen (NotDetected) Serum Alcohol mg/dL 09/29/23 09/29/23 09/29/23 Range/Units 22:36 22:36 22:36 WBC 8.7 (3.8-10.6) k/uL RBC 5.23 (3.80-5.40) m/uL Hgb 14.6 (11.4-16.0) gm/dL Hct 46.3 H (34.0-46.0) % MCV 88.5 (80.0-100.0) fL MCH 27.9 (25.0-35.0) pg MCHC 31.6 (31.0-37.0) g/dL RDW 13.0 (11.5-15.5) % Plt Count 276 (150-450) k/uL MPV 8.9 Neutrophils % 63 % Lymphocytes % 23 % Monocytes % 7 % Eosinophils % 4 % Basophils % 1 % Neutrophils # 5.4 (1.3-7.7) k/uL Lymphocytes # 2.0 (1.0-4.8) k/uL Monocytes # 0.6 (0-1.0) k/uL Eosinophils # 0.4 (0-0.7) k/uL Basophils # 0.1 (0-0.2) k/uL PT 10.4 (10.0-12.5) sec INR 0.9 (<1.2) APTT 23.4 (22.0-30.0) sec Sodium (137-145) mmol/L Potassium (3.5-5.1) mmol/L Chloride (98-107) mmol/L Carbon Dioxide (22-30) mmol/L Anion Gap mmol/L BUN (7-17) mg/dL Creatinine (0.52-1.04) mg/dL Est GFR (CKD-EPI)AfAm (>60 ml/min/1.73 sqM) Est GFR (CKD-EPI)NonAf (>60 ml/min/1.73 sqM) Glucose (74-99) mg/dL POC Glucose (mg/dL) (70-110) mg/dL POC Glu Shredding Machine Tender ID Calcium (8.4-10.2) mg/dL Total Bilirubin (0.2-1.3) mg/dL AST (14-36) U/L ALT (4-34) U/L Alkaline Phosphatase (38-126) U/L Ammonia <9 (<30) umol/L Troponin I (0.000-0.034) ng/mL Total Protein (6.3-8.2) g/dL Albumin (3.5-5.0) g/dL Urine Color Urine Appearance (Clear) Urine pH (5.0-8.0) Ur Specific Maple (1.001-1.035) Urine Protein (Negative) Urine Glucose (UA) (Negative) Urine Ketones (Negative) Urine Blood (Negative) Urine Nitrite (Negative) Urine Bilirubin (Negative) Urine Urobilinogen (<2.0) mg/dL Ur Leukocyte Esterase (Negative) Salicylates mg/dL Urine Opiates Screen (NotDetected) Ur Oxycodone Screen (NotDetected) Urine Methadone Screen (NotDetected) Acetaminophen ug/mL Ur Barbiturates Screen (NotDetected) U Tricyclic Antidepress (NotDetected) Ur Phencyclidine Scrn (NotDetected) Ur Amphetamines Screen (NotDetected) U Methamphetamines Scrn (NotDetected) U Benzodiazepines Scrn (NotDetected) Urine Cocaine Screen (NotDetected) U Marijuana (THC) Screen (NotDetected) Serum Alcohol mg/dL 09/29/23 09/29/23 09/30/23 Range/Units 22:36 23:33 00:47 WBC (3.8-10.6) k/uL RBC (3.80-5.40) m/uL Hgb (11.4-16.0) gm/dL Hct (34.0-46.0) % MCV (80.0-100.0) fL MCH (25.0-35.0) pg MCHC (31.0-37.0) g/dL RDW (11.5-15.5) % Plt Count (150-450) k/uL MPV Neutrophils % % Lymphocytes % % Monocytes % % Eosinophils % % Basophils % % Neutrophils # (1.3-7.7) k/uL Lymphocytes # (1.0-4.8) k/uL Monocytes # (0-1.0) k/uL Eosinophils # (0-0.7) k/uL Basophils # (0-0.2) k/uL PT (10.0-12.5) sec INR (<1.2) APTT (22.0-30.0) sec Sodium (137-145) mmol/L Potassium (3.5-5.1) mmol/L Chloride (98-107) mmol/L Carbon Dioxide (22-30) mmol/L Anion Gap mmol/L BUN (7-17) mg/dL Creatinine (0.52-1.04) mg/dL Est GFR (CKD-EPI)AfAm (>60 ml/min/1.73 sqM) Est GFR (CKD-EPI)NonAf (>60 ml/min/1.73 sqM) Glucose (74-99) mg/dL POC Glucose (mg/dL) 122 H (70-110) mg/dL POC Glu Shredding Machine Tender ID Cole, Irena, Rand Calcium (8.4-10.2) mg/dL Total Bilirubin (0.2-1.3) mg/dL AST (14-36) U/L ALT (4-34) U/L Alkaline Phosphatase (38-126) U/L Ammonia (<30) umol/L Troponin I (0.000-0.034) ng/mL Total Protein (6.3-8.2) g/dL Albumin (3.5-5.0) g/dL Urine Color Urine Appearance (Clear) Urine pH (5.0-8.0) Ur Specific Maple (1.001-1.035) Urine Protein (Negative) Urine Glucose (UA) (Negative) Urine Ketones (Negative) Urine Blood (Negative) Urine Nitrite (Negative) Urine Bilirubin (Negative) Urine Urobilinogen (<2.0) mg/dL Ur Leukocyte Esterase (Negative) Salicylates <1.0 mg/dL Urine Opiates Screen Not Detected (NotDetected) Ur Oxycodone Screen Not Detected (NotDetected) Urine Methadone Screen Not Detected (NotDetected) Acetaminophen <10.0 ug/mL Ur Barbiturates Screen Not Detected (NotDetected) U Tricyclic Antidepress Not Detected (NotDetected) Ur Phencyclidine Scrn Not Detected (NotDetected) Ur Amphetamines Screen Not Detected (NotDetected) U Methamphetamines Scrn Not Detected (NotDetected) U Benzodiazepines Scrn Not Detected (NotDetected) Urine Cocaine Screen Not Detected (NotDetected) U Marijuana (THC) Screen Not Detected (NotDetected) Serum Alcohol <10 mg/dL 09/30/23 Range/Units 00:47 WBC (3.8-10.6) k/uL RBC (3.80-5.40) m/uL Hgb (11.4-16.0) gm/dL Hct (34.0-46.0) % MCV (80.0-100.0) fL MCH (25.0-35.0) pg MCHC (31.0-37.0) g/dL RDW (11.5-15.5) % Plt Count (150-450) k/uL MPV Neutrophils % % Lymphocytes % % Monocytes % % Eosinophils % % Basophils % % Neutrophils # (1.3-7.7) k/uL Lymphocytes # (1.0-4.8) k/uL Monocytes # (0-1.0) k/uL Eosinophils # (0-0.7) k/uL Basophils # (0-0.2) k/uL PT (10.0-12.5) sec INR (<1.2) APTT (22.0-30.0) sec Sodium (137-145) mmol/L Potassium (3.5-5.1) mmol/L Chloride (98-107) mmol/L Carbon Dioxide (22-30) mmol/L Anion Gap mmol/L BUN (7-17) mg/dL Creatinine (0.52-1.04) mg/dL Est GFR (CKD-EPI)AfAm (>60 ml/min/1.73 sqM) Est GFR (CKD-EPI)NonAf (>60 ml/min/1.73 sqM) Glucose (74-99) mg/dL POC Glucose (mg/dL) (70-110) mg/dL POC Glu Shredding Machine Tender ID Calcium (8.4-10.2) mg/dL Total Bilirubin (0.2-1.3) mg/dL AST (14-36) U/L ALT (4-34) U/L Alkaline Phosphatase (38-126) U/L Ammonia (<30) umol/L Troponin I (0.000-0.034) ng/mL Total Protein (6.3-8.2) g/dL Albumin (3.5-5.0) g/dL Urine Color Colorless Urine Appearance Clear (Clear) Urine pH 7.0 (5.0-8.0) Ur Specific Maple 1.006 (1.001-1.035) Urine Protein Negative (Negative) Urine Glucose (UA) 4+ H (Negative) Urine Ketones Negative (Negative) Urine Blood Negative (Negative) Urine Nitrite Negative (Negative) Urine Bilirubin Negative (Negative) Urine Urobilinogen <2.0 (<2.0) mg/dL Ur Leukocyte Esterase Negative (Negative) Salicylates mg/dL Urine Opiates Screen (NotDetected) Ur Oxycodone Screen (NotDetected) Urine Methadone Screen (NotDetected) Acetaminophen ug/mL Ur Barbiturates Screen (NotDetected) U Tricyclic Antidepress (NotDetected) Ur Phencyclidine Scrn (NotDetected) Ur Amphetamines Screen (NotDetected) U Methamphetamines Scrn (NotDetected) U Benzodiazepines Scrn (NotDetected) Urine Cocaine Screen (NotDetected) U Marijuana (THC) Screen (NotDetected) Serum Alcohol mg/dL Disposition <Thais Elliott - Last Filed: 09/29/23 17:21> Is patient prescribed a controlled substance at d/c from ED?: No Time of Disposition: 01:41 <Claudio Sim - Last Filed: 09/30/23 01:41> Clinical Impression: Altered mental status Disposition: HOME SELF-CARE Condition: Good Instructions (If sedation given, give patient instructions): Altered Mental S tatus (ED) Referrals: Rocky Freeman MD [Primary Care Provider] - 1-2 days
[2023-09-29 18:27] LABS: Basophils # (A) 0.1 k/uL (0-0.2); Basophils % (A) 1 %; Eosinophils # (A) 0.2 k/uL (0-0.7); Eosinophils % (A) 3 %; HCT 44.5 % (34.0-46.0); HGB 14.3 gm/dL (11.4-16.0); Lymphocytes # (A) 1.6 k/uL (1.0-4.8); Lymphocytes % (A) 23 %; MCH 27.6 pg (25.0-35.0); MCV 86.1 fL (80.0-100.0); Mean Platelet Volume 9.4; Monocytes # (A) 0.6 k/uL (0-1.0); Monocytes % (A) 8 %; Neutrophils # (A) 4.4 k/uL (1.3-7.7); Neutrophils % (A) 62 %; Platelet Count 305 k/uL (150-450); RBC 5.18 m/uL (3.80-5.40); RDW 13.3 % (11.5-15.5); WBC 7.1 k/uL (3.8-10.6)
[2023-09-29 18:50] LABS: ALT 24 U/L (4-34); African American GFR (CKD) >90 (>60 ml/min/1.73 sqM); Anion Gap 8 mmol/L; Blood Urea Nitrogen 14 mg/dL (7-17); Calcium 9.6 mg/dL (8.4-10.2); Carbon Dioxide 32 mmol/L (22-30); Chloride 99 mmol/L (98-107); Glucose 131 mg/dL (74-99); Non-African American GFR(CKD) 90 (>60 ml/min/1.73 sqM); Sodium 139 mmol/L (137-145); Total Bilirubin 0.8 mg/dL (0.2-1.3)
[2023-09-29 18:55] LABS: AST 35 U/L (14-36); Potassium 3.8 mmol/L (3.5-5.1)
[2023-09-29 18:56] LABS: Albumin 4.6 g/dL (3.5-5.0); Alkaline Phosphatase 113 U/L (38-126); Total Protein 7.5 g/dL (6.3-8.2)
--- NOTE | 2023-09-29 19:55 | XR ---
EXAMINATION TYPE: XR chest 2V DATE OF EXAM: 09/29/2023 7:51 PM CLINICAL INDICATION:Female, 67 years old with history of altered mental status; [facility] COMPARISON: Chest radiographs from 09/11/2023. TECHNIQUE: XR chest 2V Frontal and lateral views of the chest. FINDINGS: Lungs/Pleura: Subsegmental atelectasis present in the lung bases. No pleural effusion or pneumothorax . Pulmonary vascularity: Unremarkable. Heart/mediastinum: Cardiomediastinal silhouette is unremarkable. Atherosclerotic calcifications are seen in the aorta. Musculoskeletal: No acute osseous pathology. IMPRESSION: No acute cardiopulmonary disease/process.
--- NOTE | 2023-09-29 20:09 | CT ---
EXAMINATION TYPE: CT brain wo con CT DLP: 1050.8 mGycm, Automated exposure control for dose reduction was used. DATE OF EXAM: 09/29/2023 8:01 PM COMPARISON: CT brain 03/25/2022. CLINICAL INDICATION:Female, 67 years old with history of Altered mental status, AMS. TECHNIQUE: Brain: Axial CT images of the brain were obtained with coronal and sagittal reformats created and rev iewed. Contrast used: None. Oral contrast used: None. FINDINGS: Brain: Extra-axial spaces: No abnormal extra-axial fluid collections. Ventricular system: Within normal limits Cerebral parenchyma: No acute intraparenchymal hemorrhage or mass effect. The najera-white junction is well differentiated. Scattered hypoattenuating areas are seen within the white matter. Mild general ized parenchymal atrophy. Cerebellum: Unremarkable. Mass effect: No evidence of midline shift. Intracranial vasculature: unremarkable Soft tissues: Normal. Calvarium/osseous structures: No depressed skull fracture. Paranasal sinuses and mastoid air cells: Mild scattered paranasal sinus disease. Visualized orbits: Bilateral aphakia IMPRESSION: 1. No acute intracranial process. 2. Nonspecific white matter changes, likely secondary to chronic small vessel ischemic disease.
[2023-09-29 22:41] LABS: Basophils # (A) 0.1 k/uL (0-0.2); Basophils % (A) 1 %; Eosinophils # (A) 0.4 k/uL (0-0.7); Eosinophils % (A) 4 %; HCT 46.3 % (34.0-46.0); HGB 14.6 gm/dL (11.4-16.0); Lymphocytes % (A) 23 %; MCH 27.9 pg (25.0-35.0); MCHC 31.6 g/dL (31.0-37.0); MCV 88.5 fL (80.0-100.0); Mean Platelet Volume 8.9; Monocytes # (A) 0.6 k/uL (0-1.0); Monocytes % (A) 7 %; Neutrophils # (A) 5.4 k/uL (1.3-7.7); Neutrophils % (A) 63 %; Platelet Count 276 k/uL (150-450); RBC 5.23 m/uL (3.80-5.40); WBC 8.7 k/uL (3.8-10.6)
[2023-09-29 22:49] LABS: Acetaminophen <10.0 ug/mL; Alcohol <10 mg/dL; Salicylate <1.0 mg/dL
[2023-09-29 22:50] LABS: INR 0.9 (<1.2); Partial Thromboplastin Time 23.4 sec (22.0-30.0); Prothrombin Time 10.4 sec (10.0-12.5)
[2023-09-29] MEDS: SODIUM CHLORIDE 0.9% 1,000 ML IV ONE (23:28)
[2023-09-29 23:34] LABS: Glucose,Whole Blood 122 mg/dL (70-110)
[2023-09-30 01:11] LABS: Appearance,Urine Clear (Clear); Bilirubin,Urine Negative (Negative); Blood,Urine Negative (Negative); Color,Urine Colorless; Glucose,Urine (UA) 4+ (Negative); Ketones,Urine Negative (Negative); Leukocyte Esterase,Urine Negative (Negative); Nitrite,Urine Negative (Negative); Protein,Urine Negative (Negative); Specific Gravity,Urine 1.006 (1.001-1.035); Urobilinogen,Urine <2.0 mg/dL (<2.0)
[2023-09-30 01:31] LABS: Amphetamine Screen,Urine Not Detected (NotDetected); Barbiturate Screen,Urine Not Detected (NotDetected); Benzodiazepines Screen,Urine Not Detected (NotDetected); Cocaine Screen,Urine Not Detected (NotDetected); Methadone Screen, Urine Not Detected (NotDetected); Opiate Screen,Urine Not Detected (NotDetected); Oxycodone Screen, Urine Not Detected (NotDetected); Phencyclidine Screen,Urine Not Detected (NotDetected); Tricyclic Antidepressant,Urine Not Detected (NotDetected); Urn Cannabinoid Scrn Not Detected (NotDetected)
[2023-09-30 01:53] VITALS: BP 131/86; PULSE 71; RESP 18; TEMP 98.4
== END 2023-09-30 01:53 | disposition home or self-care (01) ==
LOC: EC 16:48
DX: R41.82 Altered mental status, unspecified (principal); R42 Dizziness and giddiness; Z88.0 Allergy status to penicillin; Z88.2 Allergy status to sulfonamides; Z88.8 Allergy status to other drugs, medicaments and biological substances; Z87.891 Personal history of nicotine dependence
CPT/HCPCS: 36415; 93005; 80053; 82140; 84484; 85025; 85610; 85730; 81003; 80306; 80143; 80179; 71046; 70450; 99285; 96360; G0480; 80320

== ENCOUNTER → 2023-10-27 | Outpatient (CLI) | payer MEDICARE, BC ==
--- NOTE | 2023-10-28 08:09 | US ---
EXAMINATION TYPE: US carotid duplex BILAT DATE OF EXAM: 10/27/2023 COMPARISON: NONE CLINICAL INDICATION: Female, 67 years old with history of R41.3 OTHER AMNESIA; memory loss TECHNIQUE: Carotid duplex ultrasound examination. Indirect Doppler criteria was utilized. FINDINGS: EXAM MEASUREMENTS: RIGHT: Peak Systolic Velocity (PSV) cm/sec ----- Right CCA: 53.6 ----- Right ICA: 76.9 ----- Right ECA: 76.9 ICA/CCA ratio: 1.4 RIGHT: End Diastole cm/sec ----- Right CCA: 5.7 ----- Right ICA: 17.3 ----- Right ECA: 7.1 LEFT: Peak Systolic Velocity (PSV) cm/sec ----- Left CCA: 65.3 ----- Left ICA: 161.7 ----- Left ECA: 61.6 ICA/CCA ratio: 2.5 LEFT: End Diastole cm/sec ----- Left CCA: 8.6 ----- Left ICA: 15.3 ----- Left ECA: 0 VERTEBRALS (direction of flow): Right Vertebral: Antegrade Left Vertebral: Antegrade Rhythm: Normal SIDE PULLER NOTES: No significant stenosis seen IMPRESSION: 1. Less than 50% stenosis of the right bifurcation. 2. 50-69% stenosis of the left carotid bifurcation. Criteria for Assigning % of Stenosis / Diameter reduction (Estimation based on the indirect measurements of the internal carotid artery velocities (ICA PSV). 1. Normal (no stenosis)=ICA PSV < 125 cm/s: ratio < 2.0: ICA EDV<40 cm/s. 2. Less than 50% stenosis=ICA PSV < 125 cm/s: ratio < 2.0: ICA EDV<40 cm/s. 3. 50 to 69% stenosis=ICA PSV of 125 to 230 cm/s: ration 2.0 ? 4.0: ICA EDV 40-100 cm/s. 4. Greater than 70% stenosis to near occlusion= ICA PSV > 230 cm/s: ratio > 4.0: ICA EDV > 100 cm/s. 5. Near occlusion= ICA PSV velocities may be low or undetectable: variable ratio and ICA EDV. 6. Total occlusion=unable to detect flow.
== END | disposition home or self-care (01) ==
LOC: RADUSWWP 15:48
PROVIDERS: ATTEND Psychiatry & Neurology Neurology
DX: I65.22 Occlusion and stenosis of left carotid artery (principal); R41.3 Other amnesia; R20.2 Paresthesia of skin; R41.0 Disorientation, unspecified
CPT/HCPCS: 93880

== ENCOUNTER → 2024-01-09 | Outpatient (CLI) | payer MEDICARE, BC | END | disposition home or self-care (01) | LOC: LABWHC1 12:13 | PROVIDERS: ATTEND Internal Medicine | DX: Z00.00 Encounter for general adult medical examination without abnormal findings | CPT/HCPCS: 36415; 82272 ==

== ENCOUNTER → 2024-01-13 | Outpatient (CLI) | payer MEDICARE, BC ==
--- NOTE | 2024-01-13 19:02 | XR ---
EXAMINATION TYPE: XR sacroiliac joint comp BILAT DATE OF EXAM: 01/13/2024 COMPARISON: 01/13/2024 HISTORY: Pain after fall TECHNIQUE: 3 views sacroiliac joints FINDINGS: Sacroiliac joints are patent. No acute fractures are evident. Symphysis pubis is unremarkab le. IMPRESSION: 1. No acute osseous abnormality bilateral sacroiliac joints [facility], , 01/13/2024 6:59 PM
--- NOTE | 2024-01-14 12:10 | XR ---
EXAMINATION TYPE: XR Hip LT and AP Pelvis DATE OF EXAM: 01/13/2024 COMPARISON: None HISTORY: Pain after fall TECHNIQUE: Left hip is examined in 2 views supplemented with an AP pelvis. FINDINGS: Femoral heads articulate with the acetabulum. No acute fracture or dislocation evident. Sac roiliac joints and symphysis pubis are normal. Follow up exams can be performed as clinically indicat ed IMPRESSION: 1. No acute osseous abnormality left hip [facility], , 01/14/2024 12:08 PM
== END | disposition home or self-care (01) ==
LOC: RADXRMAIN 16:36
PROVIDERS: ATTEND Internal Medicine
DX: M25.552 Pain in left hip (principal); W19.XXXA Unspecified fall, initial encounter
CPT/HCPCS: 72202; 73502

== ENCOUNTER → 2024-01-18 | Outpatient (CLI) | payer MEDICARE, BC ==
[2024-01-18 14:14] LABS: Creatinine,Urine Random 122.9 mg/dL; Protein/Creatinine Ratio,Urine 0.041
[2024-01-18 20:37] LABS: Basophils # (A) 0.06 X 10*3/uL (0.00-0.10); Basophils % (A) 1.1 %; Eosinophils # (A) 0.19 X 10*3/uL (0.04-0.35); Eosinophils % (A) 3.4 %; HCT 47.6 % (37.2-46.3); HGB 14.9 g/dL (12.0-15.0); Lymphocytes # (A) 1.92 X 10*3/uL (0.90-5.00); Lymphocytes % (A) 34.5 %; MCH 26.9 pg (27.0-32.0); MCHC 31.3 g/dL (32.0-37.0); MCV 86.1 FL (80.0-97.0); Mean Platelet Volume 11.4 FL (9.5-12.2); Monocytes # (A) 0.42 X 10*3/uL (0.20-1.00); Monocytes % (A) 7.5 %; NRBC Per 100 WBC 0 X 10*3/uL (0.00-0.01); Neutrophils # (A) 2.97 X 10*3/uL (1.80-7.70); Neutrophils % (A) 53.3 %; Platelet Count 203 X 10*3/uL (140-440); RBC 5.53 X 10*6/uL (4.10-5.20); RDW 14.6 % (11.5-14.5); WBC 5.57 X 10*3/uL (4.50-10.00)
[2024-01-18 20:44] LABS: Appearance,Urine Clear (Clear); Bilirubin,Urine Negative (Negative); Blood,Urine Negative (Negative); Color,Urine Yellow (Yellow); Ketones,Urine Negative (Negative); Nitrite,Urine Negative (Negative); Specific Gravity,Urine >1.035 (1.001-1.030); Urobilinogen,Urine 0.2
[2024-01-18 21:15] LABS: Microalbumin Creatinine Ratio <10 mg/g Cr (0-30)
[2024-01-18 21:18] LABS: Erythrocyte Sedimentation Rate 5 mm/Hr (0-30)
[2024-01-18 21:50] LABS: Hepatitis A Antibody IgM Nonreactive (Nonreactive); Hepatitis B Core IgM Reactive (Nonreactive); Hepatitis B Surface Antigen Nonreactive (Nonreactive); Hepatitis C IgG Antibody Reactive (Nonreactive); Thyroid Peroxidase Antibodies <9.0 U/mL (0.0-33.0)
[2024-01-18 22:32] LABS: % Iron Saturation 10.78 (12.00-45.00); C Reactive Protein <0.30 mg/dL (0.00-0.80); Chol/HDL Ratio 3.42 Ratio; Creatine Kinase 64 U/L (26-186); Ferritin 31.1 ng/mL (10.0-291.0); Iron 43 UG/DL (50-170); LDL Cholesterol,Calculated 49.3 mg/dL (0.0-131.0); Magnesium 1.9 mg/dL (1.5-2.4); Phosphorus 3.6 mg/dL (2.4-5.1); T4, Free (Free Thyroxine) 0.86 ng/dL (0.80-1.80); Total Iron Binding Capacity 399 UG/DL (228-460); Uric Acid 5.1 mg/dL (2.9-7.7)
[2024-01-18 22:34] LABS: ALT 37 U/L (8-44); AST 33 U/L (13-35); Albumin 4.6 g/dL (3.8-4.9); Albumin/Globulin Ratio 1.77 Ratio (1.60-3.17); Alkaline Phosphatase 163 U/L (41-126); Blood Urea Nitrogen 11.6 mg/dL (9.0-27.0); Calcium 9.5 mg/dL (8.7-10.3); Carbon Dioxide 22.7 mmol/L (21.6-31.8); Chloride 103 mmol/L (96-109); Globulin 2.6 g/dL (1.6-3.3); Glucose 173 mg/dL (70-110); Potassium 4.6 mmol/L (3.5-5.5); Sodium 142 mmol/L (135-145); Total Bilirubin 0.3 mg/dL (0.3-1.2); Total Protein 7.2 g/dL (6.2-8.2)
[2024-01-20 00:08] LABS: DNA Double-Stranded Negative (Negative)
== END | disposition home or self-care (01) ==
LOC: LABWHC1 12:04
PROVIDERS: ATTEND Internal Medicine
DX: Z00.00 Encounter for general adult medical examination without abnormal findings (principal); I10 Essential (primary) hypertension; M10.9 Gout, unspecified; E78.5 Hyperlipidemia, unspecified; E11.65 Type 2 diabetes mellitus with hyperglycemia; N39.0 Urinary tract infection, site not specified; M81.0 Age-related osteoporosis without current pathological fracture; E55.9 Vitamin D deficiency, unspecified; D64.9 Anemia, unspecified; R80.9 Proteinuria, unspecified
CPT/HCPCS: 36415; 80053; 80061; 80074; 81003; 82043; 82306; 82550; 82570; 82728; 83036; 83540; 83550; 83735; 84100; 84156; 84439; 84443; 84550; 85025; 85652; 86038; 86140; 86225; 86376; 86800; 87086

== ENCOUNTER → 2024-02-22 | Outpatient (CLI) | payer MEDICARE, BC ==
[2024-02-22 19:10] LABS: Protein, Total 7.9 g/dL (6.2-8.2)
[2024-02-22 19:14] LABS: Basophils # (A) 0.07 X 10*3/uL (0.00-0.10); Basophils % (A) 0.9 %; Eosinophils # (A) 0.29 X 10*3/uL (0.04-0.35); Eosinophils % (A) 3.8 %; HCT 49.6 % (37.2-46.3); HGB 15.6 g/dL (12.0-15.0); Lymphocytes # (A) 2.66 X 10*3/uL (0.90-5.00); Lymphocytes % (A) 35.2 %; MCH 26.8 pg (27.0-32.0); MCHC 31.5 g/dL (32.0-37.0); MCV 85.1 FL (80.0-97.0); Mean Platelet Volume 11.6 FL (9.5-12.2); Monocytes # (A) 0.47 X 10*3/uL (0.20-1.00); Monocytes % (A) 6.2 %; NRBC Per 100 WBC 0 X 10*3/uL (0.00-0.01); Neutrophils # (A) 4.05 X 10*3/uL (1.80-7.70); Neutrophils % (A) 53.6 %; Platelet Count 266 X 10*3/uL (140-440); RBC 5.83 X 10*6/uL (4.10-5.20); RDW 14.1 % (11.5-14.5); Rheumatoid Factor, Qnt <15 IU/mL (0-15); WBC 7.56 X 10*3/uL (4.50-10.00)
[2024-02-22 22:08] LABS: Cyclic Citrull Pep IgG Unit <1.5 U/mL (<=3.9); Cyclic Citrullinated Pep IgG Negative
[2024-02-23 11:23] LABS: Smooth Muscle Antibody 5 UNITS (<20)
[2024-02-23 12:02] LABS: C-ANCA <1:20 Titer (<1:20)
== END | disposition home or self-care (01) ==
LOC: LABWHC1 14:21
PROVIDERS: ATTEND Internal Medicine
DX: K75.9 Inflammatory liver disease, unspecified (principal)
CPT/HCPCS: 36415; 83516; 83735; 84165; 85025; 86160; 86162; 86200; 86255; 86334; 86335; 86431; 87522

== ENCOUNTER → 2024-06-26 | Outpatient (CLI) | payer MEDICARE, BC ==
--- NOTE | 2024-06-26 14:30 | XR ---
EXAMINATION TYPE: XR chest 2V DATE OF EXAM: 06/26/2024 CLINICAL INDICATION: Female, 68 years old with history of R05.9 Z11.2 Z13.9 Z11.52 J06.9 J12.9, TECHNIQUE: Frontal and lateral views of the chest are obtained. COMPARISON: Chest x-ray September 29, 2023 FINDINGS: There is some chronic parenchymal change without suspicious focal air space opacity, pleur al effusion, or pneumothorax seen. The cardiac silhouette size is stable and within normal limits. The osseous structures remain demineralized. IMPRESSION: Chronic changes without acute pulmonary process. [facility], , 06/26/2024 2:28 PM
[2024-06-26 14:57] LABS: Influenza A Not Detected (Not Detectd); Influenza B Not Detected (Not Detectd); RSV Not Detected (Not Detectd)
[2024-06-26 21:27] LABS: HCT 43.4 % (37.2-46.3); HGB 13.5 g/dL (12.0-15.0); MCH 27.8 pg (27.0-32.0); MCHC 31.1 g/dL (32.0-37.0); MCV 89.5 FL (80.0-97.0); Mean Platelet Volume 11.5 FL (9.5-12.2); NRBC Per 100 WBC 0 X 10*3/uL (0.00-0.01); Platelet Count 260 X 10*3/uL (140-440); RBC 4.85 X 10*6/uL (4.10-5.20); RDW 14.1 % (11.5-14.5); WBC 7.07 X 10*3/uL (4.50-10.00)
[2024-06-26 21:28] LABS: Basophils # (A) 0.06 X 10*3/uL (0.00-0.10); Basophils % (A) 0.8 %; Eosinophils # (A) 0.19 X 10*3/uL (0.04-0.35); Eosinophils % (A) 2.7 %; Lymphocytes # (A) 2.65 X 10*3/uL (0.90-5.00); Lymphocytes % (A) 37.5 %; Monocytes % (A) 7.1 %; Neutrophils # (A) 3.63 X 10*3/uL (1.80-7.70); Neutrophils % (A) 51.3 %
== END | disposition home or self-care (01) ==
LOC: LABWHC1 13:31
PROVIDERS: ATTEND Internal Medicine
DX: Z11.2 Encounter for screening for other bacterial diseases (principal); Z13.9 Encounter for screening, unspecified; Z11.52 Encounter for screening for COVID-19; R05.9 Cough, unspecified; J06.9 Acute upper respiratory infection, unspecified; J12.9 Viral pneumonia, unspecified
CPT/HCPCS: 36415; 71046; 85025; 87636

== ENCOUNTER 2024-08-15 01:31 | Emergency (ER) | payer MEDICARE, BC ==
[2024-08-15 01:42] VITALS: TEMP 97.4
[2024-08-15] MEDS: SODIUM CHLORIDE 0.9% 1,000 ML IV ONE (02:35)
--- NOTE | 2024-08-15 02:46 | ED ---
General Adult HPI - General Chief complaint: Recheck/Abnormal Lab/Rx Stated complaint: irregular BP Time Seen by Provider: 08/15/24 02:11 Source: patient Mode of arrival: wheelchair Limitations: no limitations - History of Present Illness Initial comments: This patient is a 68-year-old woman who presents to have evaluation because she noted that her blood pressure was low at home. She states it was running in the neighborhood of 98-100 over 50s and then it did dip into the 40s and the diastolic and she felt she should be evaluated. The patient states that she has been feeling more fatigued than usual going back 1 to 2 days. She states she also has been taking less fluid as her icemaker broke and she does not like to take room temperature water. She is not having symptoms of infection. She is not having chest, abdomen, or back pain. Onset/Timin -: days(s) Severity scale (1-10): 0 Consistency: constant Improves with: none Worsens with: none Associated Symptoms: weakness, other (Fatigue) Treatments Prior to Arrival: none - Related Data Home Medications Medication Instructions Recorded Confirmed ALPRAZolam [Xanax] 0.25 mg PO QAM 01/02/20 12/01/22 DULoxetine HCL [Cymbalta] 60 mg PO QAM 01/02/20 12/01/22 Levothyroxine Sodium [Synthroid] 75 mcg PO DAILY 01/02/20 12/01/22 Vit C/E/Zn/Coppr/Lutein/Zeaxan 1 cap PO BID 01/02/20 12/01/22 [Preservision Areds 2 Softgel] Meclizine [Antivert] 25 mg PO BID PRN 07/16/21 12/01/22 Memantine [Namenda] 5 mg PO BID 07/16/21 12/01/22 amLODIPine [Norvasc] 5 mg PO HS 07/16/21 12/01/22 buPROPion XL [Wellbutrin XL] 150 mg PO QAM 07/16/21 12/01/22 metFORMIN HCL 500 mg PO BID 07/16/21 12/01/22 Aspirin 81 mg PO HS 09/17/21 12/01/22 Calcium Carbonate [Calcium] 1,200 mg PO DAILY 03/19/22 12/01/22 Cholecalciferol [Vitamin D3 (125 125 mcg PO DAILY 03/19/22 12/01/22 Mcg = 5000 Iu)] Metoprolol Succinate (ER) [Toprol 25 mg PO QAM 03/19/22 12/01/22 XL] Atorvastatin [Lipitor] 40 mg PO DAILY 09/18/22 12/01/22 Losartan Potassium 50 mg PO HS 11/23/22 12/01/22 Omeprazole [PriLOSEC] 40 mg PO DAILY 11/23/22 12/01/22 Previous Rx's Medication Instructions Recorded Clopidogrel [Plavix] 75 mg PO DAILY #30 tab 03/24/22 Acetaminophen Tab [Tylenol Tab] 1,000 mg PO Q6HR PRN #30 tablet 12/03/22 Simethicone [Gas-X] 125 mg PO AC-TID PRN #20 capsule 12/03/22 Magnesium Oxide [Magox 400] 400 mg PO DAILY #20 tablet 08/15/24 Potassium Chloride ER [K-Dur 20] 20 meq PO BID #10 tab 08/15/24 Allergies Allergy/AdvReac Type Severity Reaction Status Date / Time Penicillins Allergy Unknown Verified 12/03/22 10:56 Childhood prochlorperazine Allergy muscle Verified 12/03/22 10:56 [From Compazine] dyskinesia Sulfa (Sulfonamide Allergy Unknown Verified 09/29/23 17:12 Antibiotics) Review of Systems ROS Statement: Those systems with pertinent positive or pertinent negative responses have been documented in the HPI. ROS Other: All systems not noted in ROS Statement are negative. Constitutional: Reports: weakness. Denies: fever, chills Eyes: Denies: vision change ENT: Denies: throat pain, congestion Respiratory: Denies: cough, dyspnea, wheezes Cardiovascular: Denies: chest pain, palpitations, orthopnea, edema, syncope Endocrine: Reports: fatigue Gastrointestinal: Denies: abdominal pain, nausea, vomiting, diarrhea Genitourinary: Denies: dysuria, frequency, hematuria Musculoskeletal: Denies: back pain Skin: Denies: rash Neurological: Denies: headache, weakness, numbness Past Medical History Past Medical History: Coronary Artery Disease (CAD), Cancer, Diabetes Mellitus, Eye Disorder, GERD/Reflux, Hyperlipidemia, Hypertension, Liver Disease, Memory Impairment, Myocardial Infarction ([place]), Osteoarthritis (OA), Thyroid Disorder, Vascular Disorder Additional Past Medical History / Comment(s): Hx skin cancer on hand, nose and above lip. Macular Degeneration. Hx fall in February 2021-sustained 3 thoracic and 3 cervical fractures,does not use any assistive devices, Hx Hepatitis C w/ tx-no further problems. Last Myocardial Infarction Date:: 2003 History of Any Multi-Drug Resistant Organisms: None Reported Past Surgical History: Section, Heart Catheterization With Stent, Orthopedic Surgery Additional Past Surgical History / Comment(s): Stent X1, pain clinic procedures, right shoulder repair, angioplasty to both legs, tatiana.aortic & iliac endarterectomy & patch angioplasty in Mar., section X2. Past Anesthesia/Blood Transfusion Reactions: No Reported Reaction Additional Past Anesthesia/Blood Transfusion Reaction / Comment(s): No hx blood transfusion. Date of Last Stent Placement:: 2003 Past Psychological History: Anxiety, Depression Smoking Status: Former smoker Past Alcohol Use History: Occasional Past Drug Use History: Marijuana - Past Family History Father Family Medical History: Coronary Artery Disease (CAD), CVA/TIA, Myocardial Infarction ([place]), Vascular Disorder Additional Family Medical History / Comment(s): Bilateral leg ulcers. General Exam Limitations: no limitations General appearance: alert, in no apparent distress Head exam: Present: atraumatic, normocephalic Eye exam: Present: normal appearance. Absent: scleral icterus, conjunctival injection ENT exam: Present: normal oropharynx, mucous membranes dry Neck exam: Present: normal inspection, full ROM Respiratory exam: Present: normal lung sounds bilaterally. Absent: respiratory distress, wheezes, rales, rhonchi, stridor, accessory muscle use Cardiovascular Exam: Present: regular rate, normal rhythm, normal heart sounds. Absent: systolic murmur, diastolic murmur, rubs, gallop GI/Abdominal exam: Present: soft. Absent: distended, tenderness, guarding, rebound, rigid, mass Extremities exam: Present: normal inspection, normal capillary refill. Absent: pedal edema, calf tenderness Back exam: Present: normal inspection. Absent: CVA tenderness (R), CVA tenderness (L) Neurological exam: Present: alert, oriented X3, CN II-XII intact. Absent: motor sensory deficit Skin exam: Present: warm, dry, intact, normal color. Absent: rash Course Vital Signs 08/15/24 08/15/24 08/15/24 01:37 02:00 02:15 Temperature 97.4 F L Pulse Rate 66 64 61 Respiratory 16 18 18 Rate Blood Pressure 112/65 102/57 114/60 O2 Sat by Pulse 98 98 97 Oximetry 08/15/24 08/15/24 08/15/24 02:30 02:45 03:00 Temperature Pulse Rate 62 64 68 Respiratory 18 18 18 Rate Blood Pressure 94/48 95/51 121/59 O2 Sat by Pulse 96 97 97 Oximetry 08/15/24 08/15/24 08/15/24 03:15 03:49 05:17 Temperature Pulse Rate 63 70 60 Respiratory 18 18 16 Rate Blood Pressure 114/58 123/65 117/55 O2 Sat by Pulse 98 95 95 Oximetry EKG Findings - EKG Results: EKG: interpreted by ERMD, sinus rhythm (Rate 61 bpm), normal axis, normal ST/T - [place], Pacemaker, Normal: Myocardial infarction: septal [place] (old age or indeterminate) Medical Decision Making - Medical Decision Making Jerome results with the patient and her , including the abnormal kidney studies, electrolytes, and offered admission but the patient states she would feel better going home. She states that her icemaker at home broke so she had stopped taking the usual amount of water that she takes. I stressed that she must follow-up in the next 3 to 5 days and have labs rechecked to ensure that the kidney function is returning to her baseline. We discussed return parameters as well as the appropriate follow-up. Was pt. sent in by a medical professional or institution ([facility], [facility], urgent care, hospital, or custodial...) When possible be specific @ -[No] Did you speak to anyone other than the patient for history (EMS, parent, family, police, friend...)? What history was obtained from this source @ -[No] Did you review nursing and triage notes (agree or disagree)? Why? @ -[I reviewed and agree with nursing and triage notes] Were old charts reviewed (outside hosp., previous admission, EMS record, old EKG, old radiological studies, urgent care reports/EKG's, custodial records)? Report findings @ -[No old charts were reviewed] Differential Diagnosis (chest pain, altered mental status, abdominal pain women, abdominal pain men, vaginal bleeding, weakness, fever, dyspnea, syncope, headac he, dizziness, GI bleed, back pain, seizure, CVA, palpatations, mental health, musculoskeletal)? @ -[Amphetamine Toxicity Anxiety Disorders Apnea, Sleep Cocaine-Related Cardiomyopathy Heart Failure Hyperthyroidism, Thyroid Storm, and Graves Disease Hypertrophic Cardiomyopathy Myocardial Infarction Phencyclidine Toxicity Primary Aldosteronism Stroke, Hemorrhagic Stroke, Ischemic EKG interpreted by me (3pts min.). @ -[Interpreted as above] X-rays interpreted by me (1pt min.). @ -[None done] CT interpreted by me (1pt min.). @ -[None done] U/S interpreted by me (1pt. min.). @ -[None done] What testing was considered but not performed or refused? (CT, X-rays, U/S, labs)? Why? @ -[None] What meds were considered but not given or refused? Why? @ -[None] Did you discuss the management of the patient with other professionals (professionals i.e. , PA, [employer], lab, RT, psych nurse, aids social worker, senior java data architect, teacher, amphibious operations officer, rehabilitation case coordinator)? Give summary @ -[No] Was smoking cessation discussed for >3mins.? @ -[No] Was critical care preformed (if so, how long)? @ -[No] Were there social determinants of health that impacted care today? How? (Homelessness, low income, unemployed, alcoholism, drug addiction, transportation, low edu. Level, literacy, decrease access to med. care, correction, rehab)? @ -[No] Was there de-escalation of care discussed even if they declined (Discuss DNR or withdrawal of care, Hospice)? DNR status @ -[No] What co-morbidities impacted this encounter? (DM, HTN, Smoking, COPD, CAD, Cancer, CVA, ARF, Chemo, Hep., AIDS, mental health diagnosis, sleep apnea, morbid obesity)? @ -[Hypertension Was patient admitted / discharged? Hospital course, mention meds given and route, prescriptions, significant lab abnormalities, going to OR and other pertinent info. @ -[See above Undiagnosed new problem with uncertain prognosis? @ -[No] Drug Therapy requiring intensive monitoring for toxicity (Heparin, Nitro, Insulin, Cardizem)? @ -[No] Were any procedures done? @ -[No] Diagnosis/symptom? @ -Acute hypertension Acute hypomagnesemia Acute hypokalemia Acute kidney injury Acute, or Chronic, or Acute on Chronic? @ -[Acute Uncomplicated (without systemic symptoms) or Complicated (systemic symptoms)? @ -[Uncomplicated] Side effects of treatment? @ -[No] Exacerbation, Progression, or Severe Exacerbation? @ -[No] Poses a threat to life or bodily function? How? (Chest pain, [place], [place], pneumonia, PE, COPD, DKA, ARF, appy, cholecystitis, CVA, Diverticulitis, Homicidal, Suicidal, threat to staff... and all critical care pts) @ -[No] All treatments are based on ideal body weight as in ED triage - Lab Data Result diagrams: 08/15/24 02:36 08/15/24 02:36 Lab Results 08/15/24 08/15/24 08/15/24 Range/Units 02:36 02:36 02:36 WBC 7.73 (4.50-10.00) 10*3/uL RBC 4.22 (4.10-5.20) 10*6/uL Hgb 12.1 (12.0-15.0) g/dL Hct 37.6 (37.2-46.3) % MCV 89.1 (80.0-97.0) fL MCH 28.7 (27.0-32.0) pg MCHC 32.2 (32.0-37.0) g/dL Plt Count 184 (140-440) 10*3/uL MPV 11.1 (9.5-12.2) fL Immature Gran % (Auto) 0.1 % Neutrophils % 57.2 % Lymphocytes % 31.2 % Monocytes % 7.2 % Eosinophils % 3.5 % Basophils % 0.8 % Immature Gran # 0.01 (0.00-0.04) 10*3/uL Neutrophils # 4.42 (1.80-7.70) 10*3/uL Lymphocytes # 2.41 (0.90-5.00) 10*3/uL Monocytes # 0.56 (0.20-1.00) 10*3/uL Eosinophils # 0.27 (0.04-0.35) 10*3/uL Basophils # 0.06 (0.00-0.10) 10*3/uL Sodium 138 (137-145) mmol/L Potassium 3.1 L (3.5-5.1) mmol/L Chloride 97 L (98-107) mmol/L Carbon Dioxide 27 (22-30) mmol/L Anion Gap 14 mmol/L BUN 40 H (7-17) mg/dL Creatinine 1.80 H (0.52-1.04) mg/dL Est GFR (CKD-EPI)AfAm 32 (>60 ml/min/1.73 sqM) Est GFR (CKD-EPI)NonAf 28 (>60 ml/min/1.73 sqM) Glucose 122 H (74-99) mg/dL Plasma Lactic Acid Satish 1.1 (0.7-2.0) mmol/L Calcium 8.9 (8.4-10.2) mg/dL Magnesium 1.4 L (1.6-2.3) mg/dL Total Bilirubin 0.4 (0.2-1.3) mg/dL AST 22 (14-36) U/L ALT 19 (4-34) U/L Alkaline Phosphatase 111 (38-126) U/L Troponin I (0.000-0.034) ng/mL Total Protein 6.5 (6.3-8.2) g/dL Albumin 4.1 (3.5-5.0) g/dL Serum Alcohol <10 mg/dL 08/15/24 Range/Units 02:36 WBC (4.50-10.00) 10*3/uL RBC (4.10-5.20) 10*6/uL Hgb (12.0-15.0) g/dL Hct (37.2-46.3) % MCV (80.0-97.0) fL MCH (27.0-32.0) pg MCHC (32.0-37.0) g/dL Plt Count (140-440) 10*3/uL MPV (9.5-12.2) fL Immature Gran % (Auto) % Neutrophils % % Lymphocytes % % Monocytes % % Eosinophils % % Basophils % % Immature Gran # (0.00-0.04) 10*3/uL Neutrophils # (1.80-7.70) 10*3/uL Lymphocytes # (0.90-5.00) 10*3/uL Monocytes # (0.20-1.00) 10*3/uL Eosinophils # (0.04-0.35) 10*3/uL Basophils # (0.00-0.10) 10*3/uL Sodium (137-145) mmol/L Potassium (3.5-5.1) mmol/L Chloride (98-107) mmol/L Carbon Dioxide (22-30) mmol/L Anion Gap mmol/L BUN (7-17) mg/dL Creatinine (0.52-1.04) mg/dL Est GFR (CKD-EPI)AfAm (>60 ml/min/1.73 sqM) Est GFR (CKD-EPI)NonAf (>60 ml/min/1.73 sqM) Glucose (74-99) mg/dL Plasma Lactic Acid Satish (0.7-2.0) mmol/L Calcium (8.4-10.2) mg/dL Magnesium (1.6-2.3) mg/dL Total Bilirubin (0.2-1.3) mg/dL AST (14-36) U/L ALT (4-34) U/L Alkaline Phosphatase (38-126) U/L Troponin I <0.012 (0.000-0.034) ng/mL Total Protein (6.3-8.2) g/dL Albumin (3.5-5.0) g/dL Serum Alcohol mg/dL Disposition Clinical Impression: Acute kidney injury, Hypomagnesemia, Hypokalemia Disposition: HOME SELF-CARE Condition: Fair Instructions (If sedation given, give patient instructions): Dehydration (ED), Hypokalemia (ED) Prescriptions: Potassium Chloride ER [K-Dur 20] 20 meq PO BID #10 tab Magnesium Oxide [Magox 400] 400 mg PO DAILY #20 tablet Is patient prescribed a controlled substance at d/c from ED?: No Referrals: Rocky Freeman MD [Primary Care Provider] - 1-2 days
[2024-08-15 03:04] LABS: Basophils # (A) 0.06 10*3/uL (0.00-0.10); Basophils % (A) 0.8 %; Eosinophils # (A) 0.27 10*3/uL (0.04-0.35); Eosinophils % (A) 3.5 %; HCT 37.6 % (37.2-46.3); HGB 12.1 g/dL (12.0-15.0); Lymphocytes # (A) 2.41 10*3/uL (0.90-5.00); Lymphocytes % (A) 31.2 %; MCH 28.7 pg (27.0-32.0); MCHC 32.2 g/dL (32.0-37.0); MCV 89.1 fL (80.0-97.0); Mean Platelet Volume 11.1 fL (9.5-12.2); Monocytes # (A) 0.56 10*3/uL (0.20-1.00); Monocytes % (A) 7.2 %; Neutrophils # (A) 4.42 10*3/uL (1.80-7.70); Neutrophils % (A) 57.2 %; Platelet Count 184 10*3/uL (140-440); RBC 4.22 10*6/uL (4.10-5.20); RDW 14.2 % (11.5-14.5); WBC 7.73 10*3/uL (4.50-10.00)
[2024-08-15 03:50] LABS: ALT 19 U/L (4-34); AST 22 U/L (14-36); African American GFR (CKD) 32 (>60 ml/min/1.73 sqM); Albumin 4.1 g/dL (3.5-5.0); Alcohol <10 mg/dL; Alkaline Phosphatase 111 U/L (38-126); Anion Gap 14 mmol/L; Blood Urea Nitrogen 40 mg/dL (7-17); Calcium 8.9 mg/dL (8.4-10.2); Carbon Dioxide 27 mmol/L (22-30); Chloride 97 mmol/L (98-107); Glucose 122 mg/dL (74-99); Magnesium 1.4 mg/dL (1.6-2.3); Non-African American GFR(CKD) 28 (>60 ml/min/1.73 sqM); Potassium 3.1 mmol/L (3.5-5.1); Sodium 138 mmol/L (137-145); Total Bilirubin 0.4 mg/dL (0.2-1.3); Total Protein 6.5 g/dL (6.3-8.2)
[2024-08-15] MEDS: POTASSIUM CHLORIDE ER 20 MEQ TAB.ER PO STA (04:54)
[2024-08-15] MEDS: MAGNESIUM SULFATE-D5W PMX 1 GM in DEXTROSE/WATER 1 100ML.BAG IVPB ONE (04:54)
[2024-08-15 05:18] VITALS: BP 117/55; PULSE 60; RESP 16
== END 2024-08-15 06:23 | disposition home or self-care (01) ==
LOC: EC 01:31
DX: I10 Essential (primary) hypertension (principal); E83.42 Hypomagnesemia; E87.6 Hypokalemia; N17.9 Acute kidney failure, unspecified; Z79.82 Long term (current) use of aspirin; Z79.899 Other long term (current) drug therapy; Z88.0 Allergy status to penicillin; Z88.2 Allergy status to sulfonamides; Z88.8 Allergy status to other drugs, medicaments and biological substances; Z87.891 Personal history of nicotine dependence
CPT/HCPCS: 36415; 93005; 80053; 83605; 83735; 84484; 85025; 99285; 96365; 96375; G0480; J3475; 80320

== ENCOUNTER → 2024-09-01 | Outpatient (CLI) | payer MEDICARE, BC ==
[2024-09-01 18:57] LABS: Blood Urea Nitrogen 24.7 mg/dL (9.0-27.0); C Reactive Protein <0.30 mg/dL (0.00-0.80); Calcium 9.5 mg/dL (8.7-10.3); Carbon Dioxide 25.2 mmol/L (21.6-31.8); Chloride 108 mmol/L (96-109); Glucose 116 mg/dL (70-110); Magnesium 1.9 mg/dL (1.5-2.4); Potassium 4.6 mmol/L (3.5-5.5); Sodium 145 mmol/L (135-145)
== END | disposition home or self-care (01) ==
LOC: LABWHC1 12:10
PROVIDERS: ATTEND Internal Medicine
DX: E11.65 Type 2 diabetes mellitus with hyperglycemia (principal); N18.4 Chronic kidney disease, stage 4 (severe); E87.8 Other disorders of electrolyte and fluid balance, not elsewhere classified; I10 Essential (primary) hypertension
CPT/HCPCS: 36415; 80048; 83036; 83735; 85652; 86140